=== PATIENT | male | born 1955 | race Caucasian/White ===

== ENCOUNTER → 2016-05-10 | Outpatient (CLI) | payer OTHER ==
[~2016-05-10] MED LIST: ACET-1256 PO; BUPR-266 PO; DESI150T PO; DESI25TA PO; FLM4 PO; HYDR-5688 PO; HYDR25TA4 PO; IBUP-1050 PO; METO1TAB71 PO; PANT40TA PO; SERT100T PO; TAMS0.4C38 PO
--- NOTE | 2016-05-10 15:22 | EXERCISE STRESS TEST ---
DATE OF PROCEDURE: 05/10/2016. INDICATIONS FOR STRESS TESTING: Exertional chest discomfort. This was a symptom-limited maximal stress test performed with the Javed protocol. The patient exercised through stage II (6 minutes). The test was terminated for shortness of breath and fatigue, however he also developed substernal and throat burning at the completion of the test The rhythm was sinus throughout, the maximum heart rate was 151 beats per minute which is 93% of his predicted maximal heart rate. During the stress test, there was no significant ST depression. However, during recovery he gradually developed ST depression of over 1 mm of downsloping in lead 2. This occurred at about 4 minutes of recovery, but was gradually dropping prior to that during recovery and then gradually recovered from that subsequently. There were no significant arrhythmias identified. The blood pressure response was normal during the test.
--- NOTE | 2016-05-10 19:25 | ECHOCARDIOGRAM REPORT ---
*NOTICE TO RECEIVING CONSTITUTION PARTY AGENCY This information is strictly Confidential and protected under [place] law. [place] law prohibits you from making any further disclosure of this information unless further disclosure is expressly permitted by the written consent of the person to whom it pertains or is authorized by law. A general authorization for the release of medical or other information is not sufficient for this purpose. Hospital accepts no responsibility if the information is made available to any other person, INCLUDING THE PATIENT. Interpretation Summary * Name: KARTHIKEYAN ANNA Study Date: 05/10/2016 01:16 PM BP: 124/83 mmHg * Patient Location: [facility] HR: 81 * : 1955 (M/d/yyyy) Gender: Male Height: 68 in * Age: 60 yrs Ethnicity: CA Weight: 245 lb * Ordering Physician: Tiny Larson * Referring Physician: Tiny Larson * Performed By: Ana Rosa Frances RCS * * Reason For Study: CHEST PAIN * BSA: 2.2 m2 * Normal biventricular systolic function. * Mild concentric left ventricular hypertrophy. * Left ventricular diastolic dysfunction. * Normal chamber dimensions. * Trace mitral and tricuspid regurgitation. * After this resting echo had been performed the patient underwent a routine treadmill exercise stress test. This was not a stress echocardiogram. However, one apical 4 chamber echo image was obtained following exercise. This revealed an increase in the LV ejection fraction compared to rest and no segmental wall motion abnormalities of the left ventricle. Procedure Details * A complete two-dimensional transthoracic echocardiogram was performed (2D, M-mode, Doppler and color flow Doppler). Left Ventricle * The left ventricle is normal in size. * There is mild concentric left ventricular hypertrophy. * Left ventricular systolic function is normal. * Ejection Fraction = 55-60%. * A full diastolic examination was done with clinical findings of Class I diastolic dysfunction. * The left ventricular wall motion is normal. Right Ventricle * The right ventricle is normal in size and function. Atria * The left atrial size is normal. * Right atrial size is normal. * No ASD detected; PFO is not assessed. Mitral Valve * There is mild mitral annular calcification. * There is no mitral valve stenosis. * There is trace mitral regurgitation. Tricuspid Valve * The tricuspid valve is normal. * There is no tricuspid stenosis. * There is trace tricuspid regurgitation. Aortic Valve * The aortic valve is trileaflet. * The aortic valve opens well. * Aortic stenosis is absent. * No aortic regurgitation is present. Pulmonic Valve * The pulmonic valve is not well visualized. * There is no pulmonic valvular stenosis. * There is no pulmonic valvular regurgitation. Great Vessels * The aortic root is normal size. Pericardium/Pleural * There is no pericardial effusion. Great Vessels * Normal inferior vena cava diameter and respiratory variation suggests normal central venous pressure. MMode 2D Measurements and Calculations IVSd 1.4 cm IVSs 1.8 cm LVIDd 3.7 cm LVIDs 2.5 cm LVPWd 1.4 cm LVPWs 1.4 cm IVS/LVPW 0.98 FS 32.1 % EDV(Teich) 56.6 ml ESV(Teich) 22.0 ml EF(Teich) 61.2 % EDV(cubed) 49.0 ml ESV(cubed) 15.3 ml EF(cubed) 68.7 % % IVS thick 33.0 % % LVPW thick 2.5 % LV mass(C)d 179.7 grams LV mass(C)dI 80.6 grams/m\S\2 LV mass(C)s 144.2 grams LV mass(C)sI 64.7 grams/m\S\2 SV(Teich) 34.6 ml SI(Teich) 15.5 ml/m\S\2 SV(cubed) 33.7 ml SI(cubed) 15.1 ml/m\S\2 Ao root diam 3.7 cm Ao root area 10.8 cm\S\2 ACS 1.9 cm LA dimension 2.9 cm LA/Ao 0.78 LVOT diam 2.0 cm LVOT area 3.1 cm\S\2 LVAd ap4 36.4 cm\S\2 LVLd ap4 8.3 cm EDV(MOD-sp4) 127.4 ml EDV(sp4-el) 135.9 ml LVAs ap4 22.7 cm\S\2 LVLs ap4 7.0 cm ESV(MOD-sp4) 61.3 ml ESV(sp4-el) 62.7 ml EF(MOD-sp4) 51.8 % EF(sp4-el) 53.8 % LVAd ap2 36.3 cm\S\2 LVLd ap2 8.8 cm EDV(MOD-sp2) 119.6 ml EDV(sp2-el) 126.9 ml LVAs ap2 22.8 cm\S\2 LVLs ap2 7.8 cm ESV(MOD-sp2) 56.6 ml ESV(sp2-el) 56.8 ml EF(MOD-sp2) 52.7 % EF(sp2-el) 55.2 % LVLd %diff 5.7 % EDV(MOD-bp) 127.4 ml LVLs %diff 10.1 % ESV(MOD-bp) 62.0 ml EF(MOD-bp) 51.3 % SV(MOD-sp4) 66.0 ml SI(MOD-sp4) 29.6 ml/m\S\2 SV(MOD-sp2) 63.0 ml SI(MOD-sp2) 28.3 ml/m\S\2 SV(MOD-bp) 65.4 ml SI(MOD-bp) 29.3 ml/m\S\2 SV(sp4-el) 73.1 ml SI(sp4-el) 32.8 ml/m\S\2 SV(sp2-el) 70.1 ml SI(sp2-el) 31.5 ml/m\S\2 Doppler Measurements and Calculations MV E max sofia 85.9 cm/sec MV A max sofia 114.0 cm/sec MV E/A 0.75 MV P1/2t max sofia 97.0 cm/sec MV P1/2t 135.4 msec MVA(P1/2t) 1.6 cm\S\2 MV dec slope 209.7 cm/sec\S\2 MV dec time 0.33 sec Ao V2 max 158.0 cm/sec Ao max PG 10.0 mmHg Ao max PG (full) 4.5 mmHg PILLO(V,A) 2.3 cm\S\2 PILLO(V,D) 2.3 cm\S\2 LV V1 max PG 5.5 mmHg LV V1 max 117.0 cm/sec PA V2 max 130.3 cm/sec PA max PG 6.8 mmHg
== END | disposition home or self-care (01) ==
LOC: C.CPL 12:27
PROVIDERS: ATTEND Family Medicine
DX: R07.89 Other chest pain (principal); R06.02 Shortness of breath

== ENCOUNTER → 2016-05-17 | Outpatient (CLI) | payer OTHER ==
[2016-05-17 16:40] LABS: HEMATOCRIT 38.6 % (42-52); MEAN CELL VOLUME 88.9 fL (80-100); MEAN CORPUSCULAR HEMOGLOBIN 29.3 pg (25-34); MEAN CORPUSCULAR HGB CONC 32.9 g/dl (32-36); MEAN PLATELET VOLUME 11.1 fL (7.4-10.4); PLATELET COUNT 279 K/uL (130-400); RED BLOOD COUNT 4.34 M/uL (4.7-6.1); WHITE BLOOD COUNT 13.28 K/uL (4.8-10.8)
[2016-05-17 16:54] LABS: PROTHROMBIN TIME (PATIENT) 10.8 SECONDS (9.0-12.0)
[2016-05-17 17:29] LABS: BLOOD UREA NITROGEN 22 mg/dl (7-18); CALCIUM 9.4 mg/dl (8.5-10.1); CARBON DIOXIDE 26 mmol/L (21-32); CHLORIDE 107 mmol/L (98-107); CREATININE 0.96 mg/dl (0.60-1.40); GLUCOSE 112 mg/dl (70-99); POTASSIUM 2.9 mmol/L (3.5-5.1); SODIUM 143 mmol/L (136-145)
== END | disposition home or self-care (01) ==
LOC: C.LAB1850 15:22
PROVIDERS: ATTEND Internal Medicine Interventional Cardiology
DX: Z01.818 Encounter for other preprocedural examination (principal)

== ENCOUNTER → 2016-05-22 | Day surgery (SDC) | payer OTHER ==
[~2016-05-22] VITALS: Ht 172.7 cm; Wt 114.0 kg
[~2016-05-22] MED LIST changes: +ADENOSINE IV SOLN 3 MG/ML 20 ML VIAL ONE; +FENTANYL CITRATE INJ 50 MCG/1 ML 2 ML VIAL ONE; +HEPARIN SOD (PORCINE) 1000 UNIT/ML 10 ML VIAL ONE; +MIDAZOLAM HCL 1 MG/ML 2ML VIAL ONE; +NITROGLYCERIN/D5W 100MCG/ML 20ML SYR ONE; +NiCARDipine HCL INJ 2.5 MG/ML 10 ML AMP ONE; +POTASSIUM CHLORIDE 20 MEQ TABCR PO ONE
[2016-05-22 09:24] VITALS: Ht 172.7 cm; Wt 114.0 kg
[2016-05-22 09:25] VITALS: BP 154/85; PULSE 79; TEMP 36.5; O2SAT 98
[2016-05-22 10:31] LABS: BUN/CREATININE RATIO 18.9 (10-20); CALCIUM 9.1 mg/dl (8.5-10.1); CREATININE 1.1 mg/dl (0.60-1.40)
[2016-05-22] MEDS: POTASSIUM CHLR 10 MEQ / WTR 10 MEQ in PREMIXED WATER 100 ML IV SCH ×2 (12:00→13:00)
--- NOTE | 2016-05-22 15:14 | Discharge Instructions ---
Discharge Instructions Procedure Procedure Date: May 22, 2016. Reason for Visit: *Dr Romero To Do Chest Pressure,Sob. Discharge Discharge Date: May 22, 2016. Discharge Diagnosis: Mild coronary artery disease - No significant blockages Last Recorded Wt (Kilograms): 114 Anesthesia Post Anesthesia Instructions: If you have had IV Sedation: * Do not drive today. * Resume driving when pharmacy ancillary permits. * Do not make important decisions or sign legal documents today. * Call surgeon for: 1. Temperature elevations greater than 101 degrees F. 2. Uncontrollable pain. 3. Excessive bleeding. 4. Persistent nausea and vomiting. 5. Medication intolerance (nausea, vomiting or rash). * For nausea and vomiting use only clear liquids such as: tea, soda, bouillon until nausea subsides, then gradually increase diet as tolerated. * If you have any concerns or questions, call your cardiologists office. If physician is unavailable and it is an emergency, call 911 or go to the nearest emergency room. Instructions Activity Recommendations: limitations as noted below Recommended Home Diet: resume previous diet Allergies: Coded Allergies: No Known Allergies (Verified , 03/15/16) Follow Up Additional Instructions: ACTIVITY RECOMMENDATIONS: It is common to feel weak and fatigue for a few days. * Do not drive or operate any motorized equipment for the next three days. * Limit stair usage (2 or 3 trips a day only) for the next three days. * Do not lift anything heavier than 10 pounds for the next three days. * Do not engage in vigorous exercise or any sports for the next five days. * You may shower the day after your procedure, but do not immerse the area for three days. Cleanse the site gently with soap and water. SPECIAL CARE INSTRUCTIONS: * You may replace the pressure dressing or band-aid the morning after the procedure. * After your procedure, it is normal to have a small bruise or small lump at the site. Examine your site daily for any change in the bruise or lump, redness, swelling, drainage or numbness. Notify your doctor if any change. BLEEDING: * If there is a small amount of bleeding at the site, lie down and apply firm pressure with a clean cloth for ten minutes. When the bleeding stops, lie quietly keeping the procedure limb straight for six hours. Notify your doctor as soon as possible. * If the bleeding does not stop after ten minutes or if there is a large amount of bleeding or spurting, call 911 immediately. Continue to lie down and hold firm pressure until help arrives. SKIN IRRITATION: * You may experience some redness and/or swelling in the area where radiation was administered. If any skin irritation occurs, please contact your family physician. FOLLOW UP VISIT: Keep any scheduled doctor appointments. Follow-up with: Follow-up with Dr. Grimes, Cardiology clinic in 2-3 weeks. Cali Melendez Recommendations: Call your doctor if: * Temperature above 101 degrees * Pain not relieved by pain medicine ordered * There is increased drainage or redness from any incision * You have any unanswered questions or concerns. Your Doctors Instructions noted above were prepared by provider Sandor Romero. Patient Signature Section: Patient Instructions Signature Page Archie Ruiz Patient (or Guardian) Signature/Date: I have read and understand the instructions given to me by my caregivers. Caregiver/RN/Doctor Signature/Date: The above-named patient and/or guardian has received patient instructions on this date. + Original Patient Signature Page (only) stays with chart. Please make copy for patient.
--- NOTE | 2016-05-22 15:16 | Procedure Note ---
Post-Mod Sedation Assessment General Date of Moderate Sedation May 22, 2016. Vital Signs: Vital Signs Past 12 Hours Date Time Temp Pulse Resp B/P Pulse Ox O2 Delivery O2 Flow Rate FiO2 05/22/16 14:55 77 18 144/84 95 Room Air 05/22/16 09:25 36.5 79 16 154/85 98 Room Air Review - Discharge Criteria Vital Signs Stable: Yes Alert/Oriented/Conversant: Yes Returned to Baseline Mental St: Yes Nausea Absent/Minimal: Yes Pain/Discomfort/Absent/Minimal: Yes Normal/Baseline Respirations: Yes Active Bleeding?: No Pt Received D/C Instructions: Yes Prescriptions Given: None Specific Proced. D/C Criteria Distal Pulses Present (Cardiac: Yes Groin site assessed-Card Cath: N/A Voided Prior To Discharge: Yes Discharged Patients Adult Escort/Transportation: Yes
--- NOTE | 2016-05-22 15:16 | Procedure Note ---
Pre-Mod Sedation Assessment General Date of Moderate Sedation: May 22, 2016. Vital Signs: Vital Signs Past 12 Hours Date Time Temp Pulse Resp B/P Pulse Ox O2 Delivery O2 Flow Rate FiO2 05/22/16 14:55 77 18 144/84 95 Room Air 05/22/16 09:25 36.5 79 16 154/85 98 Room Air Review Cardiovascular: regular rate, rhythm, no edema Abdomen: normal bowel sounds, non tender, soft Lungs: chest non-tender, lungs clear, normal breath sounds Airway Class: II Pre-Sedation Airway Assessment Oral Cavity: WNL Able to Visualize Vocal Cords: No Short Thick Neck: No Hx of Sleep Apnea: No Smoking Status: Never Smoker Mallampati Classification: Class III ASA Classification: Class II Procedure Planning Contraindications-for Mod Sed: None Yes Notes The planned sedation has been discussed with the patient and consent obtained. I have identified the patient, determined the appropriateness of sedation and have assessed the patient immediately prior to the procedure. All medicine(s) and interventions are by my order.
--- NOTE | 2016-05-22 15:31 | Cardiac Catheterization ---
Procedure Note Procedure Date May 22, 2016. Pre-Procedure Diagnosis Angina, Positive Stress Test AUC Score 7 Post-Procedure Diagnosis Mild CAD Procedure(s) Performed Coronary Angiography, Left Heart Cath, Fractional Flow [place] [facility] Support Assistant Dr. Romero Reed Dipper(s) Leroy Estimated Blood Loss 15 Medication(s) Fentanyl, Heparin, Nitroglycerin, Versed, Lidocaine 1% Summary of Findings Indication: Typical chest pain/Abnormal stress test Access: 6Fr Right Radial Artery Catheters: Felisa, JL3.5, JL3.5 guide Findings: LM - Luminal irregularities LAD - Large caliber vessel, mild (<30%) disease in the mid segment, distal luminal irregularities. Circumflex - Nondominant, luminal irregularities Ramus - 30-40% ostial stenosis, distal luminal irregularities RCA - Dominant, large vessel, mild proximal disease, distal luminal irregularities. 20-30% ostial stenosis of R-PDA and R-PLB1 Arterial Closure: TR Band Ostial Ramus lesion thought to be intermediate. Decision made to proceed with FFR. FFR 0.98. FFR complicated by complete heart block without ventricular escape. Quick return to sinus rhythm with normal conduction. Summary: 1. Mild-moderate nonobstructive coronary artery disease - 30-40% ostial ramus - FFR negative (0.98). 2. Normal intracardiac filling pressures. 3. Normal LV systolic function. LVEF 55-60%. Recommendations: Continue home beta-miguel ángel, statin and ASA Evaluate for non-cardiac causes of exertional symptoms. Follow-up with cardiology clinic 2-4 weeks for further management Hemodynamics Rest Ao: 112/77/94 Final Ao: 121/76/98 LV: 127/15 Radiation Exposure (mGy) 2309 Contrast (mls) 150 Fluids (cc crystalloids) 200 Drains none Anesthesia moderate Procedural Complication(s) None Disposition [employer] Analyst Holding/Recovery ACC Data Cardiac Status Clinical evaluation leading to the procedure CAD Presntation: Stable angina, Positive Stress Test Anginal Classification: CCS III Heart Failure: No, NYHA Class: CCS I Cardiogenic Shock w/in 24Hrs: No Cardiac Arrest w/in 24Hrs: No Imaging studies past 6 months: Yes Stress studies past 6 months: Yes Standard Exercise Stress Test: Yes - Indeterminant Stress Echocardiogram: No Stress Testing w/SPECT MPI: No Cardiac CTA: No Coronary Anatomy Left Main (% Stenosis): Normal LAD (% Stenosis): Normal Circumflex (% Stenosis): Normal RCA (% Stenosis): Proximal (20-30) Ramus (% Stenosis): Ostial (30-40%) Left Ventricular Angiography EF (%): 55-60 Mitral Regurgitation: 1+ Diagnostic Physician's Name: Javier Romero MD Status: Elective Closure Device Percutaneous Entry Location: Radial Closure Device: Radial Band Recommendations: Medical therapy and/or Counseling Intraprocedure Events Significant Dissection: No Perforation: No
[2016-05-22 17:00] VITALS: BP 132/80; PULSE 70; O2SAT 96
== END | disposition home or self-care (01) ==
LOC: C.CATH 09:12
PROVIDERS: ATTEND Internal Medicine Interventional Cardiology
DX: I25.119 Atherosclerotic heart disease of native coronary artery with unspecified angina pectoris (principal); I10 Essential (primary) hypertension; R07.9 Chest pain, unspecified; R06.02 Shortness of breath; E11.9 Type 2 diabetes mellitus without complications; E66.01 Morbid (severe) obesity due to excess calories; Z68.38 Body mass index [BMI] 38.0-38.9, adult; K22.70 Barrett's esophagus without dysplasia; Z87.891 Personal history of nicotine dependence; Z79.899 Other long term (current) drug therapy

== ENCOUNTER 2016-07-23 18:44 | Emergency (ER) | payer OTHER ==
[~2016-07-23] VITALS: Ht 172.7 cm; Wt 113.3 kg
[~2016-07-23 18:44] MED LIST changes: -ADENOSINE IV SOLN 3 MG/ML 20 ML VIAL ONE; -BUPR-266 PO; -DESI150T PO; -FENTANYL CITRATE INJ 50 MCG/1 ML 2 ML VIAL ONE; -FLM4 PO; -HEPARIN SOD (PORCINE) 1000 UNIT/ML 10 ML VIAL ONE; +METO-649 PO; -METO1TAB71 PO; -MIDAZOLAM HCL 1 MG/ML 2ML VIAL ONE; -NITROGLYCERIN/D5W 100MCG/ML 20ML SYR ONE; -NiCARDipine HCL INJ 2.5 MG/ML 10 ML AMP ONE; -POTASSIUM CHLORIDE 20 MEQ TABCR PO ONE
[2016-07-23 18:51] VITALS: TEMP 36.7; Ht 172.7 cm; Wt 113.3 kg
[2016-07-23] MEDS ORDERED: ONDANSETRON INJ 2 MG/ML 2 ML VIAL IV STA (18:56)
[2016-07-23] MEDS ORDERED: SODIUM CHLORIDE 0.9% 500ML 500 ML IV STA (18:56)
[2016-07-23] MEDS ORDERED: NITROGLYCERIN 0.4 MG SL PER TAB CHARGE SL STA (18:56)
[2016-07-23] MEDS ORDERED: GLUCAGON FOR INJ 1 MG VIAL IV STA (18:56)
[2016-07-23] MEDS ORDERED: LORAZEPAM 2 MG/ML 1 ML VIAL IV STA (18:56)
--- NOTE | 2016-07-23 19:00 | EMERGENCY ROOM VISIT NOTE ---
History Report prepared by Sabiha: Tuan Villatoro Under the Supervision of: Dr. Rodrigo Lemos M.D. First contact with patient: 18:54 Chief Complaint: FOOD BOLUS Stated Complaint: FOOD STUCK IN THROAT History of Present Illness The patient is a 60 year old male who presents to the Emergency Room with complaints of a possible food bolus in his esophagus that occurred 45 minutes ago. The patient was eating steak for dinner, when he believes that a piece of steak got caught in his esophagus. He has never had this happened to him before. He is experiencing chest discomfort, diaphoresis, and minimal emesis. He notes that he cannot swallow. He denies any nausea. He has been told in the past that he has a Wagner's esophagus. He has a past medical history of Hypertension. Source of History: patient Onset: 45 minutes ago Position: other (Esophagus) Symptom Intensity: moderate Quality: other (Food Bolus) Timing: constant Associated Symptoms: + chest pain (discomfort), + diaphoresis, + vomiting, No nausea Review of Systems See HPI for pertinent positives & negatives. A total of 10 systems reviewed and were otherwise negative. Past Medical & Surgical Medical Problems: (1) Benign hypertension (2) Kidney stone Surgical Problems: (1) History of cholecystectomy Family History FH: cancer FH: diabetes mellitus FH: gallbladder disease FH: hypertension FH: kidney disease FH: seizures Social History Smoking Status: Former Smoker Drug Use: none Housing Status: lives alone Occupation Status: unemployed Current/Historical Medications Scheduled Desipramine Hcl (Norpramin), 25 MG PO QPM Hydrochlorothiazide (Hctz), 25 MG PO HS Metoprolol Succinate (Toprolxl (Toprol-Xl), 200 MG PO HS Pantoprazole Sodium (Protonix), 1 TAB PO HS Sertraline Hcl (Zoloft), 100 MG PO HS Tamsulosin Hcl (Flomax), 0.4 MG PO HS Scheduled PRN Acetaminophen (Tylenol), 500-1,000 MG PO Q6H PRN for Pain Hydrocodone/Acetaminophen 5MG/325MG ([place] 5MG/325MG), 1 TABLET PO Q6H PRN for Pain Ibuprofen (Advil), 200-800 MG PO QID PRN for Pain Allergies Coded Allergies: No Known Allergies (Verified , 07/23/16) Physical Exam Vital Signs Date Time Temp Pulse Resp B/P Pulse Ox O2 Delivery O2 Flow Rate FiO2 4/30/17 19:39 85 18 149/89 97 07/23/16 18:51 36.7 106 20 144/97 97 Room Air Physical Exam GENERAL: Patient is in mild distress, spitting into a cup. HEENT: No acute trauma, normocephalic atraumatic, mucous membranes moist, no nasal congestion, no scleral icterus. NECK: No stridor, no adenopathy, no meningismus, trachea is midline. LUNGS: Clear to auscultation bilaterally, no wheeze, no rhonchi, breath sounds equal. HEART: 2/6 systolic murmur, mild tachycardia with a normal rhythm. ABDOMEN: Soft, nontender, bowel sounds positive, no hernias, no peritonitis. EXTREMITIES: No cyanosis or edema, full range of motion of all the joints without pain or difficulty, no signs for acute trauma. NEUROLOGIC: Oriented x 3, no acute motor or sensory deficits, no focal weakness. SKIN: No rash, no jaundice, mild diaphoresis. Medical Decision & Procedures ECG Indication: diaphoresis Rate (beats per minute): 97 Rhythm: normal sinus Findings: no acute ischemic change, no ectopy ED Course 1853: The patient was evaluated in room C1. A complete history and physical exam was performed. 0: At this time, I was informed that the patient believes that the food bolus has passed. I will have him drink water to confirm this. 1921: The patient is able to drink water. He has passed the food bolus on his own without medication. He feels back to baseline. 1929: Reevaluated the patient. Discussed results and discharge instructions: He verbalized understanding and agreement. The patient is ready for discharge. Medical Decision Differential diagnosis includes but is not limited to esophageal food bolus, esophageal narrowing, Wagner's esophagitis, cardiac ischemia, and esophageal spasm. The patient presents with the sensation of a piece of food caught in his esophagus. He cannot swallow his own saliva. He was quite sweaty and slightly nauseated. EKG shows a normal sinus rhythm, no acute ischemia. The patient was being readied for an IV and medications to help dilate the esophageal musculature. He suddenly felt improved. He felt as if the food bolus had passed. He could drink liquid on his own without difficulty. The IV was halted and no medications were given. The patient is being discharged to follow with GI. He sees Dr. Merlos. He can return here if worsening. Impression Primary Impression: Esophageal obstruction due to food impaction Scribe Attestation The scribe's documentation has been prepared under my direction and personally reviewed by me in its entirety. I confirm that the note above accurately reflects all work, treatment, procedures, and medical decision making performed by me. Departure Information Dispostion Home / Self-Care Referrals Tiny Larson M.D. Forms HOME CARE DOCUMENTATION FORM, IMPORTANT VISIT INFORMATION, WORK / SCHOOL INSTRUCTIONS Patient Instructions [facility] Additional Instructions smaller bites more liquid with meals chew better talk with your GI doctor tomorrow
[2016-07-23 19:39] VITALS: BP 149/89; PULSE 85; O2SAT 97
[2016-10-24] MEDS ORDERED: DESI150T PO (15:40)
== END 2016-07-23 19:42 | disposition home or self-care (01) ==
LOC: C.EDB 18:45 → C.EDC 19:42
DX: T18.128A Food in esophagus causing other injury, initial encounter (principal); X58.XXXA Exposure to other specified factors, initial encounter; I10 Essential (primary) hypertension; Z87.442 Personal history of urinary calculi; Z90.49 Acquired absence of other specified parts of digestive tract; Z87.891 Personal history of nicotine dependence; Z79.899 Other long term (current) drug therapy; Z80.9 Family history of malignant neoplasm, unspecified; Z83.3 Family history of diabetes mellitus; Z83.79 Family history of other diseases of the digestive system; Z82.49 Family history of ischemic heart disease and other diseases of the circulatory system; Z84.1 Family history of disorders of kidney and ureter; Z82.0 Family history of epilepsy and other diseases of the nervous system

== ENCOUNTER → 2016-07-31 | Day surgery (SDC) | payer OTHER ==
[2016-07-20 10:56] VITALS: Ht 172.7 cm; Wt 111.4 kg
[~2016-07-31] VITALS: Ht 172.7 cm; Wt 111.4 kg
[~2016-07-31] MED LIST changes: +DESI150T PO; +LIDOCAINE HCL 2% 2 ML VIAL (20MG/ML) ONE; +MIDAZOLAM HCL 1 MG/ML 2ML VIAL ONE; +ONDANSETRON INJ 2 MG/ML 2 ML VIAL ONE; +PROPOFOL IV EMULSION 10 MG/ML 20 ML VIAL IV ONE; +SODIUM CHLORIDE 0.9% 500ML 500 ML IV ONE
--- NOTE | 2016-07-31 11:16 | Endo History and Physical ---
History & Physical Date of Service: July 31, 2016. Chief Complaint: Barretts Esophagus Referring Physician: Dr Tiny Larson History of Present Illness 60 yo CM who presents for EGD secondary to Wagner's Esophagus. Past Surgical History Hx Cardiac Surgery: Yes (HEART CATH-NO STENTS) Hx Internal Defibrillator: No Hx Pacemaker: No Hx Abdominal Surgery: Yes (DIONISIO) Hx of Implantable Prosthesis: No Hx Post-Op Nausea and Vomiting: No Hx Cancer Surgery: No Hx Thoracic Surgery: No Hx Orthopedic: Yes (LEFT ARM FX REPAIR) Hx Urinary Tract Surgery: No Social History Smoking Status: Former Smoker Hx Substance Use: No Hx Alcohol Use: Yes (VERY RARELY) Allergies Coded Allergies: No Known Allergies (Verified , 07/23/16) Current Medications Reported Home Medications Medications Dose Route/Sig Max Daily Dose Days Date Category Dose Instructions Flomax (Tamsulosin Hcl) 0.4 Mg Cap 0.4 Mg PO HS 05/22/16 Reported [place] 5MG/325MG (Acetaminophen/Hydrocodone Bitart) Tab 1 Tablet PO Q6H PRN 05/22/16 Reported PRN PAIN Norpramin (Desipramine Hcl) 25 Mg Tab 25 Mg PO QPM 05/22/16 Reported Protonix (Pantoprazole Sodium) 40 Mg Tab 1 Tab PO HS 30 03/14/16 Reported Hctz (Hydrochlorothiazide) 25 Mg Tab 25 Mg PO HS 02/13/16 Reported Tylenol (Acetaminophen) 500 Mg Tab 500-1,000 Mg PO Q6H PRN 01/18/16 Reported Zoloft (Sertraline Hcl) 100 Mg Tab 100 Mg PO HS 01/18/16 Reported Advil (Ibuprofen) 200 Mg Tab 200-800 Mg PO QID PRN 12/21/15 Reported Toprol-Xl (Metoprolol Succinate) 200 Mg Tabcr 200 Mg PO HS 07/25/12 Reported Vital Signs Weight (Kilograms): 111.36 Height (Feet): 5 Height (Inches): 8 Date Time Temp Pulse Resp B/P Pulse Ox O2 Delivery O2 Flow Rate FiO2 07/31/16 10:37 36.7 82 20 145/81 97 Room Air Physical Exam General Appearance: WD/WN, no apparent distress Respiratory/Chest: Auscultation: breath sounds normal Cardiovascular: Heart Auscultation: RRR Abdomen: Bowel Sounds: normal Inspection & Palpation: soft, non-distended, no tenderness, guarding & rebound Assessment and Plan Assessment: 60 yo CM who presents for EGD secondary to Wagner's Esophagus. Plan: Proceed with EGD.
--- NOTE | 2016-07-31 11:31 | GI REPORT ---
Procedure Date: 07/31/2016 11:17 AM Procedure: Upper GI endoscopy Indications: Follow-up of Wagner's esophagus Medicines: Monitored Anesthesia Care Complications: No immediate complications. Estimated Blood Loss: Estimated blood loss: none. Procedure: Pre-Anesthesia Assessment: - Prior to the procedure, a History and Physical was performed, and patient medications and allergies were reviewed. The patient's tolerance of previous anesthesia was also reviewed. The risks and benefits of the procedure and the sedation options and risks were discussed with the patient. All questions were answered, and informed consent was obtained. Prior Anticoagulants: The patient has taken no previous anticoagulant or antiplatelet agents. ASA Grade Assessment: III - A patient with severe systemic disease. After reviewing the risks and benefits, the patient was deemed in satisfactory condition to undergo the procedure. After obtaining informed consent, the endoscope was passed under direct vision. Throughout the procedure, the patient's blood pressure, pulse, and oxygen saturations were monitored continuously. The scope was introduced through the mouth, and advanced to the second part of duodenum. The upper GI endoscopy was accomplished without difficulty. The patient tolerated the procedure well. Findings: There were esophageal mucosal changes consistent with long-segment Wagner's esophagus present in the middle third of the esophagus and in the lower third of the esophagus. The maximum longitudinal extent of these mucosal changes was 8 cm in length. Mucosa was biopsied with a cold forceps for histology. One specimen bottle was sent to pathology. A small hiatus hernia was present. Few non-bleeding cratered gastric ulcers with no stigmata of bleeding were found in the gastric antrum. The largest lesion was 10 mm in largest dimension. Biopsies were taken with a cold forceps for histology. One non-bleeding cratered duodenal ulcer with no stigmata of bleeding was found in the second part of the duodenum. The lesion was 5 mm in largest dimension. Impression: - Esophageal mucosal changes consistent with long-segment Wagner's esophagus. Biopsied. - Small hiatus hernia. - Non-bleeding gastric ulcers with no stigmata of bleeding. Biopsied. - One non-bleeding duodenal ulcer with no stigmata of bleeding. Recommendation: - Resume previous diet. - Continue present medications. - Await pathology results. - Use Protonix (pantoprazole) 40 mg PO BID. - Return to GI office as previously scheduled. Maulik Merlos, DO 07/31/2016 11:30:48 AM This report has been signed electronically. Note Initiated On: 07/31/2016 11:17 AM I attest to the content of the Intraoperative Record and orders documented therein, exceptions below
--- NOTE | 2016-07-31 11:32 | Discharge Instructions ---
Endoscopy Patient Instructions Date / Procedure(s) Performed July 31, 2016. EGD Allergy Information Coded Allergies: No Known Allergies (Verified , 07/23/16) Discharge Date / Findings July 31, 2016. Wagner's Esophagus s/p biopsies Hiatal hernia Gastric ulcers s/p biopsies Duodenal ulcer Medication Instructions 1) Increase Protonix to 40mg by mouth twice daily 1/2 hour prior to breakfast and dinner. 2) OK to resume all medications today Reported Home Medications Medications Dose Route/Sig Max Daily Dose Days Date Category Dose Instructions Flomax (Tamsulosin Hcl) 0.4 Mg Cap 0.4 Mg PO HS 05/22/16 Reported [place] 5MG/325MG (Acetaminophen/Hydrocodone Bitart) Tab 1 Tablet PO Q6H PRN 05/22/16 Reported PRN PAIN Norpramin (Desipramine Hcl) 25 Mg Tab 25 Mg PO QPM 05/22/16 Reported Protonix (Pantoprazole Sodium) 40 Mg Tab 1 Tab PO HS 30 03/14/16 Reported Hctz (Hydrochlorothiazide) 25 Mg Tab 25 Mg PO HS 02/13/16 Reported Tylenol (Acetaminophen) 500 Mg Tab 500-1,000 Mg PO Q6H PRN 01/18/16 Reported Zoloft (Sertraline Hcl) 100 Mg Tab 100 Mg PO HS 01/18/16 Reported Advil (Ibuprofen) 200 Mg Tab 200-800 Mg PO QID PRN 12/21/15 Reported Toprol-Xl (Metoprolol Succinate) 200 Mg Tabcr 200 Mg PO HS 07/25/12 Reported Provider Instructions Activity Restrictions - No exercising or heavy lifting for 24 hours. - Do not drink alcohol the day of the procedure. - Do not drive a car or operate machinery until the day after the procedure. - Do not make any important decisions or sign important papers in 24 hours after the procedure. Following Day: - Return to full activity which may include returning to work/school. Diet Start your diet with liquids and light foods (jello, soup, juice, toast). Then eat your usual diet if not nauseated. Treatment For Common After Affects For mild abdominal pain, bloating, or excessive gas: - Rest - Eat lightly - Lie on right side Follow-Up Information Follow-up with Dr Tiny Larson as scheduled Anesthesia Information What You Should Know You have had a procedure that required some medicine to reduce anxiety and discomfort. This treatment is called moderate sedation. After receiving the treatment, you may be sleepy, but you will be able to breathe on your own. The effects of the treatment may last for several hours. Follow these instructions along with Activity/Diet recommendations noted above: * Do NOT do anything where dizziness or clumsiness would be dangerous. * Rest quietly at home today, then you can be up and about tomorrow. * Have a responsible person stay with you the rest of today. * You may have had an I.V. today. If so, you may take the dressing off later today. Recommendations Call your doctor if: * Trouble breathing * Continuous vomiting for more than 24 hours * Temperature above 101 degrees * Severe abdominal pain or bloating * Pain not relieved by pain medicine ordered * There is increased drainage or redness from any incision * A large amount of rectal bleeding greater than 2-3 tablespoons. (If you had a polyp/s removed or have hemorrhoids, a small amount of blood - from the rectum is to be expected.) * You have any unanswered questions or concerns. IN THE EVENT OF A SERIOUS EMERGENCY, GO TO THE NEAREST EMERGENCY ROOM Your discharge instructions were prepared by provider Maulik Merlos. Patient Instructions Signature Page Archie Ruiz Patient (or Guardian) Signature/Date: I have read and understand the instructions given to me by my caregivers. Caregiver/RN/Doctor Signature/Date: The above-named patient and/or guardian has received patient instructions on this date. + Original Patient Signature Page (only) stays with chart. Please make copy for patient.
[2016-07-31 12:05] VITALS: BP 136/86; PULSE 71; O2SAT 98
--- NOTE | 2016-07-31 13:15 | Anesthesiology Progress Note ---
Anesthesia Post Op Note Date & Time July 31, 2016 at 13:14 Vital Signs Pain Intensity: 0 Vital Signs Past 12 Hours Date Time Temp Pulse Resp B/P Pulse Ox O2 Delivery O2 Flow Rate FiO2 07/31/16 12:05 71 20 136/86 98 Room Air 07/31/16 11:48 69 20 123/48 95 Room Air 07/31/16 11:33 73 24 101/48 95 Room Air 07/31/16 10:37 36.7 82 20 145/81 97 Room Air Notes Mental Status: alert / awake / arousable, participated in evaluation Pt Amnestic to Procedure: No Nausea / Vomiting: adequately controlled Pain: adequately controlled Airway Patency, RR, SpO2: stable & adequate BP & HR: stable & adequate Hydration State: stable & adequate Anesthetic Complications: no major complications apparent Patient reports some non distressing recall as discussed as a possibility with him preoperatively.
== END | disposition home or self-care (01) ==
LOC: C.GI 10:06
PROVIDERS: ATTEND Internal Medicine
DX: K22.70 Barrett's esophagus without dysplasia (principal); K44.9 Diaphragmatic hernia without obstruction or gangrene; K25.9 Gastric ulcer, unspecified as acute or chronic, without hemorrhage or perforation; Z87.891 Personal history of nicotine dependence; Z90.49 Acquired absence of other specified parts of digestive tract

== ENCOUNTER → 2016-08-01 | Outpatient (CLI) | payer OTHER ==
[~2016-08-01] MED LIST changes: -LIDOCAINE HCL 2% 2 ML VIAL (20MG/ML) ONE; -MIDAZOLAM HCL 1 MG/ML 2ML VIAL ONE; -ONDANSETRON INJ 2 MG/ML 2 ML VIAL ONE; -PROPOFOL IV EMULSION 10 MG/ML 20 ML VIAL IV ONE; -SODIUM CHLORIDE 0.9% 500ML 500 ML IV ONE
--- NOTE | 2016-08-01 15:20 | DIAGNOSTIC IMAGING REPORT ---
L-SPINE MIN 4 VIEWS ROUTINE CLINICAL HISTORY: Chronic lower back pain. COMPARISON: Lumbar spine MRI November 04, 2014. FINDINGS: There are cholecystectomy clips. Extensive bilateral renal calculi are noted, including a 2.1 cm calculus within the lower pole of the left kidney. Alignment of the lumbar spine is anatomic. Vertebral body heights are maintained. There is no fracture or suspicious lesion. Minimal endplate osteophytosis is present. IMPRESSION: 1. Mild multilevel degenerative changes of the lumbar spine. 2. No lumbar spine fracture. 3. Bilateral nephrolithiasis. Electronically signed by: Abhijit Jacobson M.D. 08/01/2016 3:19 PM Dictated Date/Time: 08/01/2016 3:16 PM
== END | disposition home or self-care (01) ==
LOC: C.RAD 14:54
PROVIDERS: ATTEND Family Medicine
DX: M54.5 Low back pain (principal)

== ENCOUNTER → 2016-11-01 | Day surgery (SDC) | payer OTHER ==
[2016-10-24 15:41] VITALS: BMI 37.0
[~2016-11-01] VITALS: Ht 172.7 cm; Wt 111.4 kg
[~2016-11-01] MED LIST changes: -DESI25TA PO; +LIDOCAINE HCL 2% 2 ML VIAL (20MG/ML) ONE; -METO-649 PO; +METO1TAB71 PO; +PROPOFOL IV EMULSION 10 MG/ML 20 ML VIAL IV ONE
[2016-11-01 08:23] VITALS: Ht 172.7 cm; Wt 111.4 kg
--- NOTE | 2016-11-01 08:38 | Endo History and Physical ---
History & Physical Date of Service: Nov 01, 2016. Chief Complaint: Gastric ulcer Referring Physician: Dr. Larson History of Present Illness 61 yo CM who presents for EGD secondary to Gastric ulcer. Past Surgical History Hx Cardiac Surgery: Yes (HEART CATH-NO STENTS) Hx Internal Defibrillator: No Hx Pacemaker: No Hx Abdominal Surgery: Yes (DIONISIO) Hx of Implantable Prosthesis: No Hx Post-Op Nausea and Vomiting: No Hx Cancer Surgery: No Hx Thoracic Surgery: No Hx Orthopedic: Yes (LEFT ARM FX REPAIR) Hx Urinary Tract Surgery: No Family History None Social History Smoking Status: Former Smoker Hx Substance Use: No Hx Alcohol Use: Yes (VERY RARELY) Allergies Coded Allergies: No Known Allergies (Verified , 11/01/16) Current Medications Reported Home Medications Medications Dose Route/Sig Max Daily Dose Days Date Category Dose Instructions Desipramine Hcl 150 Mg Tab 1 Tab PO BID 10/24/16 Reported Flomax (Tamsulosin Hcl) 0.4 Mg Cap 0.4 Mg PO HS 05/22/16 Reported [place] 5MG/325MG (Acetaminophen/Hydrocodone Bitart) Tab 1 Tablet PO Q6H PRN 05/22/16 Reported PRN PAIN Protonix (Pantoprazole Sodium) 40 Mg Tab 1 Tab PO HS 03/14/16 Reported Hctz (Hydrochlorothiazide) 25 Mg Tab 25 Mg PO HS 02/13/16 Reported Tylenol (Acetaminophen) 500 Mg Tab 500-1,000 Mg PO Q6H PRN 01/18/16 Reported Zoloft (Sertraline Hcl) 100 Mg Tab 100 Mg PO HS 01/18/16 Reported Advil (Ibuprofen) 200 Mg Tab 200-800 Mg PO QID PRN 12/21/15 Reported Toprol-Xl (Metoprolol Succinate) 200 Mg Tabcr 200 Mg PO HS 07/25/12 Reported Vital Signs Weight (Kilograms): 111.36 Height (Feet): 5 Height (Inches): 8 Date Time Temp Pulse Resp B/P (MAP) Pulse Ox O2 Delivery O2 Flow Rate FiO2 11/01/16 08:30 36.8 73 20 125/81 (96) 95 Room Air Physical Exam General Appearance: WD/WN, no apparent distress Respiratory/Chest: Auscultation: breath sounds normal Cardiovascular: Heart Auscultation: RRR Abdomen: Bowel Sounds: normal Inspection & Palpation: soft, non-distended, no tenderness, guarding & rebound Assessment and Plan Assessment: 61 yo CM who presents for EGD secondary to Gastric ulcer. Plan: Proceed with EGD.
--- NOTE | 2016-11-01 09:12 | GI REPORT ---
Procedure Date: 11/01/2016 8:52 AM Procedure: Upper GI endoscopy Indications: Follow-up of acute peptic ulcer Medicines: Monitored Anesthesia Care Complications: No immediate complications. Estimated Blood Loss: Estimated blood loss: none. Procedure: Pre-Anesthesia Assessment: - Prior to the procedure, a History and Physical was performed, and patient medications and allergies were reviewed. The patient's tolerance of previous anesthesia was also reviewed. The risks and benefits of the procedure and the sedation options and risks were discussed with the patient. All questions were answered, and informed consent was obtained. Prior Anticoagulants: The patient has taken no previous anticoagulant or antiplatelet agents. ASA Grade Assessment: III - A patient with severe systemic disease. After reviewing the risks and benefits, the patient was deemed in satisfactory condition to undergo the procedure. After obtaining informed consent, the endoscope was passed under direct vision. Throughout the procedure, the patient's blood pressure, pulse, and oxygen saturations were monitored continuously. The scope was introduced through the mouth, and advanced to the second part of duodenum. The upper GI endoscopy was accomplished without difficulty. The patient tolerated the procedure well. Findings: There were esophageal mucosal changes consistent with long-segment Wagner's esophagus present in the lower third of the esophagus. The maximum longitudinal extent of these mucosal changes was 8 cm in length. Mucosa was biopsied with a cold forceps for histology. One specimen bottle was sent to pathology. A small hiatus hernia was present. Localized moderate inflammation characterized by erosions and erythema was found on the greater curvature of the stomach. Biopsies were taken with a cold forceps for histology. The examined duodenum was normal. Impression: - Esophageal mucosal changes consistent with long-segment Wagner's esophagus. Biopsied. - Small hiatus hernia. - Gastritis. Biopsied. - Normal examined duodenum. Recommendation: - Resume previous diet. - Continue present medications. - Await pathology results. - Return to primary care physician as previously scheduled. Maulik Merlos, 11/01/2016 9:12:14 AM This report has been signed electronically. Note Initiated On: 11/01/2016 8:52 AM I attest to the content of the Intraoperative Record and orders documented therein, exceptions below
--- NOTE | 2016-11-01 09:13 | Discharge Instructions ---
Endoscopy Patient Instructions Date / Procedure(s) Performed Nov 01, 2016. EGD Allergy Information Coded Allergies: No Known Allergies (Verified , 11/01/16) Discharge Date / Findings Nov 01, 2016. Gastritis s/p biopsies Hiatal hernia Wagner's Esophagus s/p biopsies Medication Instructions OK to resume all medications today as prescribed Reported Home Medications Medications Dose Route/Sig Max Daily Dose Days Date Category Dose Instructions Desipramine Hcl 150 Mg Tab 1 Tab PO BID 10/24/16 Reported Flomax (Tamsulosin Hcl) 0.4 Mg Cap 0.4 Mg PO HS 05/22/16 Reported [place] 5MG/325MG (Acetaminophen/Hydrocodone Bitart) Tab 1 Tablet PO Q6H PRN 05/22/16 Reported PRN PAIN Protonix (Pantoprazole Sodium) 40 Mg Tab 1 Tab PO HS 03/14/16 Reported Hctz (Hydrochlorothiazide) 25 Mg Tab 25 Mg PO HS 02/13/16 Reported Tylenol (Acetaminophen) 500 Mg Tab 500-1,000 Mg PO Q6H PRN 01/18/16 Reported Zoloft (Sertraline Hcl) 100 Mg Tab 100 Mg PO HS 01/18/16 Reported Advil (Ibuprofen) 200 Mg Tab 200-800 Mg PO QID PRN 12/21/15 Reported Toprol-Xl (Metoprolol Succinate) 200 Mg Tabcr 200 Mg PO HS 07/25/12 Reported Provider Instructions Activity Restrictions - No exercising or heavy lifting for 24 hours. - Do not drink alcohol the day of the procedure. - Do not drive a car or operate machinery until the day after the procedure. - Do not make any important decisions or sign important papers in 24 hours after the procedure. Following Day: - Return to full activity which may include returning to work/school. Diet Start your diet with liquids and light foods (jello, soup, juice, toast). Then eat your usual diet if not nauseated. Treatment For Common After Affects For mild abdominal pain, bloating, or excessive gas: - Rest - Eat lightly - Lie on right side Follow-Up Information Follow-up with DR. NICOLAS PECK as scheduled Anesthesia Information What You Should Know You have had a procedure that required some medicine to reduce anxiety and discomfort. This treatment is called moderate sedation. After receiving the treatment, you may be sleepy, but you will be able to breathe on your own. The effects of the treatment may last for several hours. Follow these instructions along with Activity/Diet recommendations noted above: * Do NOT do anything where dizziness or clumsiness would be dangerous. * Rest quietly at home today, then you can be up and about tomorrow. * Have a responsible person stay with you the rest of today. * You may have had an I.V. today. If so, you may take the dressing off later today. Recommendations Call your doctor if: * Trouble breathing * Continuous vomiting for more than 24 hours * Temperature above 101 degrees * Severe abdominal pain or bloating * Pain not relieved by pain medicine ordered * There is increased drainage or redness from any incision * A large amount of rectal bleeding greater than 2-3 tablespoons. (If you had a polyp/s removed or have hemorrhoids, a small amount of blood - from the rectum is to be expected.) * You have any unanswered questions or concerns. IN THE EVENT OF A SERIOUS EMERGENCY, GO TO THE NEAREST EMERGENCY ROOM Your discharge instructions were prepared by provider Maulik Merlos. Patient Instructions Signature Page Archie Ruiz Patient (or Guardian) Signature/Date: I have read and understand the instructions given to me by my caregivers. Caregiver/RN/Doctor Signature/Date: The above-named patient and/or guardian has received patient instructions on this date. + Original Patient Signature Page (only) stays with chart. Please make copy for patient.
[2016-11-01 09:27] VITALS: BP 109/67; PULSE 70; O2SAT 95
--- NOTE | 2016-11-01 09:44 | Anesthesiology Progress Note ---
Anesthesia Post Op Note Date & Time Nov 01, 2016 at 09:43 Vital Signs Pain Intensity: 0 Vital Signs Past 12 Hours Date Time Temp Pulse Resp B/P (MAP) Pulse Ox O2 Delivery O2 Flow Rate FiO2 11/01/16 09:27 70 16 109/67 (81) 95 Room Air 11/01/16 09:12 36.8 71 16 114/67 (83) 96 Room Air 11/01/16 08:30 36.8 73 20 125/81 (96) 95 Room Air Notes Mental Status: alert / awake / arousable, participated in evaluation Pt Amnestic to Procedure: Yes Nausea / Vomiting: adequately controlled Pain: adequately controlled Airway Patency, RR, SpO2: stable & adequate BP & HR: stable & adequate Hydration State: stable & adequate Anesthetic Complications: no major complications apparent
== END | disposition home or self-care (01) ==
LOC: C.GI 08:08
PROVIDERS: ATTEND Internal Medicine
DX: K22.70 Barrett's esophagus without dysplasia (principal); K44.9 Diaphragmatic hernia without obstruction or gangrene; K29.50 Unspecified chronic gastritis without bleeding; Z87.11 Personal history of peptic ulcer disease; Z87.891 Personal history of nicotine dependence; Z79.899 Other long term (current) drug therapy

== ENCOUNTER 2017-03-12 15:09 | Inpatient (IN) | payer OTHER ==
[~2017-03-12] VITALS: Ht 172.7 cm; Wt 107.0 kg
[~2017-03-12 15:09] MED LIST changes: -LIDOCAINE HCL 2% 2 ML VIAL (20MG/ML) ONE; +METO-649 PO; -METO1TAB71 PO; -PROPOFOL IV EMULSION 10 MG/ML 20 ML VIAL IV ONE
[2017-03-12] MEDS ORDERED: SODIUM CHLORIDE 0.9% 1000ML 1,000 ML IV STA (15:21)
[2017-03-12] MEDS ORDERED: METHYLPREDNISOLONE 125 MG VIAL IV STA (15:21)
[2017-03-12] MEDS ORDERED: ALBUT/IPRATROP 3MG/0.5MG NEB 3 ML VIAL INH ONE (15:30)
--- NOTE | 2017-03-12 15:30 | EMERGENCY ROOM VISIT NOTE ---
History Report prepared by Sabiha: Margarita Francois Under the Supervision of: Dr. Clarence Sharp M.D. First contact with patient: 15:16 Chief Complaint: HYPOTENSION Stated Complaint: LOW BP, CONGESTION History of Present Illness The patient is a 61 year old male who presents to the Emergency Room with complaints of constant shortness of breath beginning 4 days ago. The patient states that for the last 4 days he has had a cough and congestion. He reports that he was seen by his PCP today and was sent to the ED for hypotension. The patient complains of dizziness and diaphoresis. He denies any changes in eating or drinking and urinary symptoms. The patient states that he takes hydrochlorothiazide for his hypertension. Source of History: patient Onset: 4 days ago Position: other (respiratory) Quality: other (SOB) Timing: constant Associated Symptoms: + diaphoresis, + cough, No urinary symptoms Note: Pt complains of congestion and dizziness. Denies changes in appetite.. Review of Systems See HPI for pertinent positives and negatives. A total of ten systems were reviewed and were otherwise negative. Past Medical & Surgical Medical Problems: (1) Benign hypertension (2) Kidney stone Surgical Problems: (1) History of cholecystectomy Family History FH: cancer FH: diabetes mellitus FH: gallbladder disease FH: hypertension FH: kidney disease FH: seizures Social History Smoking Status: Never Smoker Drug Use: none Housing Status: lives alone Occupation Status: unemployed Current/Historical Medications Scheduled Desipramine HCl (Desipramine HCl), 200 MG PO BID Hydrochlorothiazide (Hctz), 25 MG PO HS Metoprolol Succinate (Toprolxl (Toprol-Xl), 200 MG PO HS Pantoprazole Sodium (Protonix), 1 TAB PO HS Sertraline Hcl (Zoloft), 200 MG PO HS Tamsulosin Hcl (Flomax), 0.4 MG PO HS Scheduled PRN Acetaminophen (Tylenol), 500-1,000 MG PO Q6H PRN for Pain Hydrocodone/Acetaminophen 5MG/325MG ([place] 5MG/325MG), 1 TABLET PO Q6H PRN for Pain Ibuprofen (Advil), 200-800 MG PO QID PRN for Pain Allergies Coded Allergies: No Known Allergies (Verified , 03/12/17) Physical Exam Vital Signs Date Time Temp Pulse Resp B/P (MAP) Pulse Ox O2 Delivery O2 Flow Rate FiO2 12/18/17 18:05 87 18 126/71 96 Room Air 03/12/17 16:38 88 20 103/68 95 Room Air 03/12/17 15:30 94 Room Air 03/12/17 15:27 89 03/12/17 15:11 36.9 92 16 83/54 96 Room Air Physical Exam GENERAL: Awake, alert, uncomfortable appearing, in no distress HENT: Normocephalic, atraumatic. Dry cracked mucous membranes. EYES: Normal conjunctiva. Sclera non-icteric. NECK: Supple. No nuchal rigidity. FROM. No JVD. RESPIRATORY: Diminished breath sounds at the bases, scattered rhonchi and wheezes. CARDIAC: Regular rate, normal rhythm. Extremities warm and well perfused. Pulses equal. ABDOMEN: Soft, obese, non-distended. No tenderness to palpation. No rebound or guarding. No masses. RECTAL: Deferred. MUSCULOSKELETAL: Chest examination reveals no tenderness. The back is symmetrical on inspection without obvious abnormality. There is no CVA tenderness to palpation. No joint edema. LOWER EXTREMITIES: Calves are equal size bilaterally and non-tender. No edema. No discoloration. NEURO: Normal sensorium. No sensory or motor deficits noted. SKIN: No rash or jaundice noted. Medical Decision & Procedures ER Provider Diagnostic Interpretation: Radiology results as stated below per my review and radiologist interpretation: CHEST ONE VIEW PORTABLE FINDINGS: The heart is normal in size. There is no failure. There is an opacity at the level the left cardiophrenic angle. This could represent a fat pad or area of focal pulmonary consolidation. A follow-up PA and lateral study is recommended. IMPRESSION: Small opacity at the level of cardiophrenic angle. This could represent either a fat pad or focal area of pulmonary consolidation. A follow-up PA and lateral study would be of benefit. Electronically signed by: Randal Pollock M.D. 03/12/2017 3:44 PM Dictated Date/Time: 03/12/2017 3:43 PM Laboratory Results 03/12/17 15:55 Red Blood Count 4.12, Mean Corpuscular Volume 93.0, Mean Corpuscular Hemoglobin 31.8, Mean Corpuscular Hemoglobin Concent 34.2, Mean Platelet Volume 10.5, Neutrophils (%) (Auto) 79.2, Lymphocytes (%) (Auto) 14.7, Monocytes (%) (Auto) 5.6, Eosinophils (%) (Auto) 0.0, Basophils (%) (Auto) 0.2, Neutrophils # (Auto) 8.57, Lymphocytes # (Auto) 1.59, Monocytes # (Auto) 0.60, Eosinophils # (Auto) 0.00, Basophils # (Auto) 0.02 03/12/17 15:55 Test 03/12/17 15:35 03/12/17 15:55 03/12/17 16:30 03/12/17 17:32 Influenza Type A Antigen Neg for Influ A (NEG) Influenza Type B Antigen POS for Influ B (NEG) White Blood Count 10.81 K/uL (4.8-10.8) Red Blood Count 4.12 M/uL (4.7-6.1) Hemoglobin 13.1 g/dL (14.0-18.0) Hematocrit 38.3 % (42-52) Mean Corpuscular Volume 93.0 fL (80-100) Mean Corpuscular Hemoglobin 31.8 pg (25-34) Mean Corpuscular Hemoglobin Concent 34.2 g/dl (32-36) Platelet Count 174 K/uL (130-400) Mean Platelet Volume 10.5 fL (7.4-10.4) Neutrophils (%) (Auto) 79.2 % Lymphocytes (%) (Auto) 14.7 % Monocytes (%) (Auto) 5.6 % Eosinophils (%) (Auto) 0.0 % Basophils (%) (Auto) 0.2 % Neutrophils # (Auto) 8.57 K/uL (1.4-6.5) Lymphocytes # (Auto) 1.59 K/uL (1.2-3.4) Monocytes # (Auto) 0.60 K/uL (0.11-0.59) Eosinophils # (Auto) 0.00 K/uL (0-0.5) Basophils # (Auto) 0.02 K/uL (0-0.2) RDW Standard Deviation 51.4 fL (36.4-46.3) RDW Coefficient of Variation 15.1 % (11.5-14.5) Immature Granulocyte % (Auto) 0.3 % Immature Granulocyte # (Auto) 0.03 K/uL (0.00-0.02) Anion Gap 13.0 mmol/L (3-11) Est Creatinine Clear Calc Drug Dose 33.4 ml/min Estimated GFR () 27.1 Estimated GFR (Non- 23.4 BUN/Creatinine Ratio 13.7 (10-20) Calcium Level 8.3 mg/dl (8.5-10.1) Total Bilirubin 0.4 mg/dl (0.2-1) Direct Bilirubin mg/dl (0-0.2) Aspartate Amino Transf (AST/SGOT) 88 U/L (15-37) Alanine Aminotransferase (ALT/SGPT) 99 U/L (12-78) Alkaline Phosphatase 79 U/L (45-117) Troponin I < 0.015 ng/ml (0-0.045) Pro-B-Type Natriuretic Peptide 173 pg/ml (0-900) Total Protein 8.1 gm/dl (6.4-8.2) Albumin 3.7 gm/dl (3.4-5.0) Chemistry Specimen Hemolysis Venous Blood pH 7.24 (7.36-7.41) Venous Blood Partial Pressure CO2 56 mmHg (38.0-50.0) Venous Blood Partial Pressure O2 27 mmHg Venous Blood HCO3 23 mmol/L Venous Blood Oxygen Saturation < 60.0 % Venous Blood Base Excess -4.4 mEq/L Lactic Acid Level 2.2 mmol/L (0.4-2.0) Urine Color DK YELLOW Urine Appearance CLOUDY (CLEAR) Urine pH 5.0 (4.5-7.5) Urine Specific [place] 1.020 (1.000-1.030) Urine Protein 2+ (NEG) Urine Glucose (UA) NEG (NEG) Urine Ketones TRACE (NEG) Urine Occult Blood 3+ (NEG) Urine Nitrite NEG (NEG) Urine Bilirubin NEG (NEG) Urine Urobilinogen NEG (NEG) Urine Leukocyte Esterase TRACE (NEG) Urine WBC (Auto) 10-30 /hpf (0-5) Urine RBC (Auto) >30 /hpf (0-4) Urine Hyaline Casts (Auto) 10-30 /lpf (0-5) Urine Epithelial Cells (Auto) >30 /lpf (0-5) Urine Bacteria (Auto) NEG (NEG) Urine Renal Epithelial Cells 0-5 /lpf (0-5) Urine Pathogenic Casts 5-10 GRANULAR CASTS /lpf (0) Urine Yeast (Auto) (NONE PRSENT) Laboratory results reviewed by me Medications Administered Medications (Trade) Dose Ordered Sig/Huan Route Start Time Stop Time Status Last Admin Dose Admin Sodium Chloride 1,000 ml @ 999 mls/hr Q1H1M STAT IV 03/12/17 15:21 03/12/17 16:21 DC 03/12/17 15:55 999 MLS/HR Albuterol/ Ipratropium (Duoneb) 12 ml ONE ONCE INH 03/12/17 15:30 03/12/17 15:31 DC 03/12/17 15:30 12 ML Methylprednisolone Sodium Succinate (Solu-Medrol IV) 125 mg NOW STAT IV 03/12/17 15:21 03/12/17 15:25 DC 03/12/17 15:55 125 MG Sodium Chloride 2,000 ml @ 999 mls/hr Q2H1M STAT IV 03/12/17 16:57 03/12/17 18:57 DC 03/12/17 17:19 999 MLS/HR Vancomycin HCl 2000 mg/Sodium Chloride 540 ml @ 200 mls/hr ONE STAT IV 03/12/17 16:58 03/12/17 19:39 DC 03/12/17 17:33 200 MLS/HR Cefepime HCl 2000 mg/Dextrose 122 ml @ 200 mls/hr NOW STAT IV 03/12/17 16:58 03/12/17 17:34 DC 03/12/17 17:18 200 MLS/HR ECG Indication: other (hypotension) Rate (beats per minute): 88 Rhythm: normal sinus Findings: no acute ischemic change, other (normal axis) ED Course 1516: The patient was evaluated in room A9. A complete history and physical exam was performed. 1805: I discussed the patient with Dr. Stockton of [facility] - She will evaluate the patient for further treatment. 1820: Upon reexamination, the patient was doing well. I discussed the test results and treatment plan with him. The patient will be evaluated for further management. Medical Decision I reviewed the patient's past medical history, medications, and the nursing notes as described above. The patient's presentation and history were concerning for pneumonia, bronchitis , ACS, CHF, PE, dehydration, electrolyte abnormalities, sepsis. The patient is a 61-year-old gentleman with a past medical history of asthma/ COPD who presents to emergency department with persistent cough and congestion for the past 4 days, sent from urgent care per history of present illness. On arrival the patient is uncomfortable but in no acute distress, afebrile, hypotensive with systolic in the 80s however fluid responsive with systolic to 100s. Labs notable for acidosis with pH of 7.25, CO2 50s, lactate 2.2, WBC 10. Influenza B-positive. Chest x-ray with infiltrate that could be consistent with pneumonia. Given the patient's ill appearance, concern for possible superimposed bacterial infection, will treat with broad-spectrum antibiotics. Given greater than 48 hours of symptoms Tamiflu unlikely to be of benefit. Patient additionally given 1 hour continuous neb with steroids with improvement in breathing. [facility], who will admit the patient for further management. Medication Reconcilliation Current Medication List: was personally reviewed by me Blood Pressure Screening Patient's blood pressure: Low blood pressure Blood pressure disposition: Did not require urgent referral Consults Time Called: 1800 Consulting Physician: Dr. Mahin Bailey Returned Call: 1805 I discussed the patient with Dr. Stockton of [facility] - She will evaluate the patient for further treatment. Impression Primary Impression: Influenza Additional Impressions: Pneumonia Sepsis Critical Care I have personally spent greater than 35 minutes of critical care time in the direct management of this patient. This includes bedside care, interpretation of diagnostic studies, and testing, discussion with consultants, patient, and family members, and other required patient management activities. This 35 minutes is in excess of all separately billable procedures. Scribe Attestation The scribe's documentation has been prepared under my direction and personally reviewed by me in its entirety. I confirm that the note above accurately reflects all work, treatment, procedures, and medical decision making performed by me. Departure Information Dispostion Being Evaluated By Hospitalist Referrals Tiny Larson M.D. (PCP) Patient Instructions My [facility] Problem Qualifiers
--- NOTE | 2017-03-12 15:45 | DIAGNOSTIC IMAGING REPORT ---
CHEST ONE VIEW PORTABLE CLINICAL HISTORY: Fever, sepsis, hypertension. COMPARISON STUDY: 01/08/2016 FINDINGS: The heart is normal in size. There is no failure. There is an opacity at the level the left cardiophrenic angle. This could represent a fat pad or area of focal pulmonary consolidation. A follow-up PA and lateral study is recommended.[ IMPRESSION: Small opacity at the level of cardiophrenic angle. This could represent either a fat pad or focal area of pulmonary consolidation. A follow-up PA and lateral study would be of benefit. Electronically signed by: Randal Pollock M.D. 03/12/2017 3:44 PM Dictated Date/Time: 03/12/2017 3:43 PM
[2017-03-12 16:20] LABS: BASO % 0.2 %; BASO ABS # 0.02 K/uL (0-0.2); COMPLETE YES; HEMATOCRIT 38.3 % (42-52); IG% 0.3 %; LYMPH % 14.7 %; LYMPH ABS # 1.59 K/uL (1.2-3.4); MEAN CORPUSCULAR HEMOGLOBIN 31.8 pg (25-34); MEAN CORPUSCULAR HGB CONC 34.2 g/dl (32-36); MEAN PLATELET VOLUME 10.5 fL (7.4-10.4); MONO % 5.6 %; NEUT % 79.2 %; PLATELET COUNT 174 K/uL (130-400); RED BLOOD COUNT 4.12 M/uL (4.7-6.1); WHITE BLOOD COUNT 10.81 K/uL (4.8-10.8)
[2017-03-12 16:50] LABS: VEN BLOOD GAS BASE EXCESS -4.4 mEq/L; VENOUS BLOOD GAS PCO2 56 mmHg (38.0-50.0); VENOUS BLOOD GAS PO2 27 mmHg
[2017-03-12 16:51] LABS: VEN BLD GAS O2 SATURATION < 60.0 %
[2017-03-12] MEDS ORDERED: SODIUM CHLORIDE 0.9% 1000ML 2,000 ML IV STA (16:57)
[2017-03-12] MEDS ORDERED: CEFEPIME IV 2,000 MG in DEXTROSE 5% 100ML 100 ML IV STA (16:58)
[2017-03-12] MEDS ORDERED: VANCOMYCIN INJ 2,000 MG in SODIUM CHLORIDE 0.9% 500ML 500 ML IV STA (16:58)
[2017-03-12 16:59] LABS: ALKALINE PHOSPHATASE 79 U/L (45-117); ALT/SGPT 99 U/L (12-78); AST/SGOT 88 U/L (15-37); BLOOD UREA NITROGEN 39 mg/dl (7-18); BUN/CREATININE RATIO 13.7 (10-20); CALCIUM 8.3 mg/dl (8.5-10.1); CARBON DIOXIDE 22 mmol/L (21-32); CHLORIDE 96 mmol/L (98-107); CREATININE 2.82 mg/dl (0.60-1.40); GLUCOSE 135 mg/dl (70-99); POTASSIUM 3.1 mmol/L (3.5-5.1); SODIUM 131 mmol/L (136-145)
[2017-03-12 17:53] LABS: URINE APPEARANCE CLOUDY (CLEAR); URINE BILIRUBIN NEG (NEG); URINE COLOR DK YELLOW; URINE EPITHELIAL CELL AUTO >30 /lpf (0-5); URINE NITRITE NEG (NEG); UROBILINOGEN NEG (NEG)
[2017-03-12 17:59] LABS: MANUAL MICROSCOPIC REQUIRED? NO; REVIEW REQ? YES
[2017-03-12] MEDS ORDERED: [UNRECOGNIZED DRUG - CODE] PO (17:59)
[2017-03-12 18:08] LABS: URINE PATH CASTS 5-10 GRANULAR CASTS /lpf (0)
[2017-03-12] MEDS ORDERED: MAGNESIUM HYDROXIDE SUSP 30 ML UDC PO PRN (19:00)
[2017-03-12] MEDS ORDERED: ACETAMINOPHEN 500 MG TAB PO PRN (19:00)
[2017-03-12] MEDS ORDERED: ACETAMINOPHEN 325 MG TAB PO PRN (19:00)
[2017-03-12] MEDS ORDERED: IBUPROFEN 200 MG TAB PO PRN (19:00)
[2017-03-12] MEDS ORDERED: ONDANSETRON INJ 2 MG/ML 2 ML VIAL IV PRN (19:00)
--- NOTE | 2017-03-12 19:08 | History and Physical ---
History & Physical Date & Time of Service: Mar 12, 2017 at 18:59 Chief Complaint: Low Bp, Congestion Primary Care Physician: Tiny Larson M.D. History of Present Illness Source: patient 61 y/o M c/o cough and SOB. Pt states he started feeling unwell about 4-5 days ago and has continued to worsen. He wakes at night with drenching sweats and notes chills during the day. He has not taken a temp though. His cough has continued to get worse and is nonproductive. He gets SOB with prolonged coughing and noted yesterday that he was somewhat SOB with ambulation, although not at rest. No chest pain. Has had no appetite the last few days but does tolerate what he takes in. He has eaten almost nothing during the course of illness though. He tried tylenol cold and flu but this did not help. Pt denies abd pain, n/v/c/d, LE pain or swelling. Past Medical/Surgical History Medical Problems: (1) Benign hypertension Status: Chronic (2) Kidney stone Status: Chronic BPH Depression s/p cholecystectomy Family History Family history was reviewed; no changes noted. Father with hx of [place] Social History Smoking Status: Former Smoker (quit in the early ) Alcohol Use: rarely, 1 beer over the last year Drug Use: none Occupational Status: unemployed Immunizations History of Influenza Vaccine: No History of Tetanus Vaccine?: No History of Pneumococcal: No History of Hepatitis B Vaccine: No Multi-Drug Resistant Organisms History of MDRO: No Allergies Coded Allergies: No Known Allergies (Verified , 03/12/17) Home Medications Scheduled Desipramine HCl (Desipramine HCl), 200 MG PO BID Hydrochlorothiazide (Hctz), 25 MG PO HS Metoprolol Succinate (Toprolxl (Toprol-Xl), 200 MG PO HS Pantoprazole Sodium (Protonix), 1 TAB PO HS Sertraline Hcl (Zoloft), 200 MG PO HS Tamsulosin Hcl (Flomax), 0.4 MG PO HS Scheduled PRN Acetaminophen (Tylenol), 500-1,000 MG PO Q6H PRN for Pain Hydrocodone/Acetaminophen 5MG/325MG ([place] 5MG/325MG), 1 TABLET PO Q6H PRN for Pain Ibuprofen (Advil), 200-800 MG PO QID PRN for Pain Review of Systems Pertinent positives and negatives reviewed in HPI--all others negative Physical Exam Vital Signs Date Time Temp Pulse Resp B/P (MAP) Pulse Ox O2 Delivery O2 Flow Rate FiO2 03/12/17 18:05 87 18 126/71 96 Room Air 03/12/17 16:38 88 20 103/68 95 Room Air 03/12/17 15:30 94 Room Air 03/12/17 15:27 89 03/12/17 15:11 36.9 92 16 83/54 96 Room Air General Appearance: WD/WN, no apparent distress Head: normocephalic, atraumatic Eyes: normal inspection, EOMI, sclerae normal Respiratory/Chest: no respiratory distress, + decreased breath sounds, + crackles Cardiovascular: regular rate, rhythm, no edema Abdomen/GI: non tender, soft Extremities/Musculoskelatal: no calf tenderness, no pedal edema Neurologic/Psych: alert, normal mood/affect, oriented x 3 Skin: normal color, warm/dry Diagnostics Laboratory Results Results Past 24 Hours Test 03/12/17 15:35 03/12/17 15:55 03/12/17 16:15 03/12/17 16:30 Range/Units Influenza Type A Antigen Neg for Influ A NEG Influenza Type B Antigen POS for Influ B NEG White Blood Count 10.81 4.8-10.8 K/uL Red Blood Count 4.12 4.7-6.1 M/uL Hemoglobin 13.1 14.0-18.0 g/dL Hematocrit 38.3 42-52 % Mean Corpuscular Volume 93.0 80-100 fL Mean Corpuscular Hemoglobin 31.8 25-34 pg Mean Corpuscular Hemoglobin Concent 34.2 32-36 g/dl Platelet Count 174 130-400 K/uL Mean Platelet Volume 10.5 7.4-10.4 fL Neutrophils (%) (Auto) 79.2 % Lymphocytes (%) (Auto) 14.7 % Monocytes (%) (Auto) 5.6 % Eosinophils (%) (Auto) 0.0 % Basophils (%) (Auto) 0.2 % Neutrophils # (Auto) 8.57 1.4-6.5 K/uL Lymphocytes # (Auto) 1.59 1.2-3.4 K/uL Monocytes # (Auto) 0.60 0.11-0.59 K/uL Eosinophils # (Auto) 0.00 0-0.5 K/uL Basophils # (Auto) 0.02 0-0.2 K/uL RDW Standard Deviation 51.4 36.4-46.3 fL RDW Coefficient of Variation 15.1 11.5-14.5 % Immature Granulocyte % (Auto) 0.3 % Immature Granulocyte # (Auto) 0.03 0.00-0.02 K/uL Sodium Level 131 136-145 mmol/L Potassium Level 3.1 3.5-5.1 mmol/L Chloride Level 96 98-107 mmol/L Carbon Dioxide Level 22 21-32 mmol/L Anion Gap 13.0 3-11 mmol/L Blood Urea Nitrogen 39 7-18 mg/dl Creatinine 2.82 0.60-1.40 mg/dl Est Creatinine Clear Calc Drug Dose 33.4 ml/min Estimated GFR () 27.1 Estimated GFR (Non- 23.4 BUN/Creatinine Ratio 13.7 10-20 Random Glucose 135 70-99 mg/dl Calcium Level 8.3 8.5-10.1 mg/dl Total Bilirubin 0.4 0.2-1 mg/dl Direct Bilirubin 0-0.2 mg/dl Aspartate Amino Transf (AST/SGOT) 88 15-37 U/L Alanine Aminotransferase (ALT/SGPT) 99 12-78 U/L Alkaline Phosphatase 79 45-117 U/L Troponin I < 0.015 0-0.045 ng/ml Pro-B-Type Natriuretic Peptide 173 0-900 pg/ml Total Protein 8.1 6.4-8.2 gm/dl Albumin 3.7 3.4-5.0 gm/dl Chemistry Specimen Hemolysis Venous Blood pH 7.24 7.36-7.41 Venous Blood Partial Pressure CO2 56 38.0-50.0 mmHg Venous Blood Partial Pressure O2 27 mmHg Venous Blood HCO3 23 mmol/L Venous Blood Oxygen Saturation < 60.0 % Venous Blood Base Excess -4.4 mEq/L Lactic Acid Level 2.2 0.4-2.0 mmol/L Test 03/12/17 17:32 Range/Units Urine Color DK YELLOW Urine Appearance CLOUDY CLEAR Urine pH 5.0 4.5-7.5 Urine Specific [place] 1.020 1.000-1.030 Urine Protein 2+ NEG Urine Glucose (UA) NEG NEG Urine Ketones TRACE NEG Urine Occult Blood 3+ NEG Urine Nitrite NEG NEG Urine Bilirubin NEG NEG Urine Urobilinogen NEG NEG Urine Leukocyte Esterase TRACE NEG Urine WBC (Auto) 10-30 0-5 /hpf Urine RBC (Auto) >30 0-4 /hpf Urine Hyaline Casts (Auto) 10-30 0-5 /lpf Urine Epithelial Cells (Auto) >30 0-5 /lpf Urine Bacteria (Auto) NEG NEG Urine Renal Epithelial Cells 0-5 0-5 /lpf Urine Pathogenic Casts 5-10 GRANULAR CASTS 0 /lpf Urine Yeast (Auto) NONE PRSENT Microbiology Results 03/12/17 Blood Culture, Received Pending 03/12/17 Blood Culture, Received Pending Diagnostic Radiology CXR: possible PNA Impression Assessment and Plan 61 y/o M who was admitted on 03/12 with flu and possible PNA SOB/cough: Flu B +, question of PNA on initial CXR IVF, cefepime Blood cx pending Elevated WBC, afebrile Repeat CXR pending Trop neg, EKG neg ARF: in the setting of minimal PO intake Monitor on IVF HypoNa, hypoK: monitor Replace K via IV Likely related to PO intake HTN: hypoTN in the ED, hold home meds for now and resume if BP remains stable Abn UA: cx pending Abx will cover if needed COPD: nebs scheduled to prevent COPD exacerbation Recently started on Brio and this has helped (2-3 months) Will need formal PFTs once recovered Other: Full code Ambulation for DVT proph Reg diet VTE Prophylaxis VTE Risk Assessment Done? Y/N: Yes Risk Level: Low
[2017-03-12 20:15] VITALS: BP 126/72; PULSE 80; TEMP 37; O2SAT 96; BMI 35.9
[2017-03-12] MEDS: SODIUM CHLORIDE 0.9% 1000ML 1,000 ML IV SCH (20:34)
[2017-03-12] MEDS: POTASSIUM CHLR 10 MEQ / WTR 10 MEQ in PREMIXED WATER 100 ML IV SCH ×2 (20:34→22:04)
[2017-03-12] MEDS: ALBUT/IPRATROP 3MG/0.5MG NEB 3 ML VIAL INH SCH (20:35)
[2017-03-12 20:38] VITALS: PULSE 92; O2SAT 93
[2017-03-12] MEDS: SERTRALINE HCL 100 MG TAB PO SCH (20:57)
[2017-03-12] MEDS: DESIPRAMINE 50 MG PO SCH (20:57)
[2017-03-12] MEDS: TAMSULOSIN HCL 0.4 MG CAP PO SCH (20:58)
[2017-03-12] MEDS: PANTOprazole SOD 40 MG TAB PO SCH (20:58)
[2017-03-12] MEDS ORDERED: HYDROCHLOROTHIAZIDE 25 MG TAB PO SCH (21:00)
[2017-03-12] MEDS ORDERED: METOPROLOL SUCC 50MG EXT REL TAB PO SCH (21:00)
[2017-03-12] MEDS: HYDROCODONE/ACETAMOPHEN 5/325MG TAB PO PRN (21:06)
--- NOTE | 2017-03-12 21:51 | DIAGNOSTIC IMAGING REPORT ---
CHEST 2 VIEWS ROUTINE CLINICAL HISTORY: Abnormal portable chest radiograph. COMPARISON STUDY: Chest radiographs January 08, 2016 and March 12, 2017 at 3:28 PM. FINDINGS: Lung volumes are normal. No pneumothorax or pleural effusion is present. Cardiac size is normal. There is no evidence of pulmonary edema. The left lower lung opacity shown on exam performed earlier today is less conspicuous on this exam however there may be mild left basilar opacity. Lateral view demonstrates abnormal opacity projecting of the lower thoracic spine. IMPRESSION: Suspected mild left basilar opacity, best depicted on lateral projection. This favors atelectasis although a small area of pneumonia could appear similar. Radiographic follow up to ensure resolution is recommended. Electronically signed by: Abhijit Jacobson M.D. 03/12/2017 9:50 PM Dictated Date/Time: 03/12/2017 9:48 PM
[2017-03-12 23:44] VITALS: BP 149/88; PULSE 91; TEMP 36.7; O2SAT 93
[2017-03-13] VITALS (8 sets, daily range): BP systolic 100–124; BP diastolic 64–80; PULSE 61–91; TEMP 36.4–37; O2SAT 91–97; Ht 172.7 cm; Wt 107.0 kg
[2017-03-13] MEDS: SODIUM CHLORIDE 0.9% 1000ML 1,000 ML IV SCH ×3 (03:44→19:47)
[2017-03-13 06:14] LABS: HEMATOCRIT 35.2 % (42-52); MEAN CELL VOLUME 91.7 fL (80-100); MEAN CORPUSCULAR HEMOGLOBIN 31.5 pg (25-34); MEAN CORPUSCULAR HGB CONC 34.4 g/dl (32-36); MEAN PLATELET VOLUME 10.3 fL (7.4-10.4); PLATELET COUNT 171 K/uL (130-400); RED BLOOD COUNT 3.84 M/uL (4.7-6.1)
[2017-03-13] MEDS: ALBUT/IPRATROP 3MG/0.5MG NEB 3 ML VIAL INH SCH ×4 (07:01→18:56)
[2017-03-13 07:03] LABS: BUN/CREATININE RATIO 19.3 (10-20); CALCIUM 7.6 mg/dl (8.5-10.1); CREATININE 1.4 mg/dl (0.60-1.40); POTASSIUM 2.9 mmol/L (3.5-5.1)
[2017-03-13 07:13] LABS: BETA-HYDROXYBUTYRATE 2.97 mg/dL (0.2-2.81)
[2017-03-13] MEDS: HYDROCODONE/ACETAMOPHEN 5/325MG TAB PO PRN ×2 (07:35→19:58)
[2017-03-13] MEDS: DESIPRAMINE 50 MG PO SCH ×2 (07:35→19:50)
[2017-03-13] MEDS ORDERED: NURSING VERBAL MED ORDER ONE (08:00)
[2017-03-13] MEDS ORDERED: CEFEPIME IV 2,000 MG in SYRINGE 7.5 ML IV SCH (08:00)
--- NOTE | 2017-03-13 08:24 | Family Medicine Progress Note ---
Progress Note Date of Service Mar 13, 2017. Subjective Pt evaluation today including: conversation w/ patient, physical exam, chart review, conversation w/ outside solar sales consultant, review of inpatient medication list Pain: none PO Intake: ok Voiding: no voiding problems Patient is feeling better Still with productive cough Denies any fevers, chills or chest pain Minimal ambulation Constitutional: No fever, No chills Respiratory: + cough, + shortness of breath, No sputum, No wheezing, No hemoptysis Cardiovascular: No chest pain, No edema, No palpitations Abdomen: No pain, No nausea, No vomiting, No diarrhea Medications Current Inpatient Medications Medications (Trade) Dose Ordered Sig/Huan Route Start Time Stop Time Status Last Admin Dose Admin Acetaminophen (Tylenol Tab) 650 mg Q4H PRN PO 03/12/17 19:00 04/11/17 18:59 Magnesium Hydroxide (Milk Of Magnesia Susp) 30 ml Q6H PRN PO 03/12/17 19:00 04/11/17 18:59 03/13/17 07:38 30 ML Ondansetron HCl (Zofran Inj) 4 mg Q6H PRN IV 03/12/17 19:00 04/11/17 18:59 Cefepime HCl 2000 mg/Syringe 20 ml @ 5 mls/min DAILY IV 03/13/17 08:00 03/20/17 08:59 03/13/17 07:38 5 MLS/MIN Albuterol/ Ipratropium (Duoneb) 3 ml QIDR INH 03/12/17 20:00 04/11/17 19:59 03/13/17 07:01 3 ML Sodium Chloride 1,000 ml @ 125 mls/hr Q8H IV 03/12/17 19:00 04/11/17 18:59 03/13/17 03:44 125 MLS/HR Acetaminophen/ Hydrocodone Bitart ([place]alls 5/325 Tab) 1 tab Q6H PRN PO 03/12/17 19:00 03/26/17 18:59 03/13/17 07:35 1 TAB Ibuprofen (Advil Tab) 200 mg QID PRN PO 03/12/17 19:00 04/11/17 18:59 Pantoprazole Sodium (Protonix Tab) 40 mg HS PO 03/12/17 21:00 04/11/17 20:59 03/12/17 20:58 40 MG Sertraline HCl (Zoloft Tab) 200 mg HS PO 03/12/17 21:00 04/11/17 20:59 03/12/17 20:57 200 MG Tamsulosin HCl (Flomax Cap) 0.4 mg HS PO 03/12/17 21:00 04/11/17 20:59 03/12/17 20:58 0.4 MG Desipramine HCl (Norpramin Tab) 200 mg BID PO 03/12/17 20:00 04/11/17 20:59 03/13/17 07:35 200 MG Potassium Chloride (Klor-Con Tab) 40 meq NOW ONCE PO 03/13/17 08:30 03/13/17 08:31 Objective Vital Signs Date Time Temp Pulse Resp B/P (MAP) Pulse Ox O2 Delivery O2 Flow Rate FiO2 03/13/17 07:03 88 18 91 Room Air 03/13/17 06:58 36.7 91 18 121/80 (94) 91 03/13/17 00:00 Room Air 03/12/17 23:44 36.7 91 20 149/88 (108) 93 Room Air 03/12/17 20:38 92 18 93 Room Air 03/12/17 20:15 37.0 80 20 126/72 96 Room Air 03/12/17 19:34 89 16 112/75 97 03/12/17 19:19 89 16 112/75 97 Room Air 03/12/17 18:05 87 18 126/71 96 Room Air 03/12/17 16:38 88 20 103/68 95 Room Air 03/12/17 15:30 94 Room Air 03/12/17 15:27 89 03/12/17 15:11 36.9 92 16 83/54 96 Room Air Physical Exam General Appearance: WD/WN, no apparent distress ENT: hearing grossly normal, pharynx normal Neck: supple, no JVD, no carotid bruits, trachea midline Respiratory/Chest: no respiratory distress, no accessory muscle use, + crackles (crackles in LLL) Cardiovascular: regular rate, rhythm, no murmur Abdomen: normal bowel sounds, non tender, soft, + distended Extremities: non-tender, no pedal edema, no calf tenderness Skin: normal color, warm/dry, no rash Laboratory Results Results Past 24 Hours Test 03/12/17 15:35 12/18/17 15:55 03/12/17 16:30 03/12/17 17:32 Range/Units Influenza Type A Antigen Neg for Influ A NEG Influenza Type B Antigen POS for Influ B NEG White Blood Count 10.81 4.8-10.8 K/uL Red Blood Count 4.12 4.7-6.1 M/uL Hemoglobin 13.1 14.0-18.0 g/dL Hematocrit 38.3 42-52 % Mean Corpuscular Volume 93.0 80-100 fL Mean Corpuscular Hemoglobin 31.8 25-34 pg Mean Corpuscular Hemoglobin Concent 34.2 32-36 g/dl Platelet Count 174 130-400 K/uL Mean Platelet Volume 10.5 7.4-10.4 fL Neutrophils (%) (Auto) 79.2 % Lymphocytes (%) (Auto) 14.7 % Monocytes (%) (Auto) 5.6 % Eosinophils (%) (Auto) 0.0 % Basophils (%) (Auto) 0.2 % Neutrophils # (Auto) 8.57 1.4-6.5 K/uL Lymphocytes # (Auto) 1.59 1.2-3.4 K/uL Monocytes # (Auto) 0.60 0.11-0.59 K/uL Eosinophils # (Auto) 0.00 0-0.5 K/uL Basophils # (Auto) 0.02 0-0.2 K/uL RDW Standard Deviation 51.4 36.4-46.3 fL RDW Coefficient of Variation 15.1 11.5-14.5 % Immature Granulocyte % (Auto) 0.3 % Immature Granulocyte # (Auto) 0.03 0.00-0.02 K/uL Sodium Level 131 136-145 mmol/L Potassium Level 3.1 3.5-5.1 mmol/L Chloride Level 96 98-107 mmol/L Carbon Dioxide Level 22 21-32 mmol/L Anion Gap 13.0 3-11 mmol/L Blood Urea Nitrogen 39 7-18 mg/dl Creatinine 2.82 0.60-1.40 mg/dl Est Creatinine Clear Calc Drug Dose 33.4 ml/min Estimated GFR () 27.1 Estimated GFR (Non- 23.4 BUN/Creatinine Ratio 13.7 10-20 Random Glucose 135 70-99 mg/dl Calcium Level 8.3 8.5-10.1 mg/dl Total Bilirubin 0.4 0.2-1 mg/dl Direct Bilirubin 0-0.2 mg/dl Aspartate Amino Transf (AST/SGOT) 88 15-37 U/L Alanine Aminotransferase (ALT/SGPT) 99 12-78 U/L Alkaline Phosphatase 79 45-117 U/L Troponin I < 0.015 0-0.045 ng/ml Pro-B-Type Natriuretic Peptide 173 0-900 pg/ml Total Protein 8.1 6.4-8.2 gm/dl Albumin 3.7 3.4-5.0 gm/dl Chemistry Specimen Hemolysis Venous Blood pH 7.24 7.36-7.41 Venous Blood Partial Pressure CO2 56 38.0-50.0 mmHg Venous Blood Partial Pressure O2 27 mmHg Venous Blood HCO3 23 mmol/L Venous Blood Oxygen Saturation < 60.0 % Venous Blood Base Excess -4.4 mEq/L Lactic Acid Level 2.2 0.4-2.0 mmol/L Urine Color DK YELLOW Urine Appearance CLOUDY CLEAR Urine pH 5.0 4.5-7.5 Urine Specific [place] 1.020 1.000-1.030 Urine Protein 2+ NEG Urine Glucose (UA) NEG NEG Urine Ketones TRACE NEG Urine Occult Blood 3+ NEG Urine Nitrite NEG NEG Urine Bilirubin NEG NEG Urine Urobilinogen NEG NEG Urine Leukocyte Esterase TRACE NEG Urine WBC (Auto) 10-30 0-5 /hpf Urine RBC (Auto) >30 0-4 /hpf Urine Hyaline Casts (Auto) 10-30 0-5 /lpf Urine Epithelial Cells (Auto) >30 0-5 /lpf Urine Bacteria (Auto) NEG NEG Urine Renal Epithelial Cells 0-5 0-5 /lpf Urine Pathogenic Casts 5-10 GRANULAR CASTS 0 /lpf Urine Yeast (Auto) NONE PRSENT Test 03/13/17 05:41 Range/Units White Blood Count 11.40 4.8-10.8 K/uL Red Blood Count 3.84 4.7-6.1 M/uL Hemoglobin 12.1 14.0-18.0 g/dL Hematocrit 35.2 42-52 % Mean Corpuscular Volume 91.7 80-100 fL Mean Corpuscular Hemoglobin 31.5 25-34 pg Mean Corpuscular Hemoglobin Concent 34.4 32-36 g/dl RDW Standard Deviation 50.1 36.4-46.3 fL RDW Coefficient of Variation 14.8 11.5-14.5 % Platelet Count 171 130-400 K/uL Mean Platelet Volume 10.3 7.4-10.4 fL Sodium Level 135 136-145 mmol/L Potassium Level 2.9 3.5-5.1 mmol/L Chloride Level 105 98-107 mmol/L Carbon Dioxide Level 18 21-32 mmol/L Anion Gap 13.0 3-11 mmol/L Blood Urea Nitrogen 27 7-18 mg/dl Creatinine 1.40 0.60-1.40 mg/dl Est Creatinine Clear Calc Drug Dose 67.4 ml/min Estimated GFR () 63.3 Estimated GFR (Non- 54.6 BUN/Creatinine Ratio 19.3 10-20 Random Glucose 319 70-99 mg/dl Calcium Level 7.6 8.5-10.1 mg/dl Beta-Hydroxybutyric Acid 2.97 0.2-2.81 mg/dL Microbiology Results 03/12/17 Blood Culture, Received Pending 03/12/17 Blood Culture, Received Pending Assessment and Plan 61 y/o M who was admitted on 03/12 with flu and Pneumonia Community Acquired Pneumonia and Flu - Continue IV cefepime - CURB 65 score of 2 - Elevated WBC of 11.4 - Blood cultures pending - CXR showed mild left basilar opacity - Started tamiflu 75mg bid for 5 days Acute Renal failure secondary to decreased PO intake - creatinine improved to 1.4 - continue to monitor Hypokalemia - received K riders in IVF in ED - potassium 2.9 this am - will supplement 40meq po Hyperglycemia - glucose 319 this morning - hx of borderline diabetes - will order HbA1c Hypertension - low blood pressure in the ED therefore HTN meds held - restart HCTZ and metoprolol this evening Abnormal UA - will order urine culture - abx will cover COPD - nebs scheduled to prevent COPD exacerbation - Recently started on Brio and this has helped (2-3 months) - Will need formal PFTs once recovered Other: Full code Ambulation for DVT proph Reg diet Resident Physician Supervision Note: I interviewed and examined the patient. Discussed with Dr. Luis A John and agree with findings and plan as documented in the note. Any exceptions or clarifications are listed here: None. This pt is feeling better, still fatigued and non productive cough. lungs are coarse but no focal loss of breath sounds influenza B pneumonia, will continue tamiflu marked electrolyte abnormalities, willl replete continue treatment of copd Documented By: Stefan Mendez Continued [facility] stay due to: multiple IV medications needed
[2017-03-13] MEDS ORDERED: POTASSIUM CHLORIDE 20 MEQ TABCR PO ONE (08:30)
[2017-03-13] MEDS ORDERED: OSELTAMIVIR PHOSPHATE 75 MG CAP PO ONE (08:45)
[2017-03-13] MEDS: METOPROLOL SUCC 50MG EXT REL TAB PO SCH (08:55)
[2017-03-13 09:06] LABS: MAGNESIUM 1.9 mg/dl (1.8-2.4); PHOSPHORUS 1.3 mg/dl (2.5-4.9)
[2017-03-13] MEDS ORDERED: POTASSIUM PHOS 3 MMOL/1 ML INFUSION IV STA (09:18)
[2017-03-13] MEDS ORDERED: POTASSIUM PHOSPHATE INJ 30 MMOL in SODIUM CHLORIDE 0.9% 500ML 500 ML IV ONE (10:00)
[2017-03-13] MEDS: SERTRALINE HCL 100 MG TAB PO SCH (19:49)
[2017-03-13] MEDS: PANTOprazole SOD 40 MG TAB PO SCH (19:50)
[2017-03-13] MEDS: TAMSULOSIN HCL 0.4 MG CAP PO SCH (19:50)
[2017-03-13] MEDS: OSELTAMIVIR PHOSPHATE 75 MG CAP PO SCH (19:51)
[2017-03-13] MEDS ORDERED: COUGH DROP (SUGAR FREE) LOZ 24 LOZ/1 BOX ONE (19:55)
[2017-03-13] MEDS ORDERED: COUGH DROP (SUGAR FREE) LOZ 24 LOZ/1 BOX PO PRN (20:00)
[2017-03-14] MEDS: SODIUM CHLORIDE 0.9% 1000ML 1,000 ML IV SCH ×2 (03:21→10:54)
[2017-03-14] MEDS: HYDROCODONE/ACETAMOPHEN 5/325MG TAB PO PRN ×2 (04:34→10:59)
[2017-03-14 05:39] LABS: HEMATOCRIT 30.5 % (42-52); MEAN CELL VOLUME 92.7 fL (80-100); MEAN CORPUSCULAR HEMOGLOBIN 31.6 pg (25-34); MEAN CORPUSCULAR HGB CONC 34.1 g/dl (32-36); MEAN PLATELET VOLUME 10.2 fL (7.4-10.4); PLATELET COUNT 154 K/uL (130-400); RED BLOOD COUNT 3.29 M/uL (4.7-6.1); WHITE BLOOD COUNT 7.01 K/uL (4.8-10.8)
[2017-03-14 06:23] LABS: CALCIUM 7.2 mg/dl (8.5-10.1); CREATININE 0.85 mg/dl (0.60-1.40); POTASSIUM 3.7 mmol/L (3.5-5.1)
[2017-03-14 06:30] LABS: PHOSPHORUS 1.1 mg/dl (2.5-4.9)
[2017-03-14] MEDS ORDERED: POTASSIUM PHOS 3 MMOL/1 ML INFUSION IV STA (06:34)
[2017-03-14] MEDS ORDERED: POTASSIUM PHOSPHATE INJ 15 MMOL in SODIUM CHLORIDE 0.9% 250ML 250 ML IV ONE (06:45)
[2017-03-14] MEDS ORDERED: SODIUM PHOSPHATE 3 MMOL/1 ML INFUSION IV STA (07:04)
--- NOTE | 2017-03-14 07:11 | Discharge Instructions ---
Discharge Instructions Date of Service Mar 14, 2017. Admission Reason for Admission: Pneumonia Discharge Discharge Diagnosis / Problem: Pneumonia and Flu Discharge Goals Goal(s): Decrease discomfort, Improve disease control, Therapeutic intervention , Prevent Disease Progression Activity Recommendations Activity Limitations: per Instructions/Follow-up section . Instructions / Follow-Up Instructions / Follow-Up You were diagnosed with pneumonia as well as the flu We will be sending you home with an antibiotic as well as a medication for the flu. Please take both of these as prescribed. We will also need to take KPhos tablets and roller picker vit D tablets over the counter. The prescriptions are written in the medication list Please follow up with your PCP tomorrow Your HbA1c was 7.1 on day of discharge you which would indicate that you have diabetes. Please follow up with your PCP in order to discuss the possibility of starting medication If you experience any worsening shortness of breath, chest pain, fever >100.4, or productive cough then please come back to the emergency department Current Hospital Diet Patient's current hospital diet: Regular Diet Discharge Diet Recommended Diet: Regular Diet Pending Studies Studies pending at discharge: yes List of pending studies: Urine Culture and final blood culture Laboratory Results Hemoglobin A1c Test 03/14/17 05:16 Range/Units Medical Emergencies . Who to Call and When: Medical Emergencies: If at any time you feel your situation is an emergency, please call 911 immediately. . Non-Emergent Contact Non-Emergency issues call your: Primary Care Provider . . "Provider Documentation" section prepared by Luis A John. . VTE Core Measure Inpt VTE Proph given/why not?: Other Anticoagulation
[2017-03-14 07:23] VITALS: BP 116/77; PULSE 79; TEMP 36.4; O2SAT 98
[2017-03-14 07:37] VITALS: PULSE 87; O2SAT 98
[2017-03-14] MEDS: ALBUT/IPRATROP 3MG/0.5MG NEB 3 ML VIAL INH SCH ×2 (07:37→11:12)
[2017-03-14] MEDS ORDERED: CEFDINIR 300 MG CAP PO STA (07:49)
[2017-03-14] MEDS ORDERED: POTASSIUM CHLORIDE 20 MEQ TABCR PO SCH (08:00)
[2017-03-14] MEDS ORDERED: HYDROCHLOROTHIAZIDE 25 MG TAB PO SCH (08:00)
[2017-03-14 08:01] LABS: ESTIMATED AVERAGE GLUCOSE 157 mg/dl; HA1C FLAG Normal (Normal)
[2017-03-14] MEDS: DESIPRAMINE 50 MG PO SCH (08:12)
[2017-03-14] MEDS: METOPROLOL SUCC 50MG EXT REL TAB PO SCH (08:13)
[2017-03-14] MEDS: OSELTAMIVIR PHOSPHATE 75 MG CAP PO SCH (08:14)
[2017-03-14 08:30] VITALS: O2SAT 98
[2017-03-14 11:12] VITALS: PULSE 75; O2SAT 98
[2017-03-14] MEDS ORDERED: IPRATROPIUM BROMIDE/ALBUTEROL respimat INH INH SCH (13:15)
[2017-03-14] MEDS ORDERED: KPH PO (15:11)
[2017-03-14] MEDS ORDERED: CHOL200010 PO (15:11)
[2017-03-14] MEDS ORDERED: TMF75 PO (15:11)
[2017-03-14] MEDS ORDERED: CEFD1CAP14 PO (15:11)
[2017-03-14 15:26] VITALS: BP 102/68; PULSE 71; TEMP 36.6; O2SAT 95
--- NOTE | 2017-03-14 15:48 | Discharge Summary ---
Discharge Summary Date of Service Mar 14, 2017. Discharge Summary Admission Date: Mar 12, 2017 at 18:56 Discharge Date: Mar 14, 2017 Discharge Disposition: Home Principal Diagnosis: Flu and Pneumonia Immunizations: Have You Had Influenza Vaccine: No History of Tetanus Vaccine?: No History of Pneumococcal: No History of Hepatitis B Vaccine: No Medication Reconciliation New Medications: Cefdinir (Omnicef) 300 Mg Cap 300 MG PO Q12H for 5 Days, #10 CAP Cholecalciferol (Vitamin D) 2,000 Unit Cap 2000 UNITS PO DAILY for 42 Days, #42 Potassium Phosphate Monobasic (K-Phos) 500 Mg Tab 500 MG PO TID for 5 Days, #15 TAB Oseltamivir Phosphate (Tamiflu) 75 Mg Cap 75 MG PO BID for 3 Days, #7 CAP Continued Medications: Acetaminophen (Tylenol) 500 Mg Tab 500-1000 MG PO Q6H PRN for Pain, TAB Desipramine HCl (Desipramine HCl) 100 Mg Tab 200 MG PO BID Hydrochlorothiazide (Hctz) 25 Mg Tab 25 MG PO HS, TAB Hydrocodone/Acetaminophen 5MG/325MG ([place] 5MG/325MG) Tab 1 TABLET PO Q6H PRN for Pain, TAB PRN PAIN Ibuprofen (Advil) 200 Mg Tab 200-800 MG PO QID PRN for Pain, TAB Metoprolol Succinate (Toprolxl (Toprol-Xl) 200 Mg Tabcr 200 MG PO HS Pantoprazole Sodium (Protonix) 40 Mg Tab 1 TAB PO HS Sertraline Hcl (Zoloft) 100 Mg Tab 200 MG PO HS, TAB Tamsulosin Hcl (Flomax) 0.4 Mg Cap 0.4 MG PO HS, CAP Discharge Exam Patient feeling well on discharge Only symptoms remaining include dry cough Review of Systems: Constitutional: No fever, No chills, No sweats, No fatigue Respiratory: + cough, No sputum, No shortness of breath, No dyspnea on exertion, No dyspnea at rest Cardiovascular: No chest pain, No edema, No palpitations Abdomen: No pain, No nausea, No vomiting, No diarrhea, No constipation Musculoskeletal: No joint pain, No muscle pain Genitourinary - Male: No hematuria, No dysuria Neurologic: No weakness Integumentary: No rash, No itch Physical Exam: General Appearance: WD/WN, no apparent distress Eyes: PERRL ENT: hearing grossly normal, pharynx normal Neck: supple, no JVD, no carotid bruits, trachea midline Respiratory/Chest: chest non-tender, no respiratory distress, no accessory muscle use, + crackles (LLL crackles) Cardiovascular: regular rate, rhythm, no edema, no murmur, normal peripheral pulses Abdomen / GI: normal bowel sounds, non tender, soft Neurologic/Psychiatric: alert, normal mood/affect, oriented x 3 Hospital Course 61 y/o M who was admitted on 03/12 with flu and Pneumonia Community Acquired Pneumonia and Flu - Received cefepime in hospital, discharged with 5 day course of cefdinir - CURB 65 score of 2 - WBC count 7 on discharge - Blood cultures preliminary results with no growth on discharge - CXR showed mild left basilar opacity - Flu Type B + - Started tamiflu 75mg bid for 5 days Acute Renal failure secondary to decreased PO intake - creatinine improved to 0.85 - patient received IVF in the hospital - continue to monitor Hypokalemia - received K riders in IVF in ED and PO supplementation - potassium resolved on discharge with 3.7 Hyperglycemia - hx of borderline diabetes - HbA1c was 7.1 in the hospital - patient will need to follow up with PCP as an outpatient Vit D deficiency - 18.5 in hospital - Supplement 2000 units daily for 6 weeks Low phosphorous - 1.4 on discharge - received 15mml IV and 30 mmol IV in hospital - discharged with 500mg tid for 5 days - will need to follow up with PCP Hypertension - low blood pressure in the ED therefore HTN meds held - restarted HCTZ and metoprolol upon discharge Abnormal UA - will order urine culture - preliminary results pending at discharge COPD - nebs scheduled to prevent COPD exacerbation - Recently started on Brio and this has helped (2-3 months) - Will need formal PFTs as outpatient patient will be following up with PCP next week Total Time Spent: Less than 30 minutes This includes examination of the patient, discharge planning, medication reconciliation, and communication with other providers. Discharge Instructions Please refer to the electronic Patient Visit Report (Discharge Instructions) for additional information. Additional Copies To Tiny Larson M.D.
[2017-03-14 16:23] VITALS: BP 102/68; PULSE 71; TEMP 36.6; O2SAT 95
== END 2017-03-14 17:09 | disposition home or self-care (01) | DRG 194 ==
LOC: C.EDB 15:10 → C.4E 18:56 → ENRESERV 19:19
PROVIDERS: ADMIT Family Medicine; ATTEND Internal Medicine
DX: J10.00 Influenza due to other identified influenza virus with unspecified type of pneumonia (principal); N17.9 Acute kidney failure, unspecified; E87.1 Hypo-osmolality and hyponatremia; E87.6 Hypokalemia; E83.30 Disorder of phosphorus metabolism, unspecified; I95.9 Hypotension, unspecified; R73.03 Prediabetes; R82.90 Unspecified abnormal findings in urine; E55.9 Vitamin D deficiency, unspecified; J44.9 Chronic obstructive pulmonary disease, unspecified; I10 Essential (primary) hypertension; Z87.891 Personal history of nicotine dependence; Z79.891 Long term (current) use of opiate analgesic; Z79.899 Other long term (current) drug therapy

== ENCOUNTER 2021-01-01 15:00 | Observation (INO) ==
[2021-01-01] MEDS ORDERED: OPTIRAY 320 125ml IV ONE (15:30)
--- NOTE | 2021-01-01 15:37 | CT Scan Report ---
CT head/brain wo con CLINICAL HISTORY: 65 years-old Male with Stroke Alert. Acute strokelike symptoms TECHNIQUE: Multiple axial CT images of the head were obtained without contrast. A dose lowering tech nique was utilized adhering to the principles of ALARA. COMPARISON: CTA head and neck of same day FINDINGS: No acute intracranial hemorrhage, midline shift, intracranial mass, hydrocephalus, territorial ischem ia or abnormal extra-axial collection. Mild involutional changes. Cerebral vascular calcifications. L inear hypodensities of the right parietal lobe may represent chronic infarct or chronic hypervascular ischemic disease. Mild patchy white matter hypodensities. The calvarium is intact. The paranasal sinuses, mastoid air cells, and middle ear cavities are clear . IMPRESSION: No acute intracranial abnormality. ACT 112: Negative or not required by law. The above report was generated using voice recognition software. It may contain grammatical, syntax o r spelling errors. Electronically signed by: Tay Walton M.D. 01/01/2021 3:36 PM
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
[2021-01-01 15:46] LABS: Hematocrit (blood only) 38.5 % (42-52); Mean Corpuscular Hemoglobin 32.3 pg (25-34); Mean Corpuscular Hgb Conc 33.8 g/dL (32-36); Mean Corpuscular Volume 95.8 fL (80-100); Mean Platelet Volume 10.4 fL (7.4-10.4); Platelet Count 182 K/uL (130-400); RDW Coefficient of Variation 13.4 % (11.5-14.5); RDW Standard Deviation 46.5 fL (36.4-46.3); Red Blood Count 4.02 M/uL (4.7-6.1); White Blood Count 10.18 K/uL (4.8-10.8)
[2021-01-01 15:56] LABS: INR 1.1 (0.9-1.1); Partial Thromboplastin Time 26.8 Seconds (21.0-31.0)
--- NOTE | 2021-01-01 15:58 | CT Scan Report ---
CT angio neck with con, CT angio head w con CLINICAL HISTORY: 65 years-old Male with Stroke Like Symptoms. Acute strokelike symptoms COMPARISON STUDY: Head CT of same day TECHNIQUE: Following the IV administration of moderate and 18 mL of Optiray, CT angiogram of the head and neck was performed from the aortic arch to the skull apex. Images are reviewed in the axial, sag ittal, and coronal planes. 3-D MIPS images are created and assessed. IV contrast was administered wit hout complication. All measurements were calculated based on NASCET criteria. A dose lowering techni que was utilized adhering to the principles of ALARA. CT DOSE: 1295.38 mGy.cm FINDINGS: The aortic isthmus measures 3.2 cm in transverse dimension. There is associated saccular outpouching involving the medial wall of the aorta with a suggested dissection flap on image 3 series 6. Patency of the innominate and imaged subclavian arteries. The common carotid arteries are widely patent. Athe rosclerosis of the carotid bulbs and proximal cervical segments of the internal carotid arteries with out high-grade stenosis. Additional atherosclerotic plaque of the cavernous and supraclinoid segments . The middle and anterior cerebral arteries are patent. Developmentally diminutive right A1 segment. Dominant right vertebral artery. Atherosclerotic plaque at the origin of the right vertebral artery w ithout high-grade stenosis. The vertebral, basilar and posterior cerebral arteries are patent. The ce rebral venous sinuses are patent. There is no abnormal intra-axial enhancement. Lung apices are clear. There is no pneumothorax. Unremarkable soft tissues. No acute fracture. IMPRESSION: 1. Atherosclerosis of the thoracic aortic arch with peripherally calcified area of saccular outpouchi ng involving the aortic isthmus measuring up to 3.3 cm transversely. There is an associated short seg ment dissection flap which is favored to be chronic. 2. Atherosclerotic plaque of the carotid bulbs results in less than 50% stenosis. 3. Otherwise unremarkable CTA of the head and neck. ACT 112: Negative or not required by law. The above report was generated using voice recognition software. It may contain grammatical, syntax o r spelling errors. Electronically signed by: Tay Walton M.D. 01/01/2021 3:57 PM
[2021-01-01 16:03] LABS: Albumin Level 3.3 gm/dl (3.4-5.0); BUN Creatinine Ratio 15.9 (10-20); Calcium 8.4 mg/dl (8.5-10.1); Creatinine Clr Calc Pharmacy 74.3 ml/min; Est GFR (African American) 81.5 ml/min; Est GFR (Non-African American) 70.3 ml/min; Magnesium 2.1 mg/dl (1.8-2.4); Potassium 3.5 mmol/L (3.5-5.1)
[2021-01-01 16:06] LABS: Bilirubin,Total 0.3 mg/dl (0.2-1); Globulin 3.2 gm/dl (2.5-4.0); Total Protein 6.5 gm/dl (6.4-8.2)
--- NOTE | 2021-01-01 16:09 | XRay Report ---
XR chest 1V portable HISTORY: 65 years-old Male stroke alert acute strokelike symptoms COMPARISON: 03/12/2017 TECHNIQUE: Portable upright AP view of the chest FINDINGS: Cardiomediastinal and hilar silhouettes are within normal limits. No pneumothorax, pleural effusion, airspace consolidation or overt pulmonary edema. Chronic resection of the distal right clavicle. Dege nerative changes of the shoulders and spine. IMPRESSION: No acute process. ACT 112: Negative or not required by law. The above report was generated using voice recognition software. It may contain grammatical, syntax o r spelling errors. Electronically signed by: Tay Walton M.D. 01/01/2021 4:08 PM
[2021-01-01] MEDS ORDERED: TIMOLOL MALEATE 0.5% OP SOLN 5 ML BTL OPL STA (17:23)
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
[2021-01-01] MEDS ORDERED: ASPIRIN CHEW 324 MG PO STA (18:18)
[2021-01-01] MEDS ORDERED: LORazepam 0.5 MG/1 ML VIAL IV ONE (19:44)
[2021-01-01] MEDS ORDERED: ONDANSETRON INJ 2 MG/ML 2 ML VIAL IV PRN (21:58)
[2021-01-01] MEDS ORDERED: ACETAMINOPHEN 325 MG TAB PO PRN (21:58)
[2021-01-01] MEDS ORDERED: POLYETHYLENE (MIRALAX) 17 GM PACK PO PRN (21:58)
[2021-01-01] MEDS ORDERED: PHARMACIST DISCHARGE MED REC CONSULT PRN (21:58)
--- NOTE | 2021-01-01 22:08 | Consultation Report ---
ER CONSULTATION NOTE. DATE OF CONSULTATION: 01/01/2021. REASON FOR CONSULTATION: Sudden painless vision loss, left eye. HISTORY OF PRESENT ILLNESS: I was called to the ER to see the patient after he suddenly lost vision in a painless manner in the left eye. He states vision is mostly dark with a little bit of light coming into the left eye. PAST MEDICAL HISTORY: Significant for hypertension and he has back surgery coming up in a week. PHYSICAL EXAMINATION: On his ophthalmic examination today, he has a +3 APD of the left eye. His visual acuity is 20/50 at near with his current reading glasses in the right eye and he has bare hand motion in the left eye. His extraocular movements are full in both eyes. Visual rodriguez by confrontation were normal on the right and unable to be assessed due to the current level of vision in the left eye. On slit lamp examination, his anterior segment examination was normal with trace nuclear sclerosis of his lenses of both eyes. His intraocular pressure was 15 in both eyes by Goldmann applanation. 1% tropicamide was placed in the left eye to dilate it and on dilated funduscopic examination of the left eye, he has a pink optic disk with a 0.3 cup, some retinal pallor and a mcknight red spot of the left macula. 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 I performed some ocular massage at bedside and recommended timolol twice a day ophthalmic drop to the left eye for the time being and baby aspirin as well in order to try to reestablish blood flow to the left eye. I discussed with the patient has visual prognosis is guarded in that left eye due to the severity of the occlusion. I recommended a followup with me as an outpatient in 1-2 weeks. Any other questions, do not hesitate to contact me. Job ID: [id number] [facility]ITALMarin
[2021-01-01] MEDS: GABAPENTIN 100 MG CAP PO SCH (22:37)
[2021-01-01] MEDS: FINASTERIDE 5 MG TAB PO SCH (22:37)
[2021-01-01] MEDS: ATORVASTATIN 40 MG TAB PO SCH (22:37)
[2021-01-01] MEDS: traMADol HCL 50 MG TABLET PO PRN (22:38)
[2021-01-01] MEDS: PANTOprazole 40 MG TAB PO SCH (22:38)
[2021-01-01] MEDS: TAMSULOSIN HCL 0.4 MG CAP PO SCH (22:38)
[2021-01-01] MEDS: traZODone HCL 50 MG TAB PO SCH (22:38)
[2021-01-02] MEDS: traMADol HCL 50 MG TABLET PO PRN (06:38)
[2021-01-02 06:54] LABS: Basophils # (auto) 0.02 K/uL (0-0.2); Basophils % (auto) 0.2 %; Eosinophils # (auto) 0.29 K/uL (0-0.5); Eosinophils % (auto) 2.9 %; Hematocrit (blood only) 39.7 % (42-52); Hemoglobin 13.3 g/dL (14.0-18.0); Immature Granulocytes # (auto) 0.05 K/uL (0.00-0.02); Immature Granulocytes % (auto) 0.5 %; Lymphocytes # (auto) 2.07 K/uL (1.2-3.4); Lymphocytes % (auto) 20.8 %; Mean Corpuscular Hgb Conc 33.5 g/dL (32-36); Mean Corpuscular Volume 95.4 fL (80-100); Mean Platelet Volume 10.7 fL (7.4-10.4); Neutrophils # (auto) 6.91 K/uL (1.4-6.5); Neutrophils % (auto) 69.6 %; Platelet Count 189 K/uL (130-400); RDW Coefficient of Variation 13.4 % (11.5-14.5); Red Blood Count 4.16 M/uL (4.7-6.1); White Blood Count 9.94 K/uL (4.8-10.8)
[2021-01-02 07:13] LABS: BUN Creatinine Ratio 19.8 (10-20); Calcium 8.8 mg/dl (8.5-10.1); Creatinine Clr Calc Pharmacy 86.4 ml/min; Est GFR (African American) 98.3 ml/min; Est GFR (Non-African American) 84.9 ml/min; Potassium 3.8 mmol/L (3.5-5.1)
[2021-01-02] MEDS ORDERED: FLUARIX QUADRIVALENT 0.5 ML SYR IM ONE (08:00)
[2021-01-02] MEDS: ASPIRIN 81 MG ECTAB PO SCH (08:20)
[2021-01-02] MEDS: ESCITALOPRAM OXALATE 20 MG TAB PO SCH (08:20)
[2021-01-02] MEDS: GABAPENTIN 100 MG CAP PO SCH ×3 (08:20→21:11)
--- NOTE | 2021-01-02 09:31 | Hospitalist Progress Note ---
Date of Service January 02, 2021 Assessment & Plan (1) Vision loss, left eye: Plan: Acute Left eye vision loss Likely acute embolic CVA: Not a candidate for tPA as per Tele Stroke -CT head: showed no acute pathology -CTA Head/Neck:Head CTA: Atherosclerosis of the thoracic aortic arch with peripherally calcified area of saccular outpouching involving the aortic isthmus measuring up to 3.3 cm transversely. There is an associated short segment dissection flap which is favored to be chronic. Atherosclerotic plaque of the carotid bulbs results in less than 50% stenosis. Otherwise unremarkable CTA of the head and neck. -MRI Brain:No acute intracranial abnormality. -LDL 94 HbA1c pending ECHO: Left ventricle is normal in size. Mild concentric LVH. EF 55 to 60%. Heavy focal calcification of the posterior mitral valve annulus. Mild mitral regurgitation. Interatrial septum is intact with no evidence of ASD. Speech and swallow eval Continue aspirin, Lipitor Added Plavix as recommended by Neurology Evaluated by Ophthalmology while in ED Neuro checks Appreciate Neurology Input PT/OT Needs continue aspirin, Plavix for 21 days and then transition to aspirin alone Needs follow-up with neurology upon discharge Needs outpatient Zio patch to rule out arrhythmias Needs follow-up with ophthalmology upon discharge Sinus bradycardia Asymptomatic Resume Metoprolol with holding parameters Monitor on telemetry Echo as above Consider cardiology evaluation if needed Aortic arch dissection Incidental finding on CT --CTA Neck as above --Chest CTA:Thoracic aorta: No intramural hematoma is seen on the unenhanced series. There is mild atherosclerotic calcification of the thoracic aorta, which is normal in caliber and demonstrates standard 3-vessel arch anatomy. No dissection is seen. The arch vessels are widely patent. A 2.4 cm ductus divert iculum is noted. --Abdominal Aorta CTA pending --Discussed with CT surgeon at [facility] on 01/02/21 -Advised to continue antiplatelets, Continue BP control with Beta miguel ángel Needs follow-up with CT surgeon upon discharge Prediabetes Update HbA1c Currently not on any medications Hypertension Resume Metoprolol, Enalapril Monitor blood pressure Depression Continue home medication BPH Continue Flomax, finasteride Chronic lower back pain Tramadol PRN DVT prophylaxis SCDs for now CODE STATUS Full code Admission and Anticipated Discharge Date Admission Date: January 01, 2021 Subjective Patient is seen and examined at bedside States having back pain which is chronic Left eye vision loss remains unchanged Denies any new focal weakness Also denies any chest pain, shortness of breath, dizziness, nausea, abdominal pain Discussed with neurology and cardiology today Bradycardia on monitor Review of Systems Review of Systems: All systems reviewed & are unremarkable except as noted in Subjective Physical Exam Physical Exam: Physical Exam: Vitals signs as noted above General Appearance:Moderately built and nourished, no apparent distress Head: normocephalic, Atraumatic Eyes: normal inspection, Left eye vision loss, +dilated pupil, EOMI Neck: supple, Trachea midline Respiratory/Chest: Normal breath sounds, CTA, No accessory muscle use Cardiovascular: S1, S2, No murmur, +Bradycardia Abdomen/GI:Soft, Non tender, Bowel sounds present Extremities/Musculoskeletal:normal inspection, no edema Neurologic/Psych:AAOX3, grossly no focal neurological deficits Skin: normal color, warm Results & Data Results & Data ([facility]) Vital Signs (Past 12 Hours) Vital Signs Temp Pulse Pulse Resp BP BP Pulse Ox 01/02/21 07:32 36.6 C 53 L 18 161/94 H 96 01/02/21 07:04 61 01/02/21 04:03 36.9 C 56 L 18 133/79 95 01/01/21 22:00 36.7 C 54 L 20 125/82 97 01/01/21 21:28 54 L 20 146/85 H 93 Laboratory Results Short CBC 01/01/21 01/02/21 Range/Units 15:37 06:33 WBC 10.18 9.94 (4.8-10.8) K/uL Hgb 13.0 L 13.3 L (14.0-18.0) g/dL Hct 38.5 L 39.7 L (42-52) % Plt Count 182 189 (130-400) K/uL BMP 01/01/21 01/02/21 15:37 06:33 Sodium 141 144 Potassium 3.5 3.8 Chloride 110 H 112 H Carbon Dioxide 27 27 BUN 18 19 H Creatinine 1.11 0.95 Glucose 119 H 117 H Calcium 8.4 L 8.8 Liver Function 01/01/21 Range/Units 15:37 Total Bilirubin 0.3 (0.2-1) mg/dl AST 9 L (15-37) U/L ALT 18 (12-78) U/L Alkaline Phosphatase 46 (45-117) U/L Albumin 3.3 L (3.4-5.0) gm/dl
--- NOTE | 2021-01-02 09:42 | Electrocardiogram Report ---
Test Reason : Blood Pressure : / mmHG Vent. Rate : 057 BPM Atrial Rate : 057 BPM P-R Int : 170 ms QRS Dur : 076 ms QT Int : 430 ms P-R-T Axes : 044 017 015 degrees QTc Int : 418 ms Sinus bradycardia Otherwise normal ECG When compared with ECG of 01-JAN-2021 15:38, (unconfirmed) No significant change was found Confirmed by Louis Arredondo ([id number]) on 01/02/2021 9:42:15 AM Referred By: REFERRED SELF Confirmed By:Louis Arredondo
[2021-01-02] MEDS ORDERED: LORazepam 0.5 MG TAB PO ONE (09:45)
[2021-01-02] MEDS ORDERED: METOPROLOL SUCC 50MG EXT REL TAB PO SCH (10:30)
--- NOTE | 2021-01-02 11:54 | Electrocardiogram Report ---
Test Reason : Blood Pressure : / mmHG Vent. Rate : 058 BPM Atrial Rate : 058 BPM P-R Int : 180 ms QRS Dur : 076 ms QT Int : 414 ms P-R-T Axes : 044 006 009 degrees QTc Int : 406 ms Sinus bradycardia Otherwise normal ECG When compared with ECG of 21-FEB-2018 17:32, No significant change was found Confirmed by Louis Arredondo ([id number]) on 01/02/2021 11:53:32 AM Referred By: REFERRED SELF Confirmed By:Louis Arredondo
[2021-01-02] MEDS ORDERED: LORazepam 0.5 MG/1 ML VIAL IV STA (12:26)
[2021-01-02] MEDS ORDERED: LORazepam 2 MG/4 ML VIAL ONE (12:32)
--- NOTE | 2021-01-02 12:39 | Communication Note ---
Date of Service: January 02, 2021 I attempted to see Mr. Ruiz today in neurologic consultation on multiple occasions with the has been consistently off having radiographic procedures w [facility] I assume is an MRI scan that was scheduled yesterday He presented with an acute left central retinal artery occlusion is appropriate being evaluated for potential source of emboli and in the process has had a negative CT of the head, CTA of the neck showing an incidental localized chronic dissection of the aortic isthmus which is distal to the major artery supply of the brain but is associated apparently with some atheromatous changes throughout the aorta and he also has some atheromatous changes with no significant flow reduction throughout the internal carotid systems as well. An echocardiogram has shown no clear source of emboli other than a heavily calcified posterior mitral annulus He does have a history of some hypertension Wagner's esophagus and low back pain is scheduled to have surgery next week for the latter He has seen ophthalmology already who feels the has a somewhat limited prognosis for return of visual function and he has been placed on aspirin which he was not taking before and timolol drops twice a day to reduce ocular pressure and has had ocular massage but beyond this I do not think much can be offered Neurology has been consulted I suppose because this is in a sense stroke and indeed the MRI may show other areas of possible embolic infarction but has not been done yet He has been placed on aspirin and is on some permissive hypertension but does not today have any significant extracranial vascular occlusive disease or significant intracranial issues My suggestions would be: 1) add Plavix to the aspirin for 21 days and then continue with aspirin alone as per the standard "stroke" antiplatelet regimen algorithm 2) communicate with cardiology regarding whether or not they would add a transesophageal echo to the diagnostic list to be certain there is not any associated shaggy aortic plaque which might be treated with Coumadin or possibly a novel oral anticoagulant and lastly obviously to get an outpatient ZIO Patch to evaluate for paroxysmal atrial fibrillation and this can be set up in our offices on an outpatient basis or could be arranged by cardiology if they feel this would be a good idea I will try to see him again tomorrow but if the MRI shows no areas of infarction involving the left hemisphere or any other areas of recent embolic infarction and I think he probably could be discharged with outpatient follow-up by ophtha lmology and by neurology I will check back later this afternoon by computer to see the results of the MRI when it is finally done and will communicate with Dr. Jaramillo his current hospitalist and will on Sunday make arrangements for him to be seen in our office as a hospital follow-up if indeed he is discharged today or early tomorrow morning prior to my standard of consult rounds in the later afternoon hours Vinny Meza MD
[2021-01-02] MEDS ORDERED: GADOBUTROL 10ML VIAL IV ONE (13:17)
--- NOTE | 2021-01-02 13:33 | Magnetic Resonance Report ---
MRI OF THE BRAIN COMBO CLINICAL HISTORY: Strokelike symptoms. COMPARISON STUDY: CT of the brain dated 01/01/2021. TECHNIQUE: MRI of the brain was performed utilizing various T1 and T2-weighted sequences in the axial , sagittal, and coronal planes. Contrast-enhanced sequences were acquired following the administratio n of 8.8 cc of Gadavist. FINDINGS: Brain parenchyma: There is mild microangiopathic disease. There is no hemorrhage or mass effect. Ther e is no restricted diffusion to suggest acute ischemia. No enhancing mass lesion is identified on the postcontrast images. Pineda-white matter differentiation is preserved. No extra-axial fluid collection is seen. The cerebellar tonsils are normal in configuration. Ventricles, sulci, and cisterns: Normal in configuration. Pituitary and sella: There is nonspecific prominence of the pituitary gland with a convex superior ma rgin. Intracranial vasculature: Normal flow voids are maintained at the skull base. Orbits: The bony orbits are grossly intact. Orbital contents are normal in appearance. Sinuses and mastoids: Clear. Calvarium: Unremarkable. Cervical cord: Partially visualized cervical spinal cord is normal in morphology and signal intensity . IMPRESSION: No acute intracranial abnormality. ACT 112: Negative or not required by law. Electronically signed by: Rodrigo Hays M.D. 01/02/2021 1:31 PM
[2021-01-02] MEDS ORDERED: OPTIRAY 320 125ml IV ONE (14:00)
--- NOTE | 2021-01-02 14:12 | CT Scan Report ---
CT ANGIOGRAM OF THE CHEST COMBO CLINICAL HISTORY: Atypical chest pain. COMPARISON STUDY: Chest x-ray dated 01/01/2021. TECHNIQUE: Before and following the IV administration of 113 cc of Optiray 320, CT angiogram of the c hest was performed from the thoracic inlet to the upper abdomen utilizing the dissection protocol. Im ages are reviewed in the axial, sagittal, and coronal planes. 3-D MIPS images are created and assesse d. IV contrast was administered without complication. A dose lowering technique was utilized adherin g to the principles of ALARA. FINDINGS: Thyroid: Imaged portions of the thyroid gland are normal in size and attenuation. Thoracic aorta: No intramural hematoma is seen on the unenhanced series. There is mild atheroscleroti c calcification of the thoracic aorta, which is normal in caliber and demonstrates standard 3-vessel arch anatomy. No dissection is seen. The arch vessels are widely patent. A 2.4 cm ductus diverticulum is noted. Pulmonary vasculature: The pulmonary trunk is normal in caliber. There are no central filling defects identified in the pulmonary vessels to suggest pulmonary embolus. Note that this examination was not specifically protocoled to assess for pulmonary emboli. Heart: The heart is enlarged and without pericardial effusion. The coronary arteries end mitral annul us are densely calcified. There is lipomatous hypertrophy of the interatrial septum. Lungs and pleural spaces: A tiny calcified granuloma seen in the right upper lobe. There is no airspa ce consolidation or pleural effusion. The trachea and central airways are clear. Mediastinum: There is no mediastinal lymphadenopathy. Louise: Clear. Axillae: There is no axillary lymphadenopathy. Upper abdomen: There is a small hiatal hernia. Cholecystectomy clips are noted. Parenchymal calcifica tions of the pancreas suggest chronic pancreatitis. Excreted IV contrast is noted within the partiall y imaged left renal collecting system unenhanced series. Skeletal structures: No lytic or blastic bony lesions are seen. IMPRESSION: 1. There is a 2.4 cm ductus diverticulum. 2. Otherwise unremarkable CT angiogram of the thoracic aorta. 3. Cardiomegaly. 4. The lungs are clear. 5. Additional findings as above. ACT 112: Negative or not required by law. Electronically signed by: Rodrigo Hays M.D. 01/02/2021 2:11 PM
[2021-01-02] MEDS: CLOPIDOGREL BISULFATE 75 MG TAB PO SCH (14:41)
[2021-01-02] MEDS: LIDOCAINE 5% 1 PATCH TD SCH (14:41)
[2021-01-02] MEDS: oxyCODONE/ACETAMINOPHEN 5mg/325mg TAB PO PRN ×2 (14:45→21:10)
--- NOTE | 2021-01-02 16:59 | CT Scan Report ---
CT ANGIOGRAM OF THE ABDOMEN AND PELVIS WITH BILATERAL LOWER EXTREMITY RUNOFF CLINICAL HISTORY: Atypical chest pain. Generalized abdominal pain. Leg pain. COMPARISON STUDY: Abdominal CT dated 03/31/2020. TECHNIQUE: Following the IV administration of 113 cc of Optiray 320, CT angiogram of the abdomen and pelvis with bilateral lower externally runoff was performed from the lung bases to the feet. Images a re reviewed in the axial, sagittal, and coronal planes. 3-D MIPS images are created and assessed. IV contrast was administered without complication. A dose lowering technique was utilized adhering to t he principles of ALARA. CT DOSE: 2180.83 mGy.cm FINDINGS: Lower chest: The heart is enlarged and without pericardial effusion. The coronary arteries and mitral annulus are densely calcified. The lung bases are clear. There is a small hiatal hernia. Liver: The contrast-enhanced liver is normal in size, contour, and attenuation. There is no intrahepa tic biliary ductal dilatation. Gallbladder: Surgically absent noting clips in the gallbladder fossa. Spleen: Normal in size and attenuation noting heterogeneous arterial phase enhancement. Pancreas: Numerous parenchymal calcifications suggest chronic pancreatitis. Adrenal glands: Unremarkable. Kidneys: The contrast since kidneys are normal in size and without hydronephrosis. The kidneys enhanc e symmetrically. Scattered subcentimeter cortical hypodensities likely represent cysts but are too sm all for definitive characterization. Nonobstructing renal calculi are suggested. This is difficult to assess due to the presence of excreted IV contrast within the renal collecting systems. Abdominal aorta and iliac arteries: The abdominal aorta is normal in course and caliber noting mild a therosclerotic calcification. No dissection is seen. The abdominal aorta and iliac arteries are widel y patent bilaterally. Major branches of the abdominal aorta: The celiac trunk, superior mesenteric, and inferior mesenteric arteries are widely patent. There is a replaced right hepatic artery which arises from the superior mesenteric artery. A small accessory left hepatic artery arises from the left gastric artery. The spl enic artery is widely patent. Single bilateral renal arteries are widely patent. Right lower extremity runoff: The right common femoral artery is widely patent, as is the right profu nda femoris artery. The right superficial femoral artery and popliteal artery are widely patent notin g mild atherosclerotic calcification irregularity. The infrapopliteal vessels cannot be evaluated due to lack of contrast opacification. Advanced atherosclerotic calcification is noted in the calf vesse ls. Left lower extremity runoff: The left common femoral artery is widely patent, as is the left profunda femoris artery. The left superficial femoral and popliteal arteries are widely patent noting atheros clerotic plaque and irregularity. The infrapopliteal vessels cannot be assessed as they were not opac ified by IV contrast. Advanced atherosclerotic calcification is noted within the calf vessels. Bowel: There is no bowel obstruction. Moderate fecal retention is seen throughout the colon. The appe ndix is well-visualized and normal. Peritoneum: There is no intraperitoneal free air or abdominal ascites. There is a small fat-containin g umbilical hernia. Lymphadenopathy: None. Pelvic viscera: The prostate gland is mildly enlarged and heterogeneous noting median lobe hypertroph y. The bladder wall appears thickened and trabeculated indicating chronic outlet obstruction. The yovani dder is filled with excreted IV contrast Skeletal structures: No destructive bony lesions are seen. There is mild lumbosacral spondylosis. The re is a chronic nonunited fracture through the proximal shaft of the fourth metatarsal on the right. Lower extremity soft tissues: The lower sternum soft tissues are normal as visualized. IMPRESSION: 1. Unremarkable CT angiogram of the abdominal aorta and its major branches. 2. The lower extremity arteries are widely patent bilaterally to the level of the knee. 3. The calf vessels could not be assessed in either leg due to lack of contrast opacification. These vessels demonstrate significant atherosclerotic plaque. 4. No acute infectious or inflammatory findings are identified in the abdomen or pelvis. 5. Nonunited fracture through the proximal shaft of the fourth metatarsal on the right. 6. Suspect bilateral nephrolithiasis. 7. Additional findings as above. ACT 112: Negative or not required by law. Electronically signed by: Rodrigo Hays M.D. 01/02/2021 4:58 PM
[2021-01-02] MEDS ORDERED: ENALAPRIL MALEATE 10 MG TAB PO SCH (21:00)
[2021-01-02] MEDS: ATORVASTATIN 40 MG TAB PO SCH (21:11)
[2021-01-02] MEDS: FINASTERIDE 5 MG TAB PO SCH (21:11)
[2021-01-02] MEDS: PANTOprazole 40 MG TAB PO SCH (21:12)
[2021-01-02] MEDS: TAMSULOSIN HCL 0.4 MG CAP PO SCH (21:12)
[2021-01-02] MEDS: traZODone HCL 50 MG TAB PO SCH (21:12)
[2021-01-03] MEDS: oxyCODONE/ACETAMINOPHEN 5mg/325mg TAB PO PRN ×2 (04:46→11:46)
[2021-01-03 07:16] LABS: Basophils # (auto) 0.02 K/uL (0-0.2); Basophils % (auto) 0.2 %; Eosinophils # (auto) 0.27 K/uL (0-0.5); Eosinophils % (auto) 2.7 %; Hematocrit (blood only) 37.4 % (42-52); Hemoglobin 13.1 g/dL (14.0-18.0); Immature Granulocytes # (auto) 0.03 K/uL (0.00-0.02); Immature Granulocytes % (auto) 0.3 %; Lymphocytes # (auto) 1.77 K/uL (1.2-3.4); Mean Corpuscular Hemoglobin 32.9 pg (25-34); Mean Platelet Volume 10.8 fL (7.4-10.4); Monocytes # (auto) 0.66 K/uL (0.11-0.59); Monocytes % (auto) 6.7 %; Neutrophils # (auto) 7.07 K/uL (1.4-6.5); Neutrophils % (auto) 72.1 %; Platelet Count 185 K/uL (130-400); RDW Coefficient of Variation 13.3 % (11.5-14.5); RDW Standard Deviation 45.9 fL (36.4-46.3); Red Blood Count 3.98 M/uL (4.7-6.1); White Blood Count 9.82 K/uL (4.8-10.8)
[2021-01-03 07:35] LABS: BUN Creatinine Ratio 19.4 (10-20); Creatinine Clr Calc Pharmacy 92.9 ml/min; Est GFR (Non-African American) 91.4 ml/min; Potassium 3.9 mmol/L (3.5-5.1)
[2021-01-03] MEDS: GABAPENTIN 100 MG CAP PO SCH (08:54)
[2021-01-03] MEDS: CLOPIDOGREL BISULFATE 75 MG TAB PO SCH (08:55)
[2021-01-03] MEDS: LIDOCAINE 5% 1 PATCH TD SCH (08:55)
[2021-01-03] MEDS: ASPIRIN 81 MG ECTAB PO SCH (08:55)
[2021-01-03] MEDS: ESCITALOPRAM OXALATE 20 MG TAB PO SCH (08:55)
[2021-01-03 09:00] LABS: Estimated Average Glucose 117 mg/dl; Hemoglobin A1C 5.7 % (4.5-5.6)
[2021-01-03] MEDS ORDERED: METOPROLOL SUCC 50MG EXT REL TAB PO SCH (09:25)
--- NOTE | 2021-01-03 12:50 | Hospitalist Progress Note ---
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 There is an associated short segment disse ction flap which is favored to be chronic. Atherosclerotic plaque of the carotid bulbs results in less than 50% stenosis. Otherwise unremarkable CTA of the head and neck. -MRI Brain:No acute intracranial abnormality. -LDL 94 HbA1c: 5.7 -ECHO: Left ventricle is normal in size. Mild concentric LVH. EF 55 to 60%. Heavy focal calcification of the posterior mitral valve annulus. Mild mitral regurgitation. Interatrial septum is intact with no evidence of ASD. Speech and swallow eval Continue aspirin, Plavix, Lipitor Needs follow up with Ophthalmology in 1-2 weeks Neuro checks Appreciate Neurology Input PT/OT Needs continue aspirin, Plavix for 21 days and then transition to aspirin alone Needs follow-up with neurology upon discharge Needs outpatient Zio patch to rule out arrhythmias No driving or operate heavy machinery until cleared by Neurology/Ophthalmology advised Sinus bradycardia Asymptomatic Decreased Toprol succinate to 150 mg daily Monitor on telemetry Echo as above Advised to follow-up with cardiology upon discharge Aortic arch dissection--Ruled out --CTA Neck as above --Chest CTA:Thoracic aorta: No intramural hematoma is seen on the unenhanced series. There is mild atherosclerotic calcification of the thoracic aorta, which is normal in caliber and demonstrates standard 3-vessel arch anatomy. No dissection is seen. The arch vessels are widely patent. A 2.4 cm ductus diverticulum is noted. --Abdominal Aorta CTA: Unremarkable CT angiogram of the abdominal aorta and its major branches. The lower extremity arteries are widely patent bilaterally to the level of the knee. The calf vessels could not be assessed in either leg due to lack of contrast opacification. These vessels demonstrate significant atherosclerotic plaque. No acute infectious or inflammatory findings are identified in the abdomen or pelvis. Nonunited fracture through the proximal shaft of the fourth metatarsal on the right. Suspect bilateral nephrolithiasis. --Discussed with CT surgeon at [facility] on 01/02/21 -Advised to continue antiplatelets, Continue BP control with Beta miguel ángel Needs follow-up with CT surgeon upon discharge Prediabetes Update HbA1c:5.7 Currently not on any medications Hypertension Continue Metoprolol 150mg daily Increase Enalapril to 20mg daily Monitor blood pressure Depression Continue home medication BPH Continue Flomax, finasteride Chronic lower back pain Tramadol PRN DVT prophylaxis SCDs for now CODE STATUS Full code Admission and Anticipated Discharge Date Admission Date: January 01, 2021 Subjective Patient is seen and examined at bedside No new complaints No change in left eye vision loss Chronic back pain Denies any chest pain, shortness of breath, dizziness, nausea, abdominal pain Discussed with neurology today Review of Systems Review of Systems: All systems reviewed & are unremarkable except as noted in Subjective Physical Exam Physical Exam: Physical Exam: Vitals signs as noted above General Appearance:Moderately built and nourished, no apparent distress Head: normocephalic, Atraumatic Eyes: normal inspection, Left eye vision loss, +dilated pupil, EOMI Neck: supple, Trachea midline Respiratory/Chest: Normal breath sounds, CTA, No accessory muscle use Cardiovascular: S1, S2, No murmur, +Bradycardia Abdomen/GI:Soft, Non tender, Bowel sounds present Extremities/Musculoskeletal:normal inspection, no edema Neurologic/Psych:AAOX3, grossly no focal neurological deficits Skin: normal color, warm Results & Data Results & Data ([facility]) Vital Signs (Past 12 Hours) Vital Signs Temp Pulse Pulse Resp BP Pulse Ox 01/03/21 10:46 36.6 C 50 L 19 154/89 H 96 01/03/21 07:39 49 L 01/03/21 07:03 36.7 C 48 L 19 149/87 H 97 01/03/21 04:00 48 L 16 124/73 97 Laboratory Results Short CBC 01/03/21 Range/Units 06:51 WBC 9.82 (4.8-10.8) K/uL Hgb 13.1 L (14.0-18.0) g/dL Hct 37.4 L (42-52) % Plt Count 185 (130-400) K/uL BMP 01/03/21 06:51 Sodium 143 Potassium 3.9 Chloride 110 H Carbon Dioxide 29 BUN 17 Creatinine 0.88 Glucose 101 H Calcium 9.0
[2021-01-03] MEDS ORDERED: STROKE PATIENT DISCHARGE STA (13:01)
--- NOTE | 2021-01-03 13:02 | Discharge Summary ---
Date of Service January 03, 2021 Admission HPI Per Admitting Provider Patient is a 65-year-old male with history of hypertension, nephrolithiasis, iron deficiency anemia, chronic lower back pain, BPH, insomnia, depression and other medical problems presents with history of sudden onset of left vision loss. Patient states that he noted to have decreased vision in his eye at around 2:15 PM today. He states that he was going up the stairs and noted to have his vision fading away which he initially thought " felt over the eye" but later realized that he could no longer see with the left eye. He denies any associated headache, change in vision of right eye, focal weakness, dizziness, nausea, vertigo, head trauma. He denies any prior strokes or TIAs in the past. Denies any history of chest pain, Dyspnea, palpitations, diaphoresis, cough, fever, chills, fall, Syncope, numbness, slurred speech, facial deformity, bowel/bladder incontinence, nausea, vomiting, abdominal pain, blood in stools, diarrhea, change in appetite, weight loss, dysuria, hematuria. Admission Exam Per Admitting Provider Physical Exam: Vitals signs as noted above General Appearance:Moderately built and nourished, no apparent distress Head: normocephalic, Atraumatic Eyes: normal inspection, Left eye vision loss, +dilated pupil, EOMI Neck: supple, Trachea midline Respiratory/Chest: Normal breath sounds, CTA, No accessory muscle use Cardiovascular: S1, S2, No murmur, +Bradycardia Abdomen/GI:Soft, Non tender, Bowel sounds present Extremities/Musculoskeletal:normal inspection, no edema Neurologic/Psych:AAOX3, grossly no focal neurological deficits Skin: normal color, warm Principal Diagnosis 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 Sinus bradycardia Discharge Data Allergies Allergy/AdvReac Type Severity Reaction Status Date / Time No Known Allergies Allergy Verified 01/01/21 19:31 Consultations 01/01/21 18:18 ED Decision to Admit Stat 01/02/21 07:00 Consult Neurology Routine Ordered Studies 01/01/21 15:14 CT head/brain wo con Stat 01/01/21 15:15 CT angio head w con Stat CT angio neck with con Stat 01/02/21 08:57 MR brain wo/w con Routine 01/02/21 10:22 CT ang AA runof w inc wo ifdon Urgent CT angio chest dissec wo/w con Urgent Hospital Course (1) Vision loss, left eye: Acute Left eye vision loss 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 There is an associated short segment dissection flap which is favored to be chronic. Atherosclerotic plaque of the carotid bulbs results in less than 50% stenosis. Otherwise unremarkable CTA of the head and neck. -MRI Brain:No acute intracranial abnormality. -LDL 94 HbA1c: 5.7 -ECHO: Left ventricle is normal in size. Mild concentric LVH. EF 55 to 60%. Heavy focal calcification of the posterior mitral valve annulus. Mild mitral regurgitation. Interatrial septum is intact with no evidence of ASD. Speech and swallow eval Continue aspirin, Plavix, Lipitor Needs follow up with Ophthalmology in 1-2 weeks Neuro checks Appreciate Neurology Input PT/OT Needs continue aspirin, Plavix for 21 days and then transition to aspirin alone Needs follow-up with neurology upon discharge Needs outpatient Zio patch to rule out arrhythmias No driving or operate heavy machinery until cleared by Neurology/Ophthalmology advised Sinus bradycardia Asymptomatic Decreased Toprol succinate to 150 mg daily Monitor on telemetry Echo as above Advised to follow-up with cardiology upon discharge Aortic arch dissection--Ruled out --CTA Neck as above --Chest CTA:Thoracic aorta: No intramural hematoma is seen on the unenhanced series. There is mild atherosclerotic calcification of the thoracic aorta, which is normal in caliber and demonstrates standard 3-vessel arch anatomy. No dissection is seen. The arch vessels are widely patent. A 2.4 cm ductus diverticulum is noted. --Abdominal Aorta CTA: Unremarkable CT angiogram of the abdominal aorta and its major branches. The lower extremity arteries are widely patent bilaterally to the level of the knee. The calf vessels could not be assessed in either leg due to lack of contrast opacification. These vessels demonstrate significant atherosclerotic plaque. No acute infectious or inflammatory findings are identified in the abdomen or pelvis. Nonunited fracture through the proximal shaft of the fourth metatarsal on the right. Suspect bilateral nephrolithiasis. --Discussed with CT surgeon at [facility] on 10/10/21 -Advised to continue antiplatelets, Continue BP control with Beta miguel ángel Needs follow-up with CT surgeon upon discharge Prediabetes Update HbA1c:5.7 Currently not on any medications Hypertension Continue Metoprolol 150mg daily Increase Enalapril to 20mg daily Monitor blood pressure Depression Continue home medication BPH Continue Flomax, finasteride Chronic lower back pain Tramadol PRN DVT prophylaxis SCDs for now CODE STATUS Full code Total Time Total Time Spent Total Time Spent (In Minutes): 47 minutes Discharge Plan Discharge Items Patient Disposition: Home - Self-Care Reason For Visit: LEFT EYE VISION LOSS Discharge Diagnosis: 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 Sinus bradycardia Activity: Per Instructions section Exercise/Sports: Wait until after follow-up appointment Driving/Machine Use: No driving permitted until cleared by your neurologist/order tracer Non-emergency contact: Primary Care Provider, Surgeon, Director Of Cardiac Cath Lab, Neurologist and Crew Person Call non-emergency contact if: you have any medication questions, your symptoms worsen and your pain is concerning for you Follow-up/Referrals: Juana Delgado PA-C [Physician Emblem Fuser Tender] - (Date & Time 02/03/2021 11:20 AM Provider Juana Delgado PA-C Department Neurology [facility] ) Tiny Larson MD [Primary Care Provider] - (Date & Time 01/10/2021 11:00 AM Provider Tiny Larson MD Department [facility] ) Diet: Heart Healthy Addtl Attending Provider Instructions: Follow-up with your primary care physician Dr. Larson on 01/10/2021 11:00 AM Follow-up with your neurologist Juana Delgado PA-C on 02/03/2021 11:20 AM With your transport truck driver for evaluation of low heart rate as advised Follow-up with your order tracer in 1-2 weeks as advised Follow-up with your CT surgeon Dr. Munson at [facility] for further evaluation of her aorta as advised -------Take aspirin, Plavix daily for 21 days and then transition to aspirin 81 mg alone for lifelong as advised by neurologist. ------Get Zio Patch arranged as outpatient to rule out any arrhythmias .(Your neurologist plans to arrange it) No driving or heavy missionary use permitted until cleared by your neurologist or order tracer Seek immediate medical attention if your symptoms reoccur or worsen Please take all medications as instructed on discharge list below. Please call if you have any questions or problems. You can reach a [facility] hospitalist on duty at [facility] 24 hours a day by calling [phone] Risk Factors for Stroke: You can reduce your chances of stroke by working with your medical provider to adopt a healthy lifestyle. Some specific ways to lower your chance of stroke are: * If you are a smoker, now is the time to stop smoking cigarettes * If you are diabetic, improve the control of your blood sugars * Avoid excessive amounts of alcohol * Control high blood pressure * Lose weight if you are overweight * Be sure to lead an active lifestyle * Eat a healthy diet low in salt, cholesterol and fat You should know about other risk factors for stroke that you are unable to control. These include: * Age 55 years or older * Male gender * Certain racial groups: , or / * Family History of Stroke, Mini stroke or Heart Attack * Sickle Cell Disease Follow Up: It is important for you to keep your follow up appointments with your medical provider. Who to Call and When: Medical Emergencies: Call 911 immediately if you experience any of the following warning signs and symptoms of Stroke: * Sudden numbness or weakness of the face, arm or leg, especially on one side of the body * Sudden confusion, trouble speaking or understanding * Sudden trouble seeing in one or both eyes * Sudden trouble walking, dizziness, loss of balance or coordination * Sudden severe headache with no cause Do not delay calling 911 if you experience any warning signs or symptoms of a stroke. Delay in seeking medical attention may affect what treatments can be given to you. . Pending Studies at Discharge: No Stand-Alone Forms: My [facility], Smoking Cessation Medications and DC Order Prescriptions: New atorvastatin 40 mg Tablet 40 mg PO HS Qty: 30 RF: 1 clopidogrel 75 mg Tablet 75 mg PO QAM Qty: 20 RF: 0 aspirin 81 mg Tablet,Delayed Release (Dr/Ec) 81 mg PO QAM Qty: 30 RF: 1 enalapril maleate 20 mg tablet 20 mg PO HS Qty: 30 RF: 0 metoprolol succinate 100 mg tablet extended release 24 hr 150 mg PO DAILY 30 Days Qty: 45 RF: 0 Continued tamsulosin 0.4 mg Capsule 0.4 mg PO HS RF: 0 ginseng 100 mg Capsule 100 mg PO QAM RF: 0 finasteride 5 mg Tablet 5 mg PO HS RF: 0 Testosterone 2 cap PO QAM RF: 0 trazodone 50 mg tablet 50 mg PO HS RF: 0 gabapentin 100 mg capsule 100 mg PO TID RF: 0 pantoprazole 40 mg tablet,delayed release (DR/EC) 40 mg PO HS RF: 0 escitalopram oxalate 20 mg tablet 20 mg PO DAILY RF: 0 Discontinued metoprolol succinate 200 mg Tablet Extended Release 24 Hr 200 mg PO HS RF: 0 enalapril maleate 10 mg Tablet 10 mg PO HS RF: 0 Discharge Orders: Discharge Order (Routine); Ordered 01/03/21 Ordered By: Manjit Jaramillo Admission Data Admit Date/Time: 01/01/21 19:32 Attending Provider: Manjit Jaramillo Admit Provider: Manjit Jaramillo Primary Care Provider: Tiny Larson Other Providers: Manjit Jaramillo ; Vinny Meza Other Interventions: Discharge Summary Assessment (RN) Last Done: 01/03/21 13:07
--- NOTE | 2021-01-03 14:29 | Electrocardiogram Report ---
Test Reason : Blood Pressure : / mmHG Vent. Rate : 049 BPM Atrial Rate : 049 BPM P-R Int : 194 ms QRS Dur : 078 ms QT Int : 448 ms P-R-T Axes : 070 005 006 degrees QTc Int : 404 ms Sinus bradycardia Otherwise normal ECG When compared with ECG of 02-JAN-2021 06:19, No significant change was found Confirmed by Louis Arredondo ([id number]) on 01/03/2021 2:29:09 PM Referred By: REFERRED SELF Confirmed By:Louis Arredondo
[2021-01-03] MEDS ORDERED: ENALAPRIL MALEATE 10 MG TAB PO SCH (21:00)
== END 2021-01-03 13:46 | disposition home or self-care (01) | DRG 123 ==
LOC: ED 15:00 → 2S 19:32 → INTOOBSV 19:32 → 2S 21:29
DX: I10 Essential (primary) hypertension; Z79.899 Other long term (current) drug therapy; H34.12 Central retinal artery occlusion, left eye; R29.702 NIHSS score 2; Z83.3 Family history of diabetes mellitus; F41.9 Anxiety disorder, unspecified; M54.9 Dorsalgia, unspecified; N40.0 Benign prostatic hyperplasia without lower urinary tract symptoms; F17.220 Nicotine dependence, chewing tobacco, uncomplicated; G47.00 Insomnia, unspecified; R00.1 Bradycardia, unspecified; G89.29 Other chronic pain; F32.9 Major depressive disorder, single episode, unspecified; R73.03 Prediabetes

== ENCOUNTER 2021-05-10 11:52 | Observation (INO) ==
[2021-05-10] MEDS ORDERED: dexAMETHasone**PF** 10 MG/ML VIAL IV ONE (12:02)
[2021-05-10] MEDS ORDERED: diphenhydrAMINE 50 MG/ML VIAL IV STA (12:02)
[2021-05-10] MEDS ORDERED: PROCHLORPERAZINE 5 MG/ML 2 ML VIAL IV STA (12:02)
[2021-05-10] MEDS ORDERED: MoRPHine SULFATE 2 MG/ML CARP IV STA (12:05)
[2021-05-10] MEDS ORDERED: LABETALOL HCL IV 5 MG/ML 20ML IV STA (12:10)
--- NOTE | 2021-05-10 12:11 | Emergency Department Note ---
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 05/10/21 12:03 Last Admin: 05/10/21 12:21 Dose: 10 mg Documented by: [id number] Diphenhydramine HCl (Diphenhydramine 50 Mg/Ml Vial) 12.5 mg IV NOW STA Stop: 05/10/21 12:03 Last Admin: 05/10/21 12:21 Dose: 12.5 mg Documented by: [id number] Famotidine (Famotidine 20mg/5ml Iv Push) Confirm Administered Dose 20 mg IV .STK-MED ONE Stop: 05/10/21 15:22 Last Admin: 05/10/21 15:28 Dose: Not Given Documented by: [id number] Sodium Chloride (Nss 1000ml) 1,000 mls @ 999 mls/hr IV .Q1H1M JO Stop: 05/10/21 13:15 Last Infusion: 05/10/21 17:38 Dose: 0 mls/hr Documented by: [id number] Admin: 05/10/21 12:22 Dose: 999 mls/hr Documented by: [id number] Famotidine (Pepcid 20mg Iv Push) 20 mg in 5 mls @ 2.5 mls/min IV NOW STA Stop: 05/10/21 13:05 Last Admin: 05/10/21 15:21 Dose: 2.5 mls/min Documented by: [id number] Sodium Chloride (Nss 1000ml) 1,000 mls @ 999 mls/hr IV .Q1H1M ONE Stop: 05/10/21 14:55 Last Infusion: 05/10/21 17:38 Dose: 0 mls/hr Documented by: [id number] Admin: 05/10/21 15:22 Dose: 999 mls/hr Documented by: [id number] Sodium Chloride (Nss 1000ml) 1,000 mls @ 999 mls/hr IV .Q1H1M ONE Stop: 05/10/21 16:21 Last Infusion: 05/10/21 17:38 Dose: 0 mls/hr Documented by: [id number] Admin: 05/10/21 15:30 Dose: 999 mls/hr Documented by: [id number] Sodium Chloride (Nss 1000ml) 1,000 mls @ 100 mls/hr IV .Q10H JO Stop: 05/11/21 14:44 Last Infusion: 05/11/21 14:23 Dose: 28.8 mls/hr Documented by: [id number] Admin: 05/11/21 04:19 Dose: 100 mls/hr Documented by: [id number] Infusion: 05/11/21 04:19 Dose: 100 mls/hr Documented by: [id number] Admin: 05/10/21 18:48 Dose: 100 mls/hr Documented by: [id number] Piperacillin Sod/Tazobactam (Sod 3.375 gm/ Dextrose) 115 mls @ 230 mls/hr IV ONE ONE; Protocol Stop: 05/11/21 09:14 Last Infusion: 05/11/21 10:30 Dose: 0 mls/hr Documented by: [id number] Admin: 05/11/21 09:24 Dose: 230 mls/hr Documented by: [id number] Ioversol (Optiray 320 125ml) 121 ml IV ONCE ONE Stop: 05/10/21 14:20 Last Admin: 05/10/21 14:20 Dose: 121 ml Documented by: [id number] Labetalol HCl (Labetalol Hcl Iv 5 Mg/Ml 20ml) 10 mg IV NOW STA Stop: 05/10/21 12:11 Last Admin: 05/10/21 12:22 Dose: 10 mg Documented by: [id number] Cosigned by: [id number] Miscellaneous Information (Consult Pharmacy) 1 ea N/A NOW STA Stop: 05/10/21 16:42 Last Admin: 05/10/21 18:43 Dose: Not Given Documented by: [id number] Morphine Sulfate (Morphine Sulfate 2 Mg/Ml Carp) 2 mg IV NOW STA Stop: 05/10/21 12:06 Last Admin: 05/10/21 12:21 Dose: 2 mg Documented by: [id number] Ondansetron HCl (Ondansetron Inj 2 Mg/Ml 2 Ml Vial) 4 mg IV NOW STA Stop: 05/10/21 15:15 Last Admin: 05/10/21 15:21 Dose: 4 mg Documented by: [id number] Prochlorperazine (Prochlorperazine 5 Mg/Ml 2 Ml Vial) 10 mg IV NOW STA Stop: 05/10/21 12:03 Last Admin: 05/10/21 12:21 Dose: 10 mg Documented by: [id number] Imaging Data Radiologist's Impression: Head CT 05/10/21 12:[address] OF THE BRAIN; CT ANGIOGRAM OF THE BRAIN; CT ANGIOGRAM OF THE NECK CLINICAL HISTORY: Vertigo. COMPARISON STUDY: CT the brain with CT angiogram of the head and neck dated 01/01/2021. TECHNIQUE: Unenhanced axial CT scan of the brain is performed. Subsequently, following the IV administration of 121 of Optiray 320, CT angiogram of the head and neck was performed from the aortic arch to the vertex. Images are reviewed in the axial, sagittal, and coronal planes. 3-D MIPS images are created and assessed. IV contrast was administered without complication. All measurements were calculated based on NASCET criteria. A dose lowering technique was utilized adhering to the principles of ALARA. CT DOSE: 3194.55 mGy.cm FINDINGS: Brain parenchyma: The brain parenchyma is normal in appearance. There is no hemorrhage, mass effect, or evidence of acute territorial ischemia by CT criteria. There is no evidence of enhancing mass lesion on the angiogram phase images. The ventricles, sulci, and cisterns are normal in configuration. Pineda- white matter differentiation is preserved. There is a chronic lacunar infarct in the posterior right hummel radiata. No extra-axial fluid collection is seen. Thoracic aorta: Visualized portions of the thoracic aorta are normal in caliber. The aortic arch demonstrates standard 3-vessel anatomy. Right carotid arterial system: The right common carotid artery is widely patent, as are the right internal and external carotid arteries. Calcified plaque is noted in the carotid bulb. Left carotid arterial system: The left common carotid artery is widely patent, as are the left internal and external carotid arteries. Calcified plaque is noted in the carotid bulb. Vertebral arteries: The vertebral arteries are widely patent bilaterally noting a right-sided dominance. Subclavian arteries: Widely patent bilaterally. Intracranial vasculature: There is atherosclerotic calcification of the cavernous carotid arteries. The internal carotid arteries are patent at the skull base, as are the anterior and middle cerebral arteries bilaterally. The vertebrobasilar system and posterior cerebral arteries are widely patent. The ri ght vertebral artery is dominant. There is no aneurysm, high-grade stenosis, or focal vessel cut off seen throughout the intracranial circulation. Jugular veins: Patent bilaterally. Dural sinuses: Patent. Lung apices: Partially visualized upper lobe lung parenchyma appears clear. Soft tissues: The visualized pharyngeal soft tissues are normal in appearance noting angiographic phase technique. The oropharyngeal airway appears widely patent. The salivary and thyroid glands are normal in appearance. No cervical lymphadenopathy is seen. Skeletal structures: The calvarium appears intact. The cervical spine is maintained noting mild spondylosis. No lytic or blastic lesion is seen. Orbits: The bony orbits are intact. Orbital contents are normal as visualized. Sinuses and mastoids: The paranasal sinuses are clear. The mastoid air cells are well pneumatized. Cerumen is noted in the external auditory canals. IMPRESSION: 1. There is no hemorrhage, mass effect, or evidence of acute territorial ischemia by CT criteria. 2. Unremarkable CT angiogram of the brain. 3. Unremarkable CT angiogram of the neck. ACT 112: Negative or not required by law. Electronically signed by: Rodrigo Hays M.D. 05/10/2021 2:46 PM Head CTA 05/10/21 12:[address] OF THE BRAIN; CT ANGIOGRAM OF THE BRAIN; CT ANGIOGRAM OF THE NECK CLINICAL HISTORY: Vertigo. COMPARISON STUDY: CT the brain with CT angiogram of the head and neck dated 01/01/2021. TECHNIQUE: Unenhanced axial CT scan of the brain is performed. Subsequently, following the IV administration of 121 of Optiray 320, CT angiogram of the head and neck was performed from the aortic arch to the vertex. Images are reviewed in the axial, sagittal, and coronal planes. 3-D MIPS images are created and assessed. IV contrast was administered without complication. All measurements were calculated based on NASCET criteria. A dose lowering technique was utilized adhering to the principles of ALARA. CT DOSE: 3194.55 mGy.cm FINDINGS: Brain parenchyma: The brain parenchyma is normal in appearance. There is no hemorrhage, mass effect, or evidence of acute territorial ischemia by CT criteria. There is no evidence of enhancing mass lesion on the angiogram phase images. The ventricles, sulci, and cisterns are normal in configuration. Pineda- white matter differentiation is preserved. There is a chronic lacunar infarct in the posterior right hummel radiata. No extra-axial fluid collection is seen. Thoracic aorta: Visualized portions of the thoracic aorta are normal in caliber. The aortic arch demonstrates standard 3-vessel anatomy. Right carotid arterial system: The right common carotid artery is widely patent, as are the right internal and external carotid arteries. Calcified plaque is noted in the carotid bulb. Left carotid arterial system: The left common carotid artery is widely patent, as are the left internal and external carotid arteries. Calcified plaque is noted in the carotid bulb. Vertebral arteries: The vertebral arteries are widely patent bilaterally noting a right-sided dominance. Subclavian arteries: Widely patent bilaterally. Intracranial vasculature: There is atherosclerotic calcification of the cavernous carotid arteries. The internal carotid arteries are patent at the skull base, as are the anterior and middle cerebral arteries bilaterally. The vertebrobasilar system and posterior cerebral arteries are widely patent. The right vertebral artery is dominant. There is no aneurysm, high-grade stenosis, or focal vessel cut off seen throughout the intracranial circulation. Jugular veins: Patent bilaterally. Dural sinuses: Patent. Lung apices: Partially visualized upper lobe lung parenchyma appears clear. Soft tissues: The visualized pharyngeal soft tissues are normal in appearance noting angiographic phase technique. The oropharyngeal airway appears widely patent. The salivary and thyroid glands are normal in appearance. No cervical lymphadenopathy is seen. Skeletal structures: The calvarium appears intact. The cervical spine is maintained noting mild spondylosis. No lytic or blastic lesion is seen. Orbits: The bony orbits are intact. Orbital contents are normal as visualized. Sinuses and mastoids: The paranasal sinuses are clear. The mastoid air cells are well pneumatized. Cerumen is noted in the external auditory canals. IMPRESSION: 1. There is no hemorrhage, mass effect, or evidence of acute territorial ischemia by CT criteria. 2. Unremarkable CT angiogram of the brain. 3. Unremarkable CT angiogram of the neck. ACT 112: Negative or not required by law. Electronically signed by: Rodrigo Hays M.D. 05/10/2021 2:46 PM Neck CTA 05/10/21 12:[address] OF THE BRAIN; CT ANGIOGRAM OF THE BRAIN; CT ANGIOGRAM OF THE NECK CLINICAL HISTORY: Vertigo. COMPARISON STUDY: CT the brain with CT angiogram of the head and neck dated 01/01/2021. TECHNIQUE: Unenhanced axial CT scan of the brain is performed. Subsequently, following the IV administration of 121 of Optiray 320, CT angiogram of the head and neck was performed from the aortic arch to the vertex. Images are reviewed in the axial, sagittal, and coronal planes. 3-D MIPS images are created and assessed. IV contrast was administered without complication. All measurements were calculated based on NASCET criteria. A dose lowering technique was utilized adhering to the principles of ALARA. CT DOSE: 3194.55 mGy.cm FINDINGS: Brain parenchyma: The brain parenchyma is normal in appearance. There is no hemorrhage, mass effect, or evidence of acute territorial ischemia by CT crit eria. There is no evidence of enhancing mass lesion on the angiogram phase images. The ventricles, sulci, and cisterns are normal in configuration. Pineda- white matter differentiation is preserved. There is a chronic lacunar infarct in the posterior right hummel radiata. No extra-axial fluid collection is seen. Thoracic aorta: Visualized portions of the thoracic aorta are normal in caliber. The aortic arch demonstrates standard 3-vessel anatomy. Right carotid arterial system: The right common carotid artery is widely patent, as are the right internal and external carotid arteries. Calcified plaque is noted in the carotid bulb. Left carotid arterial system: The left common carotid artery is widely patent, as are the left internal and external carotid arteries. Calcified plaque is noted in the carotid bulb. Vertebral arteries: The vertebral arteries are widely patent bilaterally noting a right-sided dominance. Subclavian arteries: Widely patent bilaterally. Intracranial vasculature: There is atherosclerotic calcification of the cavernous carotid arteries. The internal carotid arteries are patent at the skull base, as are the anterior and middle cerebral arteries bilaterally. The vertebrobasilar system and posterior cerebral arteries are widely patent. The right vertebral artery is dominant. There is no aneurysm, high-grade stenosis, or focal vessel cut off seen throughout the intracranial circulation. Jugular veins: Patent bilaterally. Dural sinuses: Patent. Lung apices: Partially visualized upper lobe lung parenchyma appears clear. Soft tissues: The visualized pharyngeal soft tissues are normal in appearance noting angiographic phase technique. The oropharyngeal airway appears widely patent. The salivary and thyroid glands are normal in appearance. No cervical lymphadenopathy is seen. Skeletal structures: The calvarium appears intact. The cervical spine is maintained noting mild spondylosis. No lytic or blastic lesion is seen. Orbits: The bony orbits are intact. Orbital contents are normal as visualized. Sinuses and mastoids: The paranasal sinuses are clear. The mastoid air cells are well pneumatized. Cerumen is noted in the external auditory canals. IMPRESSION: 1. There is no hemorrhage, mass effect, or evidence of acute territorial ischemia by CT criteria. 2. Unremarkable CT angiogram of the brain. 3. Unremarkable CT angiogram of the neck. ACT 112: Negative or not required by law. Electronically signed by: Rodrigo Hays M.D. 05/10/2021 2:46 PM Abdomen/Pelvis CTA 05/10/21 12:43 CT angio abdomen pelvis w con CLINICAL HISTORY: chronic LBP, WBC 18 TECHNIQUE: Multidetector row helical CT of the abdomen and pelvis was performed, following intravenous administration of iodinated contrast. No oral contrast was administered. Automated dose lowering techniques and/or adjustment according to patient size were utilized for this exam. Coronal and sagittal reformations were obtained. MIP and 3D volume rendered reconstructions were obtained. Comparison: Comparison is made to CTA run off 01/02/2021 FINDINGS: Lower chest: For findings above the diaphragm, please see CT chest performed same day. Liver: Unremarkable. No focal lesions are seen. Gallbladder and biliary tree: Patient is status post cholecystectomy. No intra- or extrahepatic biliary ductal dilation. Pancreas: Unremarkable, no focal lesions. Spleen: Unremarkable. Adrenals: Unremarkable. Kidneys and ureters: Unremarkable. Bladder: Unremarkable. Reproductive organs: Unremarkable. Bowel: Sigmoid colon is nondistended, there is prominent bowel wall without surrounding vascularity which is likely benign. Scattered diverticula are seen. The appendix is normal. A hiatal hernia is seen. Lymph nodes Retroperitoneal: Unremarkable. Mesenteric: Unremarkable. Pelvic: Unremarkable. Peritoneum: Normal. Abdominal wall: Unremarkable. Bones: Mild degenerative changes are seen in the spine. No evidence of acute fracture. CT angiogram: The abdominal aortic contours appear intact without evidence of aneurysmal dilatation and/or dissection. No significant atherosclerosis is seen. The origins of the celiac axis, superior mesenteric, inferior mesenteric and bilateral renal arteries are patent. IMPRESSION: No evidence of aortic dissection or other acute abnormality. ACT 112: Negative or not required by law. Electronically signed by: Tramaine Ireland M.D. 05/10/2021 2:55 PM Chest CTA 05/10/21 12:44 CT angio chest dissec wo/w con CLINICAL HISTORY: acute/chronic back pain, n/v, h/o aortic dissection TECHNIQUE: Multidetector row helical CT of the chest was performed before and after injection of IV contrast. Coronal and sagittal reformations were obtained. Automated dose lowering techniques and/or adjustment according to patient size were utilized for this exam. Comparison: Comparison is made to CTA chest 01/02/2021 FINDINGS: Lungs and pleura: Normal. Heart and pericardium: Mitral and aortic calcifications are seen. The heart is again noted be mildly prominent. Vessels: No aortic dissection is seen. Moderate atherosclerotic disease is seen. A prominent ductus diverticulum is seen. Mediastinum and josi: Unremarkable. Chest wall and lower neck: Unremarkable. Abdomen: For findings below the diaphragm, please refer to CT of the abdomen dated the same. Bones: Mild degenerative changes are seen. IMPRESSION: No acute abnormality and in particular no evidence of acute aortic injury. ACT 112: Negative or not required by law. Electronically signed by: Tramaine Ireland M.D. 05/10/2021 2:47 PM Discharge Plan Visit Data Chief Complaint: Nausea ED Provider: Gage Barragan Discharge Problem: Lactic acidosis, Vertigo, Leukocytosis, Nausea & vomiting Patient Disposition: Admitted As Inpatient Discharge Instructions Interventions: ED Discharge Assessment Last Done: 05/10/21 19:46
[2021-05-10] MEDS ORDERED: SODIUM CHLORIDE 0.9% 1000ML 1,000 ML IV SCH (12:15)
[2021-05-10 12:22] LABS: Basophils # (auto) 0.01 K/uL (0-0.2); Basophils % (auto) 0.1 %; Eosinophils # (auto) 0.01 K/uL (0-0.5); Eosinophils % (auto) 0.1 %; Hematocrit (blood only) 45.5 % (42-52); Hemoglobin 15.3 g/dL (14.0-18.0); Immature Granulocytes # (auto) 0.08 K/uL (0.00-0.02); Immature Granulocytes % (auto) 0.4 %; Lymphocytes # (auto) 1.28 K/uL (1.2-3.4); Lymphocytes % (auto) 6.9 %; Mean Corpuscular Hemoglobin 32.9 pg (25-34); Mean Corpuscular Hgb Conc 33.6 g/dL (32-36); Mean Corpuscular Volume 97.8 fL (80-100); Monocytes # (auto) 0.47 K/uL (0.11-0.59); Monocytes % (auto) 2.5 %; Neutrophils # (auto) 16.63 K/uL (1.4-6.5); Platelet Count 267 K/uL (130-400); RDW Coefficient of Variation 13.4 % (11.5-14.5); RDW Standard Deviation 47.9 fL (36.4-46.3); Red Blood Count 4.65 M/uL (4.7-6.1); White Blood Count 18.48 K/uL (4.8-10.8)
[2021-05-10 12:44] LABS: Albumin Globulin Ratio 1.5 (0.9-2); Albumin Level 4.6 gm/dl (3.4-5.0); BUN Creatinine Ratio 27.7 (10-20); Bilirubin,Total 0.5 mg/dl (0.2-1.0); Calcium 9.7 mg/dl (8.5-10.1); Creatinine Clr Calc Pharmacy 99.7 ml/min; Est GFR (African American) 108.5 ml/min; Est GFR (Non-African American) 93.6 ml/min; Potassium 3.9 mmol/L (3.5-5.1); Total Protein 7.6 gm/dl (6.0-8.3)
[2021-05-10] MEDS ORDERED: FAMOTIDINE 20MG IV PUSH 20 MG/5 ML SYR IV STA (13:04)
--- NOTE | 2021-05-10 13:51 | Electrocardiogram Report ---
Test Reason : Blood Pressure : / mmHG Vent. Rate : 068 BPM Atrial Rate : 068 BPM P-R Int : 158 ms QRS Dur : 086 ms QT Int : 424 ms P-R-T Axes : 066 017 -02 degrees QTc Int : 450 ms Normal sinus rhythm Diffuse Minor Nonspecific T wave abnormality Abnormal ECG When compared with ECG of 03-JAN-2021 06:26, Nonspecific T wave abnormality now present Confirmed by Jesse Vizcarra ([id number]) on 05/10/2021 1:51:13 PM Referred By: Confirmed By:Jesse Vizcarra
[2021-05-10] MEDS ORDERED: SODIUM CHLORIDE 0.9% 1000ML 1,000 ML IV ONE ×2 (13:55→15:21)
[2021-05-10] MEDS ORDERED: OPTIRAY 320 125ml IV ONE (14:19)
--- NOTE | 2021-05-10 14:48 | CT Scan Report ---
UNENHANCED CT OF THE BRAIN; CT ANGIOGRAM OF THE BRAIN; CT ANGIOGRAM OF THE NECK CLINICAL HISTORY: Vertigo. COMPARISON STUDY: CT the brain with CT angiogram of the head and neck dated 01/01/2021. TECHNIQUE: Unenhanced axial CT scan of the brain is performed. Subsequently, following the IV adminis tration of 121 of Optiray 320, CT angiogram of the head and neck was performed from the aortic arch t o the vertex. Images are reviewed in the axial, sagittal, and coronal planes. 3-D MIPS images are cre ated and assessed. IV contrast was administered without complication. All measurements were calculate d based on NASCET criteria. A dose lowering technique was utilized adhering to the principles of ALA RA. CT DOSE: 3194.55 mGy.cm FINDINGS: Brain parenchyma: The brain parenchyma is normal in appearance. There is no hemorrhage, mass effect, or evidence of acute territorial ischemia by CT criteria. There is no evidence of enhancing mass lesi on on the angiogram phase images. The ventricles, sulci, and cisterns are normal in configuration. Gr ay-white matter differentiation is preserved. There is a chronic lacunar infarct in the posterior rig ht hummel radiata. No extra-axial fluid collection is seen. Thoracic aorta: Visualized portions of the thoracic aorta are normal in caliber. The aortic arch demo nstrates standard 3-vessel anatomy. Right carotid arterial system: The right common carotid artery is widely patent, as are the right int ernal and external carotid arteries. Calcified plaque is noted in the carotid bulb. Left carotid arterial system: The left common carotid artery is widely patent, as are the left marketing summer intern al and external carotid arteries. Calcified plaque is noted in the carotid bulb. Vertebral arteries: The vertebral arteries are widely patent bilaterally noting a right-sided dominan ce. Subclavian arteries: Widely patent bilaterally. Intracranial vasculature: There is atherosclerotic calcification of the cavernous carotid arteries. T he internal carotid arteries are patent at the skull base, as are the anterior and middle cerebral ar teries bilaterally. The vertebrobasilar system and posterior cerebral arteries are widely patent. The right vertebral artery is dominant. There is no aneurysm, high-grade stenosis, or focal vessel cut o ff seen throughout the intracranial circulation. Jugular veins: Patent bilaterally. Dural sinuses: Patent. Lung apices: Partially visualized upper lobe lung parenchyma appears clear. Soft tissues: The visualized pharyngeal soft tissues are normal in appearance noting angiographic pha se technique. The oropharyngeal airway appears widely patent. The salivary and thyroid glands are nor mal in appearance. No cervical lymphadenopathy is seen. Skeletal structures: The calvarium appears intact. The cervical spine is maintained noting mild spond ylosis. No lytic or blastic lesion is seen. Orbits: The bony orbits are intact. Orbital contents are normal as visualized. Sinuses and mastoids: The paranasal sinuses are clear. The mastoid air cells are well pneumatized. Ce rumen is noted in the external auditory canals. IMPRESSION: 1. There is no hemorrhage, mass effect, or evidence of acute territorial ischemia by CT criteria. 2. Unremarkable CT angiogram of the brain. 3. Unremarkable CT angiogram of the neck. ACT 112: Negative or not required by law. Electronically signed by: Rodrigo Hays M.D. 05/10/2021 2:46 PM
--- NOTE | 2021-05-10 14:48 | CT Scan Report ---
CT angio chest dissec wo/w con CLINICAL HISTORY: acute/chronic back pain, n/v, h/o aortic dissection TECHNIQUE: Multidetector row helical CT of the chest was performed before and after injection of IV c ontrast. Coronal and sagittal reformations were obtained. Automated dose lowering techniques and/or a djustment according to patient size were utilized for this exam. Comparison: Comparison is made to CTA chest 01/02/2021 FINDINGS: Lungs and pleura: Normal. Heart and pericardium: Mitral and aortic calcifications are seen. The heart is again noted be mildly prominent. Vessels: No aortic dissection is seen. Moderate atherosclerotic disease is seen. A prominent ductus d iverticulum is seen. Mediastinum and josi: Unremarkable. Chest wall and lower neck: Unremarkable. Abdomen: For findings below the diaphragm, please refer to CT of the abdomen dated the same. Bones: Mild degenerative changes are seen. IMPRESSION: No acute abnormality and in particular no evidence of acute aortic injury. ACT 112: Negative or not required by law. Electronically signed by: Tramaine Ireland M.D. 05/10/2021 2:47 PM
--- NOTE | 2021-05-10 14:57 | CT Scan Report ---
CT angio abdomen pelvis w con CLINICAL HISTORY: chronic LBP, WBC 18 TECHNIQUE: Multidetector row helical CT of the abdomen and pelvis was performed, following intravenou s administration of iodinated contrast. No oral contrast was administered. Automated dose lowering te chniques and/or adjustment according to patient size were utilized for this exam. Coronal and sagitta l reformations were obtained. MIP and 3D volume rendered reconstructions were obtained. Comparison: Comparison is made to CTA run off 01/02/2021 FINDINGS: Lower chest: For findings above the diaphragm, please see CT chest performed same day. Liver: Unremarkable. No focal lesions are seen. Gallbladder and biliary tree: Patient is status post cholecystectomy. No intra- or extrahepatic bilia ry ductal dilation. Pancreas: Unremarkable, no focal lesions. Spleen: Unremarkable. Adrenals: Unremarkable. Kidneys and ureters: Unremarkable. Bladder: Unremarkable. Reproductive organs: Unremarkable. Bowel: Sigmoid colon is nondistended, there is prominent bowel wall without surrounding vascularity w hich is likely benign. Scattered diverticula are seen. The appendix is normal. A hiatal hernia is see n. Lymph nodes Retroperitoneal: Unremarkable. Mesenteric: Unremarkable. Pelvic: Unremarkable. Peritoneum: Normal. Abdominal wall: Unremarkable. Bones: Mild degenerative changes are seen in the spine. No evidence of acute fracture. CT angiogram: The abdominal aortic contours appear intact without evidence of aneurysmal dilatation a nd/or dissection. No significant atherosclerosis is seen. The origins of the celiac axis, superior mesenteric, inferior mesenteric and bilateral renal arteries are patent. IMPRESSION: No evidence of aortic dissection or other acute abnormality. ACT 112: Negative or not required by law. Electronically signed by: Tramaine Ireland M.D. 05/10/2021 2:55 PM
[2021-05-10] MEDS ORDERED: ONDANSETRON INJ 2 MG/ML 2 ML VIAL IV STA (15:14)
[2021-05-10] MEDS ORDERED: GI COCKTAIL ED USE PO ONE (15:14)
[2021-05-10] MEDS ORDERED: FAMOTIDINE 20MG/5ML IV PUSH IV ONE (15:21)
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
[2021-05-10] MEDS ORDERED: CONSULT PHARMACY STA (16:41)
[2021-05-10] MEDS ORDERED: MECLIZINE 12.5 MG TAB PO PRN (17:12)
[2021-05-10] MEDS ORDERED: ONDANSETRON INJ 2 MG/ML 2 ML VIAL IV PRN (17:12)
[2021-05-10 17:46] LABS: Appearance Urine Clear (Clear); Bacteria Urine Automated Negative (Negative); Bilirubin Urine Negative (Negative); Blood Urine 1+ (Negative); Color Urine Yellow; Epithelial Cell Urine Auto >30 /lpf (0-5); Glucose Urine UA Negative (Negative); Ketones Urine Negative (Negative); Leukocyte Esterase Urine Negative (Negative); Nitrite Urine Negative (Negative); Protein Urine 2+ (Negative); Specific Gravity Urine > 1.045 (1.000-1.030); Urobilinogen Urine Negative (Negative); pH Urine 6.5 (4.5-7.5)
[2021-05-10] MEDS: SODIUM CHLORIDE 0.9% 1000ML 1,000 ML IV SCH (18:48)
[2021-05-10 19:24] LABS: Influenza A virus by PCR Negative (Negative); Influenza B virus by PCR Negative (Negative)
[2021-05-10] MEDS ORDERED: DEXTROSE 50% 50 ML SYRINGE IV PRN (20:17)
[2021-05-10] MEDS ORDERED: DICYCLOMINE HCL 20 MG TAB PO PRN (20:17)
[2021-05-10] MEDS ORDERED: CARBOHYDRATES FOR HYPOGLYCEMIA PO PRN (20:17)
[2021-05-10] MEDS ORDERED: GLUCOSE 40% GEL 15 GM TUBE PO PRN (20:17)
[2021-05-10] MEDS ORDERED: POLYETHYLENE (MIRALAX) 17 GM PACK PO PRN (20:17)
[2021-05-10] MEDS ORDERED: GLUCAGON FOR INJ 1 MG VIAL SQ PRN (20:17)
[2021-05-10] MEDS ORDERED: ACETAMINOPHEN 325 MG TAB PO PRN (20:17)
[2021-05-10] MEDS ORDERED: GLUCOSE 10 TABS/TUBE PO PRN (20:17)
[2021-05-10] MEDS: TAMSULOSIN HCL 0.4 MG CAP PO SCH (22:03)
[2021-05-10] MEDS: INSULIN ASPART PER UNIT SC SCH (22:03)
[2021-05-10] MEDS: traZODone HCL 50 MG TAB PO SCH (22:03)
[2021-05-10] MEDS: GABAPENTIN 300 MG CAP PO SCH (22:04)
[2021-05-10] MEDS: FINASTERIDE 5 MG TAB PO SCH (22:04)
[2021-05-10] MEDS: ENALAPRIL MALEATE 10 MG TAB PO SCH (22:05)
[2021-05-10] MEDS: ESCITALOPRAM OXALATE 20 MG TAB PO SCH (22:05)
[2021-05-10] MEDS: ATORVASTATIN 40 MG TAB PO SCH (22:06)
[2021-05-10] MEDS: METOPROLOL SUCC 50MG EXT REL TAB PO SCH (22:06)
[2021-05-10] MEDS: HEPARIN SOD 5,000 UNIT/0.5 ML VIAL SQ SCH (22:07)
[2021-05-11] MEDS: SODIUM CHLORIDE 0.9% 1000ML 1,000 ML IV SCH (04:19)
[2021-05-11] MEDS: HEPARIN SOD 5,000 UNIT/0.5 ML VIAL SQ SCH ×3 (06:28→22:17)
[2021-05-11] MEDS: PANTOprazole 40 MG TAB PO SCH (06:28)
[2021-05-11 07:12] LABS: Hematocrit (blood only) 40.1 % (42-52); Hemoglobin 13.2 g/dL (14.0-18.0); Mean Corpuscular Hemoglobin 32.8 pg (25-34); Mean Corpuscular Hgb Conc 32.9 g/dL (32-36); Mean Corpuscular Volume 99.8 fL (80-100); Mean Platelet Volume 10.3 fL (7.4-10.4); Platelet Count 224 K/uL (130-400); RDW Coefficient of Variation 13.5 % (11.5-14.5); RDW Standard Deviation 49.1 fL (36.4-46.3); Red Blood Count 4.02 M/uL (4.7-6.1); White Blood Count 19.16 K/uL (4.8-10.8)
[2021-05-11 07:31] LABS: Estimated Average Glucose 120 mg/dl; Hemoglobin A1C 5.8 % (4.5-5.6)
[2021-05-11 07:32] LABS: BUN Creatinine Ratio 25.3 (10-20); Calcium 8.6 mg/dl (8.5-10.1); Creatinine Clr Calc Pharmacy 105.9 ml/min; Est GFR (African American) 110.8 ml/min; Est GFR (Non-African American) 95.6 ml/min; Potassium 3.9 mmol/L (3.5-5.1)
[2021-05-11] MEDS ORDERED: PIPERACILL/TAZOBAC CONSULT ACTIVE PRN (07:56)
[2021-05-11] MEDS ORDERED: PIPERACILLIN/TAZOBACTAM 3.375 GM in DEXTROSE 5% 100 ML IV ONE (08:45)
[2021-05-11] MEDS: GABAPENTIN 300 MG CAP PO SCH ×3 (08:58→20:26)
[2021-05-11] MEDS: INSULIN ASPART PER UNIT SC SCH ×4 (09:00→20:28)
--- NOTE | 2021-05-11 12:08 | Hospitalist Progress Note ---
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 Vertigo Seems positional with associated N/V, has resolved since arrival CT head, CTA head/neck without acute abnormality Orthostatic vitals, fall precautions, Meclizine PRN, anti-emetics, PT for Tirso maneuver Possible that recent increased gabapentin dose contributing to symptoms - will resume previous dose of 300mg TID 05/11 dizziness have resolved Orthostatic VS: pending Telemetry: no arrhythmia on previous dose of Gabapentin 300mg TID PT/OT evaluation pending Leukocytosis Lactic acidosis WBC of 18, lactic acid 4.7 No clear source of infection - no acute changes on chest CTA, abd/pelvis CTA. Covid screen negative. Flu A/B and UA pending No recent course of steroids Empiric abx for 48 hours, follow blood culture, repeat lactate pending, daily CBC 05/11 no fever since admission WBC still at 19k Lactic acid trending down, 2.7 Blood culture: pending on Zosyn if BC negative, d/c Zosyn tomorrow Hypertension BP elevated at 190/100 initially today, improved to 150s/80s after 10mg IV Labetalol Missed evening antihypertensives last evening given N/V Continue home Toprol, enalapril 05/11 BP improved monitor closely Chronic back pain Due for lumbar decompression surgery at [facility] next week No new weakness or numbness in BLE Aspirin held pre-operatively per surgeon Reduce gabapentin dose as mentioned above 05/11 back pain- mild, chronic as per patient DM II A1c 5.8 Diet controlled Received IV steroids in ED x 1 SSI while in-patient BSG AC HS BSG 145 BPH Continue tamsulosin, finasteride Depression Anxiety Continue escitalopram DVT Ppx: SQ heparin Code status: FULL PCP: Marsha Dispo: anticipate d/c home tomorrow when medically stable plan of care discussed with patient in detail and at length all questions answered he is understanding, agreeable, comfortable with the plan of care Admission and Anticipated Discharge Date Admission Date: May 11, 2021 Subjective ff up for dizziness, most likely from vertigo, etc seen resting in bed, comfortable in good spirits states he feels better compared to admission dizziness has resolved no nausea no chest pain, dyspnea, palpitations no focal neuro deficits has chronic back pain - mild no fever/chills no cough, dyspnea, abdominal pain, problems with urination or BM Review of Systems Review of Systems: all noted and negative except for above Physical Exam Physical Exam: General- oriented x 3, not in distress, speaks in sentences with no effort or accessory muscle use Head- atraumatic Eyes- PERRL, EOMI, anicteric ENT- oropharynx clear Neck- supple, no JVD, no adenopathy, no thyromegaly; carotids +2/2, no bruits appreciated Lungs- clear to auscultation bilaterally, no rales/wheezes Heart- normal rate, regular rhythm; no murmur, no gallop, no rub appreciated Abdomen- normal bowel sounds, nondistended, soft, nontender, no masses or hepatosplenomegaly Extremities- no pretibial edema, no calf tenderness; peripheral pulses intact Neuro- alert, oriented x 3; CN 2-12 grossly intact; motor 5/5 bilaterally;sensation 100% on all extremities; no other gross focal neurologic deficits Skin- warm & dry Results & Data Results & Data ([facility]) Vital Signs (Past 12 Hours) Vital Signs Temp Pulse Pulse Resp BP Pulse Ox 05/11/21 11:06 36.8 C 67 18 144/84 H 95 05/11/21 04:05 96 H 05/11/21 03:00 36.8 C 79 20 126/74 93 all noted and reviewed including below (1) Hypertension Hypertension type: essential hypertension Qualified Code(s): I10 - Essential (primary) hypertension
[2021-05-11] MEDS: PIPERACILLIN/TAZOBACTAM 3.375 GM in DEXTROSE 5% 100 ML IV SCH ×2 (14:23→22:43)
[2021-05-11] MEDS: traZODone HCL 50 MG TAB PO SCH (20:24)
[2021-05-11] MEDS: METOPROLOL SUCC 50MG EXT REL TAB PO SCH (20:25)
[2021-05-11] MEDS: TAMSULOSIN HCL 0.4 MG CAP PO SCH (20:25)
[2021-05-11] MEDS: ATORVASTATIN 40 MG TAB PO SCH (20:26)
[2021-05-11] MEDS: ENALAPRIL MALEATE 10 MG TAB PO SCH (20:27)
[2021-05-11] MEDS: FINASTERIDE 5 MG TAB PO SCH (20:27)
[2021-05-11] MEDS: ESCITALOPRAM OXALATE 20 MG TAB PO SCH (20:27)
[2021-05-12] MEDS: PANTOprazole 40 MG TAB PO SCH (06:19)
[2021-05-12] MEDS: HEPARIN SOD 5,000 UNIT/0.5 ML VIAL SQ SCH (06:19)
[2021-05-12] MEDS: PIPERACILLIN/TAZOBACTAM 3.375 GM in DEXTROSE 5% 100 ML IV SCH (06:20)
[2021-05-12 07:35] LABS: Hematocrit (blood only) 38.5 % (42-52); Hemoglobin 12.8 g/dL (14.0-18.0); Mean Corpuscular Hemoglobin 33.1 pg (25-34); Mean Corpuscular Hgb Conc 33.2 g/dL (32-36); Mean Corpuscular Volume 99.5 fL (80-100); Mean Platelet Volume 10.3 fL (7.4-10.4); Platelet Count 196 K/uL (130-400); RDW Coefficient of Variation 13.5 % (11.5-14.5); RDW Standard Deviation 48.7 fL (36.4-46.3); Red Blood Count 3.87 M/uL (4.7-6.1); White Blood Count 12.02 K/uL (4.8-10.8)
[2021-05-12 07:59] LABS: BUN Creatinine Ratio 22.3 (10-20); Calcium 8.7 mg/dl (8.5-10.1); Creatinine Clr Calc Pharmacy 69.3 ml/min; Est GFR (African American) 73.4 ml/min; Est GFR (Non-African American) 63.3 ml/min; Potassium 3.8 mmol/L (3.5-5.1)
[2021-05-12] MEDS: INSULIN ASPART PER UNIT SC SCH (08:40)
[2021-05-12] MEDS: GABAPENTIN 300 MG CAP PO SCH (08:41)
--- NOTE | 2021-05-12 09:51 | Hospitalist Progress Note ---
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 Vertigo Seems positional with associated N/V, has resolved since arrival CT head, CTA head/neck without acute abnormality Orthostatic vitals, fall precautions, Meclizine PRN, anti-emetics, PT for Tirso maneuver Possible that recent increased gabapentin dose contributing to symptoms - will resume previous dose of 300mg TID 05/12 dizziness resolved Telemetry: no arrhythmia put back on previous dose of Gabapentin 300mg TID PT/OT evaluation: recommend to discharge home ff up with PCP in 1 week Leukocytosis Lactic acidosis WBC of 18, lactic acid 4.7 No clear source of infection - no acute changes on chest CTA, abd/pelvis CTA. Covid screen negative. Flu A/B and UA pending No recent course of steroids Empiric abx for 48 hours, follow blood culture, repeat lactate pending, daily CBC 05/12 no fever since admission WBC trended down from 19k to 12k Lactic acid trended down, 2.7 Blood culture: negative x 48 hours given Zosyn no focus of infection, d/c antibiotics monitor as outpatient Hypertension BP elevated at 190/100 initially today, improved to 150s/80s after 10mg IV Labetalol Missed evening antihypertensives last evening given N/V Continue home Toprol, enalapril 05/12 BP improved continue usual medications monitor BP as outpatient Chronic back pain Due for lumbar decompression surgery at [facility] next week No new weakness or numbness in BLE Aspirin held pre-operatively per surgeon Reduce gabapentin dose as mentioned above 05/12 back pain- mild, chronic as per patient patient scheduled to have procedure done next week DM II A1c 5.8 Diet controlled Received IV steroids in ED x 1 SSI while in-patient BSG AC HS BPH Continue tamsulosin, finasteride Depression Anxiety Continue escitalopram DVT Ppx:SQ heparin Code status:FULL PCP:Marsha Dispo:d/c home ff up with PCP in 1 week ff up with Ortho as scheduled plan of care discussed with patient in detail and at length all questions answered he is understanding, agreeable, comfortable with the plan of care Admission and Anticipated Discharge Date Admission Date: May 11, 2021 Subjective ff up for vertigo, etc seen resting in bed, comfortable states he feels much better overall dizziness has resolved no focal neuro deficits ambulating multiple times in the hallways with no problems no headache, dizziness, sore throat, dyspnea, cough, shortness of breath, abdominal pain, nausea/vomiting, problems with urination or BM back pain is mild- chronic no other symptoms states he is ready and would like to be discharged today Review of Systems Review of Systems: all noted and negative except for above Physical Exam Physical Exam: General- oriented x 3, not in distress, speaks in sentences with no effort or accessory muscle use Eyes- anicteric Neck- no JVD Lungs- clear breath sounds bilaterally, no rales/wheezes Heart- normal rate, regular rhythm; no murmurs Abdomen- normal bowel sounds, nondistended, soft, nontender Extremities- no pretibial edema, no calf tenderness Neuro- alert, oriented x 3; no gross focal neurologic deficits Skin- warm & dry Results & Data Results & Data ([facility]) Vital Signs (Past 12 Hours) Vital Signs Temp Pulse Pulse Resp BP BP Pulse Ox 05/12/21 07:10 37.0 C 59 L 20 101/62 96 05/12/21 03:22 36.7 C 69 18 132/74 96 05/12/21 00:10 64 05/11/21 22:28 36.7 C 59 L 20 136/77 95 all noted and reviewed including below
--- NOTE | 2021-05-12 10:15 | Discharge Summary ---
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 Dizziness came on when he stood up and walked to another room. Improved when lying down. Denies any falls or LOC. Worsened with positional changes. Son had difficulty helping him up from couch. No double vision but endorses nausea, vomiting and profuse sweating. Has chronic lower pain and is due for lumbar decompression surgery at [facility] next week. No new weakness or numbness in BLE. No F/C, cough, CP, SOB, abdominal pain, dysuria, hematuria, diarrhea or constipation. Did not take any medications last evening due to nausea and vomiting. Home BP readying yesterday was 150/80. Only recent medication change was an increased of his Gabapentin 300mg TID to 600mg TID in setting of ongoing back pain. Admission Exam (Per Admitting) Constitutional Physical Exam: Vitals signs as noted above General Appearance:Obese, no apparent distress Head: normocephalic, Atraumatic Eyes: normal inspection, EOMI, Chronic Left Eye vision loss Neck: supple, Trachea midline Respiratory/Chest: Normal breath sounds, CTA, No accessory muscle use Cardiovascular: S1, S2, + murmur Abdomen/GI:Soft, Non tender, Bowel sounds present Extremities/Musculoskelatal:normal inspection, no edema Neurologic/Psych:AAOX3, grossly no focal neurological deficits Skin: normal color, warm Discharge Data Consultations 05/10/21 15:21 ED Decision to Admit Stat Procedures Performed UNENHANCED CT OF THE BRAIN; CT ANGIOGRAM OF THE BRAIN; CT ANGIOGRAM OF THE NECK CLINICAL HISTORY: Vertigo. COMPARISON STUDY: CT the brain with CT angiogram of the head and neck dated 01/01/2021. TECHNIQUE: Unenhanced axial CT scan of the brain is performed. Subsequently, following the IV administration of 121 of Optiray 320, CT angiogram of the head and neck was performed from the aortic arch to the vertex. Images are reviewed in the axial, sagittal, and coronal planes. 3-D MIPS images are created and assessed. IV contrast was administered without complication. All measurements were calculated based on NASCET criteria. A dose lowering technique was utilized adhering to the principles of ALARA. CT DOSE: 3194.55 mGy.cm FINDINGS: Brain parenchyma: The brain parenchyma is normal in appearance. There is no hemorrhage, mass effect, or evidence of acute territorial ischemia by CT criteria. There is no evidence of enhancing mass lesion on the angiogram phase images. The ventricles, sulci, and cisterns are normal in configuration. Pineda- white matter differentiation is preserved. There is a chronic lacunar infarct in the posterior right hummel radiata. No extra-axial fluid collection is seen. Thoracic aorta: Visualized portions of the thoracic aorta are normal in caliber. The aortic arch demonstrates standard 3-vessel anatomy. Right carotid arterial system: The right common carotid artery is widely patent, as are the right internal and external carotid arteries. Calcified plaque is noted in the carotid bulb. Left carotid arterial system: The left common carotid artery is widely patent, as are the left internal and external carotid arteries. Calcified plaque is noted in the carotid bulb. Vertebral arteries: The vertebral arteries are widely patent bilaterally noting a right-sided dominance. Subclavian arteries: Widely patent bilaterally. Intracranial vasculature: There is atherosclerotic calcification of the cavernous carotid arteries. The internal carotid arteries are patent at the skull base, as are the anterior and middle cerebral arteries bilaterally. The vertebrobasilar system and posterior cerebral arteries are widely patent. The right vertebral artery is dominant. There is no aneurysm, high-grade stenosis, or focal vessel cut off seen throughout the intracranial circulation. Jugular veins: Patent bilaterally. Dural sinuses: Patent. Lung apices: Partially visualized upper lobe lung parenchyma appears clear. Soft tissues: The visualized pharyngeal soft tissues are normal in appearance noting angiographic phase technique. The oropharyngeal airway appears widely patent. The salivary and thyroid glands are normal in appearance. No cervical lymphadenopathy is seen. Skeletal structures: The calvarium appears intact. The cervical spine is [place] noting mild spondylosis. No lytic or blastic lesion is seen. Orbits: The bony orbits are intact. Orbital contents are normal as visualized. Sinuses and mastoids: The paranasal sinuses are clear. The mastoid air cells are well pneumatized. Cerumen is noted in the external auditory canals. IMPRESSION: 1. There is no hemorrhage, mass effect, or evidence of acute territorial ischemia by CT criteria. 2. Unremarkable CT angiogram of the brain. 3. Unremarkable CT angiogram of the neck. ACT 112: Negative or not required by law. Electronically signed by: Rodrigo Hays M.D. 05/10/2021 2:[address] angio abdomen pelvis w con CLINICAL HISTORY: chronic LBP, WBC 18 TECHNIQUE: Multidetector row helical CT of the abdomen and pelvis was performed, following intravenous administration of iodinated contrast. No oral contrast was administered. Automated dose lowering techniques and/or adjustment according to patient size were utilized for this exam. Coronal and sagittal reformations were obtained. MIP and 3D volume rendered reconstructions were obtained. Comparison: Comparison is made to CTA run off 01/02/2021 FINDINGS: Lower chest: For findings above the diaphragm, please see CT chest performed same day. Liver: Unremarkable. No focal lesions are seen. Gallbladder and biliary tree: Patient is status post cholecystectomy. No intra- or extrahepatic biliary ductal dilation. Pancreas: Unremarkable, no focal lesions. Spleen: Unremarkable. Adrenals: Unremarkable. Kidneys and ureters: Unremarkable. Bladder: Unremarkable. Reproductive organs: Unremarkable. Bowel: Sigmoid colon is nondistended, there is prominent bowel wall without surrounding vascularity which is likely benign. Scattered diverticula are seen. The appendix is normal. A hiatal hernia is seen. Lymph nodes Retroperitoneal: Unremarkable. Mesenteric: Unremarkable. Pelvic: Unremarkable. Peritoneum: Normal. Abdominal wall: Unremarkable. Bones: Mild degenerative changes are seen in the spine. No evidence of acute fracture. CT angiogram: The abdominal aortic contours appear intact without evidence of aneurysmal dilatation and/or dissection. No significant atherosclerosis is seen . The origins of the celiac axis, superior mesenteric, inferior mesenteric and bilateral renal arteries are patent. IMPRESSION: No evidence of aortic dissection or other acute abnormality. ACT 112: Negative or not required by law. Electronically signed by: Tramaine Ireland M.D. 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 Vertigo Seems positional with associated N/V, has resolved since arrival CT head, CTA head/neck without acute abnormality Orthostatic vitals, fall precautions, Meclizine PRN, anti-emetics, PT for Tirso maneuver Possible that recent increased gabapentin dose contributing to symptoms - will resume previous dose of 300mg TID 05/12 dizziness resolved Telemetry: no arrhythmia put back on previous dose of Gabapentin 300mg TID PT/OT evaluation: recommend to discharge home ff up with PCP in 1 week Leukocytosis Lactic acidosis WBC of 18, lactic acid 4.7 No clear source of infection - no acute changes on chest CTA, abd/pelvis CTA. Covid screen negative. Flu A/B and UA pending No recent course of steroids Empiric abx for 48 hours, follow blood culture, repeat lactate pending, daily CBC 05/12 no fever since admission WBC trended down from 19k to 12k Lactic acid trended down, 2.7 Blood culture: negative x 48 hours given Zosyn no focus of infection, d/c antibiotics monitor as outpatient Hypertension BP elevated at 190/100 initially today, improved to 150s/80s after 10mg IV Labetalol Missed evening antihypertensives last evening given N/V Continue home Toprol, enalapril 05/12 BP improved continue usual medications monitor BP as outpatient Chronic back pain Due for lumbar decompression surgery at [facility] next week No new weakness or numbness in BLE Aspirin held pre-operatively per surgeon Reduce gabapentin dose as mentioned above 05/12 back pain- mild, chronic as per patient patient scheduled to have procedure done next week DM II A1c 5.8 Diet controlled Received IV steroids in ED x 1 SSI while in-patient BSG AC HS BPH Continue tamsulosin, finasteride Depression Anxiety Continue escitalopram DVT Ppx:SQ heparin Code status:FULL PCP:Marsha Dispo:d/c home ff up with PCP in 1 week ff up with Ortho as scheduled plan of care discussed with patient in detail and at length all questions answered he is understanding, agreeable, comfortable with the plan of care
== END 2021-05-12 11:20 | disposition home or self-care (01) ==
LOC: ED 11:52 → 2N 11:52 → SUATTDRO 16:41 → 2N 19:46
DX: D72.829 Elevated white blood cell count, unspecified; Z79.82 Long term (current) use of aspirin; F32.9 Major depressive disorder, single episode, unspecified; E87.2 Acidosis; N40.0 Benign prostatic hyperplasia without lower urinary tract symptoms; Z79.899 Other long term (current) drug therapy; Z20.822 Contact with and (suspected) exposure to COVID-19; E11.9 Type 2 diabetes mellitus without complications; M54.9 Dorsalgia, unspecified; F41.9 Anxiety disorder, unspecified; I10 Essential (primary) hypertension; G89.29 Other chronic pain; R42 Dizziness and giddiness

== ENCOUNTER 2024-09-19 20:08 | Inpatient (IN) ==
[2024-09-19] MEDS: CYCLOBENZAPRINE HCL 10 MG TAB PO STA (21:24)
[2024-09-19] MEDS: KETOROLAC TROMETHAMINE 60 MG/2 ML VIAL IM STA (21:24)
[2024-09-19] MEDS: LIDOCAINE 5% 1 PATCH TD STA (21:25)
--- NOTE | 2024-09-19 22:29 | CT Scan Report ---
CT of the thoracic spine without contrast Technique: Noncontrast axial images of the thoracic spine. Coronal and sagittal reformatted images made available for review No comparison Findings: Vertebral bodies are normal in height and alignment without fracture or dislocation. No significant canal or foraminal stenosis Impression Unremarkable exam. Electronically signed by Stephen Roman 09-19-2024 10:29 PM
--- NOTE | 2024-09-19 22:31 | CT Scan Report ---
CT of the lumbar spineWithout contrast Technique: Noncontrast axial images of the lumbar spine. Coronal and sagittal reformatted images made available for review No comparison Findings: Postoperative changes L3-S1 interbody fusion with L4 and L5 posterior laminectomies. Orthopedic hardware is intact and well aligned. No significant canal or foraminal stenosis identified on this exam. No acute fracture or dislocation Impression Postoperative changes L3-S1 interbody fusion without evidence of hardware complication No acute osseous pathology. Electronically signed by Stephen Roman 09-19-2024 10:29 PM
--- NOTE | 2024-09-19 23:27 | Emergency Department Note ---
ED Visit Note I was consulted by the Advanced Practice Provider, ELIZABETH Guerrero. I performed a substantive portion of the visit. This includes aspects of: History: Patient is a 68-year-old male presenting with sudden onset of low back pain. Complaining of pain radiating down the bilateral lower extremities. He has a history of a lumbar spinal fusion. MDM: Imaging negative for any acute abnormality. Patient was given pain management in the emergency department initially feeling better. However, when he got up to ambulate in the emergency department with the assistance of a walker, he reports he is having too much pain and cannot go home like this. He is amendable to admission for PT/OT assessment and rehab placement. Patient will be admitted to hospitalist service. .
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
[2024-09-20] MEDS ORDERED: PROMETHAZINE 12.5 MG/50.5 ML BAG IV PRN (00:48)
[2024-09-20] MEDS: CALCIUM GLUCONATE 1,000 MG/60 ML BAG IV SCH (00:50)
[2024-09-20] MEDS: MoRPHine SULFATE 4 MG/ML 1 ML CARP\\VIAL IV PRN (01:01)
[2024-09-20 01:12] LABS: Appearance Urine Clear (Clear); Glucose Urine UA Negative (Negative)
[2024-09-20 01:29] LABS: Hematocrit (blood only) 35.4 % (42.0-52.0); Hemoglobin 12.2 g/dl (14.0-18.0); Mean Corpuscular Hemoglobin 32.6 pg (25.0-34.0); Mean Corpuscular Volume 94.7 fL (80.0-100.0); Platelet Count 198 K/uL (130-400); RDW Standard Deviation 50.7 fL (36.4-46.3); Red Blood Count 3.74 M/uL (4.70-6.10); White Blood Count 5.65 K/ul (4.8-10.8)
[2024-09-20 01:32] LABS: Alanine Aminotransferase 27.0 U/L (7-52); Albumin Globulin Ratio 1.7 (0.9-2); Alkaline Phosphatase 42.0 U/L (34-104); Anion Gap 6.0 (3-11); Bilirubin,Total 0.5 mg/dl (0.2-1.0); Blood Urea Nitrogen 18.0 mg/dl (6-23); Calcium 8.0 mg/dl (8.6-10.3); Carbon Dioxide 23.0 mmol/L (21-32); Chloride 111.0 mmol/L (98-107); Creatinine Clr Calc Pharmacy 99.5 ml/min; Globulin 2.3 gm/dl (2.5-4.0); Glucose 117.0 mg/dl (70-99(Fasting)); Magnesium 1.8 mg/dl (1.7-2.4); Potassium 4.1 mmol/L (3.5-5.1); Sodium 140.0 mmol/L (136-145); Total Protein 6.1 gm/dl (6.0-8.3)
[2024-09-20 01:48] LABS: Immature Granulocytes # (auto) 0.04 K/uL (0.01-0.20); Immature Granulocytes % (auto) 0.7 %; Polychromasia 1+
[2024-09-20] MEDS ORDERED: GLUCOSE 10 TAB/TUBE PO PRN ×2 (01:53)
[2024-09-20] MEDS ORDERED: CARBOHYDRATES FOR HYPOGLYCEMIA PO PRN ×2 (01:53)
[2024-09-20] MEDS ORDERED: DEXTROSE 50% 50 ML SYRINGE IV PRN ×2 (01:53)
[2024-09-20] MEDS ORDERED: GLUCOSE 40% GEL 15 GM TUBE PO PRN ×2 (01:53)
[2024-09-20] MEDS ORDERED: GLUCAGON FOR INJ 1 MG VIAL SQ PRN ×2 (01:53)
--- NOTE | 2024-09-20 02:15 | XRay Report ---
Exam(s): XR BILATERAL HIP + PELVIS, 2-3 views EXAM: XR Bilateral Hips With Pelvis, 5 Views CLINICAL HISTORY: Low back pain radiating to hips. TECHNIQUE: Five views of the bilateral hips and pelvis. COMPARISON: CT pelvis 05/10/2021. FINDINGS: Bones/joints: Interval postoperative change lower lumbar spine including bilateral pedicle screws and vertical fixation rods. No acute fracture. No dislocation. Soft tissues: Vascular calcifications. IMPRESSION: No acute abnormality. Postoperative changes of the lower lumbar spine. Electronically signed by: Aneesh Bhatti M.D. 09/20/24 02:14 AM
[2024-09-20] MEDS: PREGABALIN 150 MG CAP PO SCH (02:20)
[2024-09-20] MEDS: SODIUM CHLORIDE 0.9% 1,000 ML IV STA (02:21)
[2024-09-20] MEDS: CALCIUM GLUCONATE 1,000 MG/60 ML BAG IV STA (02:45)
[2024-09-20] MEDS: INSULIN ASPART PER UNIT CHARGE SC SCH ×2 (03:11→03:14)
[2024-09-20 06:50] LABS: Hematocrit (blood only) 35.9 % (42.0-52.0); Hemoglobin 12.1 g/dl (14.0-18.0); Reticulocytes # 0.060 10^6/uL (0.020-0.100)
[2024-09-20 07:48] LABS: Anion Gap 6 (3-11); Blood Urea Nitrogen 16 mg/dl (6-23); Calcium 8.3 mg/dl (8.6-10.3); Carbon Dioxide 23 mmol/L (21-32); Chloride 112 mmol/L (98-107); Creatinine Clr Calc Pharmacy 106.6 ml/min; Ferritin 147.0 ng/ml (8-388); Folate (Folic Acid),Ser orPlas > 22.30 ng/ml (>5.38); Glucose 182 mg/dl (70-99(Fasting)); Potassium 3.9 mmol/L (3.5-5.1); Sodium 141 mmol/L (136-145); Transferrin 229 mg/dl (200-360)
[2024-09-20 07:49] LABS: Vitamin B12 888 pg/ml (180-914)
[2024-09-20] MEDS: CYANOCOBALAMIN (B-12) 100 MCG TABLET PO SCH (08:18)
[2024-09-20] MEDS: CHOLECALCIFEROL 25 MCG (1000 UNITS) TAB PO SCH (08:18)
[2024-09-20] MEDS: CEROVITE ADV FORMULA TAB PO SCH (08:19)
[2024-09-20] MEDS: FERROUS SULFATE 325 MG TAB PO SCH (08:19)
[2024-09-20] MEDS: REMOVE LIDODERM PATCH ONE (08:23)
[2024-09-20] MEDS: LORazepam 0.5 MG TAB PO PRN (08:38)
[2024-09-20 09:57] LABS: Hemoglobin A1C 7.1 % (4.5-5.6)
[2024-09-20] MEDS: ACETAMINOPHEN 325 MG TAB PO PRN (11:09)
[2024-09-20] MEDS: MoRPHine SULFATE 4 MG/ML 1 ML CARP\\VIAL IV STA (12:00)
[2024-09-20] MEDS ORDERED: PHARMACY GLYCEMIC MGMT CONSULT PRN (13:13)
[2024-09-20] MEDS ORDERED: DEXAMETHASONE SOD INJ 4 MG/ML VIAL IV SCH (13:15)
--- NOTE | 2024-09-20 13:40 | Magnetic Resonance Report ---
MR lumbar spine wo con CLINICAL HISTORY: 68 years-old Male with worsening pain. Chronic low back pain COMPARISON: CT lumbar spine 09/19/2024 TECHNIQUE: Multiplanar, multi sequence MRI of the lumbar spine was performed without intravenous cont rast. FINDINGS: L4-L5 laminectomy with posterior and bilateral meryl and screw fusion hardware extending from L3-S1. Ar tifact from the hardware limits the study. Conus medullaris terminates at L2. No acute fracture, subl uxation, endplate erosion or marrow replacing process. No epidural or paraspinal fluid collections ar e seen. There is evidence of hardware loosening involving the bilateral pedicle screws at L3 on yeste rday's CT study. There is mild multilevel intervertebral disc space narrowing, spondylitic spurring a nd facet arthrosis. T12-L1: No central canal or neural foraminal stenosis. L1-L2: No central canal or neural foraminal stenosis. L2-L3: There is a small circumferential annular disc bulge with the mild intervertebral disc space n arrowing and spondylotic spurring. There is moderate facet arthrosis, greatest on the right with asso ciated ligamentum flavum thickening. There is an ovoid 1.0 x 0.6 x 1.8 cm structure within the right posterior lateral aspect of the central canal on image 10 series 3 and image 8 series 5 which likely represents a combination of ligamentum flavum thickening with synovial cyst. This abuts and causes ma ss effect upon the central canal. There is mild central canal stenosis at this level along with moder ate right foraminal narrowing. The left neural foramen is patent. L3-L4: Mild intervertebral disc space narrowing and spondylotic spurring with small circumferential annular disc bulge. Patent central canal. Mild bilateral foraminal narrowing. L4-L5: No central canal or neural foraminal stenosis. L5-S1: Facet arthrosis and spondylotic spurring contributes to cause mild right-sided foraminal narr owing. The left neural foramen and central canal are patent. IMPRESSION: 1. L4-L5 laminectomy with posterior interbody meryl and screw fusion hardware at L3-S1. There is eviden ce of hardware loosening involving the L3 screws on yesterday's CT study. 2. No acute fracture, subluxation or significant marrow edema. 3. 1.8 cm structure within the central canal at L2-L3 as above, likely a combination of ligamentum fl avum thickening with synovial cyst formation associated with the facet arthropathy. Findings result i n mild central canal stenosis with moderate right foraminal narrowing. ACT 112: Negative or not required by law. The above report was generated using voice recognition software. It may contain grammatical, syntax o r spelling errors. Electronically signed by: Tay Walton M.D. 09/20/2024 1:39 PM
[2024-09-20] MEDS ORDERED: dexAMETHasone 8 MG in SYRINGE 0 ML IV SCH (14:00)
--- NOTE | 2024-09-20 14:33 | Pharmacy Report ---
Pharmacy Glycemic Short Note 2 - Date of Service September 20, 2024 - Glycemic Short BSG Results (Last 24 hours): 09/20/24 09/20/24 09/20/24 00:44 02:57 06:25 Glucose 117 H 182 H POC Glucose 131 H 09/20/24 09/20/24 07:33 11:29 Glucose POC Glucose 170 H 158 H OUTPATIENT ANTIDIABETIC REGIMEN: * metformin 1000mg po BID HbA1c: 7.1% on 09/20/24 ASSESSMENT: * Archie is a 68 year old male who was admitted yesterday with intractable back pain. Pharmacy was consulted for glycemic management today as he is a type II diabetic who was started on steroids. * He was already ordered a bolus insulin regimen prior to consult. Since the first dose of dexamethasone tid was scheduled for 1400 today, the CR of the bolus insulin was tightened starting with supper tonight. * A Lantus scale (0, 10, or 15 units depending on BSG) was added for HS in anticipation of steroid induced hyperglycemia. PLAN FOR INPATIENT GLYCEMIC CONTROL: * Hold outpatient oral diabetes medications * Basal insulin * Lantus scale (0,10 or 15 units depending on BSG) SQ HS * Bolus insulin * NovoLog per scale ACHS or Q6hrs while NPO * Goal Range: Low 110 mg/dL - High 140 mg/dL * Correction Factor: 25 mg/dL/unit * Nutritional / Prandial insulin per carb ratio of 1 unit per 10 grams CHO consumed
[2024-09-20] MEDS: dexAMETHasone 8 MG in SYRINGE 0 ML IV SCH (16:16)
[2024-09-20] MEDS: ACETAMINOPHEN 500 MG TAB PO SCH (17:11)
[2024-09-20] MEDS: METOPROLOL SUCC 50MG EXT REL TAB PO SCH (20:05)
[2024-09-20] MEDS: TAMSULOSIN HCL 0.4 MG CAP PO SCH (20:05)
[2024-09-20] MEDS: ATORVASTATIN 40 MG TAB PO SCH (20:05)
[2024-09-20] MEDS: FINASTERIDE 5 MG TAB PO SCH (20:07)
[2024-09-20] MEDS: LANTUS PER UNIT CHARGE SC SCH (20:08)
[2024-09-20] MEDS ORDERED: REMOVE LIDODERM PATCH SCH (21:00)
[2024-09-21] MEDS: LANTUS PER UNIT CHARGE SC SCH ×2 (08:49→20:54)
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
--- NOTE | 2024-09-21 15:57 | Hospitalist Progress Note ---
Date of Service September 21, 2024 Assessment & Plan (1) Intractable back pain: Plan: Assessment and plan below following discussion of case with ED provider and reviewing patient history/pertinent normal/abnormal diagnostic test results. Lumbar radiculopathy hx chronic back pain status post surgery ([facility] [place], 2021) History of chronic pain on naltrexone cystic -- pain more manageable, improving at least 50% evaluated by Dr. Vang, pain control, outpatient ff up for urgent surgery continue IV Decadron, PRN Oxy, Morphine PT/OT alonzo Acute on chronic anemia, possibly dilutional after multiple IVF boluses given for hypotension during recent ER visit for astrovirus diarrhea -- Hg stable at 12 hx CAD valvular heart disease (bicuspid aortic valve, moderate , mild AR, TTE 2024) saccular aneurysm as per records hypertension-- add PRN Hydralazine hyperlipidemia, on statin Rx DM2 on oral medications, well-controlled as of recent hemoglobin A1c of 6.01 February 2024 past tobacco abuse Hold naltrexone while patient receiving as needed opioid Rx for lumbar radiculopathy MRI lumbar spine given history surgery May benefit from Orthopedics spine eval Anemia workup, hold aspirin for now until H&H stable ISS BG goal 110-140, carb count coverage, update hemoglobin A1c DVT prophylaxis. SCDs Full code Disposition pending PT/OT eval Admission and Anticipated Discharge Date Admission Date: September 20, 2024 Subjective ff up for radiculopathy, etc seen resting in bed, not in distress reports back pain radiating to R leg has improved at least 50% better still has significant pain when ambulating numbness improving Review of Systems Review of Systems: all noted and negative except for above Physical Exam Physical Exam: General- oriented x 3, not in distress, speaks in sentences with no effort or accessory muscle use Eyes- anicteric Neck- no JVD Lungs- clear breath sounds bilaterally Heart- normal rate, regular rhythm; no murmurs Abdomen- normal bowel sounds, nondistended, soft, nontender Extremities- no pretibial edema, no calf tenderness Neuro- alert, oriented x 3; no gross focal neurologic deficits Skin- warm & dry Results & Data Results & Data Vital Signs (Past 12 Hours) Vital Signs Temp Pulse Resp BP Pulse Ox O2 Del Method 09/21/24 14:18 36.5 C 79 18 162/89 H 98 Room Air 09/21/24 06:53 36.5 C 67 18 156/94 H 96 Room Air all noted and reviewed including below
[2024-09-22 07:47] VITALS: O2SAT 94
[2024-09-22] MEDS: LANTUS PER UNIT CHARGE SC SCH (08:27)
--- NOTE | 2024-09-22 12:15 | Pharmacy Report ---
Pharmacy Glycemic Short Note 2 - Date of Service September 22, 2024 - Glycemic Short BSG Results (Last 24 hours): 09/21/24 09/21/24 09/22/24 16:30 20:40 07:41 POC Glucose 214 H 213 H 237 H 09/22/24 11:46 POC Glucose 246 H OUTPATIENT ANTIDIABETIC REGIMEN: * metformin 1000mg po BID HbA1c: 7.1% on 09/20/24 ASSESSMENT: 09/22 * Archie required significantly more insulin yesterday than the previous day. He received a total of 67 units of insulin yesterday (30 units were basal and 37 units were bolus). Despite this increase, his blood glucoses were all still significantly above goal. * Fasting and lunch BSGs today were still > 200mg/dL. Tightened the bolus insulin parameters to a stress of 3. Will continue basal insulin without change. If blood glucose is still significantly elevated into tomorrow morning, and he is still on the same dose of steroids, will likely need to increase the basal insulin dose(s). 09/20 * Archie is a 68 year old male who was admitted yesterday with intractable back pain. Pharmacy was consulted for glycemic management today as he is a type II diabetic who was started on steroids. * He was already ordered a bolus insulin regimen prior to consult. Since the first dose of dexamethasone tid was scheduled for 1400 today, the CR of the bolus insulin was tightened starting with supper tonight. * A Lantus scale (0, 10, or 15 units depending on BSG) was added for HS in ant icipation of steroid induced hyperglycemia. PLAN FOR INPATIENT GLYCEMIC CONTROL: * Hold outpatient oral diabetes medications * Basal insulin * Lantus 15 units SQ QAM and Lantus scale (0,15, or 25 units depending on BSG) SQ HS * Bolus insulin * NovoLog per scale ACHS or Q6hrs while NPO * Goal Range: Low 110 mg/dL - High 140 mg/dL * Correction Factor: 15 mg/dL/unit * Nutritional / Prandial insulin per carb ratio of 1 unit per 5 grams CHO consumed
--- NOTE | 2024-09-22 16:03 | Hospitalist Progress Note ---
Date of Service September 22, 2024 Assessment & Plan (1) Intractable back pain: Plan: Assessment and plan below following discussion of case with ED provider and reviewing patient history/pertinent normal/abnormal diagnostic test results. Lumbar radiculopathy hx chronic back pain status post surgery ([facility], 2021) History of chronic pain on naltrexone cystic -- pain more manageable, improving at least 50% evaluated by Dr. Vang, pain control, outpatient ff up for urgent surgery continue IV Decadron, PRN Oxy, Morphine PT/OT alonzo 09/22 pain continues to improve taper Decadron to q12h monitor Acute on chronic anemia, possibly dilutional after multiple IVF boluses given for hypotension during recent ER visit for astrovirus diarrhea -- Hg stable at 12 anemia panel ok monitor as outpatient hx CAD valvular heart disease (bicuspid aortic valve, moderate , mild AR, TTE 2024) saccular aneurysm as per records hypertension-- add PRN Hydralazine hyperlipidemia, on statin Rx DM2 on oral medications, well-controlled as of recent hemoglobin A1c of 6.01 February 2024 past tobacco abuse Hold naltrexone while patient receiving as needed opioid Rx for lumbar radiculopathy MRI lumbar spine given history surgery May benefit from Orthopedics spine eval ISS BG goal 110-140, carb count coverage, update hemoglobin A1c 7.1- outpatient ff up DVT prophylaxis. SCDs Full code Disposition anticipate d/c home tomorrow ff up with Ortho Spine Dr Vang Admission and Anticipated Discharge Date Admission Date: September 20, 2024 Subjective seen resting in bed, comfortable states back and R leg pain continues to improve able to ambulate in the halls today with less pain no new neuro deficits Review of Systems Review of Systems: all noted and negative except for above Physical Exam Physical Exam: General- oriented x 3, not in distress, speaks in sentences with no effort or accessory muscle use Eyes- anicteric Neck- no JVD Lungs- clear breath sounds bilaterally, no rales/wheezes Heart- normal rate, regular rhythm; no murmurs Abdomen- normal bowel sounds, nondistended, soft, nontender Extremities- no pretibial edema, no calf tenderness Neuro- alert, oriented x 3; no new gross focal neurologic deficits Skin- warm & dry Results & Data Results & Data Vital Signs (Past 12 Hours) Vital Signs Temp Pulse Resp BP Pulse Ox O2 Del Method 09/22/24 14:06 36.8 C 70 18 150/78 H 94 Room Air 09/22/24 07:45 36.5 C 65 18 147/84 H 94 Room Air 09/22/24 05:28 36.4 C L 80 15 128/62 92 Room Air all noted and reviewed including below
[2024-09-22] MEDS: dexAMETHasone 8 MG in SYRINGE 0 ML IV SCH (22:54)
[2024-09-23 06:39] LABS: Hematocrit (blood only) 37.1 % (42.0-52.0); Hemoglobin 12.6 g/dl (14.0-18.0); Immature Granulocytes # (auto) 0.32 K/uL (0.01-0.20); Immature Granulocytes % (auto) 1.8 %; Mean Corpuscular Hemoglobin 31.5 pg (25.0-34.0); Mean Corpuscular Volume 92.8 fL (80.0-100.0); Platelet Count 249 K/uL (130-400); RDW Standard Deviation 48.2 fL (36.4-46.3); Red Blood Count 4.00 M/uL (4.70-6.10); White Blood Count 17.81 K/ul (4.8-10.8)
[2024-09-23 07:19] VITALS: BP 113/68; PULSE 55; RESP 18; TEMP 97.5
[2024-09-23] MEDS: LANTUS PER UNIT CHARGE SC SCH (08:46)
[2024-09-23 09:11] LABS: Anion Gap 8.0 (3-11); Blood Urea Nitrogen 27.0 mg/dl (6-23); Calcium 9.4 mg/dl (8.6-10.3); Carbon Dioxide 30.0 mmol/L (21-32); Chloride 102.0 mmol/L (98-107); Creatinine Clr Calc Pharmacy 91.5 ml/min; Glucose 215.0 mg/dl (70-99(Fasting)); Potassium 4.2 mmol/L (3.5-5.1); Sodium 140.0 mmol/L (136-145)
[2024-09-23] MEDS: LACTULOSE SYRUP 20 GM/30 ML UDC PO STA (11:33)
[2024-09-23] MEDS: predniSONE 20 MG TAB PO ONE (11:33)
--- NOTE | 2024-09-23 15:04 | Discharge Summary ---
Discharge Summary Date of Service September 23, 2024 Principal Dx & Hospital Course #1 = Principal Diagnosis (1) Intractable back pain: Lumbar spondylosis, with radiculopathy hx chronic back pain status post surgery ([facility], 2021) History of chronic pain on naltrexone cystic Lumbar spine MRI: 1. L4-L5 laminectomy with posterior interbody meryl and screw fusion hardware at L3-S1. There is evidence of hardware loosening involving the L3 screws on yesterday's CT study. 2. No acute fracture, subluxation or significant marrow edema. 3. 1.8 cm structure within the central canal at L2-L3 as above, likely a combination of ligamentum flavum thickening with synovial cyst formation associated with the facet arthropathy. Findings result in mild central canal stenosis with moderate right foraminal narrowing. -- evaluated by Ortho Spine Dr. Vang,recommend pain control, outpatient ff up for urgent surgery Assessment #1 failed back syndrome #2 lumbar spondylosis with radiculopathy. Plan I had a long discussion today with the patient and his son reviewing his MRI and CAT scan findings. At this point he has failed fusion L3-S1 with loosening hardware certainly contributing to his symptom complex. In addition to this at the L2-L3 level he has a large facet cyst on the right contributing to significant L2-L3 radiculopathy and thigh pain. This point he would require surgical invention would require revision fusion hardware removal L3-S1 with extension of fusion L2-L3. We discussed in detail what this would involve. This point he is considering having surgery here at [facility]. He is safe for discharge and we will see him in my office this to go over the details. -- given IV Decadron, PRN Oxy, Morphine -- pain much better, still having some pain but more manageable 3-07/03 discharge plan: Prednisone taper PRN Oxycodone called over the phone to advise NOT to take Naltrexone while on Oxycodone (not indicated on d/c instructions), patient verbalized understanding and agreement -- will have outpatient ff up with Dr. Vang in 2 days advised to keep appointment Acute on chronic anemia -- possibly dilutional after multiple IVF boluses given for hypotension during recent ER visit for astrovirus diarrhea -- Hg stable at 12 anemia panel ok monitor as outpatient Abnormal CT chest findings There is an unchanged focal aneurysm of the distal aortic arch, measuring up to 3.2 cm in diameter. There is extensive coronary atherosclerosis. -- Further work up, management, and ff up as outpatient Abnormal CT abd/pelvis findings 1. No sign of abdominal aortic aneurysm or dissection 2. No sign of renal or mesenteric artery stenosis 3. Mild stenosis of the left internal iliac artery 4. Fatty infiltration of the liver and hepato-megaly 5. Unchanged small mass in the right hepatic lobe, almost certainly benign given the stability for more than 3 years. It may represent a hemangioma 6. Bilateral renal calculi and 4 mm bladder calculus 7. Small left renal cysts 8. Small hiatal hernia 9. Mild diverticulosis without evidence of diverticulitis -- already on ASA, Statin refer to GI for Fatty Liver, hepatomegaly Other Chronic Medical Problems; History of CAD valvular heart disease (bicuspid aortic valve, moderate , mild AR, TTE 2024) Saccular aneurysm as per records Hypertension Hyperlipidemia, on statin Rx DM2 on oral medications, well-controlled as of recent hemoglobin A1c of 6.01 February 2024 past tobacco abuse Disposition d/c home PCP in 1 week ff up with Ortho Spine Dr Vang Notes For Next Care Provider Medication Changes From Visit Prednisone taper Oxycodone HOLD Naltrexone while taking Oxycodone Admission HPI Per Admitting Provider History obtained from patient, family, and records. Medical history significant for CAD, valvular heart disease (bicuspid aortic valve, moderate , mild AR), saccular aneurysm as per records, hypertension, hyperlipidemia, DM2 on oral medications, NAFLD, Wagner's esophagus/GERD, h istory pancreatitis, chronic anemia (baseline hemoglobin of 13), chronic back pain status post surgery ([facility] [place], 2021), chronic pain on naltrexone, urolithiasis, mood disorder, past tobacco abuse. 5 days ago, patient noted worsening low back pain with radiation to RLE. RLE weak from pain. No fever, no chills. No incontinence episodes. No recollection of trauma. 3 days ago, patient had watery diarrhea symptoms associated with dizziness and mild abdominal discomfort. Transient LOC at home for lightheadedness. No headache, no chest pain, no SOB. Patient noted to be hypotensive at [facility] ER [address] imaging unremarkable. Stool astrovirus positive. Blood pressure improved at time of discharge after multiple fluid boluses. More pronounced back pain with RLE radiation at home. Diarrhea symptoms improved. Patient returned to ER for evaluation. Patient uncomfortable going home. Medical History as above Surgical History : Back surgery, cystoscopy, lithotripsy, cholecystectomy Family History : AAA, DM, heart disease Personal/Social history : Past tobacco abuse, occasional EtOH intake Admission Exam Per Admitting Provider GENERAL: Comfortable, obese, pleasant, slightly uncomfortable, no respiratory distress SKIN: Pallor, warm HEENT: Alopecia, pale palpebral conjunctivae, no ptosis, dry buccal mucosa NECK : Supple, no tenderness CHEST : CTA, no tenderness HEART : RRR, systolic murmur ABDOMEN: Some distention, nontender BACK : Low back tenderness, negative straight leg raise test EXTREMITIES : Minimal LE swelling, no LE tenderness, palpable pulses, no other conspicuous deformities noted NEUROLOGIC : Coherent, no facial asymmetry, gait and stance not assessed Discharge Exam General- oriented x 3, not in distress, speaks in sentences with no effort or accessory muscle use Eyes- anicteric Neck- no JVD Lungs- clear breath sounds bilaterally, no rales/wheezes Heart- normal rate, regular rhythm; no murmurs Abdomen- normal bowel sounds, nondistended, soft, nontender Extremities- no pretibial edema, no calf tenderness Neuro- alert, oriented x 3; no new gross focal neurologic deficits Skin- warm & dry Updated Medication List Medication Instructions Recorded Confirmed Type tamsulosin 0.4 mg capsule 0.4 mg PO HS 02/21/18 09/20/24 History finasteride 5 mg tablet 5 mg PO HS 06/11/20 09/20/24 History trazodone 50 mg tablet 50 mg PO HS 01/01/21 09/20/24 History atorvastatin 40 mg tablet 40 mg PO HS #30 tabs 01/03/21 09/20/24 Rx enalapril maleate 20 mg tablet 20 mg PO HS #30 tabs 01/03/21 09/20/24 Rx aspirin 81 mg tablet,delayed 81 mg PO HS 05/10/21 09/20/24 History release Apple Cider Vinegar Capsule 752 mg PO DAILY 09/18/24 09/20/24 History albuterol sulfate 2.5 mg/3 mL 2.5 mg inhalation DIRECTED PRN 09/18/24 09/20/24 History (0.083 %) solution for nebulization Shortness Of Breath Or Wheezing albuterol sulfate 90 mcg/actuation 2 puff inhalation Q4H PRN Wheezing 09/18/24 09/20/24 History aerosol inhaler (Ventolin HFA) ascorbic acid (vitamin C) 500 mg 500 mg PO DAILY 09/18/24 09/20/24 History tablet (Vitamin C) cholecalciferol (vitamin D3) 25 25 mcg PO DAILY 09/18/24 09/20/24 History mcg (1,000 unit) capsule (Vitamin D3) cyanocobalamin (vitamin B-12) 50 50 mcg PO DAILY 09/18/24 09/20/24 History mcg tablet (Vitamin B-12) duloxetine 40 mg capsule,delayed 80 mg PO HS 09/18/24 09/20/24 History release ferrous sulfate 325 mg (65 mg 325 mg PO DAILY 09/18/24 09/20/24 History iron) tablet metformin 500 mg tablet 1,000 mg PO BIDM 09/18/24 09/20/24 History metoprolol succinate 200 mg 200 mg PO HS 09/18/24 09/20/24 History tablet,extended release 24 hr iigwsmbburld-sffv-rtrpe acid 200 1 tab PO DAILY 09/18/24 09/20/24 History mcg-lutein 137.5 mcg chewable tablet (Adult Multivitamin (w-lutein)) naltrexone 50 mg tablet 25 mg PO HS 09/18/24 09/20/24 History pantoprazole 40 mg tablet,delayed 40 mg PO DAILYBB 09/18/24 09/20/24 History release pregabalin 150 mg capsule 150 mg PO TID 09/18/24 09/20/24 History vit C 250 mg-vit E 90 mg-zinc 40 1 tab PO BID 09/18/24 09/20/24 History mg-copper 1 [id number]-[id number] capsule (PreserVision AREDS-2) magnesium hydroxide 400 mg/5 mL 15 ml PO QID PRN constipation #355 09/23/24 Rx oral suspension (Milk of Magnesia) mL oxycodone 5 mg tablet 10 mg (2 x 5 mg) PO QID PRN SEVERE 09/23/24 Rx PAIN #20 tabs polyethylene glycol 3350 17 gram 17 g PO DAILY 14 days #14 ea 09/23/24 Rx oral powder packet (Miralax) prednisone 10 mg tablet 10 mg PO DIRECTED #20 tabs 09/23/24 Rx Hospital Stay Data Consultations 09/20/24 00:01 ED Decision to Admit Stat 09/20/24 13:14 Consult Orthopedic Surgery Routine Diagnostic Imagining Performed 09/19/24 21:05 CT lumbar spine wo con Stat CT thoracic spine wo con Stat 09/20/24 01:13 MRI Spine [MR lumbar spine wo con] Routine Pending Results Patient Have Any Pending Studies at Discharge: No Discharge Instructions Given to Patient (Per Discharging Provider) PLEASE REFER TO YOUR NEW MEDICATION LIST AND FOLLOW INSTRUCTIONS CAREFULLY. YOUR NEW MEDICATIONS INCLUDE: Prednisone taper 40mg daily x 2 days, then 30mg daily x 2 days, then 20mg daily x 2 days, then 10mg daily x 2 days, then STOP PLEASE CALL YOUR PRIMARY CARE PHYSICIAN OR RETURN TO THE ER IF WITH WORSENING OF SYMPTOMS, INCLUDING BACK PAIN, LEG WEAKNESS/NUMBNESS, INCONTINENCE, FEVER/CHILLS, ETC FOLLOW UP WITH PRIMARY CARE PHYSICIAN OUTLINED ABOVE. FOLLOW UP WITH DR VANG ON SUNDAY SCHEDULED. Total Time Total Time Spent Total Time Spent (In Minutes): 40 minutes
[2024-09-24] MEDS ORDERED: POLYETHYLENE (MIRALAX) 17 GM PACK PO SCH (09:00)
== END 2024-09-23 12:35 | disposition home or self-care (01) | DRG 560 ==
LOC: 3N 20:08 → ED 20:08 → 3N 09-20 01:35

== ENCOUNTER 2024-11-26 08:11 | Inpatient (IN) ==
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
[2024-11-26] MEDS ORDERED: MoRPHine SULFATE 2 MG/ML CARP IV PRN (08:25)
[2024-11-26 08:34] LABS: Appearance Urine Clear (Clear); Bacteria Urine Automated None Seen (None Seen); Cast Urine Automated 0-2 /lpf (0-2); Epithelial Cell Urine Auto 0-2 /hpf (0-2); Glucose Urine UA Negative (Negative)
[2024-11-26] MEDS: MoRPHine SULFATE 4 MG/ML 1 ML CARP\\VIAL IV PRN (08:34)
[2024-11-26] MEDS: SODIUM CHLORIDE 0.9% 1,000 ML IV ONE (08:35)
[2024-11-26 09:22] LABS: Hematocrit (blood only) 28.8 % (42.0-52.0); Hemoglobin 8.9 g/dl (14.0-18.0); Immature Granulocytes # (auto) 0.33 K/uL (0.01-0.20); Immature Granulocytes % (auto) 2.6 %; Mean Corpuscular Hemoglobin 30.8 pg (25.0-34.0); Mean Corpuscular Volume 99.7 fL (80.0-100.0); Platelet Count 464 K/uL (130-400); RDW Standard Deviation 54.2 fL (36.4-46.3); Red Blood Count 2.89 M/uL (4.70-6.10); White Blood Count 12.87 K/ul (4.8-10.8)
[2024-11-26] MEDS: HYDROmorphone INJ 0.5 MG/0.5 ML SYR IV STA (09:31)
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
[2024-11-26 09:47] LABS: Alanine Aminotransferase 3.0 U/L (7-52); Albumin Globulin Ratio 0.9 (0.9-2); Alkaline Phosphatase 75.0 U/L (34-104); Anion Gap 7.0 (3-11); Bilirubin,Total 0.2 mg/dl (0.2-1.0); Blood Urea Nitrogen 22.0 mg/dl (6-23); Calcium 9.6 mg/dl (8.6-10.3); Carbon Dioxide 27.0 mmol/L (21-32); Chloride 105.0 mmol/L (98-107); Creatinine Clr Calc Pharmacy 69.3 ml/min; Globulin 3.7 gm/dl (2.5-4.0); Glucose 176.0 mg/dl (70-99(Fasting)); Lipase 67.0 U/L (11-82); Potassium 3.3 mmol/L (3.5-5.1); Sodium 139.0 mmol/L (136-145); Total Protein 7.2 gm/dl (6.0-8.3)
[2024-11-26 10:37] LABS: Magnesium 1.7 mg/dl (1.7-2.4)
[2024-11-26] MEDS: HYDROmorphone INJ 1 MG/ML SYRINGE IV STA (10:40)
[2024-11-26] MEDS: cefTRIAXone SODIUM 2,000 MG/50 ML BAG IV STA (10:42)
[2024-11-26] MEDS ORDERED: POLYETHYLENE (MIRALAX) 17 GM PACK PO PRN (11:00)
[2024-11-26] MEDS ORDERED: MAGNESIUM HYDROXIDE SUSP 30 ML UDC PO PRN (11:00)
[2024-11-26] MEDS ORDERED: ONDANSETRON INJ 2 MG/ML 2 ML VIAL IV PRN (11:00)
[2024-11-26] MEDS ORDERED: HYDROmorphone INJ 0.5 MG/0.5 ML SYR IV PRN (11:58)
[2024-11-26] MEDS ORDERED: GLUCAGON FOR INJ 1 MG VIAL SQ PRN (12:00)
[2024-11-26] MEDS ORDERED: PHARMACY GLYCEMIC MGMT CONSULT PRN (12:00)
[2024-11-26] MEDS ORDERED: DEXTROSE 50% 50 ML SYRINGE IV PRN (12:00)
[2024-11-26] MEDS ORDERED: GLUCOSE 10 TAB/TUBE PO PRN (12:00)
[2024-11-26] MEDS ORDERED: CARBOHYDRATES FOR HYPOGLYCEMIA PO PRN (12:00)
[2024-11-26] MEDS ORDERED: GLUCOSE 40% GEL 15 GM TUBE PO PRN (12:00)
[2024-11-26] MEDS: POTASSIUM CHLORIDE CRTAB 20 MEQ TABCR PO STA (12:18)
[2024-11-26] MEDS: MoRPHine SULFATE 2 MG/ML CARP IV PRN (12:19)
[2024-11-26] MEDS: KETOROLAC TROMETHAMINE 15 MG/ML VIAL IV PRN (13:14)
[2024-11-26] MEDS: INSULIN ASPART PER UNIT CHARGE SC SCH (13:43)
[2024-11-26] MEDS: PREGABALIN 150 MG CAP PO SCH (13:48)
--- NOTE | 2024-11-26 14:41 | Pharmacy Report ---
Pharmacy Glycemic Short Note 2 - Date of Service November 26, 2024 - Glycemic Short BSG Results (Last 24 hours): 11/26/24 11/26/24 08:58 13:19 Glucose 176 H POC Glucose 132 H OUTPATIENT ANTIDIABETIC REGIMEN: * Metformin 500mg po BID HbA1c: 7.3% on 11/16/24 ASSESSMENT: * Archie is a 69 year old male who was admitted today for intractable lower back pain. He was recently admitted (11/15-11/25/2024) with sepsis secondary to postop lumbar epidural abscess s/p lumbar decompression and fusion surgery. Pharmacy was consulted for glycemic management last admission and again today while he is admitted. * Last admission, Archie required a fairly large amount of insulin to keep his blood glucose under control (ranged from 34-112 units/day). He was receiving steroids for part of that admission which accounts for the greater insulin needs some of the days. * He was not started on steroids this admission so will start with a more conservative insulin regimen. BSG on admit was 132mg/dL. A weight based (using adjusted body weight) bolus insulin regimen with a stress of 2 was started and a Lantus scale (0, 5, or 10 units depending on BSG) was added. PLAN FOR INPATIENT GLYCEMIC CONTROL: * Hold outpatient oral diabetes medications * Basal insulin * Lantus scale at HS (0,5, or 10 units depending on BSG). * Bolus insulin * NovoLog per scale ACHS or Q6hrs while NPO * Goal Range: Low 110 mg/dL - High 150 mg/dL * Correction Factor: 30 mg/dL/unit * Nutritional / Prandial insulin per carb ratio of 1 unit per 10 grams CHO consumed
[2024-11-26] MEDS: HYDROmorphone INJ 0.5 MG/0.5 ML SYR IV PRN (18:19)
[2024-11-26] MEDS: DOCUSATE SODIUM 100 MG CAP PO SCH (20:34)
[2024-11-26] MEDS: ATORVASTATIN 40 MG TAB PO SCH (20:34)
[2024-11-26] MEDS: TAMSULOSIN HCL 0.4 MG CAP PO SCH (20:35)
[2024-11-26] MEDS: ASPIRIN 81 MG ECTAB PO SCH (20:35)
[2024-11-26] MEDS: METOPROLOL SUCC 50MG EXT REL TAB PO SCH (20:35)
[2024-11-26] MEDS: FINASTERIDE 5 MG TAB PO SCH (20:35)
[2024-11-26] MEDS: LANTUS PER UNIT CHARGE SC SCH (20:35)
[2024-11-27 06:36] LABS: Hematocrit (blood only) 27.8 % (42.0-52.0); Hemoglobin 8.4 g/dl (14.0-18.0); Immature Granulocytes # (auto) 0.23 K/uL (0.01-0.20); Immature Granulocytes % (auto) 2.4 %; Mean Corpuscular Hemoglobin 30.7 pg (25.0-34.0); Mean Corpuscular Volume 101.5 fL (80.0-100.0); Platelet Count 425 K/uL (130-400); RDW Standard Deviation 56.4 fL (36.4-46.3); Red Blood Count 2.74 M/uL (4.70-6.10); White Blood Count 9.51 K/ul (4.8-10.8)
[2024-11-27 07:21] LABS: Anion Gap 6.0 (3-11); Blood Urea Nitrogen 18.0 mg/dl (6-23); Calcium 9.3 mg/dl (8.6-10.3); Carbon Dioxide 28.0 mmol/L (21-32); Chloride 109.0 mmol/L (98-107); Creatinine Clr Calc Pharmacy 75.0 ml/min; Glucose 174.0 mg/dl (70-99(Fasting)); Magnesium 1.8 mg/dl (1.7-2.4); Potassium 4.0 mmol/L (3.5-5.1); Sodium 143.0 mmol/L (136-145)
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
[2024-11-27] MEDS: LANTUS PER UNIT CHARGE SC SCH (08:36)
[2024-11-27] MEDS: FERROUS SULFATE 325 MG TAB PO SCH (08:37)
[2024-11-27] MEDS: POLYETHYLENE (MIRALAX) 17 GM PACK PO SCH (08:37)
[2024-11-27] MEDS: ASCORBIC ACID 500 MG TAB PO SCH (08:37)
[2024-11-27] MEDS: CHOLECALCIFEROL 25 MCG (1000 UNITS) TAB PO SCH (08:37)
[2024-11-27] MEDS: MULTIVITAMIN TAB PO SCH (08:38)
--- NOTE | 2024-11-27 10:05 | Pharmacy Report ---
Pharmacy Glycemic Short Note 2 - Date of Service November 27, 2024 - Glycemic Short BSG Results (Last 24 hours): 11/26/24 11/26/24 11/26/24 13:19 16:06 19:47 Glucose POC Glucose 132 H 142 H 194 H 11/27/24 11/27/24 06:01 07:10 Glucose 174 H POC Glucose 153 H OUTPATIENT ANTIDIABETIC REGIMEN: * Metformin 500 mg PO BID * HbA1c: 7.3% on 11/16/24 ASSESSMENT: 11/27: * Patient received 9 units of insulin yesterday, 5 units of which were basal. BSGs were: [phone] mg/dL. * Fasting BSG was 153 mg/dL today. Will increase basal to 5 units BID based upon previous admission data. * Remains on Ancef and Rifampin. Tolerating T2DM diet. Will tighten Novolog slightly today based upon previous admission data. 11/26: * Archie is a 69 year old male who was admitted today for intractable lower back pain. He was recently admitted (11/15-11/25/2024) with sepsis secondary to postop lumbar epidural abscess s/p lumbar decompression and fusion surgery. Pharmacy was consulted for glycemic management last admission and again today while he is admitted. * Last admission, Archie required a fairly large amount of insulin to keep his blood glucose under control (ranged from 34-112 units/day). He was receiving steroids for part of that admission which accounts for the greater insulin needs some of the days. * He was not started on steroids this admission so will start with a more conservative insulin regimen. BSG on admit was 132mg/dL. A weight based (using adjusted body weight) bolus insulin regimen with a stress of 2 was started and a Lantus scale (0, 5, or 10 units depending on BSG) was added. PLAN FOR INPATIENT GLYCEMIC CONTROL: * Hold outpatient oral diabetes medications * Basal insulin * Lantus 5 units SC BID * Bolus insulin * NovoLog per scale ACHS or Q6hrs while NPO * Goal Range: Low 110 mg/dL - High 140 mg/dL * Correction Factor: 20 mg/dL/unit * Nutritional / Prandial insulin per carb ratio of 1 unit per 7 grams CHO consumed
--- NOTE | 2024-11-27 16:08 | Hospitalist Progress Note ---
Date of Service November 27, 2024 Assessment & Plan (1) Intractable low back pain: (2) Infection associated with internal fixation device of spine: (3) Status post incision and drainage: (4) MSSA (methicillin susceptible Staphylococcus aureus) infection: (5) Hypertensive urgency: (6) Hypokalemia: (7) Abnormal urinalysis: Plan Patient is a 69-year-old male with past medical history significant for DM type II with diabetic polyneuropathy, TALIB, HLD, HTN, bicuspid aortic valve with aortic valve stenosis and aortic regurgitation, mild mitral regurgitation, history of left retinal artery occlusion in 2020, atherosclerosis of the thoracic aortic arch with saccular aneurysm within the proximal descending thoracic aorta, carotid artery stenosis, hepatic steatosis, Wagner's esophagus, depression, insomnia, chronic pancreatitis, obesity, 3 pack-year smoking history and history of kidney stones who presented to the ED via EMS from [facility] due to intractable low back pain. Recent confinement under service to 11/15/2024-11/25/2024 with sepsis 2/2 postoperative lumbar epidural abscess s/p lumbar decompression and fusion surgery performed by Dr. Vang on 11/06/2024. Underwent irrigation and debridement of the lumbar spine with hematoma evacuation on 11/17/[address] Vang. Intraoperative cultures grew MSSA; blood cultures were negative. Seen and evaluated by ID whom recommended: IV cefazolin 2g Q8H and po rifampin 300mg BID to be continued through 12/29/2024, then chronic suppressive therapy with cefadroxil 500mg BID likely for life. Hospital course c/b development of BRIAN determined likely 2/2 multifactorial ATN ISO sepsis, severe ischemia ISO IV contrast administration with sepsis plus or minus toxicity associated with previously administered IV vancomycin prior to ID evaluation. #Intractable low back pain #Postoperative lumbar epidural abscess s/p I&D with hematoma evacuation on 11/17/24 #MSSA infection History as per above Case discussed b/n ED provider and Dr Vang --> hold off on additional imaging for now; he will evaluate pt later today Continue IV Ancef 2g Q8H + po rifampin 500mg BID as outlined by ID -Pt missed ABX doses yesterday s/p DC 2/2 delivery issues as SNF -Because of this, will tentatively plan to continue ABX course through 12/30/24 instead to cover for missed doses -Will then need to be transitioned to chronic immunosuppressive therapy with po cefadroxil 500mg BID as outlined by ID once Ancef/rifampin completed Pt rating pain 4.5/10 s/p 4mg IV morphine and 1.5mg IV Dilaudid in ED -Increasingly sleepy but still arousable s/p above narcotics -Will trial PRN IV Toradol for mild-mod pain, as renal fx stable, in addition to IV morphine (for severe)/Dilaudid (for breakthrough) in attempt to limit narcotics 2/2 sedation -Continue to hold naltrexone Mildly tachycardic in ED -Suspect 2/2 pain, WBC slowly improving -Follow blood cultures Continue Lyrica Appreciate PT/OT evals PRN ice and/or heat application as pt tolerates Huan bowel reg with daily MiraLAX 11/27 Dr. Vang recommends continue supportive care PT/OT pain control #HTN urgency Likely 2/2 pain Continue BB and monitor, suspect will improve once pain under better control 11/27 seems to be improving continue to monitor #Hypokalemia K 3.3, po repletion ordered Continue to monitor and replete PRN #Abnormal urinalysis UA: 1+ LE, 11-20 WBC, no bacteria Pt w/o any new urinary complaints; has chronic urinary urgency but this is unchanged from baseline IV Rocephin ordered by ED provider and given -- stop Will continue IV Ancef + po rifampin as recommended by ID, as per above Follow urine culture --> any additional ABX recs pending results 11/27 urine culture: negative so far blood culture: " #DMII with diabetic polyneuropathy Hgb A1c 7.3% as of 11/16/2024 Hold home regimen, SSI protocol while inpatient Monitor BSG checks, CC diet #Atherosclerosis of the thoracic aortic arch with saccular aneurysm within the proximal descending thoracic aorta Follows with cardiothoracic surgery at [facility] [place] [facility] Dr. Arpit Koch Next appointment scheduled for 02/04/2025 with repeat CTA (previously measuring 3.5cm) No previous surgical intervention Continue ASA, statin #HLD Continue statin as per above #GERD #History of Wagner's esophagus Hold PPI while on rifampin 2/2 potential drug-drug interaction #Depression Continue Cymbalta #History of TALIB #History of acute surgical blood loss s/p recent lumbar spine operations (as mentioned above) H/H appears stable compared to prior Continue Fe supplementation and monitor #BPH Continue Proscar, Flomax #Insomnia Hold trazodone for now 2/2 risk of oversedation given response to narcotics as per above DVT Prophylaxis: SCDs/TEDs only for now pending ortho spine evaluation Disposition: Admit to PCU for now given HTN urgency Admission and Anticipated Discharge Date Admission Date: November 26, 2024 Subjective seen resting in bed, comfortable states he feels fine overall back pain is well controlled today no chest pain, dyspnea, palpitations, dizziness no other symptoms Review of Systems Review of Systems: all noted and negative except for above Physical Exam Physical Exam: General- oriented x 3, not in distress, speaks in sentences with no effort or accessory muscle use Eyes- anicteric Neck- no JVD Lungs- clear breath sounds bilaterally, no rales/wheezes Heart- normal rate, regular rhythm; no murmurs Abdomen- normal bowel sounds, nondistended, soft, nontender Extremities- no pretibial edema, no calf tenderness Neuro- alert, oriented x 3; no gross focal neurologic deficits Skin- warm & dry Results & Data Results & Data Vital Signs (Past 12 Hours) Vital Signs Temp Pulse Pulse Resp BP Pulse Ox O2 Del Method 11/27/24 15:31 36.4 C L 77 18 156/94 H 97 Room Air 11/27/24 14:00 86 11/27/24 12:10 36.7 C 80 20 146/86 H 95 Room Air 11/27/24 08:00 74 11/27/24 07:47 36.7 C 75 20 159/95 H 94 Room Air 11/27/24 04:30 36.4 C L 78 20 148/98 H 94 Room Air all noted and reviewed including below (2) Infection associated with internal fixation device of spine Encounter type: subsequent encounter Qualified Code(s): T84.63XD - Infection and inflammatory reaction due to internal fixation device of spine, subsequent encounter
[2024-11-27] MEDS: LABETALOL HCL IV 5 MG/ML 20ML IV PRN (20:35)
[2024-11-28] MEDS: ACETAMINOPHEN 1,000 MG/100 ML VIAL IV STA (05:39)
[2024-11-28] MEDS: LIDOCAINE 5% 1 PATCH TD SCH (07:25)
--- NOTE | 2024-11-28 11:21 | Orthopedic Progress Note ---
Date of Service November 28, 2024 Assessment & Plan (1) Intractable low back pain: Plan: At this point we will continue with physical therapy and activity as tolerated. He may discontinue his dressing. I will add Flexeril for muscle spasms. Admission and Anticipated Discharge Date Admission Date: November 26, 2024 Subjective Patient has complaints of intermittent back spasms and some leg discomfort with activity. Overall he has improved with his ambulation. Physical Exam Physical Exam: On exam he is able to stand without difficulty is ambulating the halls. With strength testing. Minimal tenderness palpation of the lumbar musculature. Results & Data Vital Signs (Past 12 Hours) Vital Signs Temp Pulse Resp BP Pulse Ox O2 Del Method 11/28/24 08:15 36.6 C 87 20 107/48 L 93 Room Air 11/28/24 03:45 36.7 C 82 20 146/82 H 96 Room Air Queries Orthopedic Spine Obesity: Yes
--- NOTE | 2024-11-28 12:56 | Pharmacy Report ---
Pharmacy Glycemic Short Note 2 - Date of Service November 28, 2024 - Glycemic Short BSG Results (Last 24 hours): 11/27/24 11/27/24 11/28/24 16:22 20:31 07:25 POC Glucose 64 L* 258 H 159 H 11/28/24 11:24 POC Glucose 145 H OUTPATIENT ANTIDIABETIC REGIMEN: * Metformin 500 mg PO BID * HbA1c: 7.3% on 11/16/24 ASSESSMENT: 11/28 * Patient with hypoglycemic event with dinner yesterday. Possible stacking with AM and lunch. * Patient is not on steroids this admission- will loosen novolog parameters back to weight stress 2 for now. * Fasting 159 mg/dL this morning- continue with lantus 5 units BID 11/27: * Patient received 9 units of insulin yesterday, 5 units of which were basal. BSGs were: [phone] mg/dL. * Fasting BSG was 153 mg/dL today. Will increase basal to 5 units BID based upon previous admission data. * Remains on Ancef and Rifampin. Tolerating T2DM diet. Will tighten Novolog slightly today based upon previous admission data. 11/26: * Archie is a 69 year old male who was admitted today for intractable lower back pain. He was recently admitted (11/15-11/25/2024) with sepsis secondary to postop lumbar epidural abscess s/p lumbar decompression and fusion surgery. Pharmacy was consulted for glycemic management last admission and again today while he is admitted. * Last admission, Archie required a fairly large amount of insulin to keep his blood glucose under control (ranged from 34-112 units/day). He was receiving steroids for part of that admission which accounts for the greater insulin needs some of the days. * He was not started on steroids this admission so will start with a more c onservative insulin regimen. BSG on admit was 132mg/dL. A weight based (using adjusted body weight) bolus insulin regimen with a stress of 2 was started and a Lantus scale (0, 5, or 10 units depending on BSG) was added. PLAN FOR INPATIENT GLYCEMIC CONTROL: * Hold outpatient oral diabetes medications * Basal insulin * Lantus 5 units SC BID * Bolus insulin * NovoLog per scale ACHS or Q6hrs while NPO * Goal Range: Low 110 mg/dL - High 140 mg/dL * Correction Factor: 30 mg/dL/unit * Nutritional / Prandial insulin per carb ratio of 1 unit per 10 grams CHO c onsumed
[2024-11-28] MEDS: CYCLOBENZAPRINE HCL 10 MG TAB PO PRN (15:42)
--- NOTE | 2024-11-28 17:19 | Hospitalist Progress Note ---
Date of Service November 28, 2024 Assessment & Plan (1) Intractable low back pain: (2) Infection associated with internal fixation device of spine: (3) Status post incision and drainage: (4) MSSA (methicillin susceptible Staphylococcus aureus) infection: (5) Hypertensive urgency: (6) Hypokalemia: (7) Abnormal urinalysis: Plan Patient is a 69-year-old male with past medical history significant for DM type II with diabetic polyneuropathy, TALIB, HLD, HTN, bicuspid aortic valve with aortic valve stenosis and aortic regurgitation, mild mitral regurgitation, history of left retinal artery occlusion in 2020, atherosclerosis of the thoracic aortic arch with saccular aneurysm within the proximal descending thoracic aorta, carotid artery stenosis, hepatic steatosis, Wagner's esophagus, depression, insomnia, chronic pancreatitis, obesity, 3 pack-year smoking history and history of kidney stones who presented to the ED via EMS from [facility] due to intractable low back pain. Recent confinement under service to 11/15/2024-11/25/2024 with sepsis 2/2 postoperative lumbar epidural abscess s/p lumbar decompression and fusion surgery performed by Dr. Vang on 11/06/2024. Underwent irrigation and debridement of the lumbar spine with hematoma evacuation on 11/17/[address] Vang. Intraoperative cultures grew MSSA; blood cultures were negative. Seen and evaluated by ID whom recommended: IV cefazolin 2g Q8H and po rifampin 300mg BID to be continued through 12/29/2024, then chronic suppressive therapy with cefadroxil 500mg BID likely for life. Hospital course c/b development of BRIAN determined likely 2/2 multifactorial ATN ISO sepsis, severe ischemia ISO IV contrast administration with sepsis plus or minus toxicity associated with previously administered IV vancomycin prior to ID evaluation. #Intractable low back pain #Postoperative lumbar epidural abscess s/p I&D with hematoma evacuation on 11/17/24 #MSSA infection History as per above Case discussed b/n ED provider and Dr Vang --> hold off on additional imaging for now; he will evaluate pt later today Continue IV Ancef 2g Q8H + po rifampin 500mg BID as outlined by ID -Pt missed ABX doses yesterday s/p DC 2/2 delivery issues as SNF -Because of this, will tentatively plan to continue ABX course through 12/30/24 instead to cover for missed doses -Will then need to be transitioned to chronic immunosuppressive therapy with po cefadroxil 500mg BID as outlined by ID once Ancef/rifampin completed Pt rating pain 4.5/10 s/p 4mg IV morphine and 1.5mg IV Dilaudid in ED -Increasingly sleepy but still arousable s/p above narcotics -Will trial PRN IV Toradol for mild-mod pain, as renal fx stable, in addition to IV morphine (for severe)/Dilaudid (for breakthrough) in attempt to limit narcotics 2/2 sedation -Continue to hold naltrexone Mildly tachycardic in ED -Suspect 2/2 pain, WBC slowly improving -Follow blood cultures Continue Lyrica Appreciate PT/OT evals PRN ice and/or heat application as pt tolerates Huan bowel reg with daily MiraLAX 11/27 Dr. Vang recommends continue supportive care PT/OT pain control #HTN urgency Likely 2/2 pain Continue BB and monitor, suspect will improve once pain under better control 11/27 seems to be improving continue to monitor 11/28 Flexeril added for pain control Continue #Hypokalemia K 3.3, po repletion ordered Continue to monitor and replete PRN #Abnormal urinalysis UA: 1+ LE, 11-20 WBC, no bacteria Pt w/o any new urinary complaints; has chronic urinary urgency but this is unchanged from baseline IV Rocephin ordered by ED provider and given -- stop Will continue IV Ancef + po rifampin as recommended by ID, as per above Follow urine culture --> any additional ABX recs pending results 11/27 urine culture: negative so far blood culture: " #DMII with diabetic polyneuropathy Hgb A1c 7.3% as of 11/16/2024 Hold home regimen, SSI protocol while inpatient Monitor BSG checks, CC diet #Atherosclerosis of the thoracic aortic arch with saccular aneurysm within the proximal descending thoracic aorta Follows with cardiothoracic surgery at [facility] [place] August, Dr. Munson Next appointment scheduled for 02/04/2025 with repeat CTA (previously measuring 3.5cm) No previous surgical intervention Continue ASA, statin #HLD Continue statin as per above #GERD #History of Wagner's esophagus Hold PPI while on rifampin 2/2 potential drug-drug interaction #Depression Continue Cymbalta #History of TALIB #History of acute surgical blood loss s/p recent lumbar spine operations (as mentioned above) H/H appears stable compared to prior Continue Fe supplementation and monitor #BPH Continue Proscar, Flomax #Insomnia Hold trazodone for now 2/2 risk of oversedation given response to narcotics as per above DVT Prophylaxis: SCDs/TEDs only for now pending ortho spine evaluation Disposition: Admit to PCU for now given HTN urgency Admission and Anticipated Discharge Date Admission Date: November 26, 2024 Subjective seen resting in bed, comfortable, sitting up States he had muscle spasms after physical therapy today Pain regimen managing pain adequately so far no chest pain, dyspnea, palpitations, dizziness Review of Systems Review of Systems: all noted and negative except for above Physical Exam Physical Exam: General- oriented x 3, not in distress, speaks in sentences with no effort or accessory muscle use Eyes- anicteric Neck- no JVD Lungs- clear breath sounds bilaterally, no rales/wheezes Heart- normal rate, regular rhythm; no murmurs Abdomen- normal bowel sounds, nondistended, soft, nontender Extremities- no pretibial edema, no calf tenderness Back-surgical dressing in place, no bleeding or discharge Neuro- alert, oriented x 3; no gross focal neurologic deficits Skin- warm & dry Results & Data Results & Data Vital Signs (Past 12 Hours) Vital Signs Temp Pulse Pulse Resp BP Pulse Ox O2 Del Method 11/28/24 12:20 36.9 C 87 19 121/86 98 Room Air 11/28/24 08:15 36.6 C 87 20 107/48 L 93 Room Air 11/28/24 08:00 74 all noted and reviewed including below (2) Infection associated with internal fixation device of spine Encounter type: subsequent encounter Qualified Code(s): T84.63XD - Infection and inflammatory reaction due to internal fixation device of spine, subsequent encounter
[2024-11-28] MEDS: REMOVE LIDODERM PATCH SCH (17:20)
[2024-11-29] MEDS: ACETAMINOPHEN 325 MG TAB PO PRN (08:16)
--- NOTE | 2024-11-29 08:18 | Orthopedic Progress Note ---
Date of Service November 29, 2024 Assessment & Plan (1) Intractable low back pain: Plan: At this time would like to update a CAT scan lumbar spine to assess his instrumentation. We will discontinue the Toradol and attempt another trial of low-dose Decadron to see if this helps his with his radiculopathy. Will continue physical therapy. Admission and Anticipated Discharge Date Admission Date: November 26, 2024 Subjective patient noting lumbosacral back pain and left buttock pain with activity Physical Exam Physical Exam: Patient is seen by the bedside. He was able to stand with assistance. He has back and left buttock pain. There are some tenderness palpation of the left sciatic notch. Results & Data Vital Signs (Past 12 Hours) Vital Signs Temp Pulse Pulse Resp BP Pulse Ox O2 Del Method 11/29/24 07:50 36.6 C 81 20 161/98 H 95 Room Air 11/29/24 03:38 36.5 C 71 19 167/91 H 96 Room Air 11/28/24 22:39 36.5 C 80 20 156/89 H 95 Room Air 11/28/24 22:33 78 Queries Orthopedic Spine Obesity: Yes
[2024-11-29] MEDS: dexAMETHasone 4 MG in SYRINGE 0 ML IV SCH (10:19)
--- NOTE | 2024-11-29 12:07 | CT Scan Report ---
LUMBAR SPINE CT WITHOUT CONTRAST CLINICAL HISTORY: Back and leg pain. COMPARISON STUDY: Lumbar spine CT September 19, 2024. Lumbar spine MRI November 22, 2024. TECHNIQUE: Axial images of the lumbar spine were obtained without IV contrast. Sagittal and coronal r eformats were viewed. A dose lowering technique was utilized adhering to the principles of ALARA. FINDINGS: There are postoperative findings consistent with L2-S1 decompression, L2-L3 discectomy with interbody spacer placement and L3-L4 discectomy with interbody spacer placement. There are bilateral pedicle screws at the L2, L4, L5 and S1 levels. A left L3 pedicle screws in place. Lucency adjacent to the left L3 pedicle screws noted. A screw fragment at the S1 level is present. Suspected antibioti c-impregnated seeds within the operative bed are noted. Note is made of a peripherally hyperdense hensley inectomy bed fluid collection, suboptimally assessed by CT. This measures approximately 8.8 x 8.7 x 3 .2 cm. This contains multiple small locules of gas. Surgical drains have been removed since MRI of 2024. There is slight loss of height of the superior endplate of L2 with an associated fract ure. There is adjacent callus formation. There is also a nondisplaced fracture of the right pedicle o f L2 with callus formation. No additional fractures are present. Evaluation of the central canal and neural foramen is significantly compromised given CT technique and artifact. Small nonobstructing rig ht renal calculi are incidentally noted. IMPRESSION: 1. Status post L2-S1 decompression and fusion. 2. 8.8 x 8.7 x 3.2 cm peripherally hyperdense laminectomy bed fluid collection which contains locules of gas which are likely postsurgical. This fluid collection is nonspecific in the postoperative sett ing and may represent a seroma however sterility cannot be assessed by CT. 3. Subacute appearing fractures of the vertebral body and right transverse process of L2. No addition al lumbar spine fractures. 4. Suboptimal evaluation of the central canal and neural foramen given CT technique and artifact from the surgical hardware. ACT 112: Negative or not required by law. Electronically signed by: Abhijit Jacobson M.D. 11/29/2024 12:04 PM
[2024-11-29] MEDS ORDERED: DEXAMETHASONE SOD INJ 4 MG/ML VIAL IV SCH (14:00)
[2024-11-29] MEDS: LANTUS PER UNIT CHARGE SC SCH (17:00)
--- NOTE | 2024-11-29 17:02 | Hospitalist Progress Note ---
Date of Service November 29, 2024 Assessment & Plan (1) Intractable low back pain: (2) Infection associated with internal fixation device of spine: (3) Status post incision and drainage: (4) MSSA (methicillin susceptible Staphylococcus aureus) infection: (5) Hypertensive urgency: (6) Hypokalemia: (7) Abnormal urinalysis: Plan Patient is a 69-year-old male with past medical history significant for DM type II with diabetic polyneuropathy, TALIB, HLD, HTN, bicuspid aortic valve with aortic valve stenosis and aortic regurgitation, mild mitral regurgitation, history of left retinal artery occlusion in 2020, atherosclerosis of the thoracic aortic arch with saccular aneurysm within the proximal descending thoracic aorta, carotid artery stenosis, hepatic steatosis, Wagner's esophagus, depression, insomnia, chronic pancreatitis, obesity, 3 pack-year smoking history and history of kidney stones who presented to the ED via EMS from [facility] due to intractable low back pain. Recent confinement under service to 11/15/2024-11/25/2024 with sepsis 2/2 postoperative lumbar epidural abscess s/p lumbar decompression and fusion surgery performed by Dr. Vang on 11/06/2024. Underwent irrigation and debridement of the lumbar spine with hematoma evacuation on 11/17/[address] Vang. Intraoperative cultures grew MSSA; blood cultures were negative. Seen and evaluated by ID whom recommended: IV cefazolin 2g Q8H and po rifampin 300mg BID to be continued through 12/29/2024, then chronic suppressive therapy with cefadroxil 500mg BID likely for life. Hospital course c/b development of BRIAN determined likely 2/2 multifactorial ATN ISO sepsis, severe ischemia ISO IV contrast administration with sepsis plus or minus toxicity associated with previously administered IV vancomycin prior to ID evaluation. #Intractable low back pain #Postoperative lumbar epidural abscess s/p I&D with hematoma evacuation on 11/17/24 #MSSA infection History as per above Case discussed b/n ED provider and Dr Vang --> hold off on additional imaging for now; he will evaluate pt later today Continue IV Ancef 2g Q8H + po rifampin 500mg BID as outlined by ID -Pt missed ABX doses yesterday s/p DC 2/2 delivery issues as SNF -Because of this, will tentatively plan to continue ABX course through 12/30/24 instead to cover for missed doses -Will then need to be transitioned to chronic immunosuppressive therapy with po cefadroxil 500mg BID as outlined by ID once Ancef/rifampin completed Pt rating pain 4.5/10 s/p 4mg IV morphine and 1.5mg IV Dilaudid in ED -Increasingly sleepy but still arousable s/p above narcotics -Will trial PRN IV Toradol for mild-mod pain, as renal fx stable, in addition to IV morphine (for severe)/Dilaudid (for breakthrough) in attempt to limit narcotics 2/2 sedation -Continue to hold naltrexone Mildly tachycardic in ED -Suspect 2/2 pain, WBC slowly improving -Follow blood cultures Continue Lyrica Appreciate PT/OT evals PRN ice and/or heat application as pt tolerates Huan bowel reg with daily MiraLAX 11/29 Dr. Vang started Decadron IV for better pain control Continue to monitor closely #HTN urgency Likely 2/2 pain Continue BB and monitor, suspect will improve once pain under better control 11/29 BP elevated Hydralazine PRN for now #Hypokalemia K 3.3, po repletion ordered Continue to monitor and replete PRN #Abnormal urinalysis UA: 1+ LE, 11-20 WBC, no bacteria Pt w/o any new urinary complaints; has chronic urinary urgency but this is unchanged from baseline IV Rocephin ordered by ED provider and given -- stop Will continue IV Ancef + po rifampin as recommended by ID, as per above Follow urine culture --> any additional ABX recs pending results 11/27 urine culture: negative so far blood culture: " #DMII with diabetic polyneuropathy Hgb A1c 7.3% as of 11/16/2024 Hold home regimen, SSI protocol while inpatient Monitor BSG checks, CC diet #Atherosclerosis of the thoracic aortic arch with saccular aneurysm within the proximal descending thoracic aorta Follows with cardiothoracic surgery at [facility] [place] Dr. Arpit Koch Next appointment scheduled for 02/04/2025 with repeat CTA (previously measuring 3.5cm) No previous surgical intervention Continue ASA, statin #HLD Continue statin as per above #GERD #History of Wagner's esophagus Hold PPI while on rifampin 2/2 potential drug-drug interaction #Depression Continue Cymbalta #History of TALIB #History of acute surgical blood loss s/p recent lumbar spine operations (as mentioned above) H/H appears stable compared to prior Continue Fe supplementation and monitor #BPH Continue Proscar, Flomax #Insomnia Hold trazodone for now 2/2 risk of oversedation given response to narcotics as per above DVT Prophylaxis: SCDs/TEDs only for now Disposition: med/surg Admission and Anticipated Discharge Date Admission Date: November 26, 2024 Subjective seen resting in bed, comfortable, not in distress Was having significant pain again overnight Started on Decadron this morning States his pain level is starting to improve no other new symptoms Review of Systems Review of Systems: all noted and negative except for above Physical Exam Physical Exam: General- oriented x 3, not in distress, speaks in sentences with no effort or accessory muscle use Eyes- anicteric Neck- no JVD Lungs- clear breath sounds bilaterally, no rales/wheezes Heart- normal rate, regular rhythm; no murmurs Abdomen- normal bowel sounds, nondistended, soft, no tenderness Extremities- no pretibial edema, no calf tenderness Neuro- alert, oriented x 3; no gross focal neurologic deficits Skin- warm & dry Results & Data Results & Data Vital Signs (Past 12 Hours) Vital Signs Temp Pulse Resp BP Pulse Ox O2 Del Method 11/29/24 15:50 36.5 C 85 18 166/99 H 96 Room Air 11/29/24 11:00 36.5 C 77 20 151/91 H 95 Room Air 11/29/24 07:50 36.6 C 81 20 161/98 H 95 Room Air all noted and reviewed including below (2) Infection associated with internal fixation device of spine Encounter type: subsequent encounter Qualified Code(s): T84.63XD - Infection and inflammatory reaction due to internal fixation device of spine, subsequent encounter
[2024-11-29] MEDS: REMOVE LIDODERM PATCH SCH (20:37)
[2024-11-30 08:49] LABS: Anion Gap 6.0 (3-11); Blood Urea Nitrogen 21.0 mg/dl (6-23); Calcium 9.1 mg/dl (8.6-10.3); Carbon Dioxide 28.0 mmol/L (21-32); Chloride 106.0 mmol/L (98-107); Creatinine Clr Calc Pharmacy 89.0 ml/min; Glucose 177.0 mg/dl (70-99(Fasting)); Potassium 4.0 mmol/L (3.5-5.1); Sodium 140.0 mmol/L (136-145)
[2024-11-30] MEDS: LANTUS PER UNIT CHARGE SC SCH (08:56)
[2024-11-30 09:22] LABS: Hematocrit (blood only) 27.9 % (42.0-52.0); Hemoglobin 8.6 g/dl (14.0-18.0); Immature Granulocytes # (auto) 0.14 K/uL (0.01-0.20); Immature Granulocytes % (auto) 1.1 %; Mean Corpuscular Hemoglobin 30.4 pg (25.0-34.0); Mean Corpuscular Volume 98.6 fL (80.0-100.0); Platelet Count 418 K/uL (130-400); RDW Standard Deviation 52.2 fL (36.4-46.3); Red Blood Count 2.83 M/uL (4.70-6.10); White Blood Count 12.93 K/ul (4.8-10.8)
--- NOTE | 2024-11-30 10:29 | Orthopedic Progress Note ---
Date of Service November 30, 2024 Assessment & Plan (1) Abscess in epidural space of lumbar spine: Plan: Plan at this time I have reviewed his CAT scan. There is evidence of a fracture of L2. It is well aligned and I suspect this will heal appropriately. He does however have evidence of reaccumulation of significant epidural fluid. I would like to perform an I&D lumbar spine to evacuate all fluid and consider reinsertion of drains. Admission and Anticipated Discharge Date Admission Date: November 26, 2024 Subjective Patient continues to struggle with back pressure and leg pain. He tolerates physical therapy but struggles with significant symptoms post activity. Physical Exam Physical Exam: Patient currently in bed. Does appear uncomfortable. He is neurologically intact. Results & Data Vital Signs (Past 12 Hours) Vital Signs Temp Pulse Pulse Resp BP Pulse Ox O2 Del Method 11/30/24 07:39 36.6 C 75 18 162/94 H 95 Room Air 11/29/24 22:54 36.6 C 83 18 147/88 H 97 Room Air Queries Orthopedic Spine Obesity: Yes
--- NOTE | 2024-11-30 15:55 | Hospitalist Progress Note ---
Date of Service November 30, 2024 Assessment & Plan (1) Intractable low back pain: (2) Infection associated with internal fixation device of spine: (3) Status post incision and drainage: (4) MSSA (methicillin susceptible Staphylococcus aureus) infection: (5) Hypertensive urgency: (6) Hypokalemia: (7) Abnormal urinalysis: Plan Patient is a 69-year-old male with past medical history significant for DM type II with diabetic polyneuropathy, TALIB, HLD, HTN, bicuspid aortic valve with aortic valve stenosis and aortic regurgitation, mild mitral regurgitation, history of left retinal artery occlusion in 2020, atherosclerosis of the thoracic aortic arch with saccular aneurysm within the proximal descending thoracic aorta, carotid artery stenosis, hepatic steatosis, Wagner's esophagus, depression, insomnia, chronic pancreatitis, obesity, 3 pack-year smoking history and history of kidney stones who presented to the ED via EMS from [facility] due to intractable low back pain. Recent confinement under service to 11/15/2024-11/25/2024 with sepsis 2/2 postoperative lumbar epidural abscess s/p lumbar decompression and fusion surgery performed by Dr. Vang on 11/06/2024. Underwent irrigation and debridement of the lumbar spine with hematoma evacuation on 11/17/[address] Vang. Intraoperative cultures grew MSSA; blood cultures were negative. Seen and evaluated by ID whom recommended: IV cefazolin 2g Q8H and po rifampin 300mg BID to be continued through 12/29/2024, then chronic suppressive therapy with cefadroxil 500mg BID likely for life. Hospital course c/b development of BRIAN determined likely 2/2 multifactorial ATN ISO sepsis, severe ischemia ISO IV contrast administration with sepsis plus or minus toxicity associated with previously administered IV vancomycin prior to ID evaluation. #Intractable low back pain #Postoperative lumbar epidural abscess s/p I&D with hematoma evacuation on 11/17/24 #MSSA infection History as per above Case discussed b/n ED provider and Dr Vang --> hold off on additional imaging for now; he will evaluate pt later today Continue IV Ancef 2g Q8H + po rifampin 500mg BID as outlined by ID -Pt missed ABX doses yesterday s/p DC 2/2 delivery issues as SNF -Because of this, will tentatively plan to continue ABX course through 12/30/24 instead to cover for missed doses -Will then need to be transitioned to chronic immunosuppressive therapy with po cefadroxil 500mg BID as outlined by ID once Ancef/rifampin completed Pt rating pain 4.5/10 s/p 4mg IV morphine and 1.5mg IV Dilaudid in ED -Increasingly sleepy but still arousable s/p above narcotics -Will trial PRN IV Toradol for mild-mod pain, as renal fx stable, in addition to IV morphine (for severe)/Dilaudid (for breakthrough) in attempt to limit narcotics 2/2 sedation -Continue to hold naltrexone Mildly tachycardic in ED -Suspect 2/2 pain, WBC slowly improving -Follow blood cultures Continue Lyrica Appreciate PT/OT evals PRN ice and/or heat application as pt tolerates Huan bowel reg with daily MiraLAX 11/29 Dr. Vang started Decadron IV for better pain control Continue to monitor closely 11/30 continue Decadron IV Continue PT OT #HTN urgency Likely 2/2 pain Continue BB and monitor, suspect will improve once pain under better control 11/29 BP elevated Hydralazine PRN for now 11/30 BP improving #Hypokalemia K 3.3, po repletion ordered Continue to monitor and replete PRN #Abnormal urinalysis UA: 1+ LE, 11-20 WBC, no bacteria Pt w/o any new urinary complaints; has chronic urinary urgency but this is unchanged from baseline IV Rocephin ordered by ED provider and given -- stop Will continue IV Ancef + po rifampin as recommended by ID, as per above Follow urine culture --> any additional ABX recs pending results 11/27 urine culture: negative so far blood culture: " #DMII with diabetic polyneuropathy Hgb A1c 7.3% as of 11/16/2024 Hold home regimen, SSI protocol while inpatient Monitor BSG checks, CC diet #Atherosclerosis of the thoracic aortic arch with saccular aneurysm within the proximal descending thoracic aorta Follows with cardiothoracic surgery at [facility] [place] Dr. Arpit Koch Next appointment scheduled for 02/04/2025 with repeat CTA (previously measuring 3.5cm) No previous surgical intervention Continue ASA, statin #HLD Continue statin as per above #GERD #History of Wagner's esophagus Hold PPI while on rifampin 2/2 potential drug-drug interaction #Depression Continue Cymbalta #History of TALIB #History of acute surgical blood loss s/p recent lumbar spine operations (as mentioned above) H/H appears stable compared to prior Continue Fe supplementation and monitor #BPH Continue Proscar, Flomax #Insomnia Hold trazodone for now 2/2 risk of oversedation given response to narcotics as per above DVT Prophylaxis: SCDs/TEDs only for now Disposition: med/surg Admission and Anticipated Discharge Date Admission Date: November 26, 2024 Subjective seen resting in bed, comfortable States he ambulated in the hallways today Was having back pain shooting to the left lower extremity Improving with as needed pain meds and Decadron No other new symptoms Review of Systems Review of Systems: all noted and negative except for above Physical Exam Physical Exam: General- oriented x 3, not in distress, speaks in sentences with no effort or accessory muscle use Eyes- anicteric Neck- no JVD Lungs- clear breath sounds bilaterally, no crackles/wheezing Heart- normal rate, regular rhythm; no murmurs Abdomen- normal bowel sounds, nondistended, soft, non tenderness Extremities- no pretibial edema, no calf tenderness Neuro- alert, oriented x 3; no gross focal neurologic deficits Skin- warm & dry Results & Data Results & Data Vital Signs (Past 12 Hours) Vital Signs Temp Pulse Resp BP Pulse Ox O2 Del Method 11/30/24 14:51 36.7 C 81 16 133/82 95 Room Air 11/30/24 07:39 36.6 C 75 18 162/94 H 95 Room Air all noted and reviewed including below (2) Infection associated with internal fixation device of spine Encounter type: subsequent encounter Qualified Code(s): T84.63XD - Infection and inflammatory reaction due to internal fixation device of spine, subsequent encounter
[2024-11-30] MEDS: LANTUS PER UNIT CHARGE SC ONE (17:34)
[2024-12-01] MEDS: LANTUS PER UNIT CHARGE SC SCH (08:44)
[2024-12-01] MEDS: MoRPHine SULFATE 2 MG/ML CARP IV PRN (08:50)
--- NOTE | 2024-12-01 10:17 | Hospitalist Progress Note ---
Date of Service December 01, 2024 Assessment & Plan (1) Intractable low back pain: (2) Infection associated with internal fixation device of spine: (3) Status post incision and drainage: (4) MSSA (methicillin susceptible Staphylococcus aureus) infection: (5) Hypertensive urgency: (6) Hypokalemia: (7) Abnormal urinalysis: Plan Patient is a 69-year-old male with past medical history significant for DM type II with diabetic polyneuropathy, TALIB, HLD, HTN, bicuspid aortic valve with aortic valve stenosis and aortic regurgitation, mild mitral regurgitation, history of left retinal artery occlusion in 2020, atherosclerosis of the thoracic aortic arch with 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 Recent confinement under service to 11/15/2024-11/25/2024 with sepsis 2/2 postoperative lumbar epidural abscess s/p lumbar decompression and fusion surgery performed by Dr. Vang on 11/06/2024. Underwent irrigation and debridement of the lumbar spine with hematoma evacuation on 11/17/[address] Vang. Intraoperative cultures grew MSSA; blood cultures were negative. Seen and evaluated by ID whom recommended: IV cefazolin 2g Q8H and po rifampin 300mg BID to be continued through 12/29/2024, then chronic suppressive therapy with cefadroxil 500mg BID likely for life. Hospital course c/b development of BRIAN determined likely 2/2 multifactorial ATN ISO sepsis, severe ischemia ISO IV contrast administration with sepsis plus or minus toxicity associated with previously administered IV vancomycin prior to ID evaluation. #Intractable low back pain #Postoperative lumbar epidural abscess s/p I&D with hematoma evacuation on 11/17/24 #MSSA infection History as per above Case discussed b/n ED provider and Dr Vang --> hold off on additional imaging for now; he will evaluate pt later today Continue IV Ancef 2g Q8H + po rifampin 500mg BID as outlined by ID -Pt missed ABX doses yesterday s/p DC 2/2 delivery issues as SNF -Because of this, will tentatively plan to continue ABX course through 12/30/24 instead to cover for missed doses -Will then need to be transitioned to chronic immunosuppressive therapy with po cefadroxil 500mg BID as outlined by ID once Ancef/rifampin completed Pt rating pain 4.5/10 s/p 4mg IV morphine and 1.5mg IV Dilaudid in ED -Increasingly sleepy but still arousable s/p above narcotics -Will trial PRN IV Toradol for mild-mod pain, as renal fx stable, in addition to IV morphine (for severe)/Dilaudid (for breakthrough) in attempt to limit narcotics 2/2 sedation -Continue to hold naltrexone Mildly tachycardic in ED -Suspect 2/2 pain, WBC slowly improving -Follow blood cultures Continue Lyrica Appreciate PT/OT evals PRN ice and/or heat application as pt tolerates Huan bowel reg with daily MiraLAX 11/29 Dr. Vang started Decadron IV for better pain control Continue to monitor closely 11/30 continue Decadron IV Continue PT OT 12/01 Increased fluid collection in the spine per Dr. Vang Plan for I&D today #HTN urgency Likely 2/2 pain Continue BB and monitor, suspect will improve once pain under better control 11/29 BP elevated Hydralazine PRN for now 12/01 BP improving #Hypokalemia K 3.3, po repletion ordered Continue to monitor and replete PRN #Abnormal urinalysis UA: 1+ LE, 11-20 WBC, no bacteria Pt w/o any new urinary complaints; has chronic urinary urgency but this is unchanged from baseline IV Rocephin ordered by ED provider and given -- stop Will continue IV Ancef + po rifampin as recommended by ID, as per above Follow urine culture --> any additional ABX recs pending results 11/27 urine culture: negative so far blood culture: " #DMII with diabetic polyneuropathy Hgb A1c 7.3% as of 11/16/2024 Hold home regimen, SSI protocol while inpatient Monitor BSG checks, CC diet #Atherosclerosis of the thoracic aortic arch with 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 Munson Next appointment scheduled for 02/04/2025 with repeat CTA (previously measuring 3.5cm) No previous surgical intervention Continue ASA, statin #HLD Continue statin as per above #GERD #History of Wagner's esophagus Hold PPI while on rifampin 2/2 potential drug-drug interaction #Depression Continue Cymbalta #History of TALIB #History of acute surgical blood loss s/p recent lumbar spine operations (as mentioned above) H/H appears stable compared to prior Continue Fe supplementation and monitor #BPH Continue Proscar, Flomax #Insomnia Hold trazodone for now 2/2 risk of oversedation given response to narcotics as per above DVT Prophylaxis: SCDs/TEDs only for now Disposition: med/surg Admission and Anticipated Discharge Date Admission Date: November 26, 2024 Subjective Seen resting in bed, not in distress Still having significant back pain today, No leg weakness or numbness No other new symptoms Review of Systems Review of Systems: all noted and negative except for above Physical Exam Physical Exam: General- oriented x 3, not in distress, speaks in sentences with no effort or accessory muscle use Eyes- anicteric Neck- no JVD Lungs- clear breath sounds bilaterally, no rales/wheezes Heart- normal rate, regular rhythm; no murmurs Abdomen- normal bowel sounds, nondistended, soft, no tenderness Extremities- no pretibial edema, no calf tenderness Neuro- alert, oriented x 3; no gross focal neurologic deficits Skin- warm & dry Results & Data Results & Data Vital Signs (Past 12 Hours) Vital Signs Temp Pulse Resp BP Pulse Ox O2 Del Method 12/01/24 07:05 36.5 C 76 18 137/83 97 Room Air all noted and reviewed including below (2) Infection associated with internal fixation device of spine Encounter type: subsequent encounter Qualified Code(s): T84.63XD - Infection and inflammatory reaction due to internal fixation device of spine, subsequent encounter
--- NOTE | 2024-12-01 12:01 | Pharmacy Report ---
Pharmacy Glycemic Short Note 2 - Date of Service December 01, 2024 - Glycemic Short BSG Results (Last 24 hours): 11/30/24 11/30/24 12/01/24 16:20 20:07 06:20 POC Glucose 81 260 H 180 H 12/01/24 12/01/24 08:36 11:38 POC Glucose 162 H 176 H OUTPATIENT ANTIDIABETIC REGIMEN: * Metformin 500 mg PO BID * HbA1c: 7.3% on 11/16/24 ASSESSMENT: 12/01: * BSGs [phone]/dL the last 24h. Received 20 units of basal and 48 units of bolus insulin yesterday. * Continues on IV dex 4mg q8h. NPO for I&D today. * Lantus empirically decreased to 15 units given NPO for OR. Reassess basal in AM. Novolog tightened yesterday to 08/07 given addition of steroids- continue for now. 11/28 * Patient with hypoglycemic event with dinner yesterday. Possible stacking with AM and lunch. * Patient is not on steroids this admission- will loosen novolog parameters back to weight stress 2 for now. * Fasting 159 mg/dL this morning- continue with lantus 5 units BID 11/27: * Patient received 9 units of insulin yesterday, 5 units of which were basal. BSGs were: [phone] mg/dL. * Fasting BSG was 153 mg/dL today. Will increase basal to 5 units BID based upon previous admission data. * Remains on Ancef and Rifampin. Tolerating T2DM diet. Will tighten Novolog slightly today based upon previous admission data. 11/26: * Archie is a 69 year old male who was admitted today for intractable lower back pain. He was recently admitted (11/15-11/25/2024) with sepsis secondary to postop lumbar epidural abscess s/p lumbar decompression and fusion surgery. Pharmacy was consulted for glycemic management last admission and again today while he is admitted. * Last admission, Archie required a fairly large amount of insulin to keep his blood glucose under control (ranged from 34-112 units/day). He was receiving steroids for part of that admission which accounts for the greater insulin needs some of the days. * He was not started on steroids this admission so will start with a more conservative insulin regimen. BSG on admit was 132mg/dL. A weight based (using adjusted body weight) bolus insulin regimen with a stress of 2 was started and a Lantus scale (0, 5, or 10 units depending on BSG) was added. PLAN FOR INPATIENT GLYCEMIC CONTROL: * Hold outpatient oral diabetes medications * Basal insulin * Lantus 15 units qAM * Bolus insulin * NovoLog per scale ACHS or Q6hrs while NPO * Goal Range: Low 110 mg/dL - High 140 mg/dL * Correction Factor: 15 mg/dL/unit * Nutritional / Prandial insulin per carb ratio of 1 unit per 4 grams CHO consumed
[2024-12-01] MEDS ORDERED: ONDANSETRON INJ 2 MG/ML 2 ML VIAL IV PRN (13:33)
[2024-12-01] MEDS ORDERED: ATROPINE SULFATE 0.1 MG/ML 10ML SYR IV PRN (13:33)
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
[2024-12-01] MEDS: LACTATED RINGER'S 1,000 ML IV SCH (13:41)
[2024-12-01] MEDS ORDERED: LIDOCAINE 2% 2 ML VIAL/AMP(20MG/ML) INFIL ONE (13:54)
[2024-12-01] MEDS ORDERED: PROPOFOL IV EMULSION 10 MG/ML 20 ML VIAL IV ONE (13:54)
[2024-12-01] MEDS ORDERED: ROCURONIUM BROMIDE 10 MG/ML 5 ML VIAL IV ONE (13:54)
[2024-12-01] MEDS ORDERED: ONDANSETRON INJ 2 MG/ML 2 ML VIAL ONE (13:54)
--- NOTE | 2024-12-01 14:35 | History & Physical Bridge Note ---
Date of Service December 01, 2024 History & Physical Bridge Note I have examined the patient, reviewed the History & Physical and in the interval since the performance of the History & Physical I have noted the following changes of clinical significance: no changes noted Irrigation and debridement lumbar spine
[2024-12-01] MEDS ORDERED: DEXAMETHASONE SOD INJ 4 MG/ML VIAL ONE (14:53)
[2024-12-01] MEDS ORDERED: SUGAMMADEX SODIUM 200 MG/2 ML VIAL IV ONE (15:47)
[2024-12-01] MEDS ORDERED: PHENYLEPHRINE HCL 10 MG/ML VIAL ONE ×2 (15:52)
--- NOTE | 2024-12-01 15:54 | Operative Report ---
Post Operative Report Pre & Post Diagnosis Operation Date: 12/01/24 08:50 Pre-Op Diagnosis: Seroma lumbar epidural space Post-Op Diagnosis: Same I identified the patient and participated in the time-out.: Yes Procedure Operation Date: 12/01/24 08:50 Actual Procedures p Incision and Drainage Lumbar Spine - Jabari Vang DO Surgeon Jabari Vang, Manager Program Management Debbie Mo Estimated Blood Loss 15 Findings See Below Patient had evidence of significant fluid collection under pressure under the subfascial layer. The fluid was serosanguineous in nature. Cultures were obtained. Specimens Cultures of the epidural space Indications This is a 69-year-old male who presents with worsening back pain over the course of the past several days. CAT scan demonstrates evidence of reaccumulation of epidural fluid. Subsequently is here for I&D and exploration. Description of Procedure Patient was met with identified informed therapy. Patient was then taken to the operative suite underwent patient placed in a prone position on the Ruben table atop the Toi frame. All bony prominences well-padded eyes inspected to ensure no external pressure placed upon them. This point the lumbar spine was prepped and draped no sterile fashion. Sharp dissection with the assistance Musa formed down to and exposing the fascial layer. The fascia was then released and significant amount of serosanguineous fluid was noted under pressure. The epidural space was explored. The tissue appeared to be healing appropriately. Several liters of antibiotic saline were then irrigated throughout the incision. I then placed two 19 round ANNA MARIE drains in the subfascial layer. The incision was then closed with 1 Vicryl the fascia 2-0 Vicryl subcutaneously and 4 Monocryl for final closure. Steri-Strips sterile dressing placed. Patient waken taken to PACU stable condition. Please note Debbie Mo was present at the entire procedure and while the patient positioning complex portion of the surgery and final skin closure. I attest to the content of the Intraoperative Record and any orders documented therein. Any exceptions are noted below.
[2024-12-01] MEDS: ceFAZolin 330 MG/ML 1 GM VIAL ONE (15:55)
[2024-12-01] MEDS: GENTAMICIN SULFATE 40 MG/ML 2 ML VIAL ONE (15:56)
[2024-12-01] MEDS: BUPIVACAINE/EPINEPHRINE 0.5% MPF 1:200,000 30 ML VIAL ONE (15:56)
[2024-12-01] MEDS: VANCOMYCIN HCL 1000MG/20ML VIAL ONE (15:56)
--- NOTE | 2024-12-01 16:30 | Anesthesiology Progress Note ---
Date of Service December 01, 2024 Anesthesia Post Procedure Vital Signs Vital Signs: Temp Pulse Pulse Resp BP BP Pulse Ox 12/01/24 16:20 73 13 139/79 100 12/01/24 16:11 36.1 C L 73 21 158/84 H 99 12/01/24 13:32 36.5 C 78 20 146/98 H 97 12/01/24 07:25 12/01/24 07:05 36.5 C 76 18 137/83 97 11/30/24 20:04 36.7 C 85 16 146/88 H 97 O2 Del Method O2 Flow Rate 12/01/24 16:20 Oxymask 5 12/01/24 16:11 Oxymask 10 12/01/24 13:32 Room Air 12/01/24 07:25 Room Air 12/01/24 07:05 Room Air 11/30/24 20:04 Room Air Pain Intensity Bilateral Back: Pain Intensity: 6 Lower Back: Pain Intensity: 8 Transfer of Care Handoff Completed per policy Notes Mental Status: alert / awake / arousable Patient Amnestic to Procedure: Yes Nausea / Vomiting: adequately controlled Pain: adequately controlled Airway Patency, RR, SpO2: stable & adequate BP & HR: stable & adequate Hydration State: stable & adequate Anesthetic Complications: no major complications apparent
[2024-12-02 08:27] LABS: Hematocrit (blood only) 26.4 % (42.0-52.0); Hemoglobin 8.0 g/dl (14.0-18.0); Immature Granulocytes # (auto) 0.12 K/uL (0.01-0.20); Immature Granulocytes % (auto) 0.9 %; Mean Corpuscular Hemoglobin 30.1 pg (25.0-34.0); Mean Corpuscular Volume 99.2 fL (80.0-100.0); Platelet Count 348 K/uL (130-400); RDW Standard Deviation 53.9 fL (36.4-46.3); Red Blood Count 2.66 M/uL (4.70-6.10); White Blood Count 13.86 K/ul (4.8-10.8)
--- NOTE | 2024-12-02 08:29 | Orthopedic Progress Note ---
Date of Service December 02, 2024 Assessment & Plan (1) Intractable low back pain: Plan: Epi Rodriguez is postoperative day 1 status post I&D lumbar spine. Cultures are pending. Will start physical therapy today. Lidoderm patch to left hip as needed. Were also going to incorporate some IT band exercises into his physical therapy. Maintain ANNA MARIE drain x 2. DVT prophylaxis is in the form teds and SCDs. Continue with pain control. Admission and Anticipated Discharge Date Admission Date: November 26, 2024 Fidel Rodriguez is status post I&D lumbar spine postop day 1. Still has some left lateral hip pain to the knee. Back pain is improved. ANNA MARIE drain output #1 is 20 cc last shift. ANNA MARIE drain #2 output is 20 cc as well last shift. Review of Systems Review of Systems: All systems reviewed & are unremarkable except as noted in HPI & below Physical Exam Physical Exam: He is sitting up in bed eating breakfast in no acute distress Seen in conjunction with Dr. Vang He is point tender to palpation over the left greater trochanter and left IT band Negative logrolling bilaterally Dressing is clean dry intact with functioning ANNA MARIE drain Results & Data Vital Signs (Past 12 Hours) Vital Signs Temp Pulse Resp BP Pulse Ox O2 Del Method O2 Flow Rate 12/02/24 07:27 36.5 C 75 16 135/85 98 Nasal Cannula 2 12/01/24 22:43 37.0 C 70 18 146/89 H 98 Nasal Cannula 2 12/01/24 21:09 Nasal Cannula 2 Queries Orthopedic Spine Obesity: Yes
[2024-12-02 08:43] LABS: Alanine Aminotransferase 4.0 U/L (7-52); Albumin Globulin Ratio 1.1 (0.9-2); Alkaline Phosphatase 62.0 U/L (34-104); Anion Gap 5.0 (3-11); Bilirubin,Total 0.3 mg/dl (0.2-1.0); Blood Urea Nitrogen 19.0 mg/dl (6-23); Calcium 8.6 mg/dl (8.6-10.3); Carbon Dioxide 30.0 mmol/L (21-32); Chloride 106.0 mmol/L (98-107); Creatinine Clr Calc Pharmacy 108.9 ml/min; Globulin 3.0 gm/dl (2.5-4.0); Glucose 168.0 mg/dl (70-99(Fasting)); Potassium 3.8 mmol/L (3.5-5.1); Sodium 141.0 mmol/L (136-145); Total Protein 6.3 gm/dl (6.0-8.3)
--- NOTE | 2024-12-02 12:02 | Hospitalist Progress Note ---
Date of Service December 02, 2024 Assessment & Plan (1) Intractable low back pain: (2) Infection associated with internal fixation device of spine: (3) Status post incision and drainage: (4) MSSA (methicillin susceptible Staphylococcus aureus) infection: (5) Hypertensive urgency: (6) Hypokalemia: (7) Abnormal urinalysis: Plan Patient is a 69-year-old male with past medical history significant for DM type II with diabetic polyneuropathy, TALIB, HLD, HTN, bicuspid aortic valve with aortic valve stenosis and aortic regurgitation, mild mitral regurgitation, history of left retinal artery occlusion in 2020, atherosclerosis of the thoracic aortic arch with saccular aneurysm within the proximal descending thoracic aorta, carotid artery stenosis, hepatic steatosis, Wagner's esophagus, depression, insomnia, chronic pancreatitis, obesity, 3 pack-year smoking history and history of kidney stones who presented to the ED via EMS from [facility] due to intractable low back pain. Recent confinement under service to 11/15/2024-11/25/2024 with sepsis 2/2 postoperative lumbar epidural abscess s/p lumbar decompression and fusion surgery performed by Dr. Vang on 11/06/2024. Underwent irrigation and debridement of the lumbar spine with hematoma evacuation on 11/17/[address] Vang. Intraoperative cultures grew MSSA; blood cultures were negative. Seen and evaluated by ID whom recommended: IV cefazolin 2g Q8H and po rifampin 300mg BID to be continued through 12/29/2024, then chronic suppressive therapy with cefadroxil 500mg BID likely for life. Hospital course c/b development of BRIAN determined likely 2/2 multifactorial ATN ISO sepsis, severe ischemia ISO IV contrast administration with sepsis plus or minus toxicity associated with previously administered IV vancomycin prior to ID evaluation. #Intractable low back pain #Postoperative lumbar epidural abscess s/p I&D with hematoma evacuation on 11/17/24 #MSSA infection History as per above Case discussed b/n ED provider and Dr Vang --> hold off on additional imaging for now; he will evaluate pt later today Continue IV Ancef 2g Q8H + po rifampin 500mg BID as outlined by ID -Pt missed ABX doses yesterday s/p DC 2/2 delivery issues as SNF -Because of this, will tentatively plan to continue ABX course through 12/30/24 instead to cover for missed doses -Will then need to be transitioned to chronic immunosuppressive therapy with po cefadroxil 500mg BID as outlined by ID once Ancef/rifampin completed Pt rating pain 4.5/10 s/p 4mg IV morphine and 1.5mg IV Dilaudid in ED -Increasingly sleepy but still arousable s/p above narcotics -Will trial PRN IV Toradol for mild-mod pain, as renal fx stable, in addition to IV morphine (for severe)/Dilaudid (for breakthrough) in attempt to limit narcotics 2/2 sedation -Continue to hold naltrexone Mildly tachycardic in ED -Suspect 2/2 pain, WBC slowly improving -Follow blood cultures Continue Lyrica Appreciate PT/OT evals PRN ice and/or heat application as pt tolerates Huan bowel reg with daily MiraLAX 11/29 Dr. Vang started Decadron IV for better pain control Continue to monitor closely 11/30 continue Decadron IV Continue PT OT 12/01 Increased fluid collection in the spine per Dr. Vang Plan for I&D today 12/02 still times significant back pain today Continue pain regimen Awaiting orthopedic spine service recommendations PT and OT evaluation #HTN urgency Likely 2/2 pain Continue BB and monitor, suspect will improve once pain under better control 11/29 BP elevated Hydralazine PRN for now 12/02 BP improving #Hypokalemia K 3.3, po repletion ordered Continue to monitor and replete PRN #Abnormal urinalysis UA: 1+ LE, 11-20 WBC, no bacteria Pt w/o any new urinary complaints; has chronic urinary urgency but this is unchanged from baseline IV Rocephin ordered by ED provider and given -- stop Will continue IV Ancef + po rifampin as recommended by ID, as per above Follow urine culture --> any additional ABX recs pending results 11/27 urine culture: negative so far blood culture: " #DMII with diabetic polyneuropathy Hgb A1c 7.3% as of 11/16/2024 Hold home regimen, SSI protocol while inpatient Monitor BSG checks, CC diet #Atherosclerosis of the thoracic aortic arch with saccular aneurysm within the proximal descending thoracic aorta Follows with cardiothoracic surgery at [facility] [place]. Aprit Koch Next appointment scheduled for 02/04/2025 with repeat CTA (previously measuring 3.5cm) No previous surgical intervention Continue ASA, statin #HLD Continue statin as per above #GERD #History of Wagner's esophagus Hold PPI while on rifampin 2/2 potential drug-drug interaction #Depression Continue Cymbalta #History of TALIB #History of acute surgical blood loss s/p recent lumbar spine operations (as mentioned above) H/H appears stable compared to prior Continue Fe supplementation and monitor #BPH Continue Proscar, Flomax #Insomnia Hold trazodone for now 2/2 risk of oversedation given response to narcotics as per above DVT Prophylaxis: SCDs/TEDs only for now Disposition: med/surg Admission and Anticipated Discharge Date Admission Date: November 26, 2024 Subjective Seen resting in bed, not in distress Still having significant back pain and left lateral thigh pain today Otherwise no headache, dizziness, chest pain, palpitations, shortness of breath No other new symptoms Review of Systems Review of Systems: all noted and negative except for above Physical Exam Physical Exam: General- oriented x 3, not in distress, speaks in sentences with no effort or accessory muscle use Eyes- anicteric Neck- no JVD Lungs- clear breath sounds bilaterally, no rales/wheezes Heart- normal rate, regular rhythm; no murmurs Abdomen- normal bowel sounds, nondistended, soft, nontender Extremities- no pretibial edema, no calf tenderness Neuro- alert, oriented x 3; no gross focal neurologic deficits Skin- warm & dry Results & Data Results & Data Vital Signs (Past 12 Hours) Vital Signs Temp Pulse Resp BP Pulse Ox Pulse Ox O2 Del Method 12/02/24 11:23 98 12/02/24 11:13 89 18 132/76 98 Room Air 12/02/24 07:50 Nasal Cannula 12/02/24 07:27 36.5 C 75 16 135/85 98 Nasal Cannula O2 Del Method O2 Flow Rate 12/02/24 11:23 Room Air 12/02/24 11:13 12/02/24 07:50 2 .a 12/02/24 07:27 2 all noted and reviewed including below (2) Infection associated with internal fixation device of spine Encounter type: subsequent encounter Qualified Code(s): T84.63XD - Infection and inflammatory reaction due to internal fixation device of spine, subsequent encounter
[2024-12-03 08:04] LABS: Hematocrit (blood only) 26.9 % (42.0-52.0); Hemoglobin 8.5 g/dl (14.0-18.0); Immature Granulocytes # (auto) 0.18 K/uL (0.01-0.20); Immature Granulocytes % (auto) 1.3 %; Mean Corpuscular Hemoglobin 31.5 pg (25.0-34.0); Mean Corpuscular Volume 99.6 fL (80.0-100.0); Platelet Count 339 K/uL (130-400); RDW Standard Deviation 54.8 fL (36.4-46.3); Red Blood Count 2.70 M/uL (4.70-6.10); White Blood Count 13.61 K/ul (4.8-10.8)
[2024-12-03 08:32] LABS: Alanine Aminotransferase 4.0 U/L (7-52); Albumin Globulin Ratio 1.1 (0.9-2); Alkaline Phosphatase 72.0 U/L (34-104); Anion Gap 6.0 (3-11); Bilirubin,Total 0.2 mg/dl (0.2-1.0); Blood Urea Nitrogen 25.0 mg/dl (6-23); Calcium 9.1 mg/dl (8.6-10.3); Carbon Dioxide 29.0 mmol/L (21-32); Chloride 105.0 mmol/L (98-107); Creatinine Clr Calc Pharmacy 94.3 ml/min; Globulin 3.2 gm/dl (2.5-4.0); Glucose 178.0 mg/dl (70-99(Fasting)); Potassium 4.0 mmol/L (3.5-5.1); Sodium 140.0 mmol/L (136-145); Total Protein 6.6 gm/dl (6.0-8.3)
[2024-12-03] MEDS: LANTUS PER UNIT CHARGE SC SCH (08:54)
--- NOTE | 2024-12-03 09:51 | Orthopedic Progress Note ---
Date of Service December 03, 2024 Assessment & Plan (1) Abscess in epidural space of lumbar spine: Plan: At this time we will continue physical therapy. Try to find a pain regimen he is able to tolerate without requiring IV medication. He is hesitant to return home with his current pain patterns. There does appear to be a component of radiculitis with gluteal tendinosis. He is doing well with therapy otherwise Admission and Anticipated Discharge Date Admission Date: November 26, 2024 Subjective Patient's back pain is controlled. Complaining mostly of left leg pain. Extends to his knee. Appears to be constant in nature but it does respond to medication. He is very concerned about his pain control. He is tolerating phys ical therapy well however. Physical Exam Physical Exam: On exam he is in the chair at the bedside. I have him stand for me. He is able to stand on his toes without difficulty. He has exquisite tenderness palpation of the left upper buttock and peritrochanteric region. The IT band is also tender. Results & Data Vital Signs (Past 12 Hours) Vital Signs Temp Pulse Resp BP Pulse Ox O2 Del Method 12/03/24 07:35 36.5 C 75 18 125/78 97 Room Air 12/02/24 23:08 36.7 C 79 18 102/70 98 Room Air Queries Orthopedic Spine Obesity: Yes
[2024-12-03] MEDS: SODIUM CHLORIDE 0.9% 1,000 ML IV SCH (10:35)
--- NOTE | 2024-12-03 11:04 | Pharmacy Report ---
Pharmacy Glycemic Short Note 2 - Date of Service December 03, 2024 - Glycemic Short BSG Results (Last 24 hours): 12/02/24 12/02/24 12/02/24 11:23 16:38 20:24 Glucose POC Glucose 265 H 127 H 111 H 12/03/24 12/03/24 07:34 07:48 Glucose 178 H POC Glucose 168 H OUTPATIENT ANTIDIABETIC REGIMEN: * Metformin 500 mg PO BID * HbA1c: 7.3% on 11/16/24 ASSESSMENT: 12/03: * Archie received 75 units of SQ insulin yesterday (15 units basal + 60 units bolus) * Fasting BSG of 168 mg/dL. Will increase Lantus to 20 units daily. Patient has tolerated this dose while on IV steroids. * Post prandial BSGs are well controlled but trended down last evening. Will slightly loosen correction factor. No change to carb coverage given patient remains on dexamethasone. 12/01: * BSGs 109-653-70-260-180mg/dL the last 24h. Received 20 units of basal and 48 units of bolus insulin yesterday. * Continues on IV dex 4mg q8h. NPO for I&D today. * Lantus empirically decreased to 15 units given NPO for OR. Reassess basal in AM. Novolog tightened yesterday to 08/07 given addition of steroids- continue for now. 11/28 * Patient with hypoglycemic event with dinner yesterday. Possible stacking with AM and lunch. * Patient is not on steroids this admission- will loosen novolog parameters back to weight stress 2 for now. * Fasting 159 mg/dL this morning- continue with lantus 5 units BID 11/27: * Patient received 9 units of insulin yesterday, 5 units of which were basal. BSGs were: 545-068-085-194 mg/dL. * Fasting BSG was 153 mg/dL today. Will increase basal to 5 units BID based upon previous admission data. * Remains on Ancef and Rifampin. Tolerating T2DM diet. Will tighten Novolog slightly today based upon previous admission data. 11/26: * Archie is a 69 year old male who was admitted today for intractable lower back pain. He was recently admitted (11/15-11/25/2024) with sepsis secondary to postop lumbar epidural abscess s/p lumbar decompression and fusion surgery. Pharmacy was consulted for glycemic management last admission and again today while he is admitted. * Last admission, Archie required a fairly large amount of insulin to keep his blood glucose under control (ranged from 34-112 units/day). He was receiving steroids for part of that admission which accounts for the greater insulin needs some of the days. * He was not started on steroids this admission so will start with a more conservative insulin regimen. BSG on admit was 132mg/dL. A weight based (using adjusted body weight) bolus insulin regimen with a stress of 2 was started and a Lantus scale (0, 5, or 10 units depending on BSG) was added. PLAN FOR INPATIENT GLYCEMIC CONTROL: * Hold outpatient oral diabetes medications * Basal insulin * Lantus 20 units qAM * Bolus insulin * NovoLog per scale ACHS or Q6hrs while NPO * Goal Range: Low 110 mg/dL - High 140 mg/dL * Correction Factor: 20 mg/dL/unit * Nutritional / Prandial insulin per carb ratio of 1 unit per 4 grams CHO consumed
[2024-12-03 12:30] LABS: Hematocrit (blood only) 25.8 % (42.0-52.0); Hemoglobin 7.9 g/dl (14.0-18.0)
--- NOTE | 2024-12-03 16:25 | Hospitalist Progress Note ---
Date of Service December 03, 2024 Assessment & Plan (1) Intractable low back pain: (2) Infection associated with internal fixation device of spine: (3) Status post incision and drainage: (4) MSSA (methicillin susceptible Staphylococcus aureus) infection: (5) Hypertensive urgency: (6) Hypokalemia: (7) Abnormal urinalysis: Plan Patient is a 69-year-old male with past medical history significant for DM type II with diabetic polyneuropathy, TALIB, HLD, HTN, bicuspid aortic valve with aortic valve stenosis and aortic regurgitation, mild mitral regurgitation, history of left retinal artery occlusion in 2020, atherosclerosis of the thoracic aortic arch with saccular aneurysm within the proximal descending thoracic aorta, carotid artery stenosis, hepatic steatosis, Wagner's esophagus, depression, insomnia, chronic pancreatitis, obesity, 3 pack-year smoking history and history of kidney stones who presented to the ED via EMS from [facility] due to intractable low back pain. Recent confinement under service to 11/15/2024-11/25/2024 with sepsis 2/2 postoperative lumbar epidural abscess s/p lumbar decompression and fusion surgery performed by Dr. Vang on 11/06/2024. Underwent irrigation and debridement of the lumbar spine with hematoma evacuation on 11/17/[address] Vang. Intraoperative cultures grew MSSA; blood cultures were negative. Seen and evaluated by ID whom recommended: IV cefazolin 2g Q8H and po rifampin 300mg BID to be continued through 12/29/2024, then chronic suppressive therapy with cefadroxil 500mg BID likely for life. Hospital course c/b development of BRIAN determined likely 2/2 multifactorial ATN ISO sepsis, severe ischemia ISO IV contrast administration with sepsis plus or minus toxicity associated with previously administered IV vancomycin prior to ID evaluation. #Intractable low back pain #Postoperative lumbar epidural abscess s/p I&D with hematoma evacuation on 11/17/24 #MSSA infection History as per above Case discussed b/n ED provider and Dr Vang --> hold off on additional imaging for now; he will evaluate pt later today Continue IV Ancef 2g Q8H + po rifampin 500mg BID as outlined by ID -Pt missed ABX doses yesterday s/p DC 2/2 delivery issues as SNF -Because of this, will tentatively plan to continue ABX course through 12/30/24 instead to cover for missed doses -Will then need to be transitioned to chronic immunosuppressive therapy with po cefadroxil 500mg BID as outlined by ID once Ancef/rifampin completed Pt rating pain 4.5/10 s/p 4mg IV morphine and 1.5mg IV Dilaudid in ED -Increasingly sleepy but still arousable s/p above narcotics -Will trial PRN IV Toradol for mild-mod pain, as renal fx stable, in addition to IV morphine (for severe)/Dilaudid (for breakthrough) in attempt to limit narcotics 2/2 sedation -Continue to hold naltrexone Mildly tachycardic in ED -Suspect 2/2 pain, WBC slowly improving -Follow blood cultures Continue Lyrica Appreciate PT/OT evals PRN ice and/or heat application as pt tolerates Huan bowel reg with daily MiraLAX 11/29 Dr. Vang started Decadron IV for better pain control Continue to monitor closely 12/01 s/p repeat I&D today 12/03 Still having severe back pain Drainage cultures from repeat I&D 12/01: No growth to date, follow-up Continue IV Ancef 2g Q8H + po rifampin 500mg BID as outlined by ID continue ABX course through 12/30/24 -Will then need to be transitioned to chronic immunosuppressive therapy with po cefadroxil 500mg BID as outlined by ID once Ancef/rifampin completed PT OT evaluation #HTN urgency Likely 2/2 pain Continue BB and monitor, suspect will improve once pain under better control 11/29 BP elevated Hydralazine PRN for now 12/03 Positive orthostasis today Hold metoprolol and amlodipine IV fluids, CONSUELO stockings Monitor closely #Hypokalemia K 3.3, po repletion ordered Continue to monitor and replete PRN #Abnormal urinalysis UA: 1+ LE, 11-20 WBC, no bacteria Pt w/o any new urinary complaints; has chronic urinary urgency but this is unchanged from baseline IV Rocephin ordered by ED provider and given -- stop Will continue IV Ancef + po rifampin as recommended by ID, as per above Follow urine culture --> any additional ABX recs pending results 11/27 urine culture: negative so far blood culture: " #DMII with diabetic polyneuropathy Hgb A1c 7.3% as of 11/16/2024 Hold home regimen, SSI protocol while inpatient Monitor BSG checks, CC diet #Atherosclerosis of the thoracic aortic arch with saccular aneurysm within the proximal descending thoracic aorta Follows with cardiothoracic surgery at [facility] [place], Dr. Munson Next appointment scheduled for 02/04/2025 with repeat CTA (previously measuring 3.5cm) No previous surgical intervention Continue ASA, statin #HLD Continue statin as per above #GERD #History of Wagner's esophagus Hold PPI while on rifampin 2/2 potential drug-drug interaction #Depression Continue Cymbalta #History of TALIB #History of acute surgical blood loss s/p recent lumbar spine operations (as mentioned above) H/H appears stable compared to prior Continue Fe supplementation and monitor #BPH Continue Proscar, Flomax #Insomnia Hold trazodone for now 2/2 risk of oversedation given response to narcotics as per above DVT Prophylaxis: SCDs/TEDs only for now Disposition: med/surg patient prefers to be discharged home with home health services when medically stable Admission and Anticipated Discharge Date Admission Date: November 26, 2024 Subjective seen resting in bed, comfortable, not in distress still having significant back pain today Was positive for orthostasis during PT, patient denied dizziness or lightheadedness no chest pain, dyspnea, palpitations, dizziness no other symptoms Review of Systems Review of Systems: all noted and negative except for above Physical Exam Physical Exam: General- oriented x 3, not in distress, speaks in sentences with no effort or accessory muscle use Eyes- anicteric Neck- no JVD Lungs- clear breath sounds bilaterally, no crackles/wheezing Heart- normal rate, regular rhythm; no murmurs Abdomen- normal bowel sounds, nondistended, soft, nontender Extremities- no pretibial edema, no calf tenderness Neuro- alert, oriented x 3; no gross focal neurologic deficits Skin- warm & dry Results & Data Results & Data Vital Signs (Past 12 Hours) Vital Signs Temp Pulse Resp BP Pulse Ox O2 Del Method 12/03/24 14:56 36.6 C 78 20 145/83 H 96 Room Air 12/03/24 08:30 Room Air 12/03/24 07:35 36.5 C 75 18 125/78 97 Room Air all noted and reviewed including below (2) Infection associated with internal fixation device of spine Encounter type: subsequent encounter Qualified Code(s): T84.63XD - Infection and inflammatory reaction due to internal fixation device of spine, subsequent encounter
[2024-12-03] MEDS: LORazepam 0.5 MG TAB PO PRN (20:39)
--- NOTE | 2024-12-04 00:46 | Magnetic Resonance Report ---
Exam(s): MRI PELVIS Without Contrast EXAM: MR Pelvis Without Intravenous Contrast CLINICAL HISTORY: Reason for exam: Left hip pain. TECHNIQUE: Multiplanar magnetic resonance images of the pelvis without intravenous contrast. COMPARISON: X-rays dated 09/19/2024 FINDINGS: Bones/joints: No acute fracture. No dislocation. No bone marrow edema is seen. No evidence of avascular necrosis. There are postoperative changes involving the spine. Soft tissues: No masses or fluid collections are noted. The visualized para-articular musculature is unremarkable.. Additional: There is a regular thickening noted of the urinary bladder wall. IMPRESSION: Unremarkable noncontrast MRI of the pelvis. Electronically signed by: William Flores MD 12/04/24 00:45 AM
[2024-12-04] MEDS: dexAMETHasone 4 MG in SYRINGE 0 ML IV SCH (07:44)
[2024-12-04] MEDS ORDERED: MoRPHine SULFATE 10 MG/0.5 ML UDP PO PRN (08:41)
[2024-12-04] MEDS: CYCLOBENZAPRINE HCL 5 MG TAB PO SCH (09:05)
--- NOTE | 2024-12-04 09:33 | Orthopedic Progress Note ---
Date of Service December 04, 2024 Assessment & Plan (1) Status post incision and drainage: Plan: MRI of the pelvis reviewed. Do not appreciate any gross tendinopathy or bursitis. MRI of the lumbar spine again reviewed demonstrating no gross neural compression. He continues to have pain out of proportion to his imaging and clinical findings. Would like to request the insistence of pain management for some guidance. Suspect some underlying dependency issues. Admission and Anticipated Discharge Date Admission Date: November 26, 2024 Subjective Patient continues to planing of back and leg pain on the left. He is tolerating physical therapy. He is requestingcontinuous pain medication.. Pain Physical Exam Physical Exam: Patient is currently in bed. He does seem somnolent. He is cooperative exam. With strength testing. Results & Data Vital Signs (Past 12 Hours) Vital Signs Temp Pulse Resp BP Pulse Ox O2 Del Method 12/04/24 07:39 36.5 C 82 18 120/78 97 Room Air 12/03/24 22:41 36.8 C 79 16 125/78 97 Room Air Queries Orthopedic Spine Obesity: Yes
[2024-12-04] MEDS: MoRPHine SULFATE 10 MG/0.5 ML UDP PO PRN (11:00)
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
[2024-12-04] MEDS ORDERED: CYCLOBENZAPRINE HCL 5 MG TAB PO SCH (14:00)
--- NOTE | 2024-12-04 17:41 | Hospitalist Progress Note ---
Date of Service December 04, 2024 Assessment & Plan (1) Intractable low back pain: (2) Infection associated with internal fixation device of spine: (3) Status post incision and drainage: (4) MSSA (methicillin susceptible Staphylococcus aureus) infection: (5) Hypertensive urgency: (6) Hypokalemia: (7) Abnormal urinalysis: Plan Patient is a 69-year-old male with past medical history significant for DM type II with diabetic polyneuropathy, TALIB, HLD, HTN, bicuspid aortic valve with aortic valve stenosis and aortic regurgitation, mild mitral regurgitation, history of left retinal artery occlusion in 2020, atherosclerosis of the thoracic aortic arch with saccular aneurysm within the proximal descending thoracic aorta, carotid artery stenosis, hepatic steatosis, Wagner's esophagus, depression, insomnia, chronic pancreatitis, obesity, 3 pack-year smoking history and history of kidney stones who presented to the ED via EMS from [facility] due to intractable low back pain. Recent confinement under service to 11/15/2024-11/25/2024 with sepsis 2/2 postoperative lumbar epidural abscess s/p lumbar decompression and fusion surgery performed by Dr. Vang on 11/06/2024. Underwent irrigation and debridement of the lumbar spine with hematoma evacuation on 11/17/[address] Vang. Intraoperative cultures grew MSSA; blood cultures were negative. Seen and evaluated by ID whom recommended: IV cefazolin 2g Q8H and po rifampin 300mg BID to be continued through 12/29/2024, then chronic suppressive therapy with cefadroxil 500mg BID likely for life. Hospital course c/b development of BRIAN determined likely 2/2 multifactorial ATN ISO sepsis, severe ischemia ISO IV contrast administration with sepsis plus or minus toxicity associated with previously administered IV vancomycin prior to ID evaluation. #Intractable Low Back Pain #Chronic Pain Syndrome #Postoperative lumbar epidural abscess s/p I&D with hematoma evacuation on 11/17/24 #MSSA infection -patient with extensive instrumentation, debridement of lumbar spine, treatment with abx -patient continues to endorse extensive back pain that exceeds imaging, lab and hemodynamic findings -exam findings generally unremarkable, pain appears to be exceeding current imaging findings and typical post operative course -chronic low back pain is treated poorly by opioids, and is not a solution fci -repeat incision and drainage on 12/01 -consideration for hyperalgesia given chronic opioid therapies and exam findings Plan: -discussed at length with ortho spine, pain management was consulted and provided recommendations, appreciate recs -given chronic pain syndrome, patient should follow with pain management outpatient for weaning plan for long acting opioids recommended by pain management -butrans patch would be consideration of longer term opioid therapies required -pain has been ongoing for months to years without resolution, would strongly consider quick outpatient deescalation of opioid therapies -restart cyclobenzaprine 5mg tid, can rotate to antispasmodic if needed -per pain management, start oxycontin 10mg bid and oxycodone 10mg q6hr prn -will check MR of lumbar spine to rule out worsening pathologies in back -Continue IV Ancef 2g Q8H + po rifampin 500mg BID as outlined by ID -Pt missed ABX doses yesterday s/p DC 2/2 delivery issues as SNF -Because of this, will tentatively plan to continue ABX course through 12/30/24 instead to cover for missed doses -Will then need to be transitioned to chronic immunosuppressive therapy with po cefadroxil 500mg BID as outlined by ID once Ancef/rifampin completed -PT/OT evaluations appreciated -patient needs to be out of bed as much as possible -continue decadron, lidocaine patch #HTN urgency Likely 2/2 pain Continue BB and monitor, suspect will improve once pain under better control #DMII with diabetic polyneuropathy -Hgb A1c 7.3% as of 11/16/2024 -Hold home regimen, SSI protocol while inpatient -Monitor BSG checks, CC diet #Atherosclerosis of the thoracic aortic arch with saccular aneurysm within the proximal descending thoracic aorta -Follows with cardiothoracic surgery at [facility] Dr. Arpit Koch -Next appointment scheduled for 02/04/2025 with repeat CTA (previously measuring 3.5cm) -No previous surgical intervention -continue ASA, statin #HLD -Continue statin as per above #GERD #History of Wagner's esophagus -Hold PPI while on rifampin 2/2 potential drug-drug interaction #Depression -Continue Cymbalta #History of TALIB #History of acute surgical blood loss s/p recent lumbar spine operations (as mentioned above) -H/H appears stable compared to prior -Continue Fe supplementation and monitor #BPH -Continue Proscar, Flomax #Insomnia -Hold trazodone for now 2/2 risk of oversedation given response to narcotics as per above I spent a total of 60 minutes in direct patient care, including [id number] time with the patient and/or family, reviewing medical records, ordering and reviewing diagnostic tests, and coordinating care with other healthcare providers. This time includes: history taking, physical examination, medical decision making, counseling, ECG interpretation, imaging interpretation, lab interpretation, orders, and education, excluding time spent in the performance of separately billed services. Admission and Anticipated Discharge Date Admission Date: November 26, 2024 Subjective Patient seen and examined at bedside. Patient doing ok today. He states that he would like to get his pain under control. He is frustrated with his current level of pain control. Of note, patient sleeping when entering room. Review of Systems Review of Systems: CONSTITUTIONAL: Patient denies fevers, chills, sweats and weight changes. EYES: Patient denies any visual symptoms. EARS, NOSE, AND THROAT: No difficulties with hearing. No symptoms of rhinitis or sore throat. CARDIOVASCULAR: Patient denies chest pains, palpitations, orthopnea and paroxysmal nocturnal dyspnea. RESPIRATORY: No dyspnea on exertion, no wheezing or cough. GI: No nausea, vomiting, diarrhea, constipation, abdominal pain, hematochezia or melena. : No urinary hesitancy or dribbling. No nocturia or urinary frequency. No abnormal urethral discharge. MUSCULOSKELETAL: back and groin pain, shooting pain down left leg NEUROLOGIC: No chronic headaches, no seizures. Patient denies numbness, tingling or weakness. PSYCHIATRIC: Patient denies problems with mood disturbance. No problems with anxiety. ENDOCRINE: No excessive urination or excessive thirst. DERMATOLOGIC: Patient denies any rashes or skin changes. Physical Exam Physical Exam: Gen: A&O 3 NAD, appeared comfortable on observation HEENT: NCAT, EOMI, not icteric. External ears normal. No rhinorrhea. Moist mucous membranes. Neck: Supple, full range of motion, no observable masses, No meningeal sign. Lungs: No Respiratory distress. CV: RRR, no edema. Abdomen: Soft, nondistended, No rebound tenderness. MSK: No joint swelling, no redness. No myoclonus noted. Tenderness son left leg, lower back. Skin: No rashes, petechiae, lesions. Normal color per patient. Neuro: Normal Gait, Grossly intact. Psych: Appropriate for situation. Results & Data Results & Data Vital Signs (Past 12 Hours) Vital Signs Temp Pulse Resp BP Pulse Ox O2 Del Method O2 Del Method 12/04/24 14:08 36.5 C 97 H 18 161/94 H 96 Room Air 12/04/24 11:28 Room Air 12/04/24 07:39 36.5 C 82 18 120/78 97 Room Air 12/04/24 07:05 Room Air Medications Administered Amlodipine Besylate (Amlodipine Besylate 5 Mg Tab) 2.5 mg PO QA JO Stop: 12/30/24 08:59 Last Admin: 12/03/24 08:40 Dose: 2.5 mg Documented By: Admin: 12/02/24 09:02 Dose: 2.5 mg Documented By: Admin: 12/01/24 07:37 Dose: 2.5 mg Documented By: Admin: 11/30/24 08:57 Dose: 2.5 mg Documented By: BAIRON Aspirin (Aspirin 81 Mg Ectab) 81 mg PO [facility] Stop: 12/26/24 20:59 Last Admin: 12/03/24 20:38 Dose: 81 mg Documented By: Admin: 12/02/24 20:36 Dose: 81 mg Documented By: Admin: 12/01/24 20:06 Dose: 81 mg Documented By: Admin: 11/30/24 20:22 Dose: 81 mg Documented By: Admin: 11/29/24 20:34 Dose: 81 mg Documented By: Admin: 11/28/24 20:17 Dose: 81 mg Documented By: [facility] [place] Admin: 11/27/24 20:33 Dose: 81 mg Documented By: [facility] [place] Admin: 11/26/24 20:35 Dose: 81 mg Documented By: [facility] Atorvastatin Calcium (Atorvastatin 40 Mg Tab) 40 mg PO [facility] Stop: 12/26/24 20:59 Last Admin: 12/03/24 20:42 Dose: 40 mg Documented By: Admin: 12/02/24 20:36 Dose: 40 mg Documented By: Admin: 12/01/24 20:06 Dose: 40 mg Documented By: Admin: 11/30/24 20:22 Dose: 40 mg Documented By: Admin: 11/29/24 20:36 Dose: 40 mg Documented By: Admin: 11/28/24 20:18 Dose: 40 mg Documented By: Admin: 11/27/24 20:33 Dose: 40 mg Documented By: Admin: 11/26/24 20:34 Dose: 40 mg Documented By: CJC Cyclobenzaprine HCl (Cyclobenzaprine Hcl 5 Mg Tab) 5 mg PO TID JO Stop: 01/03/25 08:59 Last Admin: 12/04/24 13:03 Dose: Not Given Documented By: Admin: 12/04/24 09:05 Dose: Not Given Documented By: [facility] Docusate Sodium (Docusate Sodium 100 Mg Cap) 100 mg PO BID JO Stop: 12/26/24 20:59 Last Admin: 12/04/24 07:41 Dose: Not Given Documented By: Admin: 12/03/24 20:42 Dose: Not Given Documented By: Admin: 12/03/24 08:39 Dose: 100 mg Documented By: Admin: 12/02/24 20:38 Dose: 100 mg Documented By: Admin: 12/02/24 09:03 Dose: 100 mg Documented By: Admin: 12/01/24 20:06 Dose: 100 mg Documented By: Admin: 12/01/24 07:35 Dose: Not Given Documented By: Admin: 11/30/24 20:21 Dose: 100 mg Documented By: Admin: 11/30/24 07:51 Dose: 100 mg Documented By: Admin: 11/29/24 20:33 Dose: 100 mg Documented By: Admin: 11/29/24 08:17 Dose: 100 mg Documented By: Admin: 11/28/24 20:18 Dose: 100 mg Documented By: Admin: 11/28/24 08:47 Dose: Not Given Documented By: Admin: 11/27/24 20:33 Dose: 100 mg Documented By: Admin: 11/27/24 08:37 Dose: 100 mg Documented By: Admin: 11/26/24 20:34 Dose: 100 mg Documented By: C Duloxetine HCl (Duloxetine Hcl 20 Mg Cap) 80 mg PO HS JO Stop: 12/26/24 20:59 Last Admin: 12/03/24 20:41 Dose: 80 mg Documented By: Admin: 12/02/24 20:36 Dose: 80 mg Documented By: Admin: 12/01/24 20:07 Dose: 80 mg Documented By: Admin: 11/30/24 20:22 Dose: 80 mg Documented By: Admin: 11/29/24 20:33 Dose: 80 mg Documented By: Admin: 11/28/24 20:18 Dose: 80 mg Documented By: [facility] [place] Admin: 11/27/24 20:32 Dose: 80 mg Documented By: [facility] [place] Admin: 11/26/24 20:34 Dose: 80 mg Documented By: STEPHANIE Finasteride (Finasteride 5 Mg Tab) 5 mg PO HS JO Stop: 12/26/24 20:59 Last Admin: 12/03/24 20:44 Dose: 5 mg Documented By: Admin: 12/02/24 20:38 Dose: 5 mg Documented By: Admin: 12/01/24 20:06 Dose: 5 mg Documented By: Admin: 11/30/24 20:22 Dose: 5 mg Documented By: Admin: 11/29/24 20:36 Dose: 5 mg Documented By: Admin: 11/28/24 20:18 Dose: 5 mg Documented By: [facility] [place] Admin: 11/27/24 20:33 Dose: 5 mg Documented By: [facility] [place] Admin: 11/26/24 20:35 Dose: 5 mg Documented By: STEPHANIE Heparin Sodium (Beef Lung) (Heparin 10 Unit/Ml 5 Ml Flush) 5 ml FLUSH PRN PRN PRN Reason: Flush Stop: 12/26/24 15:53 Last Admin: 12/02/24 16:32 Dose: 5 ml Documented By: [facility] Admin: 12/02/24 08:55 Dose: 5 ml Documented By: C Admin: 12/01/24 17:47 Dose: 5 ml Documented By: Admin: 12/01/24 12:02 Dose: 5 ml Documented By: Admin: 12/01/24 07:40 Dose: 5 ml Documented By: Admin: 11/30/24 06:43 Dose: 5 ml Documented By: PNCheri Admin: 11/30/24 01:22 Dose: 5 ml Documented By: Admin: 11/29/24 08:17 Dose: 5 ml Documented By: MINDA Cefazolin Sodium (Ancef 2000mg) 2,000 mg in 15 mls @ 3.75 mls/min IV Q8H JO Stop: 01/07/25 11:59 Last Admin: 12/04/24 12:35 Dose: 3.75 mls/min Documented By: Admin: 12/04/24 03:46 Dose: 3.75 mls/min Documented By: Admin: 12/03/24 20:38 Dose: 3.75 mls/min Documented By: Admin: 12/03/24 12:41 Dose: 3.75 mls/min Documented By: Admin: 12/03/24 03:25 Dose: 3.75 mls/min Documented By: Admin: 12/02/24 20:39 Dose: 3.75 mls/min Documented By: SNMarin Admin: 12/02/24 12:00 Dose: 3.75 mls/min Documented By: LMJose L Admin: 12/02/24 05:23 Dose: 3.75 mls/min Documented By: Admin: 12/01/24 20:06 Dose: 3.75 mls/min Documented By: Admin: 12/01/24 12:02 Dose: 3.75 mls/min Documented By: Admin: 12/01/24 04:10 Dose: 3.75 mls/min Documented By: Admin: 11/30/24 20:22 Dose: 3.75 mls/min Documented By: Admin: 11/30/24 13:13 Dose: 3.75 mls/min Documented By: Admin: 11/30/24 04:20 Dose: 3.75 mls/min Documented By: Admin: 11/29/24 20:31 Dose: 3.75 mls/min Documented By: Admin: 11/29/24 12:11 Dose: 3.75 mls/min Documented By: Admin: 11/29/24 04:08 Dose: 3.75 mls/min Documented By: Admin: 11/28/24 19:46 Dose: 3.75 mls/min Documented By: Admin: 11/28/24 12:08 Dose: 3.75 mls/min Documented By: Admin: 11/28/24 04:53 Dose: 3.75 mls/min Documented By: Admin: 11/27/24 20:32 Dose: 3.75 mls/min Documented By: Admin: 11/27/24 13:04 Dose: 3.75 mls/min Documented By: Admin: 11/27/24 04:49 Dose: 3.75 mls/min Documented By: Admin: 11/26/24 20:24 Dose: 3.75 mls/min Documented By: Admin: 11/26/24 12:59 Dose: 3.75 mls/min Documented By: CARLOS Sodium Chloride (Nss) 1,000 mls @ 80 mls/hr IV .[id number] JO Stop: 12/06/24 10:29 Last Admin: 12/04/24 11:00 Dose: 80 mls/hr Documented By: Infusion: 12/04/24 10:40 Dose: Infused Documented By: Admin: 12/03/24 22:10 Dose: 80 mls/hr Documented By: Infusion: 12/03/24 22:10 Dose: Infused Documented By: Admin: 12/03/24 10:35 Dose: 80 mls/hr Documented By: SANJIV Dexamethasone 4 mg/ Syringe 1 mls @ 1 mls/min IV DAILY JO Stop: 01/03/25 08:59 Last Admin: 12/04/24 07:44 Dose: 1 mls/min Documented By: TRICE Insulin Aspart (Insulin Aspart Per Unit Charge) 0 units SC ACHS JO Stop: 12/26/24 12:59 Last Admin: 12/04/24 17:20 Dose: 13 units Documented By: GABRIELE Co-signed By: PAO Admin: 12/04/24 12:37 Dose: 16 units Documented By: TRICE Co-signed By: MELANY Admin: 12/04/24 09:12 Dose: 15 units Documented By: TRICE Co-signed By: MELANY Admin: 12/03/24 20:45 Dose: Not Given Documented By: ALBA Co-signed By: JHONATAN Admin: 12/03/24 17:45 Dose: 11 units Documented By: SANJIV Co-signed By: BIJAN Admin: 12/03/24 12:42 Dose: 9 units Documented By: SANJIV Co-signed By: MELANY Admin: 12/03/24 08:53 Dose: 17 units Documented By: SANJIV Co-signed By: EZEKIEL Admin: 12/02/24 20:40 Dose: Not Given Documented By: Admin: 12/02/24 17:19 Dose: 17 units Documented By: LMC Co-signed By: MICHAEL Admin: 12/02/24 12:08 Dose: 27 units Documented By: LMC Co-signed By: MICHAEL Admin: 12/02/24 09:08 Dose: 16 units Documented By: LMC Co-signed By: MICHAEL Admin: 12/01/24 20:17 Dose: 16 units Documented By: BYRON Co-signed By: TRICIA Admin: 12/01/24 17:53 Dose: 2 units Documented By: LMC Co-signed By: HEIDE Admin: 12/01/24 12:04 Dose: 3 units Documented By: LMC Co-signed By: HEIDE Admin: 12/01/24 08:45 Dose: 2 units Documented By: LMC Co-signed By: MICHAEL Admin: 11/30/24 20:21 Dose: 8 units Documented By: BH Co-signed By: ASM Admin: 11/30/24 17:33 Dose: 7 units Documented By: MPS Co-signed By: VGS Admin: 11/30/24 13:13 Dose: 23 units Documented By: MPS Co-signed By: KD Admin: 11/30/24 08:26 Dose: 10 units Documented By: MPS Co-signed By: VGS Admin: 11/29/24 20:38 Dose: Not Given Documented By: Admin: 11/29/24 17:00 Dose: 12 units Documented By: ES Co-signed By: CA Admin: 11/29/24 12:10 Dose: 6 units Documented By: ES Co-signed By: K Admin: 11/29/24 08:15 Dose: 6 units Documented By: ES Co-signed By: CLR Admin: 11/28/24 20:58 Dose: Not Given Documented By: Admin: 11/28/24 17:19 Dose: 10 units Documented By: CHRISTIAN Co-signed By: CELI Admin: 11/28/24 12:08 Dose: 7 units Documented By: CHRISTIAN Co-signed By: CELI Admin: 11/28/24 08:40 Dose: 8 units Documented By: CHRISTIAN Co-signed By: JEFFREY Admin: 11/27/24 20:51 Dose: 6 units Documented By: NICOLA Co-signed By: NEGIN Admin: 11/27/24 17:10 Dose: 6 units Documented By: CHRISTIAN Co-signed By: ANTONINO Admin: 11/27/24 12:56 Dose: 12 units Documented By: CHRISTIAN Co-signed By: OS Admin: 11/27/24 08:36 Dose: 8 units Documented By: CHRISTIAN Co-signed By: DTT Admin: 11/26/24 20:36 Dose: 4 units Documented By: STEPHANIE Co-signed By: KEVC Admin: 11/26/24 17:23 Dose: Not Given Documented By: Admin: 11/26/24 13:43 Dose: Not Given Documented By: CAP Insulin Glargine (Lantus Per Unit Charge) 20 units SC DAILY JO Stop: 01/02/25 08:59 Last Admin: 12/04/24 09:12 Dose: 20 units Documented By: TRICE Co-signed By: MELANY Admin: 12/03/24 08:54 Dose: 20 units Documented By: SANJIV Co-signed By: EZEKIEL Labetalol HCl (Labetalol Hcl Iv 5 Mg/Ml 20ml) 5 mg IV Q6H PRN PRN Reason: Hypertension Stop: 12/26/24 16:50 Last Admin: 11/27/24 20:35 Dose: 5 mg Documented By: NICOLA Lidocaine (Lidocaine 5% 1 Patch) 1 patch TD QAM [facility] Stop: 12/28/24 05:29 Last Admin: 12/04/24 07:42 Dose: 1 patch Documented By: Admin: 12/03/24 08:41 Dose: 1 patch Documented By: Admin: 12/02/24 09:03 Dose: Not Given Documented By: Admin: 12/01/24 07:35 Dose: Not Given Documented By: Admin: 11/30/24 07:52 Dose: 1 patch Documented By: Admin: 11/29/24 08:18 Dose: 1 patch Documented By: Admin: 11/28/24 07:25 Dose: 1 patch Documented By: CHRISTIAN Metoprolol Succinate (Metoprolol Succ 50mg Ext Rel Tab) 200 mg PO HS JO Stop: 12/26/24 20:59 Last Admin: 12/02/24 20:37 Dose: 200 mg Documented By: Admin: 12/01/24 20:07 Dose: 200 mg Documented By: Admin: 11/30/24 20:21 Dose: 200 mg Documented By: Admin: 11/29/24 20:37 Dose: 200 mg Documented By: Admin: 11/28/24 20:18 Dose: 200 mg Documented By: [facility] [place] Admin: 11/27/24 20:34 Dose: 200 mg Documented By: [facility] [place] Admin: 11/26/24 20:35 Dose: 200 mg Documented By: STEPHANIE Miscellaneous (Remove Lidoderm Patch) 1 each N/A DAILY@2100 JO Stop: 12/29/24 20:59 Last Admin: 12/03/24 20:42 Dose: 1 each Documented By: Admin: 12/02/24 20:39 Dose: Not Given Documented By: Admin: 12/01/24 20:07 Dose: 1 each Documented By: Admin: 11/30/24 20:22 Dose: 1 each Documented By: Admin: 11/29/24 20:37 Dose: 1 each Documented By: BERONICA Multivitamins (Multivitamin Tab) 1 tab PO QAM JO Stop: 12/27/24 08:59 Last Admin: 12/04/24 07:45 Dose: 1 tab Documented By: Admin: 12/03/24 08:40 Dose: 1 tab Documented By: Admin: 12/02/24 09:03 Dose: 1 tab Documented By: Admin: 12/01/24 07:35 Dose: Not Given Documented By: Admin: 11/30/24 07:42 Dose: 1 tab Documented By: Admin: 11/29/24 08:19 Dose: 1 tab Documented By: Admin: 11/28/24 08:41 Dose: 1 tab Documented By: Admin: 11/27/24 08:38 Dose: 1 tab Documented By: CHRISTIAN Polyethylene Glycol (Polyethylene (Miralax) 17 Gm Pack) 17 gm PO DAILY JO Stop: 12/27/24 08:59 Last Admin: 12/04/24 07:42 Dose: Not Given Documented By: Admin: 12/03/24 08:39 Dose: Not Given Documented By: Admin: 12/02/24 09:15 Dose: 17 gm Documented By: Admin: 12/01/24 07:35 Dose: Not Given Documented By: Admin: 11/30/24 07:51 Dose: 17 gm Documented By: Admin: 11/29/24 08:16 Dose: 17 gm Documented By: Admin: 11/28/24 08:48 Dose: Not Given Documented By: Admin: 11/27/24 08:37 Dose: 17 gm Documented By: CHRISTIAN Pregabalin (Pregabalin 150 Mg Cap) 150 mg PO TID JO Stop: 12/26/24 13:59 Last Admin: 12/04/24 13:03 Dose: 150 mg Documented By: Admin: 12/04/24 07:43 Dose: 150 mg Documented By: Admin: 12/03/24 20:38 Dose: 150 mg Documented By: Admin: 12/03/24 13:14 Dose: 150 mg Documented By: Admin: 12/03/24 08:39 Dose: 150 mg Documented By: Admin: 12/02/24 20:35 Dose: 150 mg Documented By: Admin: 12/02/24 13:51 Dose: 150 mg Documented By: Admin: 12/02/24 09:15 Dose: 150 mg Documented By: Admin: 12/01/24 20:06 Dose: 150 mg Documented By: Admin: 12/01/24 15:03 Dose: Not Given Documented By: Admin: 12/01/24 07:40 Dose: 150 mg Documented By: Admin: 11/30/24 20:22 Dose: 150 mg Documented By: Admin: 11/30/24 13:13 Dose: 150 mg Documented By: Admin: 11/30/24 07:51 Dose: 150 mg Documented By: Admin: 11/29/24 20:33 Dose: 150 mg Documented By: Admin: 11/29/24 12:24 Dose: 150 mg Documented By: Admin: 11/29/24 08:17 Dose: 150 mg Documented By: Admin: 11/28/24 20:17 Dose: 150 mg Documented By: Admin: 11/28/24 13:52 Dose: 150 mg Documented By: RJRosa Elena Admin: 11/28/24 08:41 Dose: 150 mg Documented By: Admin: 11/27/24 20:32 Dose: 150 mg Documented By: Admin: 11/27/24 14:31 Dose: 150 mg Documented By: Admin: 11/27/24 08:36 Dose: 150 mg Documented By: Admin: 11/26/24 20:35 Dose: 150 mg Documented By: Admin: 11/26/24 13:48 Dose: 150 mg Documented By: ALEIDA Rifampin (Rifampin 300 Mg Capsule) 300 mg PO BID JO Stop: 12/26/24 11:59 Last Admin: 12/04/24 07:44 Dose: 300 mg Documented By: Admin: 12/03/24 20:44 Dose: 300 mg Documented By: Admin: 12/03/24 08:39 Dose: 300 mg Documented By: Admin: 12/02/24 20:36 Dose: 300 mg Documented By: Admin: 12/02/24 09:03 Dose: 300 mg Documented By: Admin: 12/01/24 20:07 Dose: 300 mg Documented By: Admin: 12/01/24 07:37 Dose: 300 mg Documented By: Admin: 11/30/24 20:22 Dose: 300 mg Documented By: Admin: 11/30/24 07:42 Dose: 300 mg Documented By: Admin: 11/29/24 20:34 Dose: 300 mg Documented By: Admin: 11/29/24 08:19 Dose: 300 mg Documented By: Admin: 11/28/24 20:18 Dose: 300 mg Documented By: Admin: 11/28/24 08:42 Dose: 300 mg Documented By: RJRosa Elena Admin: 11/27/24 20:33 Dose: 300 mg Documented By: Admin: 11/27/24 08:38 Dose: 300 mg Documented By: RJRosa Elena Admin: 11/26/24 20:34 Dose: 300 mg Documented By: Admin: 11/26/24 12:59 Dose: 300 mg Documented By: BEVERLYK Tamsulosin HCl (Tamsulosin Hcl 0.4 Mg Cap) 0.4 mg PO HS JO Stop: 12/26/24 20:59 Last Admin: 12/03/24 20:41 Dose: 0.4 mg Documented By: Admin: 12/02/24 20:38 Dose: 0.4 mg Documented By: Admin: 12/01/24 20:07 Dose: 0.4 mg Documented By: Admin: 11/30/24 20:21 Dose: 0.4 mg Documented By: Admin: 11/29/24 20:34 Dose: 0.4 mg Documented By: Admin: 11/28/24 20:17 Dose: 0.4 mg Documented By: Admin: 11/27/24 20:33 Dose: 0.4 mg Documented By: Admin: 11/26/24 20:35 Dose: 0.4 mg Documented By: STEPHANIE Vitamin D (Cholecalciferol 25 Mcg (1000 Units) Tab) 25 mcg PO DAILY JO Stop: 12/27/24 08:59 Last Admin: 12/04/24 07:45 Dose: 25 mcg Documented By: Admin: 12/03/24 08:40 Dose: 25 mcg Documented By: Admin: 12/02/24 09:05 Dose: Not Given Documented By: Admin: 12/01/24 07:35 Dose: Not Given Documented By: Admin: 11/30/24 07:41 Dose: 25 mcg Documented By: Admin: 11/29/24 08:19 Dose: 25 mcg Documented By: Admin: 11/28/24 08:42 Dose: 25 mcg Documented By: Admin: 11/27/24 08:37 Dose: 25 mcg Documented By: CHRISTIAN (2) Infection associated with internal fixation device of spine Encounter type: subsequent encounter Qualified Code(s): T84.63XD - Infection and inflammatory reaction due to internal fixation device of spine, subsequent encounter
[2024-12-04] MEDS: LORazepam 0.5 MG TAB PO ONE (20:14)
[2024-12-04] MEDS: ACETAMINOPHEN 500 MG TAB PO PRN (20:33)
[2024-12-04] MEDS: GADOBUTROL 65ML VIAL IV ONE (20:58)
--- NOTE | 2024-12-04 23:55 | Magnetic Resonance Report ---
Exam(s): MRI L SPINE W/WO Contrast EXAM: MR Lumbar Spine Without and With Intravenous Contrast CLINICAL HISTORY: Reason for exam: determine etiology of worsening lower back pain. TECHNIQUE: Magnetic resonance images of the lumbar spine without and with intravenous contrast in multiple planes. CONTRAST: Contrast must be dictated COMPARISON: Prior MRI of the lumbar spine from November 22 2024. FINDINGS: Vertebrae: There are 5 lumbar type vertebral bodies with a mild generalized curved to the right and normal lumbar lordosis. Patient is status post posterior decompression of L2-L5 and posterior fusion of L2- S1 with transpedicular screws and connecting mass in place. No acute fracture. Spinal cord: Unremarkable. Normal signal. No abnormal enhancement. Soft tissues: There is a dorsal epidural fluid collection drainage catheter in place. There heart fluid collections in the subcutaneous fat advanced atrophy of the iliopsoas, paraspinous intraspinous musculature. The aorta and IVC flow voids are intact. Small right renal cyst. DISCS/SPINAL CANAL/NEURAL FORAMINA: L1-L2: The Intervertebral disc is normal. L2-L3: Interbody fusion device in place. L3-L4: Interbody fusion device in place. L4-L5: There is mild disc degeneration with annular disc bulge flattening the ventral thecal sac. L5-S1: The intervertebral disc is normal. IMPRESSION: Status post posterior decompression, interbody and posterior fusion of L2- S1 with a new small epidural fluid collection and subcutaneous fluid collections with dorsal epidural drainage catheter in place. Electronically signed by: Holly Sharma MD 12/04/24 23:54 PM
[2024-12-05] MEDS: MoRPHine SULFATE 4 MG/ML 1 ML CARP\\VIAL IV STA (05:10)
[2024-12-05] MEDS: SENNA 8.6 MG TAB PO SCH (07:38)
[2024-12-05 09:26] LABS: Hematocrit (blood only) 27.2 % (42.0-52.0); Hemoglobin 8.4 g/dl (14.0-18.0); Mean Corpuscular Hemoglobin 30.4 pg (25.0-34.0); Mean Corpuscular Volume 98.6 fL (80.0-100.0); Platelet Count 282 K/uL (130-400); RDW Standard Deviation 54.5 fL (36.4-46.3); Red Blood Count 2.76 M/uL (4.70-6.10); White Blood Count 11.87 K/ul (4.8-10.8)
[2024-12-05 09:51] LABS: Anion Gap 8.0 (3-11); Blood Urea Nitrogen 14.0 mg/dl (6-23); Calcium 8.5 mg/dl (8.6-10.3); Carbon Dioxide 27.0 mmol/L (21-32); Chloride 108.0 mmol/L (98-107); Creatinine Clr Calc Pharmacy 108.1 ml/min; Glucose 276.0 mg/dl (70-99(Fasting)); Potassium 3.2 mmol/L (3.5-5.1); Sodium 143.0 mmol/L (136-145)
--- NOTE | 2024-12-05 11:04 | Orthopedic Progress Note ---
Date of Service December 05, 2024 Assessment & Plan (1) Abscess in epidural space of lumbar spine: Plan: At this time I reviewed his updated MRI lumbar spine. I do not appreciate any gross neural compression that would account for his symptom complex. Cultures taken after his second I&D have continued to be negative. He does have [address] which we will probably remove in the next day or so. This point I am concerned about his pain medication requirements and appreciate the assistance of a pain management service. Admission and Anticipated Discharge Date Admission Date: November 26, 2024 Subjective Patient continues to complain of back and left buttock pain with pain radiating down his left thigh. Expresses continued concern regarding his pain regimen. Physical Exam Physical Exam: On exam he is in the chair at the bedside. He is with good strength testing. Results & Data Vital Signs (Past 12 Hours) Vital Signs Temp Pulse Resp BP Pulse Ox O2 Del Method 12/05/24 07:59 36.4 C L 95 H 18 153/95 H 97 Room Air 12/04/24 23:20 36.5 C 100 H 18 125/75 97 Room Air Queries Orthopedic Spine Obesity: Yes
--- NOTE | 2024-12-05 13:21 | Pain Management Progress Note ---
Date of Service December 05, 2024 Assessment & Plan (1) Intractable low back pain: (2) Post-op pain: (3) Status post incision and drainage: (4) MSSA (methicillin susceptible Staphylococcus aureus) infection: (5) Infection associated with internal fixation device of spine: Encounter type: subsequent encounter Qualified Code(s): T84.63XD - Infection and inflammatory reaction due to internal fixation device of spine, subsequent encounter (6) Postoperative back pain: Plan I did explain to the patient on not discouraged that he did not have significant pain relief from the first dose of OxyContin. Now that he has had the second dose of OxyContin in addition to oxycodone 10 mg every 6 hours he does seem a lot more comfortable. To ease his concerns I did place an order for the patient to receive IV Dilaudid 0.5 mg once overnight if needed. He has been made aware that he is to only have 1 dose if necessary. He is hoping for discharge to [facility] in the next few days. Admission and Anticipated Discharge Date Admission Date: November 26, 2024 Subjective Patient states that he had difficulty with pain control overnight. He did take the OxyContin last evening after his lumbar MRI and did not notice a significant improvement. He then had oxycodone 10 mg at 1 AM and hospitalist did order 3 mg of IV morphine at 5 AM. Patient states that the pain has improved over the course of the day. There is a mild aching along the low back radiating into the left lateral hip and anterior thigh. He has concerned of significant pain overnight happening again. No constitutional complaints, neurological symptoms. Case discussed with Dr. Juliane Galvin Physical Exam Physical Exam: GENERAL: This is a 69-year-old male Resting comfortably in hospital bed. In no acute distress. HEAD/FACE: Normocephalic and atraumatic. EYES: No drainage or conjunctival injection. ENT: Nose without bleeding or discharge. Oral mucosa moist. NECK: Full ROM without apparent pain. No swelling or masses noted. RESPIRATORY: Patient with unlabored breathing. No signs of respiratory distress. CHEST/AXILLA: Chest movement symmetrical. No deformities noted. ABDOMEN/GI: No distension BACK: Drains are in place, bandages are intact. SKIN: Arma, warm and dry. No rash noted. MS/EXTREMITY: No swelling, no deformities. Moving extremities appropriately. NEURO: Alert and appears oriented. Speech is fluent. Cranial Nerves are grossly intact. PSYCH: Alert, pleasant, affect is calm
--- NOTE | 2024-12-05 13:41 | Hospitalist Progress Note ---
Date of Service December 05, 2024 Assessment & Plan (1) Intractable low back pain: (2) Infection associated with internal fixation device of spine: (3) Status post incision and drainage: (4) MSSA (methicillin susceptible Staphylococcus aureus) infection: (5) Hypertensive urgency: (6) Hypokalemia: (7) Abnormal urinalysis: Plan Patient is a 69-year-old male with past medical history significant for DM type II with diabetic polyneuropathy, TALIB, HLD, HTN, bicuspid aortic valve with aortic valve stenosis and aortic regurgitation, mild mitral regurgitation, history of left retinal artery occlusion in 2020, atherosclerosis of the thoracic aortic arch with saccular aneurysm within the proximal descending thoracic aorta, carotid artery stenosis, hepatic steatosis, Wagner's esophagus, depression, insomnia, chronic pancreatitis, obesity, 3 pack-year smoking history and history of kidney stones who presented to the ED via EMS from [facility] due to intractable low back pain. Recent confinement under service to 11/15/2024-11/25/2024 with sepsis 2/2 postoperative lumbar epidural abscess s/p lumbar decompression and fusion surgery performed by Dr. Vang on 11/06/2024. Underwent irrigation and debridement of the lumbar spine with hematoma evacuation on 11/17/[address] Vang. Intraoperative cultures grew MSSA; blood cultures were negative. Seen and evaluated by ID whom recommended: IV cefazolin 2g Q8H and po rifampin 300mg BID to be continued through 12/29/2024, then chronic suppressive therapy with cefadroxil 500mg BID likely for life. Hospital course c/b development of BRIAN determined likely 2/2 multifactorial ATN ISO sepsis, severe ischemia ISO IV contrast administration with sepsis plus or minus toxicity associated with previously administered IV vancomycin prior to ID evaluation. #Intractable Low Back Pain #Chronic Pain Syndrome #Postoperative lumbar epidural abscess s/p I&D with hematoma evacuation on 11/17/24 #MSSA infection -patient with extensive instrumentation, debridement of lumbar spine, treatment with abx -patient continues to endorse extensive back pain that exceeds imaging, lab and hemodynamic findings -repeat incision and drainage on 12/01 -consideration for hyperalgesia given chronic opioid therapies and exam findings -MR spine without concern for acute process per ortho spine -patient very concerned this morning regarding pain control, however sleeping comfortably in room and did not initially arouse to voice Plan: -discussed at length with ortho spine, pain management was consulted and provided recommendations, appreciate recs -given chronic pain syndrome, patient should follow with pain management outpatient for weaning plan for long acting opioids recommended by pain management -butrans patch would be consideration of longer term opioid therapies required -pain medication per pain management -cyclobenzaprine 5mg tid -continue oxycontin 10mg bid and oxycodone 10mg q6hr prn -Continue IV Ancef 2g Q8H + po rifampin 500mg BID as outlined by ID -Pt missed ABX doses yesterday s/p DC 2/2 delivery issues as SNF -Because of this, will tentatively plan to continue ABX course through 5 instead to cover for missed doses -Will then need to be transitioned to chronic immunosuppressive therapy with po cefadroxil 500mg BID as outlined by ID once Ancef/rifampin completed -PT/OT evaluations appreciated -patient needs to be out of bed as much as possible -continue decadron, lidocaine patch #HTN -Continue BB #DMII with diabetic polyneuropathy -Hgb A1c 7.3% as of 11/16/2024 -Hold home regimen, SSI protocol while inpatient -Monitor BSG checks, CC diet #Atherosclerosis of the thoracic aortic arch with 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 Arpit Koch -Next appointment scheduled for 02/04/2025 with repeat CTA (previously measuring 3.5cm) -No previous surgical intervention -continue ASA, statin #HLD -Continue statin as per above #GERD #History of Wagner's esophagus -Hold PPI while on rifampin 2/2 potential drug-drug interaction #Depression -Continue Cymbalta #History of TALIB #History of acute surgical blood loss s/p recent lumbar spine operations (as mentioned above) -H/H appears stable compared to prior -Continue Fe supplementation and monitor #BPH -Continue Proscar, Flomax #Insomnia -Hold trazodone for now 2/2 risk of oversedation given response to narcotics as per above I spent a total of 35 minutes in direct patient care, including [id number] time with the patient and/or family, reviewing medical records, ordering and reviewing diagnostic tests, and coordinating care with other healthcare providers. This time includes: history taking, physical examination, medical decision making, counseling, ECG interpretation, imaging interpretation, lab interpretation, orders, and education, excluding time spent in the performance of separately billed services. Admission and Anticipated Discharge Date Admission Date: November 26, 2024 Subjective Patient seen at bedside. Sleeping very comfortably upon arrival into room. Review of Systems Review of Systems: -patient sleeping Physical Exam Physical Exam: Gen: A&O 3 NAD, appeared comfortable on observation and sleeping in room HEENT: NCAT, EOMI, not icteric. External ears normal. No rhinorrhea. Moist mucous membranes. Neck: Supple, full range of motion, no observable masses, No meningeal sign. Lungs: No Respiratory distress. CV: RRR, no edema. Abdomen: Soft, nondistended, No rebound tenderness. MSK: No joint swelling, no redness. No myoclonus noted. Tenderness son left leg, lower back. Skin: No rashes, petechiae, lesions. Normal color per patient. Neuro: Normal Gait, Grossly intact. Psych: Appropriate for situation. Results & Data Results & Data Vital Signs (Past 12 Hours) Vital Signs Temp Pulse Resp BP Pulse Ox O2 Del Method 12/05/24 07:59 36.4 C L 95 H 18 153/95 H 97 Room Air Laboratory Results -personally reviewed, leukocytosis downtrending, Hgb at baseline, K of 3.2 replenished Medications Administered Acetaminophen (Acetaminophen 500 Mg Tab) 1,000 mg PO Q8 PRN PRN Reason: Pain or Fever Stop: 12/26/24 10:59 Last Admin: 12/05/24 13:20 Dose: 1,000 mg Documented By: Admin: 12/05/24 04:44 Dose: 1,000 mg Documented By: Admin: 12/04/24 20:33 Dose: 1,000 mg Documented By: JHONATAN Amlodipine Besylate (Amlodipine Besylate 5 Mg Tab) 2.5 mg PO QAM JO Stop: 12/30/24 08:59 Last Admin: 12/03/24 08:40 Dose: 2.5 mg Documented By: Admin: 12/02/24 09:02 Dose: 2.5 mg Documented By: Admin: 12/01/24 07:37 Dose: 2.5 mg Documented By: Admin: 11/30/24 08:57 Dose: 2.5 mg Documented By: BAIRON Aspirin (Aspirin 81 Mg Ectab) 81 mg PO HS JO Stop: 12/26/24 20:59 Last Admin: 12/04/24 21:37 Dose: 81 mg Documented By: Admin: 12/03/24 20:38 Dose: 81 mg Documented By: Admin: 12/02/24 20:36 Dose: 81 mg Documented By: Admin: 12/01/24 20:06 Dose: 81 mg Documented By: Admin: 11/30/24 20:22 Dose: 81 mg Documented By: Admin: 11/29/24 20:34 Dose: 81 mg Documented By: Admin: 11/28/24 20:17 Dose: 81 mg [place]ed [place] [facility] [place]: 11/27/24 20:33 Dose: 81 mg Documented By: [facility] [place] Admin: 11/26/24 20:35 Dose: 81 mg Documented By: STEPHANIE Atorvastatin Calcium (Atorvastatin 40 Mg Tab) 40 mg PO JO Stop: 12/26/24 20:59 Last Admin: 12/04/24 21:38 Dose: 40 mg Documented By: Admin: 12/03/24 20:42 Dose: 40 mg Documented By: Admin: 12/02/24 20:36 Dose: 40 mg Documented By: Admin: 12/01/24 20:06 Dose: 40 mg Documented By: Admin: 11/30/24 20:22 Dose: 40 mg Documented By: Admin: 11/29/24 20:36 Dose: 40 mg Documented By: Admin: 11/28/24 20:18 Dose: 40 mg Documented By: [facility] [place]: 11/27/24 20:33 Dose: 40 mg Documented By: [facility] [place] Admin: 11/26/24 20:34 Dose: 40 mg Documented By: [facility] Cyclobenzaprine HCl (Cyclobenzaprine Hcl 5 Mg Tab) 5 mg PO TID JO Stop: 01/03/25 08:59 Last Admin: 12/05/24 13:20 Dose: 5 mg Documented By: Admin: 12/05/24 07:35 Dose: 5 mg Documented By: Admin: 12/04/24 21:39 Dose: 5 mg Documented By: Admin: 12/04/24 13:03 Dose: Not Given Documented By: Admin: 12/04/24 09:05 Dose: Not Given Documented By: [facility] Docusate Sodium (Docusate Sodium 100 Mg Cap) 100 mg PO BID JO Stop: 12/26/24 20:59 Last Admin: 12/05/24 07:38 Dose: Not Given Documented By: Admin: 12/04/24 21:37 Dose: 100 mg Documented By: MLCheri Admin: 12/04/24 07:41 Dose: Not Given Documented By: Admin: 12/03/24 20:42 Dose: Not Given Documented By: Admin: 12/03/24 08:39 Dose: 100 mg Documented By: Admin: 12/02/24 20:38 Dose: 100 mg Documented By: SNMarin Admin: 12/02/24 09:03 Dose: 100 mg Documented By: Admin: 12/01/24 20:06 Dose: 100 mg Documented By: Admin: 12/01/24 07:35 Dose: Not Given Documented By: Admin: 11/30/24 20:21 Dose: 100 mg Documented By: Admin: 11/30/24 07:51 Dose: 100 mg Documented By: Admin: 11/29/24 20:33 Dose: 100 mg Documented By: PNCheri Admin: 11/29/24 08:17 Dose: 100 mg Documented By: Admin: 11/28/24 20:18 Dose: 100 mg Documented By: Admin: 11/28/24 08:47 Dose: Not Given Documented By: RJRosa Elena Admin: 11/27/24 20:33 Dose: 100 mg Documented By: Admin: 11/27/24 08:37 Dose: 100 mg Documented By: Admin: 11/26/24 20:34 Dose: 100 mg Documented By: JENNIFFERC Duloxetine HCl (Duloxetine Hcl 20 Mg Cap) 80 mg PO HS JO Stop: 12/26/24 20:59 Last Admin: 12/04/24 21:37 Dose: 80 mg Documented By: MLCheri Admin: 12/03/24 20:41 Dose: 80 mg Documented By: Admin: 12/02/24 20:36 Dose: 80 mg Documented By: Admin: 12/01/24 20:07 Dose: 80 mg Documented By: Admin: 11/30/24 20:22 Dose: 80 mg Documented By: Admin: 11/29/24 20:33 Dose: 80 mg Documented By: Admin: 11/28/24 20:18 Dose: 80 mg Documented By: [facility] [place]: 11/27/24 20:32 Dose: 80 mg Documented By: [facility] [place] Admin: 11/26/24 20:34 Dose: 80 mg Documented By: STEPHANIE Finasteride (Finasteride 5 Mg Tab) 5 mg PO HS JO Stop: 12/26/24 20:59 Last Admin: 12/04/24 21:39 Dose: 5 mg Documented By: MLCheri Admin: 12/03/24 20:44 Dose: 5 mg Documented By: Admin: 12/02/24 20:38 Dose: 5 mg Documented By: SNMarin Admin: 12/01/24 20:06 Dose: 5 mg Documented By: Admin: 11/30/24 20:22 Dose: 5 mg Documented By: Admin: 11/29/24 20:36 Dose: 5 mg Documented By: Admin: 11/28/24 20:18 Dose: 5 mg Documented By: [facility] [place]: 11/27/24 20:33 Dose: 5 mg Documented By: [facility] [place] Admin: 11/26/24 20:35 Dose: 5 mg Documented By: STEPHANIE Heparin Sodium (Beef Lung) (Heparin 10 Unit/Ml 5 Ml Flush) 5 ml FLUSH PRN PRN PRN Reason: Flush Stop: 12/26/24 15:53 Last Admin: 12/02/24 16:32 Dose: 5 ml Documented By: [facility] [place] Admin: 12/02/24 08:55 Dose: 5 ml Documented By: [facility] [place] Admin: 12/01/24 17:47 Dose: 5 ml Documented By: [facility] [place] Admin: 12/01/24 12:02 Dose: 5 ml Documented By: [facility] [place] Admin: 12/01/24 07:40 Dose: 5 ml Documented By: [facility] [place] Admin: 11/30/24 06:43 Dose: 5 ml Documented By: Admin: 11/30/24 01:22 Dose: 5 ml Documented By: PNCheri Admin: 11/29/24 08:17 Dose: 5 ml Documented By: MINDA Cefazolin Sodium (Ancef 2000mg) 2,000 mg in 15 mls @ 3.75 mls/min IV Q8H JO Stop: 01/07/25 11:59 Last Admin: 12/05/24 12:05 Dose: 3.75 mls/min Documented By: Admin: 12/05/24 05:10 Dose: 3.75 mls/min Documented By: Admin: 12/04/24 20:15 Dose: 3.75 mls/min Documented By: Admin: 12/04/24 12:35 Dose: 3.75 mls/min Documented By: Admin: 12/04/24 03:46 Dose: 3.75 mls/min Documented By: Admin: 12/03/24 20:38 Dose: 3.75 mls/min Documented By: Admin: 12/03/24 12:41 Dose: 3.75 mls/min Documented By: Admin: 12/03/24 03:25 Dose: 3.75 mls/min Documented By: Admin: 12/02/24 20:39 Dose: 3.75 mls/min Documented By: SNMarin Admin: 12/02/24 12:00 Dose: 3.75 mls/min Documented By: Admin: 12/02/24 05:23 Dose: 3.75 mls/min Documented By: Admin: 12/01/24 20:06 Dose: 3.75 mls/min Documented By: Admin: 12/01/24 12:02 Dose: 3.75 mls/min Documented By: Admin: 12/01/24 04:10 Dose: 3.75 mls/min Documented By: Admin: 11/30/24 20:22 Dose: 3.75 mls/min Documented By: Admin: 11/30/24 13:13 Dose: 3.75 mls/min Documented By: Admin: 11/30/24 04:20 Dose: 3.75 mls/min Documented By: Admin: 11/29/24 20:31 Dose: 3.75 mls/min Documented By: Admin: 11/29/24 12:11 Dose: 3.75 mls/min Documented By: Admin: 11/29/24 04:08 Dose: 3.75 mls/min Documented By: Admin: 11/28/24 19:46 Dose: 3.75 mls/min Documented By: Admin: 11/28/24 12:08 Dose: 3.75 mls/min Documented By: Admin: 11/28/24 04:53 Dose: 3.75 mls/min Documented By: Admin: 11/27/24 20:32 Dose: 3.75 mls/min Documented By: Admin: 11/27/24 13:04 Dose: 3.75 mls/min Documented By: Admin: 11/27/24 04:49 Dose: 3.75 mls/min Documented By: Admin: 11/26/24 20:24 Dose: 3.75 mls/min Documented By: Admin: 11/26/24 12:59 Dose: 3.75 mls/min Documented By: CARLOS Sodium Chloride (Nss) 1,000 mls @ 80 mls/hr IV .[id number] JO Stop: 12/06/24 10:29 Last Admin: 12/05/24 12:05 Dose: 80 mls/hr Documented By: Infusion: 12/05/24 12:05 Dose: Infused Documented By: Admin: 12/05/24 00:32 Dose: 80 mls/hr Documented By: Infusion: 12/04/24 23:30 Dose: Infused Documented By: Admin: 12/04/24 11:00 Dose: 80 mls/hr Documented By: Infusion: 12/04/24 10:40 Dose: Infused Documented By: Admin: 12/03/24 22:10 Dose: 80 mls/hr Documented By: Infusion: 12/03/24 22:10 Dose: Infused Documented By: Admin: 12/03/24 10:35 Dose: 80 mls/hr Documented By: SANJIV Dexamethasone 4 mg/ Syringe 1 mls @ 1 mls/min IV DAILY JO Stop: 01/03/25 08:59 Last Admin: 12/05/24 07:36 Dose: 1 mls/min Documented By: Admin: 12/04/24 07:44 Dose: 1 mls/min Documented By: TRICE Insulin Aspart (Insulin Aspart Per Unit Charge) 0 units SC ACHS JO Stop: 12/26/24 12:59 Last Admin: 12/05/24 12:15 Dose: 17 units Documented By: GABRIELE Co-signed By: PAO Admin: 12/05/24 09:03 Dose: 12 units Documented By: GABRIELE Co-signed By: HARSHA Admin: 12/04/24 21:10 Dose: Not Given Documented By: JHONATAN Co-signed By: RICHARD Admin: 12/04/24 17:20 Dose: 13 units Documented By: GABRIELE Co-signed By: PAO Admin: 12/04/24 12:37 Dose: 16 units Documented By: LMJose L Co-signed By: MELANY Admin: 12/04/24 09:12 Dose: 15 units Documented By: LMC Co-signed By: MELANY Admin: 12/03/24 20:45 Dose: Not Given Documented By: ALBA Co-signed By: JHONATAN Admin: 12/03/24 17:45 Dose: 11 units Documented By: SANJIV Co-signed By: BIJAN Admin: 12/03/24 12:42 Dose: 9 units Documented By: SANJIV Co-signed By: MELANY Admin: 12/03/24 08:53 Dose: 17 units Documented By: SANJIV Co-signed By: EZEKIEL Admin: 12/02/24 20:40 Dose: Not Given Documented By: Admin: 12/02/24 17:19 Dose: 17 units Documented By: TRICE Co-signed By: MICHAEL Admin: 12/02/24 12:08 Dose: 27 units Documented By: LMJose L Co-signed By: MICHAEL Admin: 12/02/24 09:08 Dose: 16 units Documented By: TRICE Co-signed By: MICHAEL Admin: 12/01/24 20:17 Dose: 16 units Documented By: BYRON Co-signed By: TRICIA Admin: 12/01/24 17:53 Dose: 2 units Documented By: LMC Co-signed By: CB Admin: 12/01/24 12:04 Dose: 3 units Documented By: LMC Co-signed By: CB Admin: 12/01/24 08:45 Dose: 2 units Documented By: LMC Co-signed By: MICHAEL Admin: 11/30/24 20:21 Dose: 8 units Documented By: BH Co-signed By: ASM Admin: 11/30/24 17:33 Dose: 7 units Documented By: MPS Co-signed By: TARIQS Admin: 11/30/24 13:13 Dose: 23 units Documented By: MPS Co-signed By: KD Admin: 11/30/24 08:26 Dose: 10 units Documented By: MPS Co-signed By: VGS Admin: 11/29/24 20:38 Dose: Not Given Documented By: Admin: 11/29/24 17:00 Dose: 12 units Documented By: MINDA Co-signed By: JOHANN Admin: 11/29/24 12:10 Dose: 6 units Documented By: ES Co-signed By: K Admin: 11/29/24 08:15 Dose: 6 units Documented By: ES Co-signed By: CLR Admin: 11/28/24 20:58 Dose: Not Given Documented By: Admin: 11/28/24 17:19 Dose: 10 units Documented By: CHRISTIAN Co-signed By: CELI Admin: 11/28/24 12:08 Dose: 7 units Documented By: CHRISTIAN Co-signed By: CELI Admin: 11/28/24 08:40 Dose: 8 units Documented By: CHRISTIAN Co-signed By: JEFFREY Admin: 11/27/24 20:51 Dose: 6 units Documented By: AMC Co-signed By: NEGIN Admin: 11/27/24 17:10 Dose: 6 units Documented By: CHRISTIAN Co-signed By: OS Admin: 11/27/24 12:56 Dose: 12 units Documented By: CHRISTIAN Co-signed By: OS Admin: 11/27/24 08:36 Dose: 8 units Documented By: CHRISTIAN Co-signed By: DTT Admin: 11/26/24 20:36 Dose: 4 units Documented By: STEPHANIE Co-signed By: HDC Admin: 11/26/24 17:23 Dose: Not Given Documented By: Admin: 11/26/24 13:43 Dose: Not Given Documented By: CAP Insulin Glargine (Lantus Per Unit Charge) 20 units SC DAILY JO Stop: 01/02/25 08:59 Last Admin: 12/05/24 09:04 Dose: 20 units Documented By: GABRIELE Co-signed By: DMH Admin: 12/04/24 09:12 Dose: 20 units Documented By: LMC Co-signed By: MELANY Admin: 12/03/24 08:54 Dose: 20 units Documented By: SANJIV Co-signed By: EZEKIEL Lidocaine (Lidocaine 5% 1 Patch) 1 patch TD QAM JO Stop: 12/28/24 05:29 Last Admin: 12/05/24 07:33 Dose: 1 patch Documented By: Admin: 12/04/24 07:42 Dose: 1 patch Documented By: Admin: 12/03/24 08:41 Dose: 1 patch Documented By: Admin: 12/02/24 09:03 Dose: Not Given Documented By: Admin: 12/01/24 07:35 Dose: Not Given Documented By: Admin: 11/30/24 07:52 Dose: 1 patch Documented By: Admin: 11/29/24 08:18 Dose: 1 patch Documented By: Admin: 11/28/24 07:25 Dose: 1 patch Documented By: CHRISTIAN Metoprolol Succinate (Metoprolol Succ 50mg Ext Rel Tab) 200 mg PO [facility] Stop: 12/26/24 20:59 Last Admin: 12/02/24 20:37 Dose: 200 mg Documented By: Admin: 12/01/24 20:07 Dose: 200 mg Documented By: Admin: 11/30/24 20:21 Dose: 200 mg Documented By: Admin: 11/29/24 20:37 Dose: 200 mg Documented By: Admin: 11/28/24 20:18 Dose: 200 mg Documented By: Admin: 11/27/24 20:34 Dose: 200 mg Documented By: [facility] [place]: 11/26/24 20:35 Dose: 200 mg Documented By: STEPHANIE Miscellaneous (Remove Lidoderm Patch) 1 each N/A DAILY@2100 JO Stop: 12/29/24 20:59 Last Admin: 12/04/24 21:39 Dose: 1 each Documented By: Admin: 12/03/24 20:42 Dose: 1 each Documented By: Admin: 12/02/24 20:39 Dose: Not Given Documented By: Admin: 12/01/24 20:07 Dose: 1 each Documented By: Admin: 11/30/24 20:22 Dose: 1 each Documented By: Admin: 11/29/24 20:37 Dose: 1 each Documented By: BERONICA Multivitamins (Multivitamin Tab) 1 tab PO QAM JO Stop: 12/27/24 08:59 Last Admin: 12/05/24 07:37 Dose: 1 tab Documented By: Admin: 12/04/24 07:45 Dose: 1 tab Documented By: Admin: 12/03/24 08:40 Dose: 1 tab Documented By: Admin: 12/02/24 09:03 Dose: 1 tab Documented By: Admin: 12/01/24 07:35 Dose: Not Given Documented By: Admin: 11/30/24 07:42 Dose: 1 tab Documented By: Admin: 11/29/24 08:19 Dose: 1 tab Documented By: Admin: 11/28/24 08:41 Dose: 1 tab Documented By: Admin: 11/27/24 08:38 Dose: 1 tab Documented By: CHRISTIAN Oxycodone HCl (Oxycodone Hcl 10 Mg Tabcr (Oxycontin)) 10 mg PO Q12 JO Stop: 12/11/24 20:59 Last Admin: 12/05/24 09:04 Dose: 10 mg Documented By: Admin: 12/04/24 21:36 Dose: 10 mg Documented By: JHONATAN Oxycodone HCl (Oxycodone Hcl Ir 5 Mg Tab (Immediate Release)) 10 mg PO Q6 PRN PRN Reason: Severe Pain (Scale 7, 8, 9,10) Stop: 12/18/24 17:36 Last Admin: 12/05/24 13:20 Dose: 10 mg Documented By: Admin: 12/05/24 07:21 Dose: 10 mg Documented By: Admin: 12/05/24 00:42 Dose: 10 mg Documented By: Admin: 12/04/24 18:37 Dose: 10 mg Documented By: GABRIELE Polyethylene Glycol (Polyethylene (Miralax) 17 Gm Pack) 17 gm PO DAILY JO Stop: 12/27/24 08:59 Last Admin: 12/05/24 07:38 Dose: Not Given Documented By: Admin: 12/04/24 07:42 Dose: Not Given Documented By: Admin: 12/03/24 08:39 Dose: Not Given Documented By: Admin: 12/02/24 09:15 Dose: 17 gm Documented By: Admin: 12/01/24 07:35 Dose: Not Given Documented By: Admin: 11/30/24 07:51 Dose: 17 gm Documented By: Admin: 11/29/24 08:16 Dose: 17 gm Documented By: Admin: 11/28/24 08:48 Dose: Not Given Documented By: Admin: 11/27/24 08:37 Dose: 17 gm Documented By: CHRISTIAN Pregabalin (Pregabalin 150 Mg Cap) 150 mg PO TID JO Stop: 12/26/24 13:59 Last Admin: 12/05/24 13:20 Dose: 150 mg Documented By: Admin: 12/05/24 09:04 Dose: 150 mg Documented By: Admin: 12/04/24 21:36 Dose: 150 mg Documented By: Admin: 12/04/24 13:03 Dose: 150 mg Documented By: Admin: 12/04/24 07:43 Dose: 150 mg Documented By: Admin: 12/03/24 20:38 Dose: 150 mg Documented By: Admin: 12/03/24 13:14 Dose: 150 mg Documented By: Admin: 12/03/24 08:39 Dose: 150 mg Documented By: Admin: 12/02/24 20:35 Dose: 150 mg Documented By: Admin: 12/02/24 13:51 Dose: 150 mg Documented By: Admin: 12/02/24 09:15 Dose: 150 mg Documented By: Admin: 12/01/24 20:06 Dose: 150 mg Documented By: Admin: 12/01/24 15:03 Dose: Not Given Documented By: Admin: 12/01/24 07:40 Dose: 150 mg Documented By: Admin: 11/30/24 20:22 Dose: 150 mg Documented By: Admin: 11/30/24 13:13 Dose: 150 mg Documented By: Admin: 11/30/24 07:51 Dose: 150 mg Documented By: Admin: 11/29/24 20:33 Dose: 150 mg Documented By: Admin: 11/29/24 12:24 Dose: 150 mg Documented By: Admin: 11/29/24 08:17 Dose: 150 mg Documented By: Admin: 11/28/24 20:17 Dose: 150 mg Documented By: Admin: 11/28/24 13:52 Dose: 150 mg Documented By: RJRosa Elena Admin: 11/28/24 08:41 Dose: 150 mg Documented By: RJRosa Elena Admin: 11/27/24 20:32 Dose: 150 mg Documented By: Admin: 11/27/24 14:31 Dose: 150 mg Documented By: Admin: 11/27/24 08:36 Dose: 150 mg Documented By: Admin: 11/26/24 20:35 Dose: 150 mg Documented By: Admin: 11/26/24 13:48 Dose: 150 mg Documented By: ALEIDA Rifampin (Rifampin 300 Mg Capsule) 300 mg PO BID JO Stop: 12/26/24 11:59 Last Admin: 12/05/24 07:36 Dose: 300 mg Documented By: Admin: 12/04/24 21:37 Dose: 300 mg Documented By: Admin: 12/04/24 07:44 Dose: 300 mg Documented By: Admin: 12/03/24 20:44 Dose: 300 mg Documented By: Admin: 12/03/24 08:39 Dose: 300 mg Documented By: Admin: 12/02/24 20:36 Dose: 300 mg Documented By: Admin: 12/02/24 09:03 Dose: 300 mg Documented By: Admin: 12/01/24 20:07 Dose: 300 mg Documented By: Admin: 12/01/24 07:37 Dose: 300 mg Documented By: Admin: 11/30/24 20:22 Dose: 300 mg Documented By: Admin: 11/30/24 07:42 Dose: 300 mg Documented By: Admin: 11/29/24 20:34 Dose: 300 mg Documented By: Admin: 11/29/24 08:19 Dose: 300 mg Documented By: Admin: 11/28/24 20:18 Dose: 300 mg Documented By: Admin: 11/28/24 08:42 Dose: 300 mg Documented By: Admin: 11/27/24 20:33 Dose: 300 mg Documented By: Admin: 11/27/24 08:38 Dose: 300 mg Documented By: Admin: 11/26/24 20:34 Dose: 300 mg Documented By: Admin: 11/26/24 12:59 Dose: 300 mg Documented By: TNK Sennosides (Senna 8.6 Mg Tab) 8.6 mg PO QAM JO Stop: 01/04/25 08:59 Last Admin: 12/05/24 07:38 Dose: Not Given Documented By: GABRIELE Tamsulosin HCl (Tamsulosin Hcl 0.4 Mg Cap) 0.4 mg PO HS JO Stop: 12/26/24 20:59 Last Admin: 12/04/24 21:38 Dose: 0.4 mg Documented By: Admin: 12/03/24 20:41 Dose: 0.4 mg Documented By: Admin: 12/02/24 20:38 Dose: 0.4 mg Documented By: Admin: 12/01/24 20:07 Dose: 0.4 mg Documented By: Admin: 11/30/24 20:21 Dose: 0.4 mg Documented By: Admin: 11/29/24 20:34 Dose: 0.4 mg Documented By: Admin: 11/28/24 20:17 Dose: 0.4 mg Documented By: Admin: 11/27/24 20:33 Dose: 0.4 mg Documented By: Admin: 11/26/24 20:35 Dose: 0.4 mg Documented By: STEPHANIE Vitamin D (Cholecalciferol 25 Mcg (1000 Units) Tab) 25 mcg PO DAILY JO Stop: 12/27/24 08:59 Last Admin: 12/05/24 07:37 Dose: 25 mcg Documented By: Admin: 12/04/24 07:45 Dose: 25 mcg Documented By: Admin: 12/03/24 08:40 Dose: 25 mcg Documented By: Admin: 12/02/24 09:05 Dose: Not Given Documented By: Admin: 12/01/24 07:35 Dose: Not Given Documented By: Admin: 11/30/24 07:41 Dose: 25 mcg Documented By: Admin: 11/29/24 08:19 Dose: 25 mcg Documented By: Admin: 11/28/24 08:42 Dose: 25 mcg Documented By: Admin: 11/27/24 08:37 Dose: 25 mcg Documented By: CHRSITIAN (2) Infection associated with internal fixation device of spine Encounter type: subsequent encounter Qualified Code(s): T84.63XD - Infection and inflammatory reaction due to internal fixation device of spine, subsequent encounter
[2024-12-05] MEDS: POTASSIUM CHLORIDE CRTAB 20 MEQ TABCR PO STA (16:13)
[2024-12-05] MEDS: CYCLOBENZAPRINE HCL 10 MG TAB PO SCH (21:22)
[2024-12-05] MEDS: HYDROmorphone INJ 0.5 MG/0.5 ML SYR IV PRN (23:55)
--- NOTE | 2024-12-06 08:15 | Orthopedic Progress Note ---
Date of Service December 06, 2024 Assessment & Plan (1) Intractable low back pain: Plan: He is status post I&D lumbar spine with continued poor pain control with pain involving the low back and left leg. MRI of the lumbar and pelvis were performed yesterday. Again unable to explain his continued pain. No acute findings that warrant surgical intervention. Continue antibiotics. Continue with physical therapy. Appreciate pain management recommendations. Hopefully discharge home on Sunday. Home health is been set up to manage his PICC line and IV antibiotics Admission and Anticipated Discharge Date Admission Date: November 26, 2024 Fidel Rodriguez is status post I&D lumbar spine. Is still struggling with pain control. Still reports left leg pain. MRI of the lumbar spine and pelvis were performed yesterday. No acute findings. He still on Ancef and rifampin. Current blood cultures and wound cultures are no growth to date. Yesterday in physical therapy ambulating 65 feet x 2 and then 20 feet x 2. Pain management team has been brought in to help with better pain control options for him. He is currently on a Lidoderm patch, OxyContin 10 mg twice daily, Flexeril and oxy IR 10 mg every 6 hours as needed. we are currently limiting IV narcotics. Review of Systems Review of Systems: All systems reviewed & are unremarkable except as noted in HPI & below Physical Exam Physical Exam: He is laying in bed sleeping but easily arousable. He reports significant pain although he does not appear to be in acute distress Still has ANNA MARIE drain in lumbar dressing is clean dry and intact Nontender to palpation over the left lateral hip Results & Data Vital Signs (Past 12 Hours) Vital Signs Temp Pulse Resp BP Pulse Ox O2 Del Method 12/06/24 07:43 36.7 C 103 H 18 130/83 94 Room Air 12/05/24 23:11 36.6 C 104 H 18 174/99 H 97 Room Air Diagnostic Findings [place], [place] [phone] Magnetic Resonance Report Patient: KARTHIKEYAN ANNA Admit Date: 11/26/24 MR#: [id number] Address1: [address] Acct ID:[id number] Address2: Date: 1955 [facility] Zip: [place] [address] Age: 69 Location: 3N Sex: M Room/Bed: N380-1 Att Phy: Abraham Poon MD Diagnosis: INTRACTABLE LOW BACK PAIN, RECENT EPIDURAL SPINAL Rubina Phy: Hank Coppola PA-C Service Date: 12/04/24 [facility] Phy: Interpreting Phy: Holly Sharma MDAdmit Phy: Lisa Ritchie MD Ordering Phy: Abraham Poon MD cc: ~ Exam(s): MRI L SPINE W/WO Contrast EXAM: MR Lumbar Spine Without and With Intravenous Contrast CLINICAL HISTORY: Reason for exam: determine etiology of worsening lower back pain. TECHNIQUE: Magnetic resonance images of the lumbar spine without and with intravenous contrast in multiple planes. CONTRAST: Contrast must be dictated COMPARISON: Prior MRI of the lumbar spine from November 22 2024. FINDINGS: Vertebrae: There are 5 lumbar type vertebral bodies with a mild generalized curved to the right and normal lumbar lordosis. Patient is status post posterior decompression of L2-L5 and posterior fusion of L2- S1 with transpedicular screws and connecting mass in place. No acute fracture. Spinal cord: Unremarkable. Normal signal. No abnormal enhancement. Soft tissues: There is a dorsal epidural fluid collection drainage catheter in place. There heart fluid collections in the subcutaneous fat advanced atrophy of the iliopsoas, paraspinous intraspinous musculature. The aorta and IVC flow voids are intact. Small right renal cyst. DISCS/SPINAL CANAL/NEURAL FORAMINA: L1-L2: The Intervertebral disc is normal. L2-L3: Interbody fusion device in place. L3-L4: Interbody fusion device in place. L4-L5: There is mild disc degeneration with annular disc bulge flattening the ventral thecal sac. L5-S1: The intervertebral disc is normal. IMPRESSION: Status post posterior decompression, interbody and posterior fusion of L2- S1 with a new small epidural fluid collection and subcutaneous fluid collections with dorsal epidural drainage catheter in place. Electronically signed by: Holly Sharma MD 12/04/24 23:54 PM Dictated: 12/04/242353 Transcribed: 12/04/242353 [phone] Magnetic Resonance Report Patient: KARTHIKEYAN ANNA Admit Date: 11/26/24 MR#: [id number] Address1: [address] Acct ID:[id number] Address2: Date: 1955 [facility] Zip: [place] [address] Age: 69 Location: 3N Sex: M Room/Bed: [facility] Att Phy: Vicente Patten MD Diagnosis: INTRACTABLE LOW BACK PAIN, RECENT EPIDURAL SPINAL Rubina Phy: Hank Coppola PA-C Service Date: 12/03/24 [facility] Phy: Interpreting Phy: William Flores [facility]: Lisa Ritchie MD Ordering Phy: Jabari Vang D.O. cc: ~ Exam(s): MRI PELVIS Without Contrast EXAM: MR Pelvis Without Intravenous Contrast CLINICAL HISTORY: Reason for exam: Left hip pain. TECHNIQUE: Multiplanar magnetic resonance images of the pelvis without intravenous contrast. COMPARISON: X-rays dated 09/19/2024 FINDINGS: Bones/joints: No acute fracture. No dislocation. No bone marrow edema is seen. No evidence of avascular necrosis. There are postoperative changes involving the spine. Soft tissues: No masses or fluid collections are noted. The visualized para-articular musculature is unremarkable.. Additional: There is a regular thickening noted of the urinary bladder wall. IMPRESSION: Unremarkable noncontrast MRI of the pelvis. Electronically signed by: William Flores MD 12/04/24 00:45 AM Dictated: 12/04/2444 Transcribed: 12/04/2444 Document Auto-Saved Queries Orthopedic Spine Obesity: Yes
[2024-12-06] MEDS: LANTUS PER UNIT CHARGE SC SCH (08:28)
--- NOTE | 2024-12-06 14:00 | Hospitalist Progress Note ---
Date of Service December 06, 2024 Assessment & Plan (1) Intractable low back pain: (2) Infection associated with internal fixation device of spine: (3) Status post incision and drainage: (4) MSSA (methicillin susceptible Staphylococcus aureus) infection: (5) Hypertensive urgency: (6) Hypokalemia: (7) Abnormal urinalysis: Plan Patient is a 69-year-old male with past medical history significant for DM type II with diabetic polyneuropathy, TALIB, HLD, HTN, bicuspid aortic valve with aortic valve stenosis and aortic regurgitation, mild mitral regurgitation, history of left retinal artery occlusion in 2020, atherosclerosis of the thoracic aortic arch with saccular aneurysm within the proximal descending thoracic aorta, carotid artery stenosis, hepatic steatosis, Wagner's esophagus, depression, insomnia, chronic pancreatitis, obesity, 3 pack-year smoking history and history of kidney stones who presented to the ED via EMS from [facility] due to intractable low back pain. Recent confinement under service to 11/15/2024-11/25/2024 with sepsis 2/2 postoperative lumbar epidural abscess s/p lumbar decompression and fusion surgery performed by Dr. Vang on 11/06/2024. Underwent irrigation and debridement of the lumbar spine with hematoma evacuation on 11/17/[address] Vang. Intraoperative cultures grew MSSA; blood cultures were negative. Seen and evaluated by ID whom recommended: IV cefazolin 2g Q8H and po rifampin 300mg BID to be continued through 12/29/2024, then chronic suppressive therapy with cefadroxil 500mg BID likely for life. Hospital course c/b development of BRIAN determined likely 2/2 multifactorial ATN ISO sepsis, severe ischemia ISO IV contrast administration with sepsis plus or minus toxicity associated with previously administered IV vancomycin prior to ID evaluation. #Intractable Low Back Pain #Chronic Pain Syndrome #Postoperative lumbar epidural abscess s/p I&D with hematoma evacuation on 11/17/24 #MSSA infection -patient with extensive instrumentation, debridement of lumbar spine, treatment with abx -patient continues to endorse extensive back pain that exceeds imaging, lab and hemodynamic findings -repeat incision and drainage on 12/01 -consideration for hyperalgesia given chronic opioid therapies and exam findings -MR spine without concern for acute process per ortho spine -yesterday and today patient very asleep on arrival into room, and required several times of calling name to wake up. drowsy on arousal, states he is in severe left leg pain Plan: -discussed at length with ortho spine, pain management was consulted and provided recommendations, appreciate recs -given chronic pain syndrome, patient should follow with pain management outpatient for weaning plan for long acting opioids recommended by pain management -butrans patch would be consideration of longer term opioid therapies required -pain medication per pain management -stop cyclobenzaprine due to drowsiness -continue oxycontin 10mg bid and oxycodone 10mg q6hr prn -Continue IV Ancef 2g Q8H + po rifampin 500mg BID as outlined by ID -Because of this, will tentatively plan to continue ABX course through 12/30/24 instead to cover for missed doses -Will then need to be transitioned to chronic immunosuppressive therapy with po cefadroxil 500mg BID as outlined by ID once Ancef/rifampin completed -PT/OT evaluations appreciated -patient needs to be out of bed as much as possible -continue decadron, lidocaine patch -will aim for discharge home on Sunday #HTN -Continue BB #DMII with diabetic polyneuropathy -Hgb A1c 7.3% as of 11/16/2024 -Hold home regimen, SSI protocol while inpatient -Monitor BSG checks, CC diet #Atherosclerosis of the thoracic aortic arch with 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 -continue ASA, statin #HLD -Continue statin as per above #GERD #History of Wagner's esophagus -Hold PPI while on rifampin 2/2 potential drug-drug interaction #Depression -Continue Cymbalta #History of TALIB #History of acute surgical blood loss s/p recent lumbar spine operations (as mentioned above) -H/H appears stable compared to prior -Continue Fe supplementation and monitor #BPH -Continue Proscar, Flomax #Insomnia -restart trazadone I spent a total of 45 minutes in direct patient care, including [id number] time with the patient and/or family, reviewing medical records, ordering and reviewing diagnostic tests, and coordinating care with other healthcare providers. This time includes: history taking, physical examination, medical decision making, counseling, ECG interpretation, imaging interpretation, lab interpretation, orders, and education, excluding time spent in the performance of separately billed services. Admission and Anticipated Discharge Date Admission Date: November 26, 2024 Subjective Patient seen and examined at bedside. Patient was sound asleep on arrival into room, required calling name several times to awaken. Once awake, patient appeared groggy and mumbling. States his left leg is in intractable pain and that there has to be more that can be done. Requested IV pain medication to help take the edge off. Expressed empathy regarding patients pain, and discussed the results of the MRI and discussions with ortho in regards to no clear acute process that is causing the pain. Review of Systems Review of Systems: CONSTITUTIONAL: Patient denies fevers, chills, sweats and weight changes. EYES: Patient denies any visual symptoms. EARS, NOSE, AND THROAT: No difficulties with hearing. No symptoms of rhinitis or sore throat. CARDIOVASCULAR: Patient denies chest pains, palpitations, orthopnea and paroxysmal nocturnal dyspnea. RESPIRATORY: No dyspnea on exertion, no wheezing or cough. GI: No nausea, vomiting, diarrhea, constipation, abdominal pain, hematochezia or melena. : No urinary hesitancy or dribbling. No nocturia or urinary frequency. No abnormal urethral discharge. MUSCULOSKELETAL: intractable leg pain NEUROLOGIC: No chronic headaches, no seizures. Patient denies numbness, tingling or weakness. PSYCHIATRIC: Patient denies problems with mood disturbance. No problems with anxiety. ENDOCRINE: No excessive urination or excessive thirst. DERMATOLOGIC: Patient denies any rashes or skin changes. Physical Exam Physical Exam: Gen: A&O 3 NAD, very asleep and drowsy in room HEENT: NCAT, EOMI, not icteric. External ears normal. No rhinorrhea. Moist mucous membranes. Neck: Supple, full range of motion, no observable masses, No meningeal sign. Lungs: No Respiratory distress. CV: RRR, no edema. Abdomen: Soft, nondistended, No rebound tenderness. MSK: No joint swelling, no redness. No myoclonus noted. Tenderness son left leg, lower back. Skin: No rashes, petechiae, lesions. Normal color per patient. Neuro: Normal Gait, Grossly intact. Psych: Appropriate for situation. Results & Data Results & Data Vital Signs (Past 12 Hours) Vital Signs Temp Pulse Resp BP Pulse Ox O2 Del Method 12/06/24 07:43 36.7 C 103 H 18 130/83 94 Room Air Medications Administered Acetaminophen (Acetaminophen 500 Mg Tab) 1,000 mg PO Q8 PRN PRN Reason: Pain or Fever Stop: 12/26/24 10:59 Last Admin: 12/06/24 05:48 Dose: 1,000 mg Documented By: minh Admin: 12/05/24 13:20 Dose: 1,000 mg Documented By: Admin: 12/05/24 04:44 Dose: 1,000 mg Documented By: MLCheri Admin: 12/04/24 20:33 Dose: 1,000 mg Documented By: JHONATAN Amlodipine Besylate (Amlodipine Besylate 5 Mg Tab) 2.5 mg PO QAM JO Stop: 12/30/24 08:59 Last Admin: 12/03/24 08:40 Dose: 2.5 mg Documented By: Admin: 12/02/24 09:02 Dose: 2.5 mg Documented By: Admin: 12/01/24 07:37 Dose: 2.5 mg Documented By: Admin: 11/30/24 08:57 Dose: 2.5 mg Documented By: BAIRON Aspirin (Aspirin 81 Mg Ectab) 81 mg PO [facility] Stop: 12/26/24 20:59 Last Admin: 12/05/24 21:24 Dose: 81 mg Documented By: minh Admin: 12/04/24 21:37 Dose: 81 mg Documented By: Admin: 12/03/24 20:38 Dose: 81 mg Documented By: Admin: 12/02/24 20:36 Dose: 81 mg Documented By: Admin: 12/01/24 20:06 Dose: 81 mg Documented By: Admin: 11/30/24 20:22 Dose: 81 mg Documented By: Admin: 11/29/24 20:34 Dose: 81 mg Documented By: Admin: 11/28/24 20:17 Dose: 81 mg Documented By: Admin: 11/27/24 20:33 Dose: 81 mg Documented By: Admin: 11/26/24 20:35 Dose: 81 mg Documented By: CJC Atorvastatin Calcium (Atorvastatin 40 Mg Tab) 40 mg PO JO Stop: 12/26/24 20:59 Last Admin: 12/05/24 21:24 Dose: 40 mg Documented By: minh Admin: 12/04/24 21:38 Dose: 40 mg Documented By: Admin: 12/03/24 20:42 Dose: 40 mg Documented By: Admin: 12/02/24 20:36 Dose: 40 mg Documented By: Admin: 12/01/24 20:06 Dose: 40 mg Documented By: Admin: 11/30/24 20:22 Dose: 40 mg Documented By: Admin: 11/29/24 20:36 Dose: 40 mg Documented By: Admin: 11/28/24 20:18 Dose: 40 mg Documented By: Admin: 11/27/24 20:33 Dose: 40 mg Documented By: Admin: 11/26/24 20:34 Dose: 40 mg Documented By: JENNIFFERC Cyclobenzaprine HCl (Cyclobenzaprine Hcl 10 Mg Tab) 10 mg PO TID JO Stop: 01/04/25 20:59 Last Admin: 12/06/24 08:06 Dose: 10 mg Documented By: Admin: 12/05/24 21:22 Dose: 10 mg Documented By: minh Docusate Sodium (Docusate Sodium 100 Mg Cap) 100 mg PO BID JO Stop: 12/26/24 20:59 Last Admin: 12/06/24 08:05 Dose: Not Given Documented By: Admin: 12/05/24 21:23 Dose: Not Given Documented By: minh Admin: 12/05/24 07:38 Dose: Not Given Documented By: Admin: 12/04/24 21:37 Dose: 100 mg Documented By: Admin: 12/04/24 07:41 Dose: Not Given Documented By: Admin: 12/03/24 20:42 Dose: Not Given Documented By: Admin: 12/03/24 08:39 Dose: 100 mg Documented By: Admin: 12/02/24 20:38 Dose: 100 mg Documented By: Admin: 12/02/24 09:03 Dose: 100 mg Documented By: Admin: 12/01/24 20:06 Dose: 100 mg Documented By: Admin: 12/01/24 07:35 Dose: Not Given Documented By: Admin: 11/30/24 20:21 Dose: 100 mg Documented By: Admin: 11/30/24 07:51 Dose: 100 mg Documented By: Admin: 11/29/24 20:33 Dose: 100 mg Documented By: Admin: 11/29/24 08:17 Dose: 100 mg Documented By: Admin: 11/28/24 20:18 Dose: 100 mg Documented By: Admin: 11/28/24 08:47 Dose: Not Given Documented By: Admin: 11/27/24 20:33 Dose: 100 mg Documented By: Admin: 11/27/24 08:37 Dose: 100 mg Documented By: Admin: 11/26/24 20:34 Dose: 100 mg Documented By: STEPHANIE Duloxetine HCl (Duloxetine Hcl 20 Mg Cap) 80 mg PO JO Stop: 12/26/24 20:59 Last Admin: 12/05/24 21:24 Dose: 80 mg Documented By: minh Admin: 12/04/24 21:37 Dose: 80 mg Documented By: Admin: 12/03/24 20:41 Dose: 80 mg Documented By: Admin: 12/02/24 20:36 Dose: 80 mg Documented By: Admin: 12/01/24 20:07 Dose: 80 mg Documented By: Admin: 11/30/24 20:22 Dose: 80 mg Documented By: Admin: 11/29/24 20:33 Dose: 80 mg Documented By: Admin: 11/28/24 20:18 Dose: 80 mg Documented By: Admin: 11/27/24 20:32 Dose: 80 mg Documented By: Admin: 11/26/24 20:34 Dose: 80 mg Documented By: STEPHANIE Finasteride (Finasteride 5 Mg Tab) 5 mg PO HS JO Stop: 12/26/24 20:59 Last Admin: 12/05/24 21:27 Dose: 5 mg Documented By: minh Admin: 12/04/24 21:39 Dose: 5 mg Documented By: Admin: 12/03/24 20:44 Dose: 5 mg Documented By: Admin: 12/02/24 20:38 Dose: 5 mg Documented By: Admin: 12/01/24 20:06 Dose: 5 mg Documented By: Admin: 11/30/24 20:22 Dose: 5 mg Documented By: Admin: 11/29/24 20:36 Dose: 5 mg Documented By: Admin: 11/28/24 20:18 Dose: 5 mg Documented By: [facility] [place] Admin: 11/27/24 20:33 Dose: 5 mg Documented By: [facility] [place] Admin: 11/26/24 20:35 Dose: 5 mg Documented By: [facility] Heparin Sodium (Beef Lung) (Heparin 10 Unit/Ml 5 Ml Flush) 5 ml FLUSH PRN PRN PRN Reason: Flush Stop: 12/26/24 15:53 Last Admin: 12/06/24 12:40 Dose: 5 ml Documented By: Admin: 12/02/24 16:32 Dose: 5 ml Documented By: Admin: 12/02/24 08:55 Dose: 5 ml Documented By: Admin: 12/01/24 17:47 Dose: 5 ml Documented By: Admin: 12/01/24 12:02 Dose: 5 ml Documented By: Admin: 12/01/24 07:40 Dose: 5 ml Documented By: Admin: 11/30/24 06:43 Dose: 5 ml Documented By: Admin: 11/30/24 01:22 Dose: 5 ml Documented By: Admin: 11/29/24 08:17 Dose: 5 ml Documented By: MINDA Hydromorphone HCl (Hydromorphone Inj 0.5 Mg/0.5 Ml Syr) 0.5 mg IV DAILY PRN PRN Reason: Pain Stop: 12/19/24 13:12 Last Admin: 12/05/24 23:55 Dose: 0.5 mg Documented By: minh Cefazolin Sodium (Ancef 2000mg) 2,000 mg in 15 mls @ 3.75 mls/min IV Q8H [facility], [facility] Stop: 01/07/25 11:59 Last Admin: 12/06/24 12:29 Dose: 3.75 mls/min Documented By: Admin: 12/06/24 04:16 Dose: 3.75 mls/min Documented By: snc Admin: 12/05/24 19:49 Dose: 3.75 mls/min Documented By: snc Admin: 12/05/24 12:05 Dose: 3.75 mls/min Documented By: Admin: 12/05/24 05:10 Dose: 3.75 mls/min Documented By: Admin: 12/04/24 20:15 Dose: 3.75 mls/min Documented By: Admin: 12/04/24 12:35 Dose: 3.75 mls/min Documented By: Admin: 12/04/24 03:46 Dose: 3.75 mls/min Documented By: Admin: 12/03/24 20:38 Dose: 3.75 mls/min Documented By: Admin: 12/03/24 12:41 Dose: 3.75 mls/min Documented By: Admin: 12/03/24 03:25 Dose: 3.75 mls/min Documented By: SNMarin Admin: 12/02/24 20:39 Dose: 3.75 mls/min Documented By: Admin: 12/02/24 12:00 Dose: 3.75 mls/min Documented By: Admin: 12/02/24 05:23 Dose: 3.75 mls/min Documented By: Admin: 12/01/24 20:06 Dose: 3.75 mls/min Documented By: Admin: 12/01/24 12:02 Dose: 3.75 mls/min Documented By: Admin: 12/01/24 04:10 Dose: 3.75 mls/min Documented By: Admin: 11/30/24 20:22 Dose: 3.75 mls/min Documented By: Admin: 11/30/24 13:13 Dose: 3.75 mls/min Documented By: Admin: 11/30/24 04:20 Dose: 3.75 mls/min Documented By: Admin: 11/29/24 20:31 Dose: 3.75 mls/min Documented By: Admin: 11/29/24 12:11 Dose: 3.75 mls/min Documented By: Admin: 11/29/24 04:08 Dose: 3.75 mls/min Documented By: Admin: 11/28/24 19:46 Dose: 3.75 mls/min Documented By: Admin: 11/28/24 12:08 Dose: 3.75 mls/min Documented By: Admin: 11/28/24 04:53 Dose: 3.75 mls/min Documented By: Admin: 11/27/24 20:32 Dose: 3.75 mls/min Documented By: Admin: 11/27/24 13:04 Dose: 3.75 mls/min Documented By: Admin: 11/27/24 04:49 Dose: 3.75 mls/min Documented By: Admin: 11/26/24 20:24 Dose: 3.75 mls/min Documented By: Admin: 11/26/24 12:59 Dose: 3.75 mls/min Documented By: TNK Insulin Aspart (Insulin Aspart Per Unit Charge) 0 units SC ACHS JO Stop: 12/26/24 12:59 Last Admin: 12/06/24 12:29 Dose: 7 units Documented By: BIJAN Co-signed By: TRICE Admin: 12/06/24 08:28 Dose: 10 units Documented By: BIJAN Co-signed By: LUTHER Admin: 12/05/24 21:21 Dose: 17 units Documented By: minh Co-signed By: NICO Admin: 12/05/24 17:12 Dose: 11 units Documented By: HARSHA Co-signed By: PAO Admin: 12/05/24 12:15 Dose: 17 units Documented By: GABRIELE Co-signed By: PAO Admin: 12/05/24 09:03 Dose: 12 units Documented By: GABRIELE Co-signed By: HARSHA(2) Admin: 12/04/24 21:10 Dose: Not Given Documented By: JHONATAN Co-signed By: RICHARD Admin: 12/04/24 17:20 Dose: 13 units Documented By: GABRIELE Co-signed By: PAO Admin: 12/04/24 12:37 Dose: 16 units Documented By: TRICE Co-signed By: MELANY Admin: 12/04/24 09:12 Dose: 15 units Documented By: TRICE Co-signed By: MELANY Admin: 12/03/24 20:45 Dose: Not Given Documented By: ALBA Co-signed By: JHONATAN Admin: 12/03/24 17:45 Dose: 11 units Documented By: SANJIV Co-signed By: BIJAN Admin: 12/03/24 12:42 Dose: 9 units Documented By: SANJIV Co-signed By: MELANY Admin: 12/03/24 08:53 Dose: 17 units Documented By: SANJIV Co-signed By: EZEKIEL Admin: 12/02/24 20:40 Dose: Not Given Documented By: Admin: 12/02/24 17:19 Dose: 17 units Documented By: LMC Co-signed By: MICHAEL Admin: 12/02/24 12:08 Dose: 27 units Documented By: LMC Co-signed By: MICHAEL Admin: 12/02/24 09:08 Dose: 16 units Documented By: LMC Co-signed By: JJarvisM Admin: 12/01/24 20:17 Dose: 16 units Documented By: BYRON Co-signed By: TRICIA Admin: 12/01/24 17:53 Dose: 2 units Documented By: LMC Co-signed By: HEIDE Admin: 12/01/24 12:04 Dose: 3 units Documented By: LMC Co-signed By: HEIDE Admin: 12/01/24 08:45 Dose: 2 units Documented By: TRICE Co-signed By: MICHAEL Admin: 11/30/24 20:21 Dose: 8 units Documented By: BH Co-signed By: ASM Admin: 11/30/24 17:33 Dose: 7 units Documented By: MPS Co-signed By: VGS Admin: 11/30/24 13:13 Dose: 23 units Documented By: MPS Co-signed By: KD Admin: 11/30/24 08:26 Dose: 10 units Documented By: MPS Co-signed By: VGS Admin: 11/29/24 20:38 Dose: Not Given Documented By: Admin: 11/29/24 17:00 Dose: 12 units Documented By: MINDA Co-signed By: JOHANN Admin: 11/29/24 12:10 Dose: 6 units Documented By: ES Co-signed By: JEFFREY Admin: 11/29/24 08:15 Dose: 6 units Documented By: MINDA Co-signed By: CLR Admin: 11/28/24 20:58 Dose: Not Given Documented By: Admin: 11/28/24 17:19 Dose: 10 units Documented By: CHRISTIAN Co-signed By: CELI Admin: 11/28/24 12:08 Dose: 7 units Documented By: CHRISTIAN Co-signed By: CELI Admin: 11/28/24 08:40 Dose: 8 units Documented By: CHRISTIAN Co-signed By: JEFFREY Admin: 11/27/24 20:51 Dose: 6 units Documented By: AMC Co-signed By: NEGIN Admin: 11/27/24 17:10 Dose: 6 units Documented By: CHRISTIAN Co-signed By: OS Admin: 11/27/24 12:56 Dose: 12 units Documented By: CHRISTIAN Co-signed By: OS Admin: 11/27/24 08:36 Dose: 8 units Documented By: CHRISTIAN Co-signed By: DTT Admin: 11/26/24 20:36 Dose: 4 units Documented By: STEPHANIE Co-signed By: HDC Admin: 11/26/24 17:23 Dose: Not Given Documented By: Admin: 11/26/24 13:43 Dose: Not Given Documented By: CAP Insulin Glargine (Lantus Per Unit Charge) 10 units SC DAILY JO Stop: 01/05/25 08:59 Last Admin: 12/06/24 08:28 Dose: 10 units Documented By: BIJAN Co-signed By: LUTHER Lidocaine (Lidocaine 5% 1 Patch) 1 patch TD QAM JO Stop: 12/28/24 05:29 Last Admin: 12/06/24 08:08 Dose: 1 patch Documented By: Admin: 12/05/24 07:33 Dose: 1 patch Documented By: Admin: 12/04/24 07:42 Dose: 1 patch Documented By: Admin: 12/03/24 08:41 Dose: 1 patch Documented By: Admin: 12/02/24 09:03 Dose: Not Given Documented By: LMJose L Admin: 12/01/24 07:35 Dose: Not Given Documented By: Admin: 11/30/24 07:52 Dose: 1 patch Documented By: Admin: 11/29/24 08:18 Dose: 1 patch Documented By: Admin: 11/28/24 07:25 Dose: 1 patch Documented By: CHRISTIAN Metoprolol Succinate (Metoprolol Succ 50mg Ext Rel Tab) 200 mg PO HS JO Stop: 12/26/24 20:59 Last Admin: 12/02/24 20:37 Dose: 200 mg Documented By: SNMarin Admin: 12/01/24 20:07 Dose: 200 mg Documented By: Admin: 11/30/24 20:21 Dose: 200 mg Documented By: Admin: 11/29/24 20:37 Dose: 200 mg Documented By: Admin: 11/28/24 20:18 Dose: 200 mg Documented By: Admin: 11/27/24 20:34 Dose: 200 mg Documented By: Admin: 11/26/24 20:35 Dose: 200 mg Documented By: CJC Miscellaneous (Remove Lidoderm Patch) 1 each N/A DAILY@2100 [facility], [facility] Stop: 12/29/24 20:59 Last Admin: 12/05/24 21:26 Dose: 1 each Documented By: minh Admin: 12/04/24 21:39 Dose: 1 each Documented By: MLCheri Admin: 12/03/24 20:42 Dose: 1 each Documented By: Admin: 12/02/24 20:39 Dose: Not Given Documented By: Admin: 12/01/24 20:07 Dose: 1 each Documented By: Admin: 11/30/24 20:22 Dose: 1 each Documented By: Admin: 11/29/24 20:37 Dose: 1 each Documented By: BERONICA Multivitamins (Multivitamin Tab) 1 tab PO QAM JO Stop: 12/27/24 08:59 Last Admin: 12/06/24 08:07 Dose: 1 tab Documented By: Admin: 12/05/24 07:37 Dose: 1 tab Documented By: Admin: 12/04/24 07:45 Dose: 1 tab Documented By: Admin: 12/03/24 08:40 Dose: 1 tab Documented By: Admin: 12/02/24 09:03 Dose: 1 tab Documented By: LMJose L Admin: 12/01/24 07:35 Dose: Not Given Documented By: Admin: 11/30/24 07:42 Dose: 1 tab Documented By: Admin: 11/29/24 08:19 Dose: 1 tab Documented By: Admin: 11/28/24 08:41 Dose: 1 tab Documented By: Admin: 11/27/24 08:38 Dose: 1 tab Documented By: CHRISTIAN Oxycodone HCl (Oxycodone Hcl 10 Mg Tabcr (Oxycontin)) 10 mg PO Q12 [facility], [facility] Stop: 12/11/24 20:59 Last Admin: 12/06/24 08:07 Dose: 10 mg Documented By: Admin: 12/05/24 21:23 Dose: 10 mg Documented By: minh Admin: 12/05/24 09:04 Dose: 10 mg Documented By: Admin: 12/04/24 21:36 Dose: 10 mg Documented By: JHONATAN Oxycodone HCl (Oxycodone Hcl Ir 5 Mg Tab (Immediate Release)) 10 mg PO Q6 PRN PRN Reason: Severe Pain (Scale 7, 8, 9,10) Stop: 12/18/24 17:36 Last Admin: 12/06/24 09:18 Dose: 10 mg Documented By: Admin: 12/06/24 02:34 Dose: 10 mg Documented By: Admin: 12/05/24 19:48 Dose: 10 mg Documented By: minh Admin: 12/05/24 13:20 Dose: 10 mg Documented By: Admin: 12/05/24 07:21 Dose: 10 mg Documented By: Admin: 12/05/24 00:42 Dose: 10 mg Documented By: Admin: 12/04/24 18:37 Dose: 10 mg Documented By: GABRIELE Polyethylene Glycol (Polyethylene (Miralax) 17 Gm Pack) 17 gm PO DAILY JO Stop: 12/27/24 08:59 Last Admin: 12/06/24 08:06 Dose: Not Given Documented By: Admin: 12/05/24 07:38 Dose: Not Given Documented By: Admin: 12/04/24 07:42 Dose: Not Given Documented By: Admin: 12/03/24 08:39 Dose: Not Given Documented By: Admin: 12/02/24 09:15 Dose: 17 gm Documented By: Admin: 12/01/24 07:35 Dose: Not Given Documented By: Admin: 11/30/24 07:51 Dose: 17 gm Documented By: Admin: 11/29/24 08:16 Dose: 17 gm Documented By: Admin: 11/28/24 08:48 Dose: Not Given Documented By: Admin: 11/27/24 08:37 Dose: 17 gm Documented By: CHRISTIAN Pregabalin (Pregabalin 150 Mg Cap) 150 mg PO TID JO Stop: 12/26/24 13:59 Last Admin: 12/06/24 08:06 Dose: 150 mg Documented By: Admin: 12/05/24 21:22 Dose: 150 mg Documented By: minh Admin: 12/05/24 13:20 Dose: 150 mg Documented By: Admin: 12/05/24 09:04 Dose: 150 mg Documented By: Admin: 12/04/24 21:36 Dose: 150 mg Documented By: Admin: 12/04/24 13:03 Dose: 150 mg Documented By: Admin: 12/04/24 07:43 Dose: 150 mg Documented By: Admin: 12/03/24 20:38 Dose: 150 mg Documented By: Admin: 12/03/24 13:14 Dose: 150 mg Documented By: Admin: 12/03/24 08:39 Dose: 150 mg Documented By: Admin: 12/02/24 20:35 Dose: 150 mg Documented By: Admin: 12/02/24 13:51 Dose: 150 mg Documented By: Admin: 12/02/24 09:15 Dose: 150 mg Documented By: Admin: 12/01/24 20:06 Dose: 150 mg Documented By: Admin: 12/01/24 15:03 Dose: Not Given Documented By: Admin: 12/01/24 07:40 Dose: 150 mg Documented By: Admin: 11/30/24 20:22 Dose: 150 mg Documented By: Admin: 11/30/24 13:13 Dose: 150 mg Documented By: Admin: 11/30/24 07:51 Dose: 150 mg Documented By: Admin: 11/29/24 20:33 Dose: 150 mg Documented By: Admin: 11/29/24 12:24 Dose: 150 mg Documented By: Admin: 11/29/24 08:17 Dose: 150 mg Documented By: Admin: 11/28/24 20:17 Dose: 150 mg Documented By: Admin: 11/28/24 13:52 Dose: 150 mg Documented By: Admin: 11/28/24 08:41 Dose: 150 mg Documented By: Admin: 11/27/24 20:32 Dose: 150 mg Documented By: Admin: 11/27/24 14:31 Dose: 150 mg Documented By: Admin: 11/27/24 08:36 Dose: 150 mg Documented By: Admin: 11/26/24 20:35 Dose: 150 mg Documented By: Admin: 11/26/24 13:48 Dose: 150 mg Documented By: CAP Rifampin (Rifampin 300 Mg Capsule) 300 mg PO BID JO Stop: 12/26/24 11:59 Last Admin: 12/06/24 08:07 Dose: 300 mg Documented By: Admin: 12/05/24 21:26 Dose: 300 mg Documented By: minh Admin: 12/05/24 07:36 Dose: 300 mg Documented By: TRLópez Admin: 12/04/24 21:37 Dose: 300 mg Documented By: Admin: 12/04/24 07:44 Dose: 300 mg Documented By: Admin: 12/03/24 20:44 Dose: 300 mg Documented By: Admin: 12/03/24 08:39 Dose: 300 mg Documented By: Admin: 12/02/24 20:36 Dose: 300 mg Documented By: Admin: 12/02/24 09:03 Dose: 300 mg Documented By: Admin: 12/01/24 20:07 Dose: 300 mg Documented By: Admin: 12/01/24 07:37 Dose: 300 mg Documented By: Admin: 11/30/24 20:22 Dose: 300 mg Documented By: Admin: 11/30/24 07:42 Dose: 300 mg Documented By: Admin: 11/29/24 20:34 Dose: 300 mg Documented By: Admin: 11/29/24 08:19 Dose: 300 mg Documented By: Admin: 11/28/24 20:18 Dose: 300 mg Documented By: Admin: 11/28/24 08:42 Dose: 300 mg Documented By: Admin: 11/27/24 20:33 Dose: 300 mg Documented By: Admin: 11/27/24 08:38 Dose: 300 mg Documented By: Admin: 11/26/24 20:34 Dose: 300 mg Documented By: Admin: 11/26/24 12:59 Dose: 300 mg Documented By: [email or web address] Sennosides (Senna 8.6 Mg Tab) 8.6 mg PO QAM JO Stop: 01/04/25 08:59 Last Admin: 12/06/24 08:06 Dose: Not Given Documented By: Admin: 12/05/24 07:38 Dose: Not Given Documented By: GABRIELE Tamsulosin HCl (Tamsulosin Hcl 0.4 Mg Cap) 0.4 mg PO HS JO Stop: 10/03/25 20:59 Last Admin: 12/05/24 21:25 Dose: 0.4 mg Documented By: minh Admin: 12/04/24 21:38 Dose: 0.4 mg Documented By: Admin: 12/03/24 20:41 Dose: 0.4 mg Documented By: Admin: 12/02/24 20:38 Dose: 0.4 mg Documented By: Admin: 12/01/24 20:07 Dose: 0.4 mg Documented By: Admin: 11/30/24 20:21 Dose: 0.4 mg Documented By: Admin: 11/29/24 20:34 Dose: 0.4 mg Documented By: PNCheri Admin: 11/28/24 20:17 Dose: 0.4 mg Documented By: Admin: 11/27/24 20:33 Dose: 0.4 mg Documented By: Admin: 11/26/24 20:35 Dose: 0.4 mg Documented By: STEPHANIE Vitamin D (Cholecalciferol 25 Mcg (1000 Units) Tab) 25 mcg PO DAILY JO Stop: 12/27/24 08:59 Last Admin: 12/06/24 08:07 Dose: 25 mcg Documented By: Admin: 12/05/24 07:37 Dose: 25 mcg Documented By: Admin: 12/04/24 07:45 Dose: 25 mcg Documented By: Admin: 12/03/24 08:40 Dose: 25 mcg Documented By: Admin: 12/02/24 09:05 Dose: Not Given Documented By: Admin: 12/01/24 07:35 Dose: Not Given Documented By: Admin: 11/30/24 07:41 Dose: 25 mcg Documented By: Admin: 11/29/24 08:19 Dose: 25 mcg Documented By: Admin: 11/28/24 08:42 Dose: 25 mcg Documented By: Admin: 11/27/24 08:37 Dose: 25 mcg Documented By: CHRISTIAN (2) Infection associated with internal fixation device of spine Encounter type: subsequent encounter Qualified Code(s): T84.63XD - Infection and inflammatory reaction due to internal fixation device of spine, subsequent encounter
[2024-12-07] MEDS: LANTUS PER UNIT CHARGE SC SCH (08:28)
--- NOTE | 2024-12-07 09:44 | Orthopedic Progress Note ---
Date of Service December 07, 2024 Assessment & Plan (1) Other spondylosis with radiculopathy, lumbar region: Plan: At this time explained to patient that we will change him to a pain patch. We have some concern that OxyContin could lead to a greater dependency issue. He understands and agrees. He is encouraged to continue ambulation. Will discontinue his dressing and drain today. Admission and Anticipated Discharge Date Admission Date: November 26, 2024 Subjective Patient feels his back and leg symptoms are being well-controlled. He is ambulating several times a day. Physical Exam Physical Exam: Patient is in the chair at the bedside. He has good strength testing. Results & Data Vital Signs (Past 12 Hours) Vital Signs Temp Pulse Resp BP Pulse Ox O2 Del Method 12/07/24 08:00 36.7 C 106 H 16 151/93 H 97 Room Air 12/06/24 23:29 36.8 C 116 H 18 125/79 95 Room Air Queries Orthopedic Spine Obesity: Yes
--- NOTE | 2024-12-07 13:39 | Hospitalist Progress Note ---
Date of Service December 07, 2024 Assessment & Plan (1) Intractable low back pain: (2) Infection associated with internal fixation device of spine: (3) Status post incision and drainage: (4) MSSA (methicillin susceptible Staphylococcus aureus) infection: (5) Hypertensive urgency: (6) Hypokalemia: (7) Abnormal urinalysis: Plan Patient is a 69-year-old male with past medical history significant for DM type II with diabetic polyneuropathy, TALIB, HLD, HTN, bicuspid aortic valve with aortic valve stenosis and aortic regurgitation, mild mitral regurgitation, history of left retinal artery occlusion in 2020, atherosclerosis of the thoracic aortic arch with saccular aneurysm within the proximal descending thoracic aorta, carotid artery stenosis, hepatic steatosis, Wagner's esophagus, depression, insomnia, chronic pancreatitis, obesity, 3 pack-year smoking history and history of kidney stones who presented to the ED via EMS from [facility] due to intractable low back pain. Recent confinement under service to 11/15/2024-11/25/2024 with sepsis 2/2 postoperative lumbar epidural abscess s/p lumbar decompression and fusion surgery performed by Dr. Vang on 11/06/2024. Underwent irrigation and debridement of the lumbar spine with hematoma evacuation on 11/17/[address] Vang. Intraoperative cultures grew MSSA; blood cultures were negative. Seen and evaluated by ID whom recommended: IV cefazolin 2g Q8H and po rifampin 300mg BID to be continued through 12/29/2024, then chronic suppressive therapy with cefadroxil 500mg BID likely for life. Hospital course c/b development of BRIAN determined likely 2/2 multifactorial ATN ISO sepsis, severe ischemia ISO IV contrast administration with sepsis plus or minus toxicity associated with previously administered IV vancomycin prior to ID evaluation. #Intractable Low Back Pain #Chronic Pain Syndrome #Postoperative lumbar epidural abscess s/p I&D with hematoma evacuation on 11/17/24 #MSSA infection, resolving -patient with extensive instrumentation, debridement of lumbar spine, treatment with abx -patient continues to endorse extensive back pain that exceeds imaging, lab and hemodynamic findings -repeat incision and drainage on 12/01 -consideration for hyperalgesia given chronic opioid therapies and exam findings -MR spine without concern for acute process per ortho spine -pain not adequately controlled per patient over past few days and full opioid therapy not standard of care for chronic back pain outpatient Plan: -discussed at length with ortho spine, rotate oxycontin to butrans patch (90 MME daily in 24 hours, use 12.3 MME to 1mcg of butrans=7.5mg butrans/2 for cross tolerance=around 5mg butrans patch) -continue oxycodone 10mg q6hr prn -Continue IV Ancef 2g Q8H + po rifampin 500mg BID as outlined by ID -Because of this, will tentatively plan to continue ABX course through 12/30/24 instead to cover for missed doses -Will then need to be transitioned to chronic immunosuppressive therapy with po cefadroxil 500mg BID as outlined by ID once Ancef/rifampin completed -PT/OT evaluations appreciated -patient needs to be out of bed as much as possible -continue decadron, lidocaine patch -will aim for discharge home on Sunday #HTN -Continue BB #DMII with diabetic polyneuropathy -SSI protocol while inpatient -Monitor BSG checks, CC diet #Atherosclerosis of the thoracic aortic arch with saccular aneurysm within the proximal descending thoracic aorta -Follows with cardiothoracic surgery at [facility] [place], Dr. Munson -continue ASA, statin #HLD -Continue statin as per above #GERD #History of Wagner's esophagus -Hold PPI while on rifampin 2/2 potential drug-drug interaction #Depression -Continue Cymbalta #History of TALIB #History of acute surgical blood loss s/p recent lumbar spine operations (as mentioned above) -H/H appears stable compared to prior -Continue Fe supplementation and monitor #BPH -Continue Proscar, Flomax #Insomnia -restart trazadone I spent a total of 55 minutes in direct patient care, including [id number] time with the patient and/or family, reviewing medical records, ordering and reviewing diagnostic tests, and coordinating care with other healthcare providers. This time includes: history taking, physical examination, medical decision making, counseling, ECG interpretation, imaging interpretation, lab int erpretation, orders, and education, excluding time spent in the performance of separately billed services. Admission and Anticipated Discharge Date Admission Date: November 26, 2024 Subjective Patient seen and examined at bedside. Patient gets son on phone, lengthy discussion regarding pain management. This provider discussed case with ortho spine surgeon, and we are in agreement about oxycontin not being that safest medication for the patient moving forward given chronicity of back pain and concern for hyperalgesia. Discussed with patient and son starting a butrans patch for chronic pain, as it has a much better safety profile and also treats neuropathic pain. Patient and son are in agreement with plan. Review of Systems Review of Systems: CONSTITUTIONAL: Patient denies fevers, chills, sweats and weight changes. EYES: Patient denies any visual symptoms. EARS, NOSE, AND THROAT: No difficulties with hearing. No symptoms of rhinitis or sore throat. CARDIOVASCULAR: Patient denies chest pains, palpitations, orthopnea and paroxysmal nocturnal dyspnea. RESPIRATORY: No dyspnea on exertion, no wheezing or cough. GI: No nausea, vomiting, diarrhea, constipation, abdominal pain, hematochezia or melena. : No urinary hesitancy or dribbling. No nocturia or urinary frequency. No abnormal urethral discharge. MUSCULOSKELETAL: intractable leg pain NEUROLOGIC: No chronic headaches, no seizures. Patient denies numbness, tingling or weakness. PSYCHIATRIC: Patient denies problems with mood disturbance. No problems with anxiety. ENDOCRINE: No excessive urination or excessive thirst. DERMATOLOGIC: Patient denies any rashes or skin changes. Physical Exam Physical Exam: Gen: A&O 3 NAD HEENT: NCAT, EOMI, not icteric. External ears normal. No rhinorrhea. Moist mucous membranes. Neck: Supple, full range of motion, no observable masses, No meningeal sign. Lungs: No Respiratory distress. CV: RRR, no edema. Abdomen: Soft, nondistended, No rebound tenderness. MSK: No joint swelling, no redness. No myoclonus noted. Tenderness son left leg, lower back. Skin: No rashes, petechiae, lesions. Normal color per patient. Neuro: Normal Gait, Grossly intact. Psych: Appropriate for situation. Results & Data Results & Data Vital Signs (Past 12 Hours) Vital Signs Temp Pulse Resp BP Pulse Ox O2 Del Method 12/07/24 08:00 36.7 C 106 H 16 151/93 H 97 Room Air Medications Administered Acetaminophen (Acetaminophen 500 Mg Tab) 1,000 mg PO Q8 PRN PRN Reason: Pain or Fever Stop: 12/26/24 10:59 Last Admin: 12/06/24 05:48 Dose: 1,000 mg Documented By: minh Admin: 12/05/24 13:20 Dose: 1,000 mg Documented By: Admin: 12/05/24 04:44 Dose: 1,000 mg Documented By: Admin: 12/04/24 20:33 Dose: 1,000 mg Documented By: JHONATAN Amlodipine Besylate (Amlodipine Besylate 5 Mg Tab) 2.5 mg PO QAM JO Stop: 12/30/24 08:59 Last Admin: 12/03/24 08:40 Dose: 2.5 mg Documented By: Admin: 12/02/24 09:02 Dose: 2.5 mg Documented By: Admin: 12/01/24 07:37 Dose: 2.5 mg Documented By: Admin: 11/30/24 08:57 Dose: 2.5 mg Documented By: BAIRON Aspirin (Aspirin 81 Mg Ectab) 81 mg PO JO Stop: 12/26/24 20:59 Last Admin: 12/06/24 21:03 Dose: 81 mg Documented By: HKYadira Admin: 12/05/24 21:24 Dose: 81 mg Documented By: minh Admin: 12/04/24 21:37 Dose: 81 mg Documented By: Admin: 12/03/24 20:38 Dose: 81 mg Documented By: Admin: 12/02/24 20:36 Dose: 81 mg Documented By: Admin: 12/01/24 20:06 Dose: 81 mg Documented By: Admin: 11/30/24 20:22 Dose: 81 mg Documented By: Admin: 11/29/24 20:34 Dose: 81 mg Documented By: Admin: 11/28/24 20:17 Dose: 81 mg Documented By: [facility] Admin: 11/27/24 20:33 Dose: 81 mg Documented By: [facility] Admin: 11/26/24 20:35 Dose: 81 mg Documented By: JENNIFFERC Atorvastatin Calcium (Atorvastatin 40 Mg Tab) 40 mg PO JO Stop: 12/26/24 20:59 Last Admin: 12/06/24 21:03 Dose: 40 mg Documented By: HKYadira Admin: 12/05/24 21:24 Dose: 40 mg Documented By: minh Admin: 12/04/24 21:38 Dose: 40 mg Documented By: MLCheri Admin: 12/03/24 20:42 Dose: 40 mg Documented By: Admin: 12/02/24 20:36 Dose: 40 mg Documented By: Admin: 12/01/24 20:06 Dose: 40 mg Documented By: Admin: 11/30/24 20:22 Dose: 40 mg Documented By: Admin: 11/29/24 20:36 Dose: 40 mg Documented By: Admin: 11/28/24 20:18 Dose: 40 mg Documented By: Admin: 11/27/24 20:33 Dose: 40 mg Documented By: Admin: 11/26/24 20:34 Dose: 40 mg Documented By: CJC Docusate Sodium (Docusate Sodium 100 Mg Cap) 100 mg PO BID JO Stop: 12/26/24 20:59 Last Admin: 12/07/24 08:32 Dose: Not Given Documented By: Admin: 12/06/24 21:02 Dose: Not Given Documented By: Admin: 12/06/24 08:05 Dose: Not Given Documented By: Admin: 12/05/24 21:23 Dose: Not Given Documented By: snc Admin: 12/05/24 07:38 Dose: Not Given Documented By: Admin: 12/04/24 21:37 Dose: 100 mg Documented By: Admin: 12/04/24 07:41 Dose: Not Given Documented By: Admin: 12/03/24 20:42 Dose: Not Given Documented By: Admin: 12/03/24 08:39 Dose: 100 mg Documented By: Admin: 12/02/24 20:38 Dose: 100 mg Documented By: Admin: 12/02/24 09:03 Dose: 100 mg Documented By: Admin: 12/01/24 20:06 Dose: 100 mg Documented By: Admin: 12/01/24 07:35 Dose: Not Given Documented By: Admin: 11/30/24 20:21 Dose: 100 mg Documented By: Admin: 11/30/24 07:51 Dose: 100 mg Documented By: Admin: 11/29/24 20:33 Dose: 100 mg Documented By: Admin: 11/29/24 08:17 Dose: 100 mg Documented By: Admin: 11/28/24 20:18 Dose: 100 mg Documented By: Admin: 11/28/24 08:47 Dose: Not Given Documented By: Admin: 11/27/24 20:33 Dose: 100 mg Documented By: Admin: 11/27/24 08:37 Dose: 100 mg Documented By: Admin: 11/26/24 20:34 Dose: 100 mg Documented By: STEPHANIE Duloxetine HCl (Duloxetine Hcl 20 Mg Cap) 80 mg PO JO Stop: 12/26/24 20:59 Last Admin: 12/06/24 21:03 Dose: 80 mg Documented By: Admin: 12/05/24 21:24 Dose: 80 mg Documented By: minh Admin: 12/04/24 21:37 Dose: 80 mg Documented By: Admin: 12/03/24 20:41 Dose: 80 mg Documented By: Admin: 12/02/24 20:36 Dose: 80 mg Documented By: Admin: 12/01/24 20:07 Dose: 80 mg Documented By: Admin: 11/30/24 20:22 Dose: 80 mg Documented By: Admin: 11/29/24 20:33 Dose: 80 mg Documented By: Admin: 11/28/24 20:18 Dose: 80 mg Documented By: Admin: 11/27/24 20:32 Dose: 80 mg Documented By: Admin: 11/26/24 20:34 Dose: 80 mg Documented By: STEPHANIE Finasteride (Finasteride 5 Mg Tab) 5 mg PO JO Stop: 12/26/24 20:59 Last Admin: 12/06/24 21:04 Dose: 5 mg Documented By: Admin: 12/05/24 21:27 Dose: 5 mg Documented By: minh Admin: 12/04/24 21:39 Dose: 5 mg Documented By: MLCheri Admin: 12/03/24 20:44 Dose: 5 mg Documented By: Admin: 12/02/24 20:38 Dose: 5 mg Documented By: Admin: 12/01/24 20:06 Dose: 5 mg Documented By: Admin: 11/30/24 20:22 Dose: 5 mg Documented By: Admin: 11/29/24 20:36 Dose: 5 mg Documented By: Admin: 11/28/24 20:18 Dose: 5 mg Documented By: Admin: 11/27/24 20:33 Dose: 5 mg Documented By: Admin: 11/26/24 20:35 Dose: 5 mg Documented By: [facility] Heparin Sodium (Beef Lung) (Heparin 10 Unit/Ml 5 Ml Flush) 5 ml FLUSH PRN PRN PRN Reason: Flush Stop: 12/26/24 15:53 Last Admin: 12/07/24 04:45 Dose: 5 ml Documented By: Admin: 12/06/24 21:22 Dose: 5 ml Documented By: Admin: 12/06/24 12:40 Dose: 5 ml Documented By: Admin: 12/02/24 16:32 Dose: 5 ml Documented By: Admin: 12/02/24 08:55 Dose: 5 ml Documented By: Admin: 12/01/24 17:47 Dose: 5 ml Documented By: Admin: 12/01/24 12:02 Dose: 5 ml Documented By: Admin: 12/01/24 07:40 Dose: 5 ml Documented By: Admin: 11/30/24 06:43 Dose: 5 ml Documented By: Admin: 11/30/24 01:22 Dose: 5 ml Documented By: Admin: 11/29/24 08:17 Dose: 5 ml Documented By: MINDA Cefazolin Sodium (Ancef 2000mg) 2,000 mg in 15 mls @ 3.75 mls/min IV Q8H JO Stop: 01/07/25 11:59 Last Admin: 12/07/24 12:19 Dose: 3.75 mls/min Documented By: Admin: 12/07/24 04:45 Dose: 3.75 mls/min Documented By: HKYadira Admin: 12/06/24 21:01 Dose: 3.75 mls/min Documented By: Admin: 12/06/24 12:29 Dose: 3.75 mls/min Documented By: Admin: 12/06/24 04:16 Dose: 3.75 mls/min Documented By: snc Admin: 12/05/24 19:49 Dose: 3.75 mls/min Documented By: snc Admin: 12/05/24 12:05 Dose: 3.75 mls/min Documented By: Admin: 12/05/24 05:10 Dose: 3.75 mls/min Documented By: Admin: 12/04/24 20:15 Dose: 3.75 mls/min Documented By: Admin: 12/04/24 12:35 Dose: 3.75 mls/min Documented By: Admin: 12/04/24 03:46 Dose: 3.75 mls/min Documented By: Admin: 12/03/24 20:38 Dose: 3.75 mls/min Documented By: Admin: 12/03/24 12:41 Dose: 3.75 mls/min Documented By: Admin: 12/03/24 03:25 Dose: 3.75 mls/min Documented By: Admin: 12/02/24 20:39 Dose: 3.75 mls/min Documented By: SNMarin Admin: 12/02/24 12:00 Dose: 3.75 mls/min Documented By: Admin: 12/02/24 05:23 Dose: 3.75 mls/min Documented By: Admin: 12/01/24 20:06 Dose: 3.75 mls/min Documented By: Admin: 12/01/24 12:02 Dose: 3.75 mls/min Documented By: Admin: 12/01/24 04:10 Dose: 3.75 mls/min Documented By: Admin: 11/30/24 20:22 Dose: 3.75 mls/min Documented By: Admin: 11/30/24 13:13 Dose: 3.75 mls/min Documented By: Admin: 11/30/24 04:20 Dose: 3.75 mls/min Documented By: Admin: 11/29/24 20:31 Dose: 3.75 mls/min Documented By: Admin: 11/29/24 12:11 Dose: 3.75 mls/min Documented By: Admin: 11/29/24 04:08 Dose: 3.75 mls/min Documented By: Admin: 11/28/24 19:46 Dose: 3.75 mls/min Documented By: Admin: 11/28/24 12:08 Dose: 3.75 mls/min Documented By: Admin: 11/28/24 04:53 Dose: 3.75 mls/min Documented By: Admin: 11/27/24 20:32 Dose: 3.75 mls/min Documented By: Admin: 11/27/24 13:04 Dose: 3.75 mls/min Documented By: Admin: 11/27/24 04:49 Dose: 3.75 mls/min Documented By: Admin: 11/26/24 20:24 Dose: 3.75 mls/min Documented By: Admin: 11/26/24 12:59 Dose: 3.75 mls/min Documented By: TNK Insulin Aspart (Insulin Aspart Per Unit Charge) 0 units SC ACHS JO Stop: 12/26/24 12:59 Last Admin: 12/07/24 12:15 Dose: 8 units Documented By: LUTHER Co-signed By: TRICE Admin: 12/07/24 08:16 Dose: 11 units Documented By: LUTHER Co-signed By: MIMI Admin: 12/06/24 21:01 Dose: 6 units Documented By: LUCAS Co-signed By: minh Admin: 12/06/24 17:29 Dose: 13 units Documented By: BIJAN Co-signed By: Jose L Admin: 12/06/24 12:29 Dose: 7 units Documented By: BIJAN Co-signed By: Jose L Admin: 12/06/24 08:28 Dose: 10 units Documented By: BIJAN Co-signed By: LUTHER Admin: 12/05/24 21:21 Dose: 17 units Documented By: minh Co-signed By: NICO Admin: 12/05/24 17:12 Dose: 11 units Documented By: HARSHA Co-signed By: PAO Admin: 12/05/24 12:15 Dose: 17 units Documented By: GABRIELE Co-signed By: PAO Admin: 12/05/24 09:03 Dose: 12 units Documented By: GABRIELE Co-signed By: HARSHA(2) Admin: 12/04/24 21:10 Dose: Not Given Documented By: JOHNATAN Co-signed By: RICHARD Admin: 12/04/24 17:20 Dose: 13 units Documented By: GABRIELE Co-signed By: PAO Admin: 12/04/24 12:37 Dose: 16 units Documented By: TRICE Co-signed By: MELANY Admin: 12/04/24 09:12 Dose: 15 units Documented By: TRICE Co-signed By: MELANY Admin: 12/03/24 20:45 Dose: Not Given Documented By: ALBA Co-signed By: JHONATAN Admin: 12/03/24 17:45 Dose: 11 units Documented By: SANJIV Co-signed By: BIJAN Admin: 12/03/24 12:42 Dose: 9 units Documented By: SANJIV Co-signed By: MELANY Admin: 12/03/24 08:53 Dose: 17 units Documented By: SANJIV Co-signed By: EZEKIEL Admin: 12/02/24 20:40 Dose: Not Given Documented By: Admin: 12/02/24 17:19 Dose: 17 units Documented By: LMC Co-signed By: MICHAEL Admin: 12/02/24 12:08 Dose: 27 units Documented By: LMC Co-signed By: MICHAEL Admin: 12/02/24 09:08 Dose: 16 units Documented By: LMC Co-signed By: MICHAEL Admin: 12/01/24 20:17 Dose: 16 units Documented By: BYRON Co-signed By: TRICIA Admin: 12/01/24 17:53 Dose: 2 units Documented By: LMC Co-signed By: CB Admin: 12/01/24 12:04 Dose: 3 units Documented By: LMC Co-signed By: CB Admin: 12/01/24 08:45 Dose: 2 units Documented By: LMC Co-signed By: MICHAEL Admin: 11/30/24 20:21 Dose: 8 units Documented By: BH Co-signed By: ASM Admin: 11/30/24 17:33 Dose: 7 units Documented By: MPS Co-signed By: VGS Admin: 11/30/24 13:13 Dose: 23 units Documented By: MPS Co-signed By: KD Admin: 11/30/24 08:26 Dose: 10 units Documented By: MPS Co-signed By: VGS Admin: 11/29/24 20:38 Dose: Not Given Documented By: Admin: 11/29/24 17:00 Dose: 12 units Documented By: ES Co-signed By: CA Admin: 11/29/24 12:10 Dose: 6 units Documented By: ES Co-signed By: SEK Admin: 11/29/24 08:15 Dose: 6 units Documented By: MINDA Co-signed By: CLR Admin: 11/28/24 20:58 Dose: Not Given Documented By: Admin: 11/28/24 17:19 Dose: 10 units Documented By: CHRISTIAN Co-signed By: CELI Admin: 11/28/24 12:08 Dose: 7 units Documented By: CHRISTIAN Co-signed By: CELI Admin: 11/28/24 08:40 Dose: 8 units Documented By: CHRISTIAN Co-signed By: JEFFREY Admin: 11/27/24 20:51 Dose: 6 units Documented By: AMC Co-signed By: NEGIN Admin: 11/27/24 17:10 Dose: 6 units Documented By: CHRISTIAN Co-signed By: OS Admin: 11/27/24 12:56 Dose: 12 units Documented By: CHRISTIAN Co-signed By: OS Admin: 11/27/24 08:36 Dose: 8 units Documented By: CHRISTIAN Co-signed By: DTT Admin: 11/26/24 20:36 Dose: 4 units Documented By: STEPHANIE Co-signed By: KEVC Admin: 11/26/24 17:23 Dose: Not Given Documented By: Admin: 11/26/24 13:43 Dose: Not Given Documented By: CAP Insulin Glargine (Lantus Per Unit Charge) 15 units SC DAILY JO Stop: 01/06/25 08:59 Last Admin: 12/07/24 08:28 Dose: 15 units Documented By: LUTHER Co-signed By: MIMI Lidocaine (Lidocaine 5% 1 Patch) 1 patch TD QAM JO Stop: 12/28/24 05:29 Last Admin: 12/07/24 09:29 Dose: 1 patch Documented By: Admin: 12/06/24 08:08 Dose: 1 patch Documented By: Admin: 12/05/24 07:33 Dose: 1 patch Documented By: Admin: 12/04/24 07:42 Dose: 1 patch Documented By: Admin: 12/03/24 08:41 Dose: 1 patch Documented By: Admin: 12/02/24 09:03 Dose: Not Given Documented By: Admin: 12/01/24 07:35 Dose: Not Given Documented By: Admin: 11/30/24 07:52 Dose: 1 patch Documented By: Admin: 11/29/24 08:18 Dose: 1 patch Documented By: Admin: 11/28/24 07:25 Dose: 1 patch Documented By: CHRISTIAN Metoprolol Succinate (Metoprolol Succ 50mg Ext Rel Tab) 200 mg PO HS [facility] Stop: 12/26/24 20:59 Last Admin: 12/02/24 20:37 Dose: 200 mg Documented By: Admin: 12/01/24 20:07 Dose: 200 mg Documented By: Admin: 11/30/24 20:21 Dose: 200 mg Documented By: Admin: 11/29/24 20:37 Dose: 200 mg Documented By: Admin: 11/28/24 20:18 Dose: 200 mg Documented By: Admin: 11/27/24 20:34 Dose: 200 mg Documented By: Admin: 11/26/24 20:35 Dose: 200 mg Documented By: STEPHANIE Miscellaneous (Remove Lidoderm Patch) 1 each N/A DAILY@2100 [facility] Stop: 12/29/24 20:59 Last Admin: 12/06/24 21:04 Dose: 1 each Documented By: Admin: 12/05/24 21:26 Dose: 1 each Documented By: minh Admin: 12/04/24 21:39 Dose: 1 each Documented By: Admin: 12/03/24 20:42 Dose: 1 each Documented By: Admin: 12/02/24 20:39 Dose: Not Given Documented By: Admin: 12/01/24 20:07 Dose: 1 each Documented By: Admin: 11/30/24 20:22 Dose: 1 each Documented By: Admin: 11/29/24 20:37 Dose: 1 each Documented By: BERONICA Multivitamins (Multivitamin Tab) 1 tab PO QAM JO Stop: 12/27/24 08:59 Last Admin: 12/07/24 09:28 Dose: 1 tab Documented By: Admin: 12/06/24 08:07 Dose: 1 tab Documented By: Admin: 12/05/24 07:37 Dose: 1 tab Documented By: Admin: 12/04/24 07:45 Dose: 1 tab Documented By: Admin: 12/03/24 08:40 Dose: 1 tab Documented By: Admin: 12/02/24 09:03 Dose: 1 tab Documented By: Admin: 12/01/24 07:35 Dose: Not Given Documented By: Admin: 11/30/24 07:42 Dose: 1 tab Documented By: Admin: 11/29/24 08:19 Dose: 1 tab Documented By: Admin: 11/28/24 08:41 Dose: 1 tab Documented By: Admin: 11/27/24 08:38 Dose: 1 tab Documented By: CHRISTIAN Oxycodone HCl (Oxycodone Hcl Ir 5 Mg Tab (Immediate Release)) 10 mg PO Q6 PRN PRN Reason: Severe Pain (Scale 7, 8, 9,10) Stop: 12/18/24 17:36 Last Admin: 12/07/24 07:40 Dose: 10 mg Documented By: Admin: 12/06/24 23:54 Dose: 10 mg Documented By: Admin: 12/06/24 15:00 Dose: 10 mg Documented By: AAJose Admin: 12/06/24 09:18 Dose: 10 mg Documented By: Admin: 12/06/24 02:34 Dose: 10 mg Documented By: Admin: 12/05/24 19:48 Dose: 10 mg Documented By: minh Admin: 12/05/24 13:20 Dose: 10 mg Documented By: Admin: 12/05/24 07:21 Dose: 10 mg Documented By: Admin: 12/05/24 00:42 Dose: 10 mg Documented By: Admin: 12/04/24 18:37 Dose: 10 mg Documented By: GABRIELE Polyethylene Glycol (Polyethylene (Miralax) 17 Gm Pack) 17 gm PO DAILY JO Stop: 12/27/24 08:59 Last Admin: 12/07/24 08:32 Dose: Not Given Documented By: Admin: 12/06/24 08:06 Dose: Not Given Documented By: AAJose Admin: 12/05/24 07:38 Dose: Not Given Documented By: Admin: 12/04/24 07:42 Dose: Not Given Documented By: Admin: 12/03/24 08:39 Dose: Not Given Documented By: Admin: 12/02/24 09:15 Dose: 17 gm Documented By: Admin: 12/01/24 07:35 Dose: Not Given Documented By: Admin: 11/30/24 07:51 Dose: 17 gm Documented By: Admin: 11/29/24 08:16 Dose: 17 gm Documented By: Admin: 11/28/24 08:48 Dose: Not Given Documented By: Admin: 11/27/24 08:37 Dose: 17 gm Documented By: CHRISTIAN Pregabalin (Pregabalin 150 Mg Cap) 150 mg PO TID JO Stop: 12/26/24 13:59 Last Admin: 12/07/24 09:28 Dose: 150 mg Documented By: Admin: 12/06/24 21:01 Dose: 150 mg Documented By: Admin: 12/06/24 14:13 Dose: 150 mg Documented By: Admin: 12/06/24 08:06 Dose: 150 mg Documented By: Admin: 12/05/24 21:22 Dose: 150 mg Documented By: snc Admin: 12/05/24 13:20 Dose: 150 mg Documented By: Admin: 12/05/24 09:04 Dose: 150 mg Documented By: Admin: 12/04/24 21:36 Dose: 150 mg Documented By: Admin: 12/04/24 13:03 Dose: 150 mg Documented By: Admin: 12/04/24 07:43 Dose: 150 mg Documented By: Admin: 12/03/24 20:38 Dose: 150 mg Documented By: Admin: 12/03/24 13:14 Dose: 150 mg Documented By: Admin: 12/03/24 08:39 Dose: 150 mg Documented By: Admin: 12/02/24 20:35 Dose: 150 mg Documented By: SNMarin Admin: 12/02/24 13:51 Dose: 150 mg Documented By: Admin: 12/02/24 09:15 Dose: 150 mg Documented By: Admin: 12/01/24 20:06 Dose: 150 mg Documented By: Admin: 12/01/24 15:03 Dose: Not Given Documented By: Admin: 12/01/24 07:40 Dose: 150 mg Documented By: Admin: 11/30/24 20:22 Dose: 150 mg Documented By: Admin: 11/30/24 13:13 Dose: 150 mg Documented By: Admin: 11/30/24 07:51 Dose: 150 mg Documented By: Admin: 11/29/24 20:33 Dose: 150 mg Documented By: Admin: 11/29/24 12:24 Dose: 150 mg Documented By: Admin: 11/29/24 08:17 Dose: 150 mg Documented By: Admin: 11/28/24 20:17 Dose: 150 mg Documented By: Admin: 11/28/24 13:52 Dose: 150 mg Documented By: Admin: 11/28/24 08:41 Dose: 150 mg Documented By: Admin: 11/27/24 20:32 Dose: 150 mg Documented By: Admin: 11/27/24 14:31 Dose: 150 mg Documented By: Admin: 11/27/24 08:36 Dose: 150 mg Documented By: Admin: 11/26/24 20:35 Dose: 150 mg Documented By: Admin: 11/26/24 13:48 Dose: 150 mg Documented By: CAP Rifampin (Rifampin 300 Mg Capsule) 300 mg PO BID JO Stop: 12/26/24 11:59 Last Admin: 12/07/24 09:28 Dose: 300 mg Documented By: Admin: 12/06/24 21:04 Dose: 300 mg Documented By: Admin: 12/06/24 08:07 Dose: 300 mg Documented By: Admin: 12/05/24 21:26 Dose: 300 mg Documented By: snc Admin: 12/05/24 07:36 Dose: 300 mg Documented By: Admin: 12/04/24 21:37 Dose: 300 mg Documented By: Admin: 12/04/24 07:44 Dose: 300 mg Documented By: Admin: 12/03/24 20:44 Dose: 300 mg Documented By: Admin: 12/03/24 08:39 Dose: 300 mg Documented By: Admin: 12/02/24 20:36 Dose: 300 mg Documented By: Admin: 12/02/24 09:03 Dose: 300 mg Documented By: Admin: 12/01/24 20:07 Dose: 300 mg Documented By: Admin: 12/01/24 07:37 Dose: 300 mg Documented By: Admin: 11/30/24 20:22 Dose: 300 mg Documented By: Admin: 11/30/24 07:42 Dose: 300 mg Documented By: Admin: 11/29/24 20:34 Dose: 300 mg Documented By: Admin: 11/29/24 08:19 Dose: 300 mg Documented By: Admin: 11/28/24 20:18 Dose: 300 mg Documented By: Admin: 11/28/24 08:42 Dose: 300 mg Documented By: RJRosa Elena Admin: 11/27/24 20:33 Dose: 300 mg Documented By: Admin: 11/27/24 08:38 Dose: 300 mg Documented By: Admin: 11/26/24 20:34 Dose: 300 mg Documented By: CJJose L Admin: 11/26/24 12:59 Dose: 300 mg Documented By: TNSpencer Sennosides (Senna 8.6 Mg Tab) 8.6 mg PO QAM JO Stop: 01/04/25 08:59 Last Admin: 12/07/24 08:32 Dose: Not Given Documented By: Admin: 12/06/24 08:06 Dose: Not Given Documented By: Admin: 12/05/24 07:38 Dose: Not Given Documented By: TRB Tamsulosin HCl (Tamsulosin Hcl 0.4 Mg Cap) 0.4 mg PO HS JO Stop: 12/26/24 20:59 Last Admin: 12/06/24 21:04 Dose: 0.4 mg Documented By: Admin: 12/05/24 21:25 Dose: 0.4 mg Documented By: snc Admin: 12/04/24 21:38 Dose: 0.4 mg Documented By: Admin: 12/03/24 20:41 Dose: 0.4 mg Documented By: Admin: 12/02/24 20:38 Dose: 0.4 mg Documented By: Admin: 12/01/24 20:07 Dose: 0.4 mg Documented By: Admin: 11/30/24 20:21 Dose: 0.4 mg Documented By: Admin: 11/29/24 20:34 Dose: 0.4 mg Documented By: Admin: 11/28/24 20:17 Dose: 0.4 mg Documented By: Admin: 11/27/24 20:33 Dose: 0.4 mg Documented By: Admin: 11/26/24 20:35 Dose: 0.4 mg Documented By: STEPHANIE Trazodone HCl (Trazodone Hcl 50 Mg Tab) 12.5 mg PO HS JO Stop: 01/05/25 20:59 Last Admin: 12/06/24 21:16 Dose: 12.5 mg Documented By: HKY Vitamin D (Cholecalciferol 25 Mcg (1000 Units) Tab) 25 mcg PO DAILY JO Stop: 12/27/24 08:59 Last Admin: 12/07/24 09:28 Dose: 25 mcg Documented By: Admin: 12/06/24 08:07 Dose: 25 mcg Documented By: Admin: 12/05/24 07:37 Dose: 25 mcg Documented By: Admin: 12/04/24 07:45 Dose: 25 mcg Documented By: Admin: 12/03/24 08:40 Dose: 25 mcg Documented By: Admin: 12/02/24 09:05 Dose: Not Given Documented By: Admin: 12/01/24 07:35 Dose: Not Given Documented By: Admin: 11/30/24 07:41 Dose: 25 mcg Documented By: Admin: 11/29/24 08:19 Dose: 25 mcg Documented By: Admin: 11/28/24 08:42 Dose: 25 mcg Documented By: Admin: 11/27/24 08:37 Dose: 25 mcg Documented By: CHRISTIAN (2) Infection associated with internal fixation device of spine Encounter type: subsequent encounter Qualified Code(s): T84.63XD - Infection and inflammatory reaction due to internal fixation device of spine, subsequent encounter
--- NOTE | 2024-12-07 14:55 | Pharmacy Report ---
Pharmacy Glycemic Short Note 2 - Date of Service December 07, 2024 - Glycemic Short BSG Results (Last 24 hours): 12/06/24 12/06/24 12/07/24 16:44 20:40 07:46 POC Glucose 179 H 129 H 179 H 12/07/24 11:38 POC Glucose 148 H OUTPATIENT ANTIDIABETIC REGIMEN: * Metformin 500 mg PO BID * HbA1c: 7.3% on 11/16/24 ASSESSMENT: 12/07 * Patient received total of 46 units of insulin yesterday of which 10 units were basal * Fasting BSG elevated 179 mg/dL - will titrate up to 15 units of basal * No change to CF/CR today 12/03: * Archie received 75 units of SQ insulin yesterday (15 units basal + 60 units bolus) * Fasting BSG of 168 mg/dL. Will increase Lantus to 20 units daily. Patient has tolerated this dose while on IV steroids. * Post prandial BSGs are well controlled but trended down last evening. Will sli ghtly loosen correction factor. No change to carb coverage given patient remains on dexamethasone. 12/01: * BSGs 415-350-59-260-180mg/dL the last 24h. Received 20 units of basal and 48 units of bolus insulin yesterday. * Continues on IV dex 4mg q8h. NPO for I&D today. * Lantus empirically decreased to 15 units given NPO for OR. Reassess basal in AM. Novolog tightened yesterday to 08/07 given addition of steroids- continue for now. 11/28 * Patient with hypoglycemic event with dinner yesterday. Possible stacking with AM and lunch. * Patient is not on steroids this admission- will loosen novolog parameters back to weight stress 2 for now. * Fasting 159 mg/dL this morning- continue with lantus 5 units BID 11/27: * Patient received 9 units of insulin yesterday, 5 units of which were basal. BSGs were: 162-041-123-194 mg/dL. * Fasting BSG was 153 mg/dL today. Will increase basal to 5 units BID based upon previous admission data. * Remains on Ancef and Rifampin. Tolerating T2DM diet. Will tighten Novolog slightly today based upon previous admission data. 11/26: * Archie is a 69 year old male who was admitted today for intractable lower back pain. He was recently admitted (11/15-11/25/2024) with sepsis secondary to postop lumbar epidural abscess s/p lumbar decompression and fusion surgery. Pharmacy was consulted for glycemic management last admission and again today while he is admitted. * Last admission, Archie required a fairly large amount of insulin to keep his blood glucose under control (ranged from 34-112 units/day). He was receiving steroids for part of that admission which accounts for the greater insulin needs some of the days. * He was not started on steroids this admission so will start with a more conservative insulin regimen. BSG on admit was 132mg/dL. A weight based (using adjusted body weight) bolus insulin regimen with a stress of 2 was started and a Lantus scale (0, 5, or 10 units depending on BSG) was added. PLAN FOR INPATIENT GLYCEMIC CONTROL: * Hold outpatient oral diabetes medications * Basal insulin * Lantus 15 units qAM * Bolus insulin * NovoLog per scale ACHS or Q6hrs while NPO * Goal Range: Low 110 mg/dL - High 140 mg/dL * Correction Factor: 20 mg/dL/unit * Nutritional / Prandial insulin per carb ratio of 1 unit per 7 grams CHO consumed
[2024-12-07] MEDS: CHECK BUPRENORPHINE PATCH SCH (15:28)
[2024-12-07] MEDS: BUPRENORPHINE 5 MCG/HR TDSY TD SCH (15:28)
[2024-12-07] MEDS: REMOVE & WASTE BUTRANS PATCH 1 EA EA SCH (15:30)
[2024-12-07 21:31] VITALS: TEMP 98.1
[2024-12-07 23:50] VITALS: O2SAT 98
[2024-12-08 08:00] VITALS: BP 126/78; PULSE 104; RESP 18
--- NOTE | 2024-12-08 10:37 | XRay Report ---
XR chest 1V portable CLINICAL HISTORY: PICC placement COMPARISON STUDY: Chest CT September 18, 2024. Chest radiograph November 15, 2024. FINDINGS: The tip of the right PICC projects over the mid SVC. There is no pneumothorax or pleural ef fusion. There is no consolidation. Cardiomediastinal silhouette is stable. IMPRESSION: Tip of right PICC projects over the mid SVC. ACT 112: Negative or not required by law. Electronically signed by: Abhijit Jacobson M.D. 12/08/2024 10:36 AM
--- NOTE | 2024-12-08 13:20 | Discharge Summary ---
Discharge Summary Date of Service December 08, 2024 Principal Dx & Hospital Course #1 = Principal Diagnosis (1) Intractable low back pain: (2) Infection associated with internal fixation device of spine: (3) Status post incision and drainage: (4) MSSA (methicillin susceptible Staphylococcus aureus) infection: (5) Hypertensive urgency: (6) Hypokalemia: (7) Abnormal urinalysis: Plan Patient is a 69-year-old male with past medical history significant for DM type II with diabetic polyneuropathy, TALIB, HLD, HTN, bicuspid aortic valve with aortic valve stenosis and aortic regurgitation, mild mitral regurgitation, history of left retinal artery occlusion in 2020, atherosclerosis of the thoracic aortic arch with saccular aneurysm within the proximal descending thoracic aorta, carotid artery stenosis, hepatic steatosis, Wagner's esophagus, depression, insomnia, chronic pancreatitis, obesity, 3 pack-year smoking history and history of kidney stones who presented to the ED via EMS from [facility] due to intractable low back pain. Recent confinement under service to 11/15/2024-11/25/2024 with sepsis 2/2 postoperative lumbar epidural abscess s/p lumbar decompression and fusion surgery performed by Dr. Vang on 11/06/2024. Underwent irrigation and debridement of the lumbar spine with hematoma evacuation on 11/17/[address] Vang. Intraoperative cultures grew MSSA; blood cultures were negative. Seen and evaluated by ID whom recommended: IV cefazolin 2g Q8H and po rifampin 300mg BID to be continued through 12/29/2024, then chronic suppressive therapy with cefadroxil 500mg BID likely for life. Hospital course c/b development of BRIAN determined likely 2/2 multifactorial ATN ISO sepsis, severe ischemia ISO IV contrast administration with sepsis plus or minus toxicity associated with previously administered IV vancomycin prior to ID evaluation. #Intractable Low Back Pain #Chronic Pain Syndrome #Postoperative lumbar epidural abscess s/p I&D with hematoma evacuation on 11/17/24 #MSSA infection, resolving -patient with extensive instrumentation, debridement of lumbar spine, treatment with abx -patient continues to endorse extensive back pain that exceeds imaging, lab and hemodynamic findings -repeat incision and drainage on 12/01 -consideration for hyperalgesia given chronic opioid therapies and exam findings -MR spine without concern for acute process per ortho spine -pain not adequately controlled per patient over past few days and full opioid therapy not standard of care for chronic back pain outpatient Plan: -discussed at length with ortho spine, rotate oxycontin to butrans patch (90 MME daily in 24 hours, use 12.3 MME to 1mcg of butrans=7.5mg butrans/2 for cross tolerance=around 5mg butrans patch) -continue oxycodone 10mg q6hr prn -Continue IV Ancef 2g Q8H + po rifampin 500mg BID as outlined by ID -Because of this, will tentatively plan to continue ABX course through 12/30/24 instead to cover for missed doses -Will then need to be transitioned to chronic immunosuppressive therapy with po cefadroxil 500mg BID as outlined by ID once Ancef/rifampin completed -PT/OT evaluations appreciated -patient needs to be out of bed as much as possible -continue decadron, lidocaine patch -will aim for discharge home on Sunday #HTN -Continue BB #DMII with diabetic polyneuropathy -SSI protocol while inpatient -Monitor BSG checks, CC diet #Atherosclerosis of the thoracic aortic arch with saccular aneurysm within the proximal descending thoracic aorta -Follows with cardiothoracic surgery at [facility], Dr. Munson -continue ASA, statin #HLD -Continue statin as per above #GERD #History of Wagner's esophagus -Hold PPI while on rifampin 2/2 potential drug-drug interaction #Depression -Continue Cymbalta #History of TALIB #History of acute surgical blood loss s/p recent lumbar spine operations (as mentioned above) -H/H appears stable compared to prior -Continue Fe supplementation and monitor #BPH -Continue Proscar, Flomax #Insomnia -restart trazadone Notes For Next Care Provider 69-year-old male with past medical history significant for DM type II with diabetic polyneuropathy, TALIB, HLD, HTN, bicuspid aortic valve with aortic valve stenosis and aortic regurgitation, mild mitral regurgitation, history of left retinal artery occlusion in 2020, atherosclerosis of the thoracic aortic arch with saccular aneurysm within the proximal descending thoracic aorta, carotid artery stenosis, hepatic steatosis, Wagner's esophagus, depression, insomnia, chronic pancreatitis, obesity, 3 pack-year smoking history and history of kidney stones who presented to the ED via EMS from [facility] due to intractable low back pain. Very complex recent surgical course. On medicine, found to have a lumbar epidural abscess and hematoma requiring an incision and drainage and hematoma drainage respectively. Pain management was consulted for chronic pain syndrome. Transitioned to butrans patch with significant improvement in pain. Patient refuses to go to SNF at this time per PT/OT recs, but is willing to do home PT/OT. On 12/08/2024 patient medically stable for discharge home. To do: [ ] f/u labs for cefazolin monitoring [ ] f/u with pain management/PCP for butrans patch [ ] f/u with ortho spine Medication Changes From Visit -cefazolin, butrans patch, oxycodone for short course post procedure Admission HPI Per Admitting Provider Patient is a 69-year-old male with past medical history significant for DM type II with diabetic polyneuropathy, TALIB, HLD, HTN, bicuspid aortic valve with aortic valve stenosis and aortic regurgitation, mild mitral regurgitation, history of left retinal artery occlusion in 2020, atherosclerosis of the thoracic aortic arch with saccular aneurysm within the proximal descending thoracic aorta, carotid artery stenosis, hepatic steatosis, Wagner's esophagus, depression, insomnia, chronic pancreatitis, obesity, 3 pack-year smoking history and history of kidney stones who presented to the ED via EMS from [facility] due to intractable low back pain. History obtained from the patient, discussion with ED provider and associated chart review. Recent confinement under service to 11/15/2024-11/25/2024 with sepsis 2/2 postoperative lumbar epidural abscess s/p lumbar decompression and fusion surgery performed by Dr. Vang on 11/06/2024. Underwent irrigation and debridement of the lumbar spine with hematoma evacuation on 11/17/[address] Vang. Intraoperative cultures grew MSSA; blood cultures were negative. Seen and evaluated by ID whom recommended: IV cefazolin 2g Q8H and po rifampin 300mg BID to be continued through 12/29/2024, then chronic suppressive therapy with cefadroxil 500mg BID likely for life. Hospital course c/b development of BRIAN determined likely 2/2 multifactorial ATN ISO sepsis, severe ischemia ISO IV contrast administration with sepsis plus or minus toxicity associated with previously administered IV vancomycin prior to ID evaluation. Endorses intractable low back pain, primarily on the left side, with radiation into the left groin region and down into the left knee. Started yesterday around 3pm. Describes it as a constant aching pain with occasional sharp tinges. No particular positional changes seem to alleviate the pain. Had been taking po oxy IR 5mg Q4H mookie and PRN Tylenol without much if any relief. Denies any chest pain, SOB, abdominal pain or bowel/urinary habit changes. Chronic urinary urgency 2/2 underlying BPH with LUTS which feels unchanged from baseline. No reported fevers since being at [facility]. Did miss his ABX doses last evening at the [facility] as the delivery truck with his medications did not arrive until 5:30am this morning. Does not recall if he got his ABXs yet today. Currently rates pain 4.5/10 s/p 4mg IV morphine and 1.5mg IV Dilaudid in the ED. ED provider, Dr. Canseco, discussed the case with Dr. Vang whom recommended on holding off on any further imaging at this time. Discharge Exam Gen: A&O 3 NAD HEENT: NCAT, EOMI, not icteric. External ears normal. No rhinorrhea. Moist mucous membranes. Neck: Supple, full range of motion, no observable masses, No meningeal sign. Lungs: No Respiratory distress. CV: RRR, no edema. Abdomen: Soft, nondistended, No rebound tenderness. MSK: No joint swelling, no redness. No myoclonus noted. Tenderness son left leg, lower back. Skin: No rashes, petechiae, lesions. Normal color per patient. Neuro: Normal Gait, Grossly intact. Psych: Appropriate for situation. Updated Medication List Medication Instructions Recorded Confirmed Type albuterol sulfate 2.5 mg/3 mL 2.5 mg inhalation DIRECTED PRN 09/18/24 11/26/24 History (0.083 %) solution for nebulization Shortness Of Breath Or Wheezing apple cider vinegar 500 mg tablet 1,500 mg PO DAILY 10/02/24 11/26/24 History polyethylene glycol 3350 17 gram 17 g PO DAILY PRN Constipation 10/02/24 11/26/24 History oral powder packet (Miralax) B-complex with vitamin C 2 tab PO DAILY #30 tabs 11/21/24 11/26/24 Rx acetaminophen 500 mg tablet 1,000 mg (2 x 500 mg) PO TID #60 11/21/24 11/26/24 Rx tabs albuterol sulfate 90 mcg/actuation 2 puff inhalation Q4H PRN Wheezing 11/21/24 11/26/24 Rx aerosol inhaler #6.7 grams aspirin 81 mg tablet,delayed 81 mg PO HS #30 tabs 11/21/24 11/26/24 Rx release atorvastatin 40 mg tablet 40 mg PO HS #30 tabs 11/21/24 11/26/24 Rx cholecalciferol (vitamin D3) 25 25 mcg PO DAILY #30 caps 11/21/24 11/26/24 Rx mcg (1,000 unit) capsule (Vitamin D3) duloxetine 40 mg capsule,delayed 80 mg (2 x 40 mg) PO HS #30 caps 11/21/24 11/26/24 Rx release ferrous sulfate 325 mg (65 mg 325 mg PO DAILY #30 tabs 11/21/24 11/26/24 Rx iron) tablet finasteride 5 mg tablet 5 mg PO HS #30 tabs 11/21/24 11/26/24 Rx magnesium hydroxide 400 mg/5 mL 15 ml PO QID PRN constipation #355 11/21/24 11/26/24 Rx oral suspension (Milk of Magnesia) mL metoprolol succinate 200 mg 200 mg PO HS #30 tabs 11/21/24 11/26/24 Rx tablet,extended release 24 hr wifemvfpccnt-nlox-xfzrx acid 200 1 tab PO DAILY #30 tabs 11/21/24 11/26/24 Rx mcg-lutein 137.5 mcg chewable tablet (Adult Multivitamin (w-lutein)) pantoprazole 40 mg tablet,delayed 40 mg PO HS #30 tabs 11/21/24 11/26/24 Rx release rifampin 300 mg capsule 300 mg PO BID #77 caps 11/21/24 11/26/24 Rx tamsulosin 0.4 mg capsule 0.4 mg PO HS #30 caps 11/21/24 11/26/24 Rx trazodone 50 mg tablet 25 mg (1/2 x 50 mg) PO HS #30 tabs 11/21/24 11/26/24 Rx vit C 250 mg-vit E 90 mg-zinc 40 1 tab PO BID #30 caps 11/21/24 11/26/24 Rx mg-copper 1 fh-xhsfyt-ybkzde capsule (PreserVision AREDS-2) cefazolin 2 gram/100 mL in 0.9 % 100 ml IV Q8H #1,200 mL 09/02/25 09/03/25 Rx sodium chloride intravenous solution metformin 500 mg tablet 500 mg PO BIDM #60 tabs 11/25/24 11/26/24 Rx pregabalin 150 mg capsule 150 mg PO TID #90 caps 11/25/24 11/26/24 Rx amlodipine 5 mg tablet 2.5 mg (1/2 x 5 mg) PO QAM 30 days 12/08/24 Rx #15 tabs buprenorphine 5 mcg/hour weekly 1 patch transdermal Q7D chronic 12/08/24 Rx transdermal patch (Butrans) pain syndrome 30 days #4 ea cefdinir 300 mg capsule 300 mg PO BID 2 days #4 caps 12/08/24 Rx ondansetron 4 mg disintegrating 4 mg PO Q8H PRN nausea and 12/08/24 Rx tablet vomiting 4 days #14 tabs oxycodone 5 mg tablet 10 mg (2 x 5 mg) PO Q6 PRN pain 7 12/08/24 Rx days #56 tabs sennosides 8.6 mg tablet (Senna 8.6 mg PO QAM 30 days #30 tabs 12/08/24 Rx Lax) Hospital Stay Data Consultations 11/26/24 09:33 Consult Orthopedic Spine Surgery Stat 11/26/24 09:45 ED Decision to Admit Stat 12/04/24 09:29 Consult Pain Management Routine Procedures Performed Operation Date: 12/01/24 08:50 Actual Procedures p Incision and Drainage Lumbar Spine - Jabari Vang DO Diagnostic Imagining Performed 11/29/24 08:06 CT lumbar spine wo con Routine 12/03/24 15:42 MR pelvis wo con Routine 12/04/24 17:53 MRI Lumbar Spine [MR lumbar spine wo/w con] Urgent Pending Results Patient Have Any Pending Studies at Discharge: No Discharge Instructions Given to Patient (Per Discharging Provider) ACTIVITY RECOMMENDATIONS: SELF CARE INSTRUCTIONS AFTER THORACIC/LUMBAR FUSIONS 1. You may walk to your tolerance. It is good exercise for your legs and back. Expect some back and intermittent leg aches and pains. 2. You may perform "counter-top" level activities (make a sandwich, luisito with a project, etc.). 3. No bending or lifting of more than 10 pounds or back twisting of any nature (roll like a log when turning in bed). 4. You may ride in a car for 20-30 minutes at a time. No driving until after your first visit with your doctor. 5. Frequent changes of position and restricting sitting to 30 minutes at a time will help limit the amount of back spasms and stiffness you may experience. 6. You may discontinue the use of ambulatory aids (cane, crutches, etc.) once your strength and confidence allow. 7. You may surgery center administrator the shower and let water strike your incision when you arrive home at least once daily. Do not take a tub bath, sit in a hot tub or go into a swimming pool until after your first recheck in the office. 8. You may resume previous diet. SPECIAL CARE INSTRUCTIONS: VERY IMPORTANT TO READ AND REVIEW A. Your surgical incision has been closed with a cosmetic suture under the skin that will dissolve in about 6 weeks. In 14 days, you can use a pair of clean scissors and cut the suture that is left outside of the skin at the ends of your incision. 1. The small skin tapes can be removed 7 days after surgery if they have not fallen off by that point. 2. You may keep the wound open to air as much as possible to promote healing after post-op day number 5 unless told otherwise by your doctor. 3. If you think the wound looks like it is becoming infected (redness or worsening drainage) and/or you are experiencing fever, chill or worsening back pain and muscle spasms, contact the office so that we may evaluate you as soon as possible. B. Complications are uncommon, but please contact us if you have any signs or symptoms of: 1. wound infection (fever higher than 102.5 degrees F, redness, separation of wound, drainage, or increasing pain from the incision) 2. blood clots in legs (pain, swelling, redness and warmth in legs) 3. urinary tract infection (fever higher than 102.5 degrees F, burning upon urination or increased frequency of urination) 4. nerve problems (inability to walk on your toes or heels, numbness, loss of bowel or bladder control) 5. any other symptoms that concern you C. Please call the office at if you have any concerns or questions about your operation or recovery. D. No smoking! Smoking drastically decreases the chance of a solid fusion. E. Do not take any anti-inflammatory medications (Indocin, Advil, Motrin, Aspirin, Naprosyn, etc.) as these may inhibit the chance of a solid fusion. Tylenol is okay to take for pain. MANAGING PAIN AFTER SPINAL SURGERY 1. Narcotic medication is intended for short-term use and will be provided for surgical pain. Surgical pain usually lasts for a period of 4-6 weeks. Narcotic medication includes Percocet, Vicodin, Darvocet, Tylenol #3 or Lortab. 2. Longer-term pain is more appropriately treated with non-narcotic medication such as Tylenol ES. 3. Muscle spasm is not appropriately treated with narcotics. Muscle relaxers such as Soma, Flexeril or Skelaxin can be used along with Tylenol ES. 4. Remember that we all live with some "aches and pains". This is not unusual or uncommon after an injury or as we get older. a. Back pain is expected and may include muscle spasms for 4 to 6 weeks after surgery. The pain should gradually improve. If the pain worsens for no apparent reason, please contact the office. b. Intermittent leg pain may also be experienced and should not be concerned about unless it worsens for no apparent reason. If so, please contact the office. 5. We will provide appropriate medication within the normal guidelines of their prescribed use. We will also be very cautious and aware of potential abuse and extended duration of patients' medication needs. a. Pain medications are for your comfort and to assist with sleep and rest so that the tissue can heal. They are not provided in order to return to normal activity and should not be used through the day. To do so or worsening pain at night can result from ongoing tissue damage and development of tolerance to the prescribed medicine. 6. Please allow 2-3 days to process refills. Prescriptions will not be mailed but must be picked up at the office. FOLLOW UP VISIT: Keep your scheduled follow-up appointment. Any questions, please call the office at . Total Time Total Time Spent Total Time Spent (In Minutes): I spent a total of 35 minutes in direct patient care, including auvq-hv-emdh time with the patient and/or family, reviewing medical records, ordering and reviewing diagnostic tests, and coordinating care with other healthcare providers. This time includes: history taking, physical examination, medical decision making, counseling, ECG interpretation, imaging interpretation, lab interpretation, orders, and education, excluding time spent in the performance of separately billed services.
== END 2024-12-08 14:16 | disposition home health service (06) | DRG 560 ==
LOC: ED 08:11 → EDINP 10:13 → SUATTDRO 10:13 → 2E 11:00 → 3N 11-29 17:17

== ENCOUNTER 2024-12-19 13:55 | Inpatient (IN) ==
[2024-12-19 14:58] LABS: Hematocrit (blood only) 26.2 % (42.0-52.0); Hemoglobin 8.2 g/dl (14.0-18.0); Immature Granulocytes # (auto) 0.13 K/uL (0.01-0.20); Immature Granulocytes % (auto) 1.1 %; Mean Corpuscular Hemoglobin 29.3 pg (25.0-34.0); Mean Corpuscular Volume 93.6 fL (80.0-100.0); Platelet Count 265 K/uL (130-400); RDW Standard Deviation 51.7 fL (36.4-46.3); Red Blood Count 2.80 M/uL (4.70-6.10); White Blood Count 12.16 K/ul (4.8-10.8)
[2024-12-19 15:25] LABS: Alanine Aminotransferase 9 U/L (7-52); Albumin Globulin Ratio 1.1 (0.9-2); Albumin Level 3.4 gm/dl (3.4-5.0); Alkaline Phosphatase 70 U/L (34-104); Anion Gap 8 (3-11); Bilirubin,Total 0.6 mg/dl (0.2-1.0); Blood Urea Nitrogen 20 mg/dl (6-23); Calcium 9.0 mg/dl (8.6-10.3); Carbon Dioxide 29 mmol/L (21-32); Chloride 98 mmol/L (98-107); Globulin 3.2 gm/dl (2.5-4.0); Glucose 230 mg/dl (70-99(Fasting)); Potassium 4.4 mmol/L (3.5-5.1); Sodium 135 mmol/L (136-145); Total Protein 6.6 gm/dl (6.0-8.3)
[2024-12-19 15:28] LABS: Appearance Urine Clear (Clear); Bacteria Urine Automated None Seen (None Seen); Cast Urine Automated 0-2 /lpf (0-2); Epithelial Cell Urine Auto 0-2 /hpf (0-2); Glucose Urine UA Negative (Negative); RBC Urine Automated 0-2 /hpf (0-2); WBC Urine Automated 0-5 /hpf (0-5)
[2024-12-19] MEDS: HYDROmorphone INJ 1 MG/ML SYRINGE IV STA (17:12)
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
[2024-12-19] MEDS ORDERED: GLUCOSE 40% GEL 15 GM TUBE PO PRN (18:56)
[2024-12-19] MEDS ORDERED: DEXTROSE 50% 50 ML SYRINGE IV PRN (18:56)
[2024-12-19] MEDS ORDERED: CARBOHYDRATES FOR HYPOGLYCEMIA PO PRN (18:56)
[2024-12-19] MEDS ORDERED: GLUCOSE 10 TAB/TUBE PO PRN (18:56)
[2024-12-19] MEDS ORDERED: GLUCAGON FOR INJ 1 MG VIAL SQ PRN (18:56)
[2024-12-19] MEDS ORDERED: VANCOMYCIN CONSULT ACTIVE PRN (19:07)
[2024-12-19] MEDS ORDERED: POLYETHYLENE (MIRALAX) 17 GM PACK PO PRN (19:07)
[2024-12-19] MEDS ORDERED: NYSTATIN POWDER 15GM BTL EXT PRN (19:07)
[2024-12-19] MEDS: REMOVE & WASTE BUTRANS PATCH 1 EA EA SCH (19:16)
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
[2024-12-19 20:15] LABS: Chlamydia pneumoniae PCR Not Detected (NotDetected); Coronavirus 229E PCR Not Detected (NotDetected); Coronavirus CoV-2 (COVID19)PCR Not Detected (NotDetected); Coronavirus HKU1 PCR Not Detected (NotDetected); Coronavirus NL63 PCR Not Detected (NotDetected); Coronavirus OC43PCR Not Detected (NotDetected); Human Metapneumovirus PCR Not Detected (NotDetected); Parainfluenza Virus 1 PCR Not Detected (NotDetected); Parainfluenza Virus 2 PCR Not Detected (NotDetected); Parainfluenza Virus 3 PCR Not Detected (NotDetected); Parainfluenza Virus 4 PCR Not Detected (NotDetected); Respiratory Syncytial VirusPCR Not Detected (NotDetected); Rhinovirus/Enterovirus PCR Not Detected (NotDetected)
[2024-12-19] MEDS: BUPRENORPHINE 5 MCG/HR TDSY TD SCH (20:20)
[2024-12-19] MEDS: VANCOMYCIN HCL 2,250 MG in SODIUM CHLORIDE 0.9% 500 ML IV ONE (20:39)
--- NOTE | 2024-12-19 20:39 | Pharmacy Report ---
Pharmacy PK ABX Note - Date of Service December 19, 2024 - Assessment and Plan Assessment 69 year old M receiving cefazolin and rifampin for MSSA infection of spine (since 11/06/24) now ordered vancomycin due to new fevers and lower back pain. Patient reports that he has not taken rifampin in the last 9 days due to pharmacy issues. S/p spinal decompression/fusion on 11/06/24, developed postoperative lumbar epidural abscess w/ hematoma evacuation on 11/17/24. ID consulted during that admission and recommended prolonged treatment with cefazolin and rifampin (stop-date 12/30/24) w/ likely lifelong cefadroxil after. Pertinent microbiologic data includes: blood/back cultures (11/16/24, 11/17/24) growing MSSA, blood cultures (12/19/24) and urine culture (12/19/24) both pending. MRSA nasal swab ordered. Day # 1 of antimicrobial therapy. Plan Vancomycin * Loading dose: 2250 mg IV x 1 * Maintenance dose: 1500 mg IV every 12 hours * Regimen is predicted to achieve target AUC/KAMERON of 400-600 mg/L.hr * Random level ordered for: 12/22/24 Pharmacy will continue to follow and will adjust dose/frequency as necessary. Thank you. Pharmacy has transitioned to AUC monitoring for vancomycin. AUC/KAMERON is the preferred PK/PD target and is associated with decreased risk of nephrotoxicity compared to traditional trough targets.
[2024-12-19] MEDS: METOPROLOL SUCC 50MG EXT REL TAB PO SCH (22:45)
[2024-12-19] MEDS: FINASTERIDE 5 MG TAB PO SCH (22:47)
[2024-12-19] MEDS: ATORVASTATIN 40 MG TAB PO SCH (22:48)
[2024-12-19] MEDS: ASPIRIN 81 MG ECTAB PO SCH (22:49)
[2024-12-19] MEDS: TAMSULOSIN HCL 0.4 MG CAP PO SCH (22:50)
[2024-12-19] MEDS: PREGABALIN 150 MG CAP PO SCH (22:52)
[2024-12-19] MEDS: INSULIN ASPART PER UNIT CHARGE SC SCH (22:52)
[2024-12-19] MEDS: LIDOCAINE 5% 1 PATCH TD STA (23:22)
[2024-12-19] MEDS: CHECK BUPRENORPHINE PATCH SCH (23:22)
[2024-12-20] MEDS ORDERED: NON-FORMULARY MEDICATION (Cefazolin In 0.9% Sod Chloride 2 gram/100 mL solution) IV SCH (02:00)
[2024-12-20] MEDS: HYDROmorphone INJ 0.5 MG/0.5 ML SYR IV STA (02:06)
--- NOTE | 2024-12-20 07:14 | Electrocardiogram Report ---
Test Reason : Blood Pressure : */* mmHG Vent. Rate : 87 BPM Atrial Rate : 87 BPM P-R Int : 168 ms QRS Dur : 76 ms QT Int : 360 ms P-R-T Axes : 41 15 23 degrees QTcB Int : 433 ms Normal sinus rhythm Nonspecific ST abnormality When compared with ECG of 20-Nov-2024 13:33, ST elevation now present in Anterior leads Confirmed by Kavon Peterson ([id number]) on 12/20/2024 7:14:31 AM Referred By: REFERRED SELF Confirmed By: Kavon Peterson
--- NOTE | 2024-12-20 08:02 | Hospitalist Progress Note ---
Date of Service December 20, 2024 Assessment & Plan (1) Fever: (2) Low back pain: (3) Chronic pain syndrome: (4) Infection associated with internal fixation device of spine: (5) Status post incision and drainage: (6) MSSA (methicillin susceptible Staphylococcus aureus) infection: Plan Patient is a 69y/o M with PMHx significant for DM type II with diabetic polyneuropathy, TALIB, HLD, HTN, bicuspid aortic valve with aortic valve stenosis and aortic regurgitation, mild mitral regurgitation, history of left retinal artery occlusion in 2020, atherosclerosis of the thoracic aortic arch with saccular aneurysm within the proximal descending thoracic aorta, carotid artery stenosis, hepatic steatosis, Wagner's esophagus, depression, insomnia, chronic pancreatitis, obesity, 3 pack-year smoking history and history of kidney stones who presented to the ED from home on 12/19/24 with complaints of fever and worsening low back pain radiating down to the L knee. Confinement 11/15-11/25/24 with sepsis 2/2 postop lumbar epidural abscess s/p lumbar decompression and fusion surgery performed by Dr. Vang on 11/06/24. S/p I&D of the lumbar spine with hematoma evacuation on 11/17/[address] Vang. Intraop cultures grew MSSA; blood cultures were negative. Seen and evaluated by ID: IV cefazolin 2g Q8H and po rifampin 300mg BID to be continued through 12/29/24, then chronic suppressive therapy with cefadroxil 500mg BID likely for life. Was discharged to [facility] following this admission. Confinement 11/26-12/08/24 2/2 intractable low back pain. Repeat lumbar spine CT, 11/29/24: 8.8 x 8.7 x 3.2 cm peripherally hyperdense laminectomy bed fluid collection, fluid collection nonspecific in the postoperative setting. S/p repeat I&D of the lumbar spine on 12/01/[address] Vang. Intraop cultures unremarkable. IV cefazolin and po rifampin course was extended to continue through 12/30/24 as patient missed 1 days worth of antibiotic therapy 2/2 medication delivery issues . Was discharged home with [facility] following this admission. 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 2/2 medication delivery issues -No issues reported with IV cefazolin -Will plan on reaching out to ID to see if his rifampin therapy duration needs to be lengthened to cover for 10 missed days Continue IV Ancef, po rifampin and IV vanco pending blood culture results Continue to monitor for fevers Appreciate orthospine consult Will defer repeat imaging of recent surgical site to orthospine unless patient develops fever then will image sooner Continue Butrans patch and PRN oxycodone Appreciate PT/OT evaluations -Pt needs to be out of bed as much as possible #Abnormal urinalysis UA: 1+ LE, positive nitrite, no bacteria Pt w/o any new urinary complaints; has chronic urinary urgency but this is unchanged from baseline Continue above ABX regimen pending urine culture results #HTN Continue BB, Norvasc #DMII with diabetic polyneuropathy Hgb A1c 6.2% this admission Hold home regimen, SSI protocol while inpatient Monitor BSG checks, CC diet #Atherosclerosis of the thoracic aortic arch with saccular aneurysm within the proximal descending thoracic aorta Follows with cardiothoracic surgery at [facility] August, Dr. Munson Next appointment scheduled for 02/04/25 with repeat CTA (previously measuring 3.5cm) No previous surgical intervention Continue ASA, statin #HLD Continue statin as per above #GERD #History of Wagner's esophagus Holding PPI while on rifampin 2/2 potential drug-drug interaction #Depression Continue Cymbalta #History of TALIB #History of acute surgical blood loss s/p recent lumbar spine operations (as me ntioned above) H/H appears stable compared to prior Continue Fe supplementation and monitor #BPH Continue Proscar, Flomax #Insomnia Continue trazodone #Hypomagnesemia Repleted via IV Continue to monitor and replete PRN DVT Prophylaxis: SQ Lovenox Code Status: FULL CODE PCP: Hank Hinojosa PA-C Disposition: DC plans uncertain at this time; downgrade to med/surg Patient seen in collaboration with Dr. Banegas. Please see addendum. I spent a total of 48 minutes coordinating, documenting, and providing care for this patient excluding time spent in the performance of separately billed services or time spent by another provider/QHP. This included personally reviewing all current laboratories and imaging studies, medical reconciliation, outpatient chart review and discussion with specialists. This chart was completed in part utilizing Speech Voice Recognition Software. Grammatical errors, random word insertions, pronoun errors, and incomplete sentences are an occasional consequence of this system due to software limitations, ambient noise, and hardware issues. Any formal questions or concerns about the content, text, or information contained within the body of this dictation should be directly addressed to the provider for clarification. Admission and Anticipated Discharge Date Admission Date: December 19, 2024 Supervising Physician Co-Signing Physician Notes Patient seen bedside. Patient is comfortable; not in any distress. Reports some pain radiating down left thigh. No fever since admission. Leukocytosis improved. Will continue antibiotics; follow-up blood culture results. I have reviewed the advanced practitioner's documentation, and I agree with, and take responsibility for the plan of care I spent a total of 20 minutes coordinating, documenting, and providing care for this patient excluding time spent in the performance of separately billed services. All of the aforementioned completed while collaborating with the assigned advanced practitioner for a full treatment plan Subjective Patient seen and examined in room 214-1. Still having low back pain with radiation down the left knee. Described as achy with periods of sharp/stabbing pain. Has remained afebrile so far this admission. Review of Systems Review of Systems: At least ten systems reviewed and negative, except as noted in the subjective section. Physical Exam Physical Exam: General: Obese M, NAD, laying down in bed, A&Ox3 HEENT: Normocephalic, atraumatic, moist mucous membranes Respiratory: Normal respiratory effort, CTAB Cardiovascular: RRR, + murmur, no BLE edema Abdomen/GI: Active bowel sounds, soft, nontender to palpation in all quadrants Extremities/MSK: No cyanosis or clubbing, well-healed surgical site on low back, able to move all extremities, + pain with LLE movement Neurologic: No overt focal deficits, CN's II-XI not formally tested but appear grossly intact bilaterally Results & Data Results & Data Vital Signs (Past 12 Hours) Vital Signs Temp Pulse Pulse Resp BP BP Pulse Ox 12/20/24 07:13 36.8 C 84 18 112/74 94 12/20/24 05:00 94 09/27/25 03:28 36.6 C 85 18 101/66 91 12/19/24 23:03 36.6 C 114 H 20 115/75 95 12/19/24 23:00 114 H 12/19/24 23:00 12/19/24 21:14 37.4 C 12/19/24 21:13 105 H 20 132/79 95 O2 Del Method 12/20/24 07:13 Room Air 12/20/24 05:00 Room Air 12/20/24 03:28 Room Air 12/19/24 23:03 Room Air 12/19/24 23:00 12/19/24 23:00 Room Air 12/19/24 21:14 12/19/24 21:13 Room Air Laboratory Results Short CBC 12/19/24 12/20/24 Range/Units 14:44 07:51 WBC 12.16 H 10.39 (4.8-10.8) K/ul Hgb 8.2 L 8.1 L (14.0-18.0) g/dl Hct 26.2 L 26.9 L (42.0-52.0) % Plt Count 265 272 (130-400) K/uL BMP 12/19/24 12/20/24 14:44 07:51 Sodium 135 L 136 Potassium 4.4 3.8 Chloride 98 99 Carbon Dioxide 29 31 BUN 20 18 Creatinine 0.72 0.63 Glucose 230 H 200 H Calcium 9.0 8.8 Liver Function 12/19/24 12/20/24 Range/Units 14:44 07:51 Total Bilirubin 0.6 0.7 (0.2-1.0) mg/dl AST 16 12 L (13-39) U/L ALT 9 5 L (7-52) U/L Alkaline Phosphatase 70 59 (34-104) U/L Albumin 3.4 3.3 L (3.4-5.0) gm/dl Urine 12/19/24 Range/Units 14:53 Urine Color Dark Yellow Urine Appearance Clear (Clear) Urine pH 6.5 (4.5-7.5) Ur Specific [place] 1.017 (1.000-1.030) Urine Protein 1+ H (Negative) Urine Glucose (UA) Negative (Negative) (1) Fever Fever type: unspecified Qualified Code(s): R50.9 - Fever, unspecified (2) Low back pain Back pain laterality: unspecified Chronicity: unspecified Sciatica presence: unspecified whether sciatica present Qualified Code(s): M54.50 - Low back pain, unspecified (4) Infection associated with internal fixation device of spine Encounter type: subsequent encounter Qualified Code(s): T84.63XD - Infection and inflammatory reaction due to internal fixation device of spine, subsequent encounter
[2024-12-20 08:16] LABS: Hematocrit (blood only) 26.9 % (42.0-52.0); Hemoglobin 8.1 g/dl (14.0-18.0); Immature Granulocytes # (auto) 0.11 K/uL (0.01-0.20); Immature Granulocytes % (auto) 1.1 %; Mean Corpuscular Hemoglobin 27.9 pg (25.0-34.0); Mean Corpuscular Volume 92.8 fL (80.0-100.0); Platelet Count 272 K/uL (130-400); RDW Standard Deviation 52.3 fL (36.4-46.3); Red Blood Count 2.90 M/uL (4.70-6.10); White Blood Count 10.39 K/ul (4.8-10.8)
[2024-12-20 08:33] LABS: Alanine Aminotransferase 5.0 U/L (7-52); Albumin Globulin Ratio 1.1 (0.9-2); Albumin Level 3.3 gm/dl (3.4-5.0); Alkaline Phosphatase 59.0 U/L (34-104); Anion Gap 6.0 (3-11); Bilirubin,Total 0.7 mg/dl (0.2-1.0); Blood Urea Nitrogen 18.0 mg/dl (6-23); Calcium 8.8 mg/dl (8.6-10.3); Carbon Dioxide 31.0 mmol/L (21-32); Chloride 99.0 mmol/L (98-107); Creatinine Clr Calc Pharmacy 127.0 ml/min; Globulin 2.9 gm/dl (2.5-4.0); Glucose 200.0 mg/dl (70-99(Fasting)); Magnesium 1.5 mg/dl (1.7-2.4); Potassium 3.8 mmol/L (3.5-5.1); Sodium 136.0 mmol/L (136-145); Total Protein 6.2 gm/dl (6.0-8.3)
[2024-12-20] MEDS: FERROUS SULFATE 325 MG TAB PO SCH (08:48)
[2024-12-20] MEDS: ENOXAPARIN INJ 40 MG/0.4 ML SYR SQ SCH (08:48)
[2024-12-20] MEDS: VANCOMYCIN HCL 1,500 MG in SODIUM CHLORIDE 0.9% 500 ML IV SCH (08:48)
[2024-12-20] MEDS: CHOLECALCIFEROL 25 MCG (1000 UNITS) TAB PO SCH (08:49)
[2024-12-20 08:50] LABS: Hemoglobin A1C 6.2 % (4.5-5.6)
[2024-12-20] MEDS: REMOVE LIDODERM PATCH SCH (08:57)
[2024-12-20] MEDS: MAGNESIUM SULFATE / D5W 1 GM/100 ML BAG IV SCH (15:35)
[2024-12-20] MEDS: LIDOCAINE 5% 1 PATCH TD SCH (20:44)
[2024-12-20] MEDS: ACETAMINOPHEN 325 MG TAB PO PRN (20:56)
[2024-12-21] MEDS ORDERED: Nursing to Pharmacy Communication SCH (02:15)
[2024-12-21 07:30] LABS: Hematocrit (blood only) 24.8 % (42.0-52.0); Hemoglobin 7.7 g/dl (14.0-18.0); Immature Granulocytes # (auto) 0.13 K/uL (0.01-0.20); Immature Granulocytes % (auto) 1.3 %; Mean Corpuscular Hemoglobin 28.9 pg (25.0-34.0); Mean Corpuscular Volume 93.2 fL (80.0-100.0); Platelet Count 278 K/uL (130-400); RDW Standard Deviation 52.2 fL (36.4-46.3); Red Blood Count 2.66 M/uL (4.70-6.10); White Blood Count 9.83 K/ul (4.8-10.8)
[2024-12-21 07:49] LABS: Polychromasia 1+; Tear Drop Cells 1+
[2024-12-21 07:54] LABS: Anion Gap 7.0 (3-11); Blood Urea Nitrogen 16.0 mg/dl (6-23); Calcium 8.3 mg/dl (8.6-10.3); Carbon Dioxide 29.0 mmol/L (21-32); Chloride 100.0 mmol/L (98-107); Creatinine Clr Calc Pharmacy 115.9 ml/min; Glucose 195.0 mg/dl (70-99(Fasting)); Potassium 3.8 mmol/L (3.5-5.1); Sodium 136.0 mmol/L (136-145)
[2024-12-21] MEDS: CEROVITE ADV FORMULA TAB PO SCH (07:59)
[2024-12-21] MEDS: REMOVE & WASTE BUTRANS PATCH 1 EA EA SCH (08:40)
[2024-12-21] MEDS: BUPRENORPHINE 5 MCG/HR TDSY TD SCH (08:46)
--- NOTE | 2024-12-21 10:14 | Hospitalist Progress Note ---
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 Confinement 11/15-11/25/24 with sepsis 2/2 postop lumbar epidural abscess s/p lumbar decompression and fusion surgery performed by Dr. Vang on 11/06/24. S/p I&D of the lumbar spine with hematoma evacuation on 11/17/[address] Vang. Intraop cultures grew MSSA; blood cultures were negative. Seen and evaluated by ID: IV cefazolin 2g Q8H and po rifampin 300mg BID to be continued through 12/29/24, then chronic suppressive therapy with cefadroxil 500mg BID likely for life. Was discharged to [facility] following this admission. Confinement 11/26-12/08/24 2/2 intractable low back pain. Repeat lumbar spine CT, 11/29/24: 8.8 x 8.7 x 3.2 cm peripherally hyperdense laminectomy bed fluid collection, fluid collection nonspecific in the postoperative setting. S/p repeat I&D of the lumbar spine on 12/01/[address] Vang. Intraop cultures unremarkable. IV cefazolin and po rifampin course was extended to continue through 12/30/24 as patient missed 1 days worth of antibiotic therapy 2/2 medication delivery issues . Was discharged home with [facility] following this admission. #Fever --> 101F with associated chills [employer] #Worsening low back pain with radiation down to L knee #Chronic pain syndrome #Postoperative lumbar epidural abscess s/p I&D with hematoma evacuation on 11/17/24 and repeat I&D on 12/01/24 #MSSA infection Remains afebrile since admission Pt missed rifampin doses for 10 days [employer] 2/2 medication delivery issues -No issues reported with IV cefazolin compliance -Discussed with ID, Dr. Tobin, over TT this AM to see if rifampin course needs to be extended given missed doses -Will revisit ABX duration until pt seen by orthospine Preliminary blood cultures and nasal MRSA negative so will stop IV vanco TTE pending to r/o any underlying cardiac involvement however have low suspicion of this given negative blood cultures and no cardiopulmonary complaints Continue IV Ancef and p.o. rifampin Continue to monitor for fevers Appreciate orthospine consult, Dr. Vang back on service tomorrow 12/22 Will defer repeat imaging of recent surgical site to orthospine unless patient develops fever recurrence then will image sooner Continue Butrans patch and PRN oxycodone Appreciate PT/OT evaluations -Pt needs to be out of bed as much as possible, plans to walk hallways with nursing staff today #Abnormal urinalysis UA: 1+ LE, positive nitrite, no bacteria Pt w/o any new urinary complaints; has chronic urinary urgency but this is unchanged from baseline Preliminary urine culture growing Enterococcus faecium However given absence of new urinary complaints, suspect this may be colonization/asymptomatic bacteriuria or possible contamination No need for additional ABX at this time #HTN Continue BB, Norvasc with hold parameters #DMII with diabetic polyneuropathy Hgb A1c 6.2% this admission Hold home regimen, SSI protocol while inpatient Monitor BSG checks, CC diet #Atherosclerosis of the thoracic aortic arch with 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 Next appointment scheduled for 02/04/25 with repeat CTA (previously measuring 3.5cm) No previous surgical intervention Continue ASA, statin #HLD Continue statin as per above #GERD #History of Wagner's esophagus Holding PPI while on rifampin 2/2 potential drug-drug interaction #Depression Continue Cymbalta #History of TALIB #History of acute surgical blood loss s/p recent lumbar spine operations (as mentioned above) H/H appears stable compared to prior s/p lumbar spine operations Will increase Fe supplementation dose to see if it provides any improvement, check ferritin and iron levels in AM #BPH Continue Proscar, Flomax #Insomnia Continue trazodone DVT Prophylaxis: SQ Lovenox Code Status: FULL CODE PCP: Hank Hinojosa PA-C Disposition: Appreciate PT/OT evals for routine DC planning Patient seen in collaboration with Dr. Banegas. Please see addendum. I spent a total of 42 minutes coordinating, documenting, and providing care for this patient excluding time spent in the performance of separately billed services or time spent by another provider/QHP. This included personally reviewing all current laboratories and imaging studies, medical reconciliation, outpatient chart review and discussion with specialists. This chart was completed in part utilizing Speech Voice Recognition Software. Grammatical errors, random word insertions, pronoun errors, and incomplete sentences are an occasional consequence of this system due to software limitations, ambient noise, and hardware issues. Any formal questions or concerns about the content, text, or information contained within the body of this dictation should be directly addressed to the provider for clarification. Admission and Anticipated Discharge Date Admission Date: December 19, 2024 Supervising Physician Co-Signing Physician Notes Patient seen bedside. Patient is comfortable; not in any distress. no fever since admission blood culture is neg for 24 hours; plan to continue antibiotics as previously planned. I have reviewed the advanced practitioner's documentation, and I agree with, and take responsibility for the plan of care I spent a total of 20 minutes coordinating, documenting, and providing care for this patient excluding time spent in the performance of separately billed s ervices. All of the aforementioned completed while collaborating with the assigned advanced practitioner for a full treatment plan Subjective Patient seen and examined in room 214-1. Sitting up at bedside eating breakfast. Reports back pain is feeling somewhat improved from yesterday. Did not get up out of bed much yesterday. Has been ambulating in his room to the toilet. Encouraged him to get up and ambulate the halls today with nursing staff. Remains afebrile. Review of Systems Review of Systems: At least ten systems reviewed and negative, except as noted in the subjective section. Physical Exam Physical Exam: General: Obese M, NAD, sitting up at side of bed, A&Ox3 HEENT: Normocephalic, atraumatic, moist mucous membranes Respiratory: Normal respiratory effort, CTAB Cardiovascular: RRR, + murmur, no BLE edema Abdomen/GI: Active bowel sounds, soft, nontender to palpation in all quadrants Extremities/MSK: No cyanosis or clubbing, well-healed surgical site on low back, able to move all extremities, + pain with LLE movement Neurologic: No overt focal deficits, CN's II-XI not formally tested but appear grossly intact bilaterally Results & Data Results & Data Vital Signs (Past 12 Hours) Vital Signs Temp Pulse Pulse Resp BP Pulse Ox O2 Del Method 12/21/24 07:31 36.9 C 83 18 100/62 94 Room Air 12/21/24 00:13 36.9 C 89 20 112/70 94 Room Air Laboratory Results Short CBC 12/21/24 Range/Units 07:04 WBC 9.83 (4.8-10.8) K/ul Hgb 7.7 L (14.0-18.0) g/dl Hct 24.8 L (42.0-52.0) % Plt Count 278 (130-400) K/uL BMP 12/21/24 07:04 Sodium 136 Potassium 3.8 Chloride 100 Carbon Dioxide 29 BUN 16 Creatinine 0.69 Glucose 195 H Calcium 8.3 L (1) Fever Fever type: unspecified Qualified Code(s): R50.9 - Fever, unspecified (2) Low back pain Back pain laterality: unspecified Chronicity: unspecified Sciatica presence: unspecified whether sciatica present Qualified Code(s): M54.50 - Low back pain, unspecified (4) Infection associated with internal fixation device of spine Encounter type: subsequent encounter Qualified Code(s): T84.63XD - Infection and inflammatory reaction due to internal fixation device of spine, subsequent encounter
[2024-12-21] MEDS ORDERED: PHARMACY GLYCEMIC MGMT CONSULT PRN (11:42)
[2024-12-21] MEDS: LANTUS PER UNIT CHARGE SC ONE (12:46)
[2024-12-21] MEDS ORDERED: DOCUSATE SODIUM 100 MG CAP PO PRN (13:25)
[2024-12-21] MEDS: DOCUSATE SODIUM 100 MG CAP PO ONE (14:03)
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
--- NOTE | 2024-12-21 14:37 | XCELERA ---
[id number]
--- NOTE | 2024-12-21 15:13 | Pharmacy Report ---
Pharmacy Glycemic Short Note 2 - Date of Service December 21, 2024 - Glycemic Short BSG Results (Last 24 hours): 12/20/24 12/20/24 12/21/24 16:20 20:19 07:04 Glucose 195 H POC Glucose 158 H 186 H 12/21/24 12/21/24 12/21/24 07:50 11:32 11:34 Glucose POC Glucose 209 H 401 H* 313 H* 12/21/24 12:49 Glucose POC Glucose 285 H OUTPATIENT ANTIDIABETIC REGIMEN: * metformin 500 mg PO BID A1c = 6.2% ASSESSMENT: * Archie is 69 yo T2DM who presented with reported fevers and lower back pain in the setting of recent admission for lumbar epidural abscess s/p I&D x 2. * He is known to the glycemic service from recent past admission. Will base insulin regimen on what worked well in the past and titrate as needed. * Overnight BSG checks ordered for this evening given severe hyperglycemia at lunchtime. PLAN FOR INPATIENT GLYCEMIC CONTROL: * Hold outpatient oral diabetes medications * Basal insulin * Lantus 20 units SQ x 1 * Bolus insulin * NovoLog per scale ACHS or Q6hrs while NPO * Goal Range: Low 110 mg/dL - High 140 mg/dL * Correction Factor: 20 mg/dL/unit * Nutritional / Prandial insulin per carb ratio of 1 unit per 6 grams CHO consumed
[2024-12-21] MEDS: FERROUS SULFATE 325 MG TAB PO SCH (20:39)
[2024-12-21 20:44] VITALS: O2SAT 94
[2024-12-21] MEDS ORDERED: DOCUSATE SODIUM 100 MG CAP PO SCH (21:00)
[2024-12-22] MEDS: INSULIN ASPART PER UNIT CHARGE SC SCH (00:01)
[2024-12-22 05:18] LABS: Hematocrit (blood only) 25.9 % (42.0-52.0); Hemoglobin 7.8 g/dl (14.0-18.0); Mean Corpuscular Hemoglobin 28.2 pg (25.0-34.0); Mean Corpuscular Volume 93.5 fL (80.0-100.0); Platelet Count 264 K/uL (130-400); RDW Standard Deviation 52.0 fL (36.4-46.3); Red Blood Count 2.77 M/uL (4.70-6.10); Reticulocytes # 0.100 10^6/uL (0.020-0.100); White Blood Count 9.41 K/ul (4.8-10.8)
[2024-12-22 05:34] LABS: Anion Gap 6.0 (3-11); Blood Urea Nitrogen 14.0 mg/dl (6-23); Calcium 8.6 mg/dl (8.6-10.3); Carbon Dioxide 28.0 mmol/L (21-32); Chloride 103.0 mmol/L (98-107); Creatinine Clr Calc Pharmacy 97.6 ml/min; Glucose 179.0 mg/dl (70-99(Fasting)); Iron 10.0 mcg/dl (35-175); Magnesium 1.8 mg/dl (1.7-2.4); Potassium 3.8 mmol/L (3.5-5.1); Sodium 137.0 mmol/L (136-145); Transferrin 211.0 mg/dl (200-360)
[2024-12-22 05:49] LABS: Thyroid Stimulating Hormone 2.293 uIu/ml (0.300-4.500)
[2024-12-22 05:54] LABS: Ferritin 48.4 ng/ml (8-388)
[2024-12-22 07:16] VITALS: BP 122/78; PULSE 84; RESP 18; TEMP 97.9
--- NOTE | 2024-12-22 09:08 | XRay Report ---
XR lumbar spine 2-3V CLINICAL HISTORY: back pain COMPARISON STUDY: 12/04/2024 and 11/29/2024 FINDINGS: Stable calculus lower left kidney. Stable posterior metallic fusion from L2 through S1. Sta ble minimal height loss at the L2 vertebral body fracture. Stable fracture at the right transverse pr ocess of L2. No new fracture or subluxation seen. IMPRESSION: Stable exam. ACT 112: Negative or not required by law. Electronically signed by: Hong Dhillon M.D. 12/22/2024 9:06 AM
--- NOTE | 2024-12-22 09:35 | Orthopedic Progress Note ---
Date of Service December 22, 2024 Assessment & Plan (1) Low back pain: Plan: Patient has been afebrile since admission. He is tolerating physical therapy. From orthopedic standpoint he is safe for discharge when medically cleared. Admission and Anticipated Discharge Date Admission Date: December 19, 2024 Subjective Patient feels that his symptoms are controlled. Struggling with some left IT band discomfort but moving well with therapy. Physical Exam Physical Exam: Patient is in the chair at bedside. Is able to stand on his own. The incision is healing appropriately. There is no erythema no drainage. He is nontender to palpation. He has tenderness palpation of the left IT band and upper buttock. No right leg pain. Good strength testing. Results & Data Vital Signs (Past 12 Hours) Vital Signs Temp Pulse Resp BP Pulse Ox O2 Del Method 12/22/24 09:00 Room Air 12/22/24 07:15 36.6 C 84 18 122/78 94 Room Air 12/22/24 02:20 36.9 C 88 16 120/78 94 Room Air (1) Low back pain Chronicity: unspecified Back pain laterality: unspecified Sciatica presence: unspecified whether sciatica present Qualified Code(s): M54.50 - Low back pain, unspecified
--- NOTE | 2024-12-22 12:17 | Discharge Summary ---
Discharge Summary Date of Service December 22, 2024 Principal Dx & Hospital Course #1 = Principal Diagnosis (1) Fever: (2) Low back pain: (3) Chronic pain syndrome: (4) Infection associated with internal fixation device of spine: (5) Status post incision and drainage: (6) MSSA (methicillin susceptible Staphylococcus aureus) infection: Plan 69 year old male with PMH significant for DM type II with diabetic polyneuropathy, TALIB, HLD, HTN, bicuspid aortic valve with aortic valve stenosis and aortic regurgitation, mild mitral regurgitation, history of left retinal artery occlusion in 2020, atherosclerosis of the thoracic aortic arch with 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 Admitted 11/15-11/25/24 with sepsis 2/2 postop lumbar epidural abscess s/p lumbar decompression and fusion surgery performed by Dr. Vang on 11/06/24. S/p I&D of the lumbar spine with hematoma evacuation on 11/17/[address] Vang. Intraop cultures grew MSSA; blood cultures were negative. Seen and evaluated by ID: IV cefazolin 2g Q8H and po rifampin 300mg BID to be continued through 12/29/24, then chronic suppressive therapy with cefadroxil 500mg BID likely for life. Was discharged to [facility] following this admission. Admitted 11/26-12/08/24 2/2 intractable low back pain. Repeat lumbar spine CT, 11/29/24: 8.8 x 8.7 x 3.2 cm peripherally hyperdense laminectomy bed fluid collection, fluid collection nonspecific in the postoperative setting. S/p repeat I&D of the lumbar spine on 12/01/[address] Vang. Intraop cultures unremarkable. IV cefazolin and po rifampin course was extended to continue through 12/30/24 as patient missed 1 days worth of antibiotic therapy 2/2 medication delivery issues . Was discharged home with [facility] following this admission. Fever Low back pain History of post operative lumbar epidural abscess s/p I&D MSSA infection Patient presented with fever of 100.1 at home and worsening low back pain with radiation down left leg stopping at the knee Patient remained afebrile during admission Initial leukocytosis of 12 resolved Negative lactate and procalcitonin on admission Blood cultures prelim no growth in 48 hours - follow up on final results Lumbar spine x-ray stable [facility] evaluated patient and cleared for discharge with plan to follow up outpatient PT and OT cleared patient for discharge to home Continue buprenophine patch, lyrica, and oxycodone as needed for pain control Continue IV cefazolin 2g q8hr and PO rifampin 300mg bid until 12/30/2024 for previous MSSA infection --Patient missed 10 days of rifampin prior to admission due to delivery issues but ID advised still stopping on 12/30/2024 as rifampin should not be administered as monotherapy Abnormal urinalysis Admitting UA positive for nitrites and leuk esterase Urine culture positive for enterococcus faecium VRE Discussed with ID who does not recommend treatment as patient is asymptomatic Hypertension Continue amlodipine and metoprolol Hyperlipidemia Continue atorvastatin DMII with diabetic polyneuropathy A1C 6.2% this admission Continue metformin Atherosclerosis of the thoracic aortic arch with 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 Munson Next appointment scheduled for 02/04/25 with repeat CTA (previously measuring 3.5cm) Continue baby aspirin and atorvastatin GERD History of Wagner's esophagus Continue pantoprazole - may not be as effective while on rifampin Depression Continue duloxetine Iron deficiency anemia H&H stable around 7.9-8.0 Iron 10, transferrin 211, ferritin 48 Continue iron supplementation BPH Continue finasteride and tamsulosin Insomnia Continue trazodone Patient seen in collaboration with Dr. Banegas. Please see addendum. Notes For Next Care Provider 69 year old male with significant PMH who was admitted at [facility] from 12/19- 12/22/2024 with fevers and worsening low back pain. Patient is s/p lumbar decompression and fusion on 11/06/2024 with complicated post operative course secondary to epidural abscess s/p I&D x2 on 11/17/2024 and 12/01/2024. Initial I&D resulted in MSSA infection for which patient is on IV cefazolin and PO rifampin until 12/30/2024. Work up this admission not concerning for infection. Evaluated by orthospine surgery who cleared patient for discharge. PT and OT cleared patient for discharge home. Patient is to continue home health services through [facility] for IV antibiotics. Please follow up on final blood culture results. Medication Changes From Visit None Admission HPI Per Admitting Provider Patient is a 69-year-old male with past medical history significant for DM type II with diabetic polyneuropathy, TALIB, HLD, HTN, bicuspid aortic valve with aortic valve stenosis and aortic regurgitation, mild mitral regurgitation, history of left retinal artery occlusion in 2020, atherosclerosis of the thoracic aortic arch with 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 Tmax 100.1 over the past 24 hours. Currently has a PICC line in place receiving IV Ancef and still receiving p.o. rifampin. Patient reports only starting to take his rifampin yesterday 12/18/2024 due to issues with the pharmacy getting the medication. He otherwise denies any nausea/vomiting/diarrhea. Denies any abdominal pain. Does report some chills. Denies any pain or redness around his PICC line site or any issues with getting antibiotics at home. Recently hospitalized on 11/15/2024 until 11/25/2024 with sepsis secondary to postoperative lumbar epidural abscess s/p lumbar decompression and fusion surgery performed by Dr. Vang on 11/06/2024, at that point underwent irrigation and debridement of the lumbar spine with hematoma evacuation on 11/17/[address] Vang. Intraoperative cultures grew MSSA, blood cultures were negative at that time. At this time, seen by ID who recommended IV cefazolin 2 g every 8 hours and p.o. rifampin 300 mg twice daily to be continued until 12/29/2024, then chronic suppressive therapy with cefadroxil 500 mg twice daily likely for life. The patient was recently discharged on 12/08/2024 with similar concerns. Had a repeat I&D on 12/01, MRI lumbar spine was negative at this time. It was recommended at the time of discharge to continue pain management and antibiotic regimen until 12/30/2024 given a missed dose of IV antibiotics. Today, the patient's labs are remarkable for WBC 12, hemoglobin 8.2, NA 135, glucose [address] Vang in the ER, did not recommend further imaging at this time, recommended to continue IV Ancef Blood cultures are now pending, we will admit the patient for further management of lower back pain and fever Admission Exam Per Admitting Provider General: Not in distress Eyes: PERRL, conjunctivae normal, not pale, anicteric sclerae, EOM intact bilaterally ENMT: External ear and nose normal, oropharynx normal Respiratory: Not in resp distress, CTA b/l Cardiovascular: RRR S1 S2, +murmur Gastrointestinal (Abdomen): Abdomen is not distended, soft, non-tender to palpation, normal bowel sounds Musculoskeletal: Well healed surgical site on low back. No pedal edema Neurologic: Alert and oriented x 3, Normal passive ROM of extremities. Psychiatric: Euthymic affect Discharge Exam General/Psych: WD/WN, sitting up in bed, NAD, conversing easily Head: normocephalic, atraumatic Eyes: normal inspection, PERRL, conjunctivae pink ENT: external ear and nose normal, oropharynx normal Neck: normal visual inspection, trachea midline Respiratory: normal respiratory effort, lungs clear to auscultation, no wheeze/rales/rhonchi, no accessory muscle use Cardiovascular: regular rate and rhythm, no murmur/rub/gallop, no JVD Extremities: no cyanosis or clubbing, normal peripheral pulses, no BLE edema, sensation intact BLE Abdomen/GI: normal bowel sounds, soft, nontender Neurologic/MSK: A+Ox3, motor strength 5/5, moves all extremities Skin: no rashes, normal color, warm and dry Updated Medication List Medication Instructions Recorded Confirmed Type albuterol sulfate 2.5 mg/3 mL 2.5 mg inhalation DIRECTED PRN 09/18/24 12/20/24 History (0.083 %) solution for nebulization Shortness Of Breath Or Wheezing apple cider vinegar 500 mg tablet 1,500 mg PO DAILY 10/02/24 12/20/24 History polyethylene glycol 3350 17 gram 17 g PO DAILY PRN Constipation 10/02/24 12/20/24 History oral powder packet (Miralax) B-complex with vitamin C 2 tab PO DAILY #30 tabs 11/21/24 12/20/24 Rx acetaminophen 500 mg tablet 1,000 mg (2 x 500 mg) PO TID #60 11/21/24 12/20/24 Rx tabs albuterol sulfate 90 mcg/actuation 2 puff inhalation Q4H PRN Wheezing 11/21/24 12/20/24 Rx aerosol inhaler #6.7 grams aspirin 81 mg tablet,delayed 81 mg PO HS #30 tabs 11/21/24 12/20/24 Rx release atorvastatin 40 mg tablet 40 mg PO HS #30 tabs 11/21/24 12/20/24 Rx cholecalciferol (vitamin D3) 25 25 mcg PO DAILY #30 caps 11/21/24 12/20/24 Rx mcg (1,000 unit) capsule (Vitamin D3) duloxetine 40 mg capsule,delayed 80 mg (2 x 40 mg) PO HS #30 caps 11/21/24 12/20/24 Rx release ferrous sulfate 325 mg (65 mg 325 mg PO DAILY #30 tabs 11/21/24 12/20/24 Rx iron) tablet finasteride 5 mg tablet 5 mg PO HS #30 tabs 11/21/24 12/20/24 Rx magnesium hydroxide 400 mg/5 mL 15 ml PO QID PRN constipation #355 11/21/24 12/20/24 Rx oral suspension (Milk of Magnesia) mL metoprolol succinate 200 mg 200 mg PO HS #30 tabs 11/21/24 12/20/24 Rx tablet,extended release 24 hr zgrisqrmhywq-gktz-aclxr acid 200 1 tab PO DAILY #30 tabs 11/21/24 12/20/24 Rx mcg-lutein 137.5 mcg chewable tablet (Adult Multivitamin (w-lutein)) pantoprazole 40 mg tablet,delayed 40 mg PO HS #30 tabs 11/21/24 12/20/24 Rx release rifampin 300 mg capsule 300 mg PO BID #77 caps 11/21/24 12/20/24 Rx tamsulosin 0.4 mg capsule 0.4 mg PO HS #30 caps 11/21/24 12/20/24 Rx trazodone 50 mg tablet 25 mg (1/2 x 50 mg) PO HS #30 tabs 11/21/24 12/20/24 Rx vit C 250 mg-vit E 90 mg-zinc 40 1 tab PO BID #30 caps 11/21/24 12/20/24 Rx mg-copper 1 ob-pysadj-cttyoe capsule (PreserVision AREDS-2) cefazolin 2 gram/100 mL in 0.9 % 100 ml IV Q8H #1,200 mL 11/25/24 12/20/24 Rx sodium chloride intravenous solution metformin 500 mg tablet 500 mg PO BIDM #60 tabs 11/25/24 12/20/24 Rx pregabalin 150 mg capsule 150 mg PO TID #90 caps 11/25/24 12/20/24 Rx amlodipine 5 mg tablet 2.5 mg (1/2 x 5 mg) PO QAM 30 days 12/08/24 12/20/24 Rx #15 tabs buprenorphine 5 mcg/hour weekly 1 patch transdermal Q7D chronic 12/08/24 12/20/24 Rx transdermal patch (Butrans) pain syndrome 30 days #4 ea sennosides 8.6 mg tablet (Senna 8.6 mg PO QAM 30 days #30 tabs 12/08/24 12/20/24 Rx Lax) Hospital Stay Data Consultations 12/19/24 17:16 ED Decision to Admit Stat 12/19/24 19:07 Consult Orthopedic Surgery Routine Diagnostic Imagining Performed Lumbar Spine X-Ray 12/22/24 07:47 XR lumbar spine 2-3V CLINICAL HISTORY: back pain COMPARISON STUDY: 12/04/2024 and 11/29/2024 FINDINGS: Stable calculus lower left kidney. Stable posterior metallic fusion from L2 through S1. Stable minimal height loss at the L2 vertebral body fracture. Stable fracture at the right transverse process of L2. No new fracture or subluxation seen. IMPRESSION: Stable exam. ACT 112: Negative or not required by law. Electronically signed by: Hong Dhillon M.D. 12/22/2024 9:06 AM Pending Results Patient Have Any Pending Studies at Discharge: Yes Discharge Instructions Given to Patient (Per Discharging Provider) You presented to the hospital with fevers and worsening back pain. We obtained labs and blood cultures which were not concerning for infection. You did not have any fevers while in the hospital. Dr Vang ordered lumbar spine x-rays this morning which were stable. He is going to follow up with you in the office for your left leg pain. You worked with PT and OT who felt you were safe to return home. MEDICATION CHANGES: Please continue your antibiotics from your previous admission including IV Ancef and oral rifampin until 12/30/2024 Please continue to take medications as needed for pain control SUMMARY OF TEST RESULTS: Lumbar spine x-rays showed stable fusion PENDING TEST RESULTS: Blood cultures preliminary no growth in 48 hours RECOMMENDATIONS FOR FOLLOW-UP: Please follow up with your PCP after hospitalization on 12/26/2024 at 10:00am Please follow up with Dr. Vang OTHER INSTRUCTIONS: Seek medical attention if you have: * temperature above 101 * chest pain or trouble breathing * abdominal pain, nausea, vomiting * diarrhea, dark stools or bloody stools * any unanswered questions or concerns Call 911 if symptoms are severe. It has been a pleasure taking care of you. Please take care of yourself. If you have any questions regarding your recent hospitalization please contact [facility] and request Leo Jin @ [phone]. Home Health Attestation I certify that this patient is under my care and that I, or a physicians cardiovascular physician assistant working with me, had a face to-face encounter that meets the home health [id number] encounter requirements with this patient. The encounter with the patient was in whole, or in part, for the following medical condition, which is the primary reason for home health care (list medical condition): I certify that, based on my findings, the following services are medically necessary home health services: My clinical findings support the need for the above services because: Further, I certify that my clinical findings support that this patient is homebound (i.e. absences from home require considerable and taxing effort and are for medical reasons or zoroastrian services or infrequently or of short durati on when for other reasons) because: Certification for Home Health Services: Based on the above findings, I certify that this patient is confined to the home and needs intermittent custodial care, physical therapy and/or speech therapy or continues to need occupational therapy. The patient is under my care, and I have initiated the establishment of the plan of care. This patient will be followed by a physician who will periodically review the plan of care. Total Time Total Time Spent Total Time Spent (In Minutes): I spent a total of 35 minutes coordinating, documenting and providing care for this patient excluding time spent in the performance of separately billed services or time spent by another provider/QHP. Supervising Physician Co-Signing Physician Notes Patient seen bedside. Patient is comfortable; not in any distress. no fever since admission walking without any issues. Orthospine evaluated the patient; plan for outpatient follow up I have reviewed the advanced practitioner's documentation, and I agree with, and take responsibility for the plan of care I spent a total of 20 minutes coordinating, documenting, and providing care for this patient excluding time spent in the performance of separately billed services. All of the aforementioned completed while collaborating with the assigned advanced practitioner for a full treatment plan
[2024-12-22] MEDS: LANTUS PER UNIT CHARGE SC ONE (12:46)
== END 2024-12-22 14:58 | disposition home health service (06) | DRG 552 ==
LOC: ED 13:55 → EDINP 17:49 → SUATTDRO 17:49 → 2S 19:08 → 3E 12-20 17:08